=== PATIENT | female | born 1965 | race Hispanic/Latino ===

== ENCOUNTER → 2018-11-10 12:06 | Outpatient (CLI) | payer OTHER, MEDICAID, SELFPAY ==
--- NOTE | 2018-11-10 12:12 | DI.RAD.S_ITS ---
PROCEDURE: XR CERVICAL SPINE 2V OR 3V INDICATIONS: neck pain s/p fall TECHNIQUE: 3 view(s) of the cervical spine were acquired. COMPARISON: None. FINDINGS: Bones: No fractures or dislocations to the C7-T1 level. There is straightening of normal cervical lordosis. The lateral masses of C1 appear intact on the odontoid view. No suspicious bony lesions. Soft tissues: No prevertebral soft tissue swelling. IMPRESSION: No compression fracture or spondylolisthesis in cervical spine. Dictated by: Rafael Rodas M.D. on 11/10/2018 at 13:57 Approved by: Rafael Rodas M.D. on 11/10/2018 at 13:58
[2018-11-10 12:45] LABS: Hemoglobin 13.7 g/dL (12.0-16.0); Mean Corpuscular HGB Conc 31.9 % (30-36); Mean Corpuscular Hemoglobin 27.7 PG (26-34); Mean Corpuscular Volume 86.7 fL (80-100); Platelet Count 321 X10^3/uL (150-400); Red Blood Cell Count 4.95 X10^6/uL (4.0-5.2); Red Cell Distribution Width 15.2 % (11.6-14.8); White Blood Cell Count 5.8 X10^3/uL (4.5-11.0)
[2018-11-10 12:55] LABS: Hemoglobin A1C% w Est Avg Glu 5.7 % (4.0-6.0)
[2018-11-10 12:56] LABS: Alanine Aminotransferase 39 IU/L (9-52); Albumin 4.7 g/dL (3.5-5.0); Albumin Globulin Ratio 1.3 (1.0-2.8); Alkaline Phosphatase 72 U/L (38-126); Aspartate Aminotransferase 40 IU/L (14-36); BUN Creatinine Ratio 18.6 (6-22); Bilirubin Total 0.5 mg/dL (0.2-1.3); Blood Urea Nitrogen 13 mg/dL (7-17); Calcium 9.8 mg/dL (8.4-10.2); Carbon Dioxide 30 mmol/L (22-32); Chloride 105 mmol/L (98-107); Cholesterol 203 mg/dL (140-199); Estimated Glomerular Filt Rate > 60.0 mL/min (>60); Globulin 3.6 g/dL (1.7-4.1); Glucose 99 mg/dL (70-100); HDL Cholesterol 56 mg/dL (40-60); HEMOLYSIS < 15 (0-50); LDL Cholesterol Calculated 109 mg/dL (<100); Potassium 4.6 mmol/L (3.4-5.1); Sodium 143 mmol/L (137-145); Total Protein 8.3 g/dL (6.3-8.2); Triglycerides 188 mg/dL (35-150)
[2018-11-10 13:24] LABS: Neutrophils Absolute Manual 2494 /uL (3000-5900); Total Cells Counted 100
[2018-11-10 13:25] LABS: Anisocytosis 1+
[2018-11-10 13:59] LABS: TSH w/ Reflex to FT4 0.03 uIU/mL (0.47-4.68)
[2018-11-10 14:27] LABS: Free T4, Direct Thyroxine 0.35 ng/dL (0.78-2.19)
== END ==
PROVIDERS: Visit Provider Nurse Practitioner
DX: M54.2 Cervicalgia (principal); I10 Essential (primary) hypertension; R73.9 Hyperglycemia, unspecified; Z91.81 History of falling
CPT/HCPCS: 36415; 72040; 80053; 80061; 83036; 84439; 84443; 85025

== ENCOUNTER → 2018-11-18 07:37 | Outpatient (CLI) | payer OTHER, MEDICAID, SELFPAY ==
[2018-11-18 09:21] LABS: Prolactin 13.7 ng/mL (3.0-18.6)
[2018-11-18 09:35] LABS: Cortisol AM (Before 10AM) 8.86 ug/dL (4.46-22.7)
[2018-11-18 09:41] LABS: Free T3, Triiodothyronine Free 4.35 pg/mL (2.77-5.27)
[2018-11-19 16:07] LABS: Adrenocorticotropic Hormone 24 pg/mL (6-50)
[2018-11-20 17:13] LABS: Growth Hormone < 0.1 ng/mL (< 7.2)
[2018-11-20 20:13] LABS: Z- Score (Female) -0.5 SD (-2.0 - +2.0)
== END ==
PROVIDERS: Visit Provider Nurse Practitioner
DX: E03.9 Hypothyroidism, unspecified (principal); R63.5 Abnormal weight gain; R79.89 Other specified abnormal findings of blood chemistry; R79.9 Abnormal finding of blood chemistry, unspecified
CPT/HCPCS: 36415; 82024; 82533; 83001; 83002; 84146; 84305; 84443; 84481; 86277

== ENCOUNTER 2019-01-23 23:34 | Emergency (ER) | payer OTHER, MEDICAID, SELFPAY ==
[2019-01-23 23:41] VITALS: BP 195/93; PULSE 83; RESP 17; TEMP 37.1; O2SAT 98; BMI 34.0
--- NOTE | 2019-01-23 23:55 | DI.CT.S_ITS ---
PROCEDURE: CT HEAD/BRAIN WO CON INDICATIONS: sudden onset severe [place] TECHNIQUE: Noncontrast 4.5 mm thick angled axial sections acquired from the foramen magnum to the vertex, with coronal and sagittal reformats. For radiation dose reduction, the following was used: automated exposure control, adjustment of mA and/or kV according to patient size. COMPARISON: None. FINDINGS: Image quality: Excellent. CSF spaces: Basal cisterns are patent. No extra-axial fluid collections. Ventricles are normal in size and shape. Brain: No midline shift. No intracranial masses or hemorrhage. Oh-white matter interface is normal. Skull and face: Calvarium and visualized facial bones are intact, without suspicious lesions. Sinuses: Visualized sinuses and mastoids are clear. IMPRESSION: Normal intracranial study. No acute intracranial hemorrhage is seen. Note: No significant discrepancy from the preliminary report. Dictated by: Salinas Ruiz M.D. on 01/24/2019 at 8:43 Approved by: Salinas Ruiz M.D. on 01/24/2019 at 8:43
[2019-01-24 00:02] VITALS: BP 172/88; PULSE 73; RESP 21; O2SAT 98
[2019-01-24 00:30] VITALS: BP 159/79; PULSE 75; RESP 16; O2SAT 98
--- NOTE | 2019-01-24 00:43 | ED_ITS ---
HPI - Headache General Chief Complaint: Headache Stated Complaint: severe headache Time Seen by Provider: 01/23/19 23:46 Source: patient and family Mode of arrival: ambulatory Limitations: no limitations History of Present Illness HPI Narrative: Patient comes emergency department complaining of a headache after getting in an argument with her daughter and has been. Patient states that she believes her was seen bad things about her to her daughter, and that she became very upset. Patient started to cry very hard, and when she began crying hard, she developed a headache that stretch from 1 ear to the o ther. Patient states that she also felt nauseated at the same time. Patient's states that the patient has a history of migraines, but this is not like her migraines. Patient also has a history of catatonic state when she is upset. The patient denies any neck pain or stiffness. She denies any visual changes. No numbness and tingling in her extremities. No weakness or difficulty with balance or gait. No other complaints at this time. Patient has a history of hypertension intermittently, but does not take any medications for this. Related Data Previous Rx's Medication Instructions Recorded hydroxyzine HCl 25 mg tablet 25 mg PO Q6H PRN #30 tab 11/17/18 levothyroxine 25 mcg tablet 25 mcg PO DAILY #30 tab 11/17/18 citalopram 40 mg tablet 40 mg PO DAILY #30 tab 11/30/18 simvastatin 20 mg tablet 20 mg PO BEDTIME #30 tab 11/30/18 desogestrel 0.15 mg-ethinyl 1 tab PO DAILY #84 tab 12/09/18 estradiol 0.03 mg tablet white petrolatum-mineral oil 94 1 applictn EYE-BOTH BEDTIME PRN 12/09/18 %-3 % eye ointment #3.5 gram Allergies Allergy/AdvReac Type Severity Reaction Status Date / Time No Known Drug Allergies Allergy Verified 01/23/19 23:45 Review of Systems Review of Systems ROS Unobtainable: All systems reviewed & are unremarkable except as noted in HPI and below Constitutional Constitutional: Denies chills, Denies fatigue, Denies fever(s), Denies frequent falls, Reports headache(s), Denies lethargy and Denies weakness Eyes Eyes: Denies change in vision, Denies eye discharge, Denies irritation and Denies loss of vision ENT Ears, Nose, Mouth, and Throat: Denies change in voice, Denies dizziness, Reports headache(s), Denies neck pain, Denies sore throat and Denies throat swelling Cardiovascular Cardiovascular: Denies chest pain, Denies irregular heart rhythm, Denies lightheadedness, Denies palpitations, Denies dyspnea, Denies dyspnea on exertion and Denies orthopnea Respiratory Respiratory: Denies cough, Denies dyspnea, Denies dyspnea on exertion and Denies wheezing Gastrointestinal Gastrointestinal: Denies abdominal pain, Denies change in bowel habits, Denies diarrhea, Reports nausea and Denies vomiting Genitourinary Genitourinary: Denies hematuria, Denies flank pain, Denies urinary incontinence and Denies urinary urgency Musculoskeletal Musculoskeletal: Denies back pain, Denies muscle weakness, Denies neck pain, Denies numbness and Denies tingling Integumentary/Breasts Skin/Breast: Denies pruritus, Denies erythema, Denies rash and Denies wounds Neurologic Neurologic: Denies behavioral changes, Denies confusion, Denies dizziness, Denies frequent falls, Reports headache(s), Denies loss of vision, Denies numbness, Denies tingling and Denies weakness Psychiatric Psychiatric: Denies anxiety, Denies behavioral changes, Denies confusion, Denies depression, Denies homicidal ideation and Denies suicidal ideation Endocrine Endocrine: Denies fatigue, Denies flushing and Denies palpitations Hematologic/Lymphatic Hematologic/Lymphatic: Denies easy bruising Allergic/Immunologic Allergic/Immunologic: Denies urticaria, Denies throat swelling and Denies wheezing [facility] Medical History Anxiety (Chronic) Chronic back pain (Chronic) Depression (Chronic) Fracture of right foot (Resolved) Headache (Chronic) Heel pain (Chronic) High cholesterol (Chronic) High triglycerides (Chronic) Migraines (Chronic) Prediabetes (Chronic) Vision disorder (Chronic) Surgical History Anesthesia (Resolved) Previous section (Resolved) Family History (Updated 11/15/18 @ 23:08 by Zo Hart) Father Cancer Mother History of heart disease Brother No problems noted. Social History Smoking Status: Never smoker Family History Father Cancer Mother History of heart disease Brother No problems noted. Social History Smoking Status: Never smoker Exam Initial Vital Signs Initial Vital Signs: Vital Signs Temperature 98.8 F 01/23/19 23:41 Pulse Rate 83 01/23/19 23:41 Respiratory Rate 17 01/23/19 23:41 Blood Pressure 195/93 H 01/23/19 23:41 Pulse Oximetry 98 01/23/19 23:41 Const General: cooperative and well developed Nutritional Appearance: well nourished Orientation: alert, awake, oriented x3 and not confused HENMT Head: normocephalic and atraumatic Ears: external ears normal and TM's normal bilaterally Nose: external nose normal and No nasal discharge Face and sinus: face symmetric and No dry mucous membranes Mouth: oral mucosae normal and moist mucous membranes Teeth and gingiva: dentition normal Eyes General: appearance normal, both eyes and all related structures Eyelids: eyelids normal Conjunctivae: conjunctivae normal Sclera: sclerae normal Pupils: PERRL EOM: EOM intact bilaterally Neck Neck: normal visual inspection, no meningeal signs, trachea midline, No lymphadenopathy, No midline deformity and No JVD Lymphatic: No lymphedema Other: Patient has full range of motion, including that she is able to flex her neck to touch her chin to her chest. Chest Chest: normal inspection of the chest Resp Effort & Inspection: normal respiratory effort, able to speak in complete sentences, no respiratory distress and no use of accessory muscles Auscultation: clear to auscultation bilaterally, no rales, no rhonchi and no wheezes Cardio Rate: regular rate Rhythm: regular rhythm Heart Sounds: no click, no gallops, no murmurs and no rubs Pulses: normal peripheral pulses GI Inspection: non-distended Palpation: soft, no hepatosplenomegaly, No guarding, No pulsatile mass and No tender Back/Spine/Pelvis Back: No CVA tenderness Cervical Spine: cervical ROM normal and No pain with cervical ROM Thoracic/Lumbar Spine: thoracic and lumbar spine normal to inspection Skin General: no rashes or lesions noted, No jaundice and No petechiae Neuro General: alert, oriented x3, gait normal and no focal motor deficits Speech: speech normal Extrem General: full ROM, no clubbing, cyanosis or edema, no pedal edema and no calf tenderness Psych Appearance: well kempt Mental Status: mental status grossly normal Attitude: cooperative Thought Content: normal and suicidality Judgment: judgment good Course Course Course Narrative: Patient was sent for CT scan of the head, which was found to be negative. The patient was found to be improving symptomatically by the time she returned from CT scan. She was treated symptomatically with Toradol and Zofran. I felt the patient was stable for discharge home. Patient does not display meningeal signs, and is improving. She has no neurologic symptoms, it additionally, her CT scan is negative. I do not feel it is likely she has a subarachnoid hemorrhage. We have discussed home management of symptoms, as well as the usual indications for return. Her is with her, and can take her home. Orders Ordered: Discontinued Medications Ketorolac Tromethamine (Toradol) 30 mg IV NOW ONE Stop: 01/24/19 00:43 Last Admin: 01/24/19 00:50 Dose: 30 mg Documented by: LÁZARO Ondansetron HCl (Zofran) 4 mg IV NOW ONE Stop: 01/24/19 00:43 Last Admin: 01/24/19 00:50 Dose: 4 mg Documented by: LÁZARO Vital Signs Vital signs: Vital Signs - 8 hr 01/23/19 23:41 01/24/19 00:02 01/24/19 00:30 Temperature 98.8 F Pulse Rate 83 73 75 Respiratory Rate 17 21 16 Blood Pressure 195/93 H Blood Pressure [Right Arm] 172/88 H 159/79 H Pulse Oximetry 98 98 98 MDM - Headache Medical Records Attestation: I reviewed the patient's medical records. Imaging Data CT scan - head: Radiologist's impression: PROCEDURE: CT HEAD/BRAIN WO CON INDICATIONS: sudden onset severe [place] TECHNIQUE: Noncontrast 4.5 mm thick angled axial sections acquired from the foramen magnum to the vertex, with coronal and sagittal reformats. For radiation dose reduction, the following was used: automated exposure control, adjustment of mA and/or kV according to patient size. COMPARISON: None. FINDINGS: Image quality: Excellent. CSF spaces: Basal cisterns are patent. No extra-axial fluid collections. Ventricles are normal in size and shape. Brain: No midline shift. No intracranial masses or hemorrhage. Oh-white matter interface is normal. Skull and face: Calvarium and visualized facial bones are intact, without suspicious lesions. Sinuses: Visualized sinuses and mastoids are clear. IMPRESSION: Normal intracranial study. No acute intracranial hemorrhage is seen. Note: No significant discrepancy from the preliminary report. Dictated by: Salinas Ruiz M.D. on 01/24/2019 at 8:43 Approved by: Salinas Ruiz M.D. on 01/24/2019 at 8:43 Discharge Plan Departure Patient Disposition: Home Clinical Impression: Headache Qualifiers: Headache type: tension-type Headache chronicity pattern: acute headache Intractability: not intractable Qualified Code(s): G44.209 - Tension-type heada karen, unspecified, not intractable Hypertension Qualifiers: Hypertension type: unspecified Qualified Code(s): I10 - Essential (primary) hypertension Discharge Date/Time: 01/24/19 01:12 Instructions: DI for High Blood Pressure, DI for Headache Prescriptions: No Action citalopram 40 mg tablet 40 mg PO DAILY Qty: 30 RF: 1 simvastatin 20 mg tablet 20 mg PO BEDTIME Qty: 30 RF: 1 levothyroxine [Synthroid] 25 mcg tablet 25 mcg PO DAILY Qty: 30 RF: 2 hydroxyzine HCl 25 mg tablet 25 mg PO Q6H PRN (Reason: anxiety) Qty: 30 RF: 0 Systane Nighttime 94-3 % ointment 1 applictn EYE-BOTH BEDTIME PRN (Reason: dry eye(s)) Qty: 3.5 RF: 5 desogestrel-ethinyl estradiol 0.15-0.03 mg tablet 1 tab PO DAILY Qty: 84 RF: 3 Referrals: Keshia Nieves ARNP [Primary Care Provider] -
[2019-01-24] MEDS: KETOROLAC 60 MG/2 ML VIAL 30 MG IV (00:50)
[2019-01-24] MEDS: ONDANSETRON 4 MG/2 ML INJ IV (00:50)
[2019-01-24 00:53] VITALS: BP 159/79; PULSE 65; RESP 17; O2SAT 97
== END 2019-01-24 01:12 | disposition home or self-care (01) ==
PROVIDERS: Emergency Provider Emergency Medicine; PCP Nurse Practitioner
DX: G44.209 Tension-type headache, unspecified, not intractable (principal); I10 Essential (primary) hypertension
CPT/HCPCS: 36591; 70450; 96374; 96375; 99283; 99284; J1885; J2405

== ENCOUNTER → 2019-02-15 13:29 | Outpatient (CLI) | payer OTHER, MEDICAID, SELFPAY ==
--- NOTE | 2019-02-15 13:31 | DI.US.S_ITS ---
PROCEDURE: US PELVIC COMPLETE INDICATIONS: POST MENOPAUSAL BLEEDING TECHNIQUE: Real-time scanning was performed of the pelvic organs, with image documentation. Additional endovaginal scanning was necessary due to incomplete visualization of the adnexal and endometrial structures by transabdominal scanning. COMPARISON: [facility] Ultrasound, US, US PELVIC COMPLETE WITH TRANSVAGINAL, 11/13/2017, 13:50. FINDINGS: Transabdominal scanning: Limited scanning through the kidneys shows no hydronephrosis. No pathologic free abdominal or pelvic fluid. Endovaginal scanning: Uterus: Uterus is normal in size at 8.3 x 3.5 x 5.4 cm. The endometrium suboptimally visualized and cannot be accurately assessed. Mass cannot be excluded. 2.0 x 1.2 x 1.2 cm anterior intramural fibroid. Ovaries: Ovaries normal bilaterally measuring 1.8 x 1.0 x 1.4 cm on the right and 1.9 x 1.0 x 1.1 cm on the left. IMPRESSION: 1. The endometrial complex is suboptimally visualized and cannot be accurately assessed. If indicated, pre and post contrast gynecologic protocol MRI could be performed for further assessment. 2. No significant change in uterine fibroid. Dictated by: Enzo BLAND Interpreted: Cristina Jessica MD on 02/15/2019 at 14:25 Approved by: Cristina Jessica M.D. on 02/15/2019 at 17:07
== END ==
PROVIDERS: PCP Nurse Practitioner; Visit Provider Nurse Practitioner
DX: N95.0 Postmenopausal bleeding (principal)
CPT/HCPCS: 76830; 76856

== ENCOUNTER 2019-02-22 16:45 | Outpatient (RCR) | payer OTHER, MEDICAID, SELFPAY ==
--- NOTE | 2018-12-14 14:30 | PT.OIE ---
Current Diagnoses Cervicalgia (12/14/18) Pain in thoracic spine (12/14/18) History of falling (12/14/18) Past Medical History (Last Updated 11/15/18 @ 23:07 by Zo Hart) Anxiety (Chronic) Chronic back pain (Chronic) Depression (Chronic) Headache (Chronic) Heel pain (Chronic) High cholesterol (Chronic) High triglycerides (Chronic) Migraines (Chronic) Prediabetes (Chronic) Vision disorder (Chronic) Fracture of right foot (Resolved) Past Surgical History (Last Updated 11/15/18 @ 23:07 by Zo Hart) Anesthesia (Resolved) Previous section (Resolved) Provider Visit Care Team Role Provider Type MIGUEL Anna Attending Provider Advanced Clinical Laboratory Scientist Primary Care Provider Specialty: Family Practice Address: [address] [place] [address], [facility] Email: Physical Therapy Initial Evaluation PT-OP-A Visit Information Start: 12/14/18 16:58 Freq: Status: Active Protocol: Document 12/14/18 13:45 DCW (Rec: 12/14/18 17:14 DCW [id number]) Out-Patient Physical Therapy Visit Information Visit Information Visit Type Initial Evaluation Visit Start Time 13:45 Visit Stop Time 14:30 Total Visit Minutes 45 Visit Number 1 Number of MASH GRINDER Visits 0 Evaluation Information Evaluation Date 12/14/18 PT-OP-B Current Condition Start: 12/14/18 16:58 Freq: Status: Active Protocol: Document 12/14/18 13:45 DCW (Rec: 12/14/18 17:14 DCW [id number]) Current Condition History of Current Condition Onset Date 2 months Current Complaints pain in neck, shoulders, and low back History of Current Condition Pt is a 53 year old swazi- speaking 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 Pt has a two month history of neck, shoulder, and low back pain after falling while chasing after a young grandchild who was running toward that road. Pt notes she has constant pain that is worsened when trying to pick anything up, and has radiating pain down along her arm to her wrist bilaterally. Pt notes that when her pain is worsening, she can't do anything, and just sits back in a recliner. Pt also notes that she saw a chiropractor for her neck pain, but only went once because it made the pain worse. Prior Treatments and Tests Cervical X-ray: No compression fracture or spondylolisthesis in cervical spine. per Rafael Rodas M.D. on 11/10/2018 PT-OP-C Subjective Start: 12/14/18 16:58 Freq: Status: Active Protocol: Document 12/14/18 13:45 DCW (Rec: 12/14/18 17:14 DCW [id number]) OP-PT Subjective Patient Comments Patient Comments Pt feels her pain has been worsening over the ast two months Patient Reported Progress Worse Patient Questionnaires Neck Disability Index NDI Score 27/45 = 60% Neck Disability Index Impairment 60 to 79% Impaired (Score 30- 39) OP-PT Pain Assessment Pain Assessment Grid Paper Pain Assessment Grid Completed No PT-OP-F Manual Assessment Start: 12/14/18 16:58 Freq: Status: Active Protocol: Document 12/14/18 13:45 DCW (Rec: 12/14/18 17:14 DCW [id number]) Manual Assessments Soft Tissue Assessment Soft Tissue Mobility Assessment Severe tone and tenderness to palpation 3/4: Wincing and withdraw along bilateral upper traps, scalenes, Quadratus lumborum, and lumbar paraspinals. Joint Mobility Assessment Joint Mobility Assessment Pt winces and cries out with pain during passive neck flexion, as well as with mild palpation of C7 PT-OP-J Posture/Palpation/Skin Start: 12/14/18 16:58 Freq: Status: Active Protocol: Document 12/14/18 13:45 DCW (Rec: 12/16/18 14:09 DCW [id number]) Posture Evaluation Position Sitting Evaluation View Lateral Head/C-Spine Posture Flexed Forward Head Pelvis Posture Posterior Tilted Palpation Assessment Location Three Palpation Location Bilateral Quadratus Lumborum Palpation Findings Soft Tissue Tightness Spasm Muscle Guarding Tenderness Two Palpation Location Bilateral Upper Trap Palpation Findings Soft Tissue Tightness Spasm Muscle Guarding Tenderness One Palpation Location C7 Palpation Findings Tenderness Palpation Details Pt cries out in pain with any palpation of C7 PT-OP-K Range of Motion Start: 12/14/18 16:58 Freq: Status: Active Protocol: Document 12/14/18 13:45 DCW (Rec: 12/16/18 14:09 DCW [id number]) Cervical Spine Range of Motion Cervical Spine Active Degrees Testing Position Sitting Flexion 60 Extension 45 Rotation Left 68 Rotation Right 66 Lateral Flexion Left 25 Lateral Flexion Right 23 ROM Limitations Soft Tissue Tightness Muscle Weakness Muscle Tone Pain Shoulder Goniometric Range of Motion Shoulder Right Active Testing Position Sitting Flexion 98 Abduction 124 Left Active Testing Position Sitting Flexion 87 Abduction 120 PT-OP-L Special Tests Start: 12/14/18 16:58 Freq: Status: Active Protocol: Document 12/14/18 13:45 DCW (Rec: 12/16/18 14:09 DCW [id number]) Special Tests Cervical Spine Special Tests Slump Test Results Severe C7 pain Traction Test Results Negative Spurling's Test Test Results Negative Passive Neck Flexion Test Results Severe C7 pain Foraminal Compression Test Results Negative PT-OP-M Strength Start: 12/14/18 16:58 Freq: Status: Active Protocol: Document 12/14/18 13:45 DCW (Rec: 12/16/18 14:09 DCW [id number]) Trunk Strength Trunk Manual Muscle Testing Core Stabilization Pt has difficulty caron TrA during posterior pelvic tilt: TrA MMT 3-/5 Shoulder Strength Shoulder Manual Muscle Testing Right Flexion 3- Fair- Abduction (C5) 3- Fair- External Rotation 4 Good Internal Rotation 4 Good Left Flexion 3- Fair- Abduction (C5) 3- Fair- External Rotation 4 Good Internal Rotation 4 Good PT-OP-Q Treatments Start: 12/14/18 16:58 Freq: Status: Active Protocol: Document 12/14/18 13:45 DCW (Rec: 12/16/18 14:09 DCW [id number]) Therapeutic Exercises Supine Exercises PPT /c TrA Supine Exercise Name PPT /c TrA contraction Reps/Minutes 5 sec hold Sitting Exercises Anterior Scalene stretch Sitting Exercise Name Anterior Scalene stretch Side bilateral Comments Lateral cervical flexion, then look up Upper Trap Stretch Sitting Exercise Name Upper Trap stretch Side bilateral Comments Lateral cervical flexion PT-OP-T Assessment and Plan Start: 12/14/18 16:58 Freq: Status: Active Protocol: Document 12/14/18 13:45 DCW (Rec: 12/16/18 14:09 DCW [id number]) Physical Therapy Assessment Rehab Potential Rehabilitation Potential Good Evaluation Complexity Number of Personal Factors/Comorbidities 1-2 Number of Body Systems Impaired 3 Clinical Presentation at Evaluation Evolving Impairments Impairments Functional Activities Pain Posture ROM Soft Tissue Mobility Strength Tone Goals Four Impairment Restricted Shoulder ROM Group Home Goal (LTG) Pt to display flexion and abduction ROM of bilateral shoulder to at least 140? LTG Duration 02/14/19 Three Impairment Weakness Short Term Goal (STG) Pt to display shoulder MMT of 4/5 STG Duration 01/14/19 Group Home Goal (LTG) Pt to display TrA MMT of 4/5 LTG Duration 02/14/19 Two Impairment Pt complains of pain with picking up anything heavier than 5 pounds Electronics Assembler Goal (LTG) Pt to lift grandchild with no reports of increased back pain LTG Duration 02/14/19 One Impairment Pt does not have an appropriate home exercise program Short Term Goal (STG) Pt to be independent and complaint with an appropriate HEP STG Duration 01/14/19 Assessment Summary Assessment Pt currently difficult to DDx, has most of her pain appears to occur with cervical motion or palpation directly at C7, however recent x-ray entirely negative. Pt does exhibit significant tone in both upper traps, bilateral scalenes, and levators, along with additional QL tone. Due to time constraints, pt's evaluation focused mainly on her cervical spine at this time, and her lumbar spine should be more closely assessed at an upcoming follow -up appointment, however she did have notable TrA weakness. Pt should benefit from skilled therapy focused on decreasing tone, improving strength and ROM, and improving posture to decrease forward head. Physical Therapy Plan Frequency and Duration Frequency of Treatment 2x/Week Duration of Treatment 10 weeks Plan of Care Start Date 12/14/18 Plan of Care End Date 02/22/19 Therapeutic Interventions Therapeutic Interventions Aquatic Therapy Home Exercise Program Joint Mobilizations Manual Therapy Neuromuscular Re-education Patient/Caregiver Education Self-Care/Home Management Soft Tissue Mobilization Therapeutic Activities Therapeutic Exercises Modalities Cold Pack/Ice Massage Electric Stimulation Hot Packs Ultrasound Next Visit Focus/Plan Next Note Type Treatment Note Next Visit Plan Flexibility/STM of cervical spine/paraspinals, lumbar STM, manual traction, pain-control modalities, increased core and shoulder strength. Assess low back as indicated
--- NOTE | 2018-12-15 14:30 | PT.OPPOC ---
Current Diagnoses Cervicalgia (12/14/18) Pain in thoracic spine (12/14/18) History of falling (12/14/18) Provider Visit Care Team Role Provider Type MIGUEL Anna Attending Provider Advanced Coiler Operator Primary Care Provider Specialty: Family Practice Address: [address] [place] [address], [facility] Email: Plan Of Care PT-OP-T Assessment and Plan Start: 12/14/18 16:58 Freq: Status: Active Protocol: Document 12/14/18 13:45 DCW (Rec: 12/16/18 14:09 DCW [id number]) Physical Therapy Assessment Rehab Potential Rehabilitation Potential Good Evaluation Complexity Number of Personal Factors/Comorbidities 1-2 Number of Body Systems Impaired 3 Clinical Presentation at Evaluation Evolving Impairments Impairments Functional Activities Pain Posture ROM Soft Tissue Mobility Strength Tone Goals Four Impairment Restricted Shoulder ROM Hydrogenation Operator Goal (LTG) Pt to display flexion and abduction ROM of bilateral shoulder to at least 140? LTG Duration 02/14/19 Three Impairment Weakness Short Term Goal (STG) Pt to display shoulder MMT of 4/5 STG Duration 01/14/19 Intermediate Goal (LTG) Pt to display TrA MMT of 4/5 LTG Duration 02/14/19 Two Impairment Pt complains of pain with picking up anything heavier than 5 pounds Hydrogenation Operator Goal (LTG) Pt to lift grandchild with no reports of increased back pain LTG Duration 02/14/19 One Impairment Pt does not have an appropriate home exercise program Short Term Goal (STG) Pt to be independent and complaint with an appropriate HEP STG Duration 01/14/19 Assessment Summary Assessment Pt currently difficult to DDx, has most of her pain appears to occur with cervical motion or palpation directly at C7, however recent x-ray entirely negative. Pt does exhibit significant tone in both upper traps, bilateral scalenes, and levators, along with additional QL tone. Due to time constraints, pt's evaluation focused mainly on her cervical spine at this time, and her lumbar spine should be more closely assessed at an upcoming follow -up appointment, however she did have notable TrA weakness. Pt should benefit from skilled therapy focused on decreasing tone, improving strength and ROM, and improving posture to decrease forward head. Physical Therapy Plan Frequency and Duration Frequency of Treatment 2x/Week Duration of Treatment 10 weeks Plan of Care Start Date 12/14/18 Plan of Care End Date 02/22/19 Therapeutic Interventions Therapeutic Interventions Aquatic Therapy Home Exercise Program Joint Mobilizations Manual Therapy Neuromuscular Re-education Patient/Caregiver Education Self-Care/Home Management Soft Tissue Mobilization Therapeutic Activities Therapeutic Exercises Modalities Cold Pack/Ice Massage Electric Stimulation Hot Packs Ultrasound Next Visit Focus/Plan Next Note Type Treatment Note Next Visit Plan Flexibility/STM of cervical spine/paraspinals, lumbar STM, manual traction, pain-control modalities, increased core and shoulder strength. Assess low back as indicated Plan of Care Dates Plan of Care Start Date 12/14/18 Plan of Care End Date 02/22/19 Please Sign and Return: I have reviewed this Plan of Care and certify that the skilled therapy services above are required to meet the patient?s needs. Physician Signature Date Printed Name and Credentials Clinical Instructor Signature Printed Name and Credentials
--- NOTE | 2018-12-17 14:16 | PT.OTN ---
Current Diagnoses Cervicalgia (12/17/18) Pain in thoracic spine (12/17/18) History of falling (12/17/18) Physical Therapy Treatment Note PT-OP-A Visit Information Start: 12/14/18 16:58 Freq: Status: Active Protocol: Document 12/17/18 13:45 DCW (Rec: 12/17/18 14:15 DCW [id number]) Out-Patient Physical Therapy Visit Information Visit Information Visit Type Treatment Note Visit Start Time 13:45 Visit Stop Time 14:30 Total Visit Minutes 45 Visit Number 2 Number of BELT REPAIRER Visits 0 Evaluation Information Evaluation Date 12/14/18 PT-OP-B Current Condition Start: 12/14/18 16:58 Freq: Status: Active Protocol: Document 12/14/18 13:45 DCW (Rec: 12/14/18 17:14 DCW [id number]) Current Condition History of Current Condition Onset Date 2 months Current Complaints pain in neck, shoulders, and low back History of Current Condition 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 Pt has a two month history of neck, shoulder, and low back pain after falling while chasing after a young grandchild who was running toward that road. Pt notes she has constant pain that is worsened when trying to pick anything up, and has radiating pain down along her arm to her wrist bilaterally. Pt notes that when her pain is worsening, she can't do anything, and just sits back in a recliner. Pt also notes that she saw a chiropractor for her neck pain, but only went once because it made the pain worse. Prior Treatments and Tests Cervical X-ray: No compression fracture or spondylolisthesis in cervical spine. per Rafael Rodas M.D. on 11/10/2018 PT-OP-C Subjective Start: 12/14/18 16:58 Freq: Status: Active Protocol: Document 12/17/18 13:45 DCW (Rec: 12/17/18 14:15 DCW [id number]) OP-PT Subjective Patient Comments Patient Comments Pt has been able to perform her HEP stretching, and notes that her neck has been feeling better. PT-OP-F Manual Assessment Start: 12/14/18 16:58 Freq: Status: Active Protocol: Document 12/14/18 13:45 DCW (Rec: 12/14/18 17:14 DCW [id number]) Manual Assessments Soft Tissue Assessment Soft Tissue Mobility Assessment Severe tone and tenderness to palpation 3/4: Wincing and withdraw along bilateral upper traps, scalenes, Quadratus lumborum, and lumbar paraspinals. Joint Mobility Assessment Joint Mobility Assessment Pt winces and cries out with pain during passive neck flexion, as well as with mild palpation of C7 PT-OP-J Posture/Palpation/Skin Start: 12/14/18 16:58 Freq: Status: Active Protocol: Document 12/14/18 13:45 DCW (Rec: 12/16/18 14:09 DCW [id number]) Posture Evaluation Position Sitting Evaluation View Lateral Head/C-Spine Posture Flexed Forward Head Pelvis Posture Posterior Tilted Palpation Assessment Location Three Palpation Location Bilateral Quadratus Lumborum Palpation Findings Soft Tissue Tightness Spasm Muscle Guarding Tenderness Two Palpation Location Bilateral Upper Trap Palpation Findings Soft Tissue Tightness Spasm Muscle Guarding Tenderness One Palpation Location C7 Palpation Findings Tenderness Palpation Details Pt cries out in pain with any palpation of C7 PT-OP-K Range of Motion Start: 12/14/18 16:58 Freq: Status: Active Protocol: Document 12/14/18 13:45 DCW (Rec: 12/16/18 14:09 DCW [id number]) Cervical Spine Range of Motion Cervical Spine Active Degrees Testing Position Sitting Flexion 60 Extension 45 Rotation Left 68 Rotation Right 66 Lateral Flexion Left 25 Lateral Flexion Right 23 ROM Limitations Soft Tissue Tightness Muscle Weakness Muscle Tone Pain Shoulder Goniometric Range of Motion Shoulder Right Active Testing Position Sitting Flexion 98 Abduction 124 Left Active Testing Position Sitting Flexion 87 Abduction 120 PT-OP-L Special Tests Start: 12/14/18 16:58 Freq: Status: Active Protocol: Document 12/14/18 13:45 DCW (Rec: 12/16/18 14:09 DCW [id number]) Special Tests Cervical Spine Special Tests Slump Test Results Severe C7 pain Traction Test Results Negative Spurling's Test Test Results Negative Passive Neck Flexion Test Results Severe C7 pain Foraminal Compression Test Results Negative PT-OP-M Strength Start: 12/14/18 16:58 Freq: Status: Active Protocol: Document 12/14/18 13:45 DCW (Rec: 12/16/18 14:09 DCW [id number]) Trunk Strength Trunk Manual Muscle Testing Core Stabilization Pt has difficulty caron TrA during posterior pelvic tilt: TrA MMT 3-/5 Shoulder Strength Shoulder Manual Muscle Testing Right Flexion 3- Fair- Abduction (C5) 3- Fair- External Rotation 4 Good Internal Rotation 4 Good Left Flexion 3- Fair- Abduction (C5) 3- Fair- External Rotation 4 Good Internal Rotation 4 Good PT-OP-Q Treatments Start: 12/14/18 16:58 Freq: Status: Active Protocol: Document 12/17/18 13:45 DCW (Rec: 12/17/18 14:15 DCW [id number]) Therapeutic Exercises Supine Exercises Shoulder Horizontal Adduction Supine Exercise Name Horizontal Adduction Side bilateral Resistance 2# Serratus Punch Supine Exercise Name Serratus Punch Side bilateral Resistance 2# Sitting Exercises Anterior Scalene stretch Sitting Exercise Name Anterior Scalene stretch Side bilateral Comments Lateral cervical flexion, then look up Upper Trap Stretch Sitting Exercise Name Upper Trap stretch Side bilateral Comments Lateral cervical flexion Manual Therapy Treatment Soft Tissue Mobilization Upper Trap Body Location B UT, Scalenes, Levator, Suboccipitals Mobilization Type Strain/Counterstrain Strumming Sustained Pressure Body Position Supine Manual Traction Cervical Details Cervical traction Body Position Supine PT-OP-R Modalities Start: 12/14/18 16:58 Freq: Status: Active Protocol: Document 12/17/18 13:45 DCW (Rec: 12/17/18 14:16 DCW [id number]) Electric Stimulation Electric Stimulation Interferential Current (IFC) Body Location Bilateral upper traps Duration (Minutes) 15 Cycle Continuous Patient Position Hooklying Combined With Heat/Cold Hot Pack PT-OP-T Assessment and Plan Start: 12/14/18 16:58 Freq: Status: Active Protocol: Document 12/17/18 13:45 DCW (Rec: 12/17/18 14:15 DCW [id number]) Physical Therapy Assessment Impairments Impairments Functional Activities Pain Posture ROM Soft Tissue Mobility Strength Tone Goals Four Impairment Restricted Shoulder ROM Portuguese Tutor Goal (LTG) Pt to display flexion and abduction ROM of bilateral shoulder to at least 140? LTG Duration 02/14/19 Three Impairment Weakness Short Term Goal (STG) Pt to display shoulder MMT of 4/5 STG Duration 01/14/19 [facility] Goal (LTG) Pt to display TrA MMT of 4/5 LTG Duration 02/14/19 Two Impairment Pt complains of pain with picking up anything heavier than 5 pounds [facility] Goal (LTG) Pt to lift grandchild with no reports of increased back pain LTG Duration 02/14/19 One Impairment Pt does not have an appropriate home exercise program Short Term Goal (STG) Pt to be independent and complaint with an appropriate HEP STG Duration 01/14/19 Assessment Summary Assessment Pt demonstrates substantially less pain today that she did Thursday at her evaluation, able to tolerate much more manual palpation and activity. Physical Therapy Plan Frequency and Duration Frequency of Treatment 2x/Week Duration of Treatment 10 weeks Plan of Care Start Date 12/14/18 Plan of Care End Date 02/22/19 Therapeutic Interventions Therapeutic Interventions Aquatic Therapy Home Exercise Program Joint Mobilizations Manual Therapy Neuromuscular Re-education Patient/Caregiver Education Self-Care/Home Management Soft Tissue Mobilization Therapeutic Activities Therapeutic Exercises Modalities Cold Pack/Ice Massage Electric Stimulation Hot Packs Ultrasound Next Visit Focus/Plan Next Note Type Treatment Note Next Visit Plan Flexibility/STM of cervical spine/paraspinals, lumbar STM, manual traction, pain-control modalities, increased core and shoulder strength. Assess low back as indicated
--- NOTE | 2019-01-17 16:00 | PT.OTN ---
Current Diagnoses Cervicalgia (01/17/19) Pain in thoracic spine (01/17/19) History of falling (01/17/19) Physical Therapy Treatment Note PT-OP-A Visit Information Start: 12/14/18 16:58 Freq: Status: Active Protocol: Document 01/17/19 15:15 DCW (Rec: 01/17/19 15:59 DCW [id number]) Out-Patient Physical Therapy Visit Information Visit Information Visit Type Treatment Note Visit Start Time 15:15 Visit Stop Time 16:00 Total Visit Minutes 45 Visit Number 3 Number of PLANNING SPECIALIST Visits 0 Evaluation Information Evaluation Date 12/14/18 PT-OP-B Current Condition Start: 12/14/18 16:58 Freq: Status: Active Protocol: Document 12/14/18 13:45 DCW (Rec: 12/14/18 17:14 DCW [id number]) Current Condition History of Current Condition Onset Date 2 months Current Complaints pain in neck, shoulders, and low back History of Current Condition Pt is a 53 year old japanese- speaking 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 Pt has a two month history of neck, shoulder, and low back pain after falling while chasing after a young grandchild who was running toward that road. Pt notes she has constant pain that is worsened when trying to pick anything up, and has radiating pain down along her arm to her wrist bilaterally. Pt notes that when her pain is worsening, she can't do anything, and just sits back in a recliner. Pt also notes that she saw a chiropractor for her neck pain, but only went once because it made the pain worse. Prior Treatments and Tests Cervical X-ray: No compression fracture or spondylolisthesis in cervical spine. per Rafael Rodas M.D. on 11/10/2018 PT-OP-C Subjective Start: 12/14/18 16:58 Freq: Status: Active Protocol: Document 01/17/19 15:15 DCW (Rec: 01/17/19 15:59 DCW [id number]) OP-PT Subjective Patient Comments Patient Comments Pt reports she feels better, but is still having pain along her upper traps and down the back of her upper arms. PT-OP-F Manual Assessment Start: 12/14/18 16:58 Freq: Status: Active Protocol: Document 12/14/18 13:45 DCW (Rec: 12/14/18 17:14 DCW [id number]) Manual Assessments Soft Tissue Assessment Soft Tissue Mobility Assessment Severe tone and tenderness to palpation 3/4: Wincing and withdraw along bilateral upper traps, scalenes, Quadratus lumborum, and lumbar paraspinals. Joint Mobility Assessment Joint Mobility Assessment Pt winces and cries out with pain during passive neck flexion, as well as with mild palpation of C7 PT-OP-J Posture/Palpation/Skin Start: 12/14/18 16:58 Freq: Status: Active Protocol: Document 12/14/18 13:45 DCW (Rec: 12/16/18 14:09 DCW [id number]) Posture Evaluation Position Sitting Evaluation View Lateral Head/C-Spine Posture Flexed Forward Head Pelvis Posture Posterior Tilted Palpation Assessment Location Three Palpation Location Bilateral Quadratus Lumborum Palpation Findings Soft Tissue Tightness Spasm Muscle Guarding Tenderness Two Palpation Location Bilateral Upper Trap Palpation Findings Soft Tissue Tightness Spasm Muscle Guarding Tenderness One Palpation Location C7 Palpation Findings Tenderness Palpation Details Pt cries out in pain with any palpation of C7 PT-OP-K Range of Motion Start: 12/14/18 16:58 Freq: Status: Active Protocol: Document 12/14/18 13:45 DCW (Rec: 12/16/18 14:09 DCW [id number]) Cervical Spine Range of Motion Cervical Spine Active Degrees Testing Position Sitting Flexion 60 Extension 45 Rotation Left 68 Rotation Right 66 Lateral Flexion Left 25 Lateral Flexion Right 23 ROM Limitations Soft Tissue Tightness Muscle Weakness Muscle Tone Pain Shoulder Goniometric Range of Motion Shoulder Right Active Testing Position Sitting Flexion 98 Abduction 124 Left Active Testing Position Sitting Flexion 87 Abduction 120 PT-OP-L Special Tests Start: 12/14/18 16:58 Freq: Status: Active Protocol: Document 12/14/18 13:45 DCW (Rec: 12/16/18 14:09 DCW [id number]) Special Tests Cervical Spine Special Tests Slump Test Results Severe C7 pain Traction Test Results Negative Spurling's Test Test Results Negative Passive Neck Flexion Test Results Severe C7 pain Foraminal Compression Test Results Negative PT-OP-M Strength Start: 12/14/18 16:58 Freq: Status: Active Protocol: Document 12/14/18 13:45 DCW (Rec: 12/16/18 14:09 DCW [id number]) Trunk Strength Trunk Manual Muscle Testing Core Stabilization Pt has difficulty caron TrA during posterior pelvic tilt: TrA MMT 3-/5 Shoulder Strength Shoulder Manual Muscle Testing Right Flexion 3- Fair- Abduction (C5) 3- Fair- External Rotation 4 Good Internal Rotation 4 Good Left Flexion 3- Fair- Abduction (C5) 3- Fair- External Rotation 4 Good Internal Rotation 4 Good PT-OP-Q Treatments Start: 12/14/18 16:58 Freq: Status: Active Protocol: Document 01/17/19 15:15 DCW (Rec: 01/17/19 15:59 DCW [id number]) Therapeutic Exercises Supine Exercises Shoulder Horizontal Adduction Supine Exercise Name Horizontal Adduction Side bilateral Resistance 2# Sitting Exercises Upper Trap Stretch Sitting Exercise Name Upper Trap stretch Side bilateral Comments Lateral cervical flexion Manual Therapy Treatment Soft Tissue Mobilization Upper Trap Body Location B UT, Scalenes, Levator, Suboccipitals Mobilization Type Strain/Counterstrain Strumming Sustained Pressure Body Position Supine Manual Traction Cervical Details Cervical traction Body Position Supine PT-OP-R Modalities Start: 12/14/18 16:58 Freq: Status: Active Protocol: Document 01/17/19 15:15 DCW (Rec: 01/17/19 15:59 DCW [id number]) Electric Stimulation Electric Stimulation Interferential Current (IFC) Body Location Bilateral upper traps Duration (Minutes) 15 Cycle Continuous Patient Position Hooklying Combined With Heat/Cold Hot Pack PT-OP-T Assessment and Plan Start: 12/14/18 16:58 Freq: Status: Active Protocol: Document 01/17/19 15:15 DCW (Rec: 01/17/19 15:59 DCW [id number]) Physical Therapy Assessment Impairments Impairments Functional Activities Pain Posture ROM Soft Tissue Mobility Strength Tone Goals Four Impairment Restricted Shoulder ROM Residential Goal (LTG) Pt to display flexion and abduction ROM of bilateral shoulder to at least 140? LTG Duration 02/14/19 Three Impairment Weakness Short Term Goal (STG) Pt to display shoulder MMT of 4/5 STG Duration 01/14/19 Senior Manufacturing Supervisor Goal (LTG) Pt to display TrA MMT of 4/5 LTG Duration 02/14/19 Two Impairment Pt complains of pain with picking up anything heavier than 5 pounds Senior Manufacturing Supervisor Goal (LTG) Pt to lift grandchild with no reports of increased back pain LTG Duration 02/14/19 One Impairment Pt does not have an appropriate home exercise program Short Term Goal (STG) Pt to be independent and complaint with an appropriate HEP STG Duration 01/14/19 Assessment Summary Assessment Pt again noticeably less tenderness with STM and stretching today, appears to be making good improvement despite infrequent attendance. Physical Therapy Plan Frequency and Duration Frequency of Treatment 2x/Week Duration of Treatment 10 weeks Plan of Care Start Date 12/14/18 Plan of Care End Date 02/22/19 Therapeutic Interventions Therapeutic Interventions Aquatic Therapy Home Exercise Program Joint Mobilizations Manual Therapy Neuromuscular Re-education Patient/Caregiver Education Self-Care/Home Management Soft Tissue Mobilization Therapeutic Activities Therapeutic Exercises Modalities Cold Pack/Ice Massage Electric Stimulation Hot Packs Ultrasound Next Visit Focus/Plan Next Note Type Treatment Note Next Visit Plan Flexibility/STM of cervical spine/paraspinals, lumbar STM, manual traction, pain-control modalities, increased core and shoulder strength. Assess low back as indicated
--- NOTE | 2019-01-21 14:20 | PT.OTN ---
Current Diagnoses Cervicalgia (01/21/19) Pain in thoracic spine (01/21/19) History of falling (01/21/19) Physical Therapy Treatment Note PT-OP-A Visit Information Start: 12/14/18 16:58 Freq: Status: Active Protocol: Document 01/21/19 13:45 DCW (Rec: 01/21/19 14:19 DCW [id number]) Out-Patient Physical Therapy Visit Information Visit Information Visit Type Treatment Note Visit Start Time 13:45 Visit Stop Time 14:35 Total Visit Minutes 50 Visit Number 4 Number of CONTROL OFFICER MANAGER Visits 0 Evaluation Information Evaluation Date 12/14/18 PT-OP-B Current Condition Start: 12/14/18 16:58 Freq: Status: Active Protocol: Document 12/14/18 13:45 DCW (Rec: 12/14/18 17:14 DCW [id number]) Current Condition History of Current Condition Onset Date 2 months Current Complaints pain in neck, shoulders, and low back History of Current Condition Pt is a 53 year 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 Pt has a two month history of neck, shoulder, and low back pain after falling while chasing after a young grandchild who was running toward that road. Pt notes she has constant pain that is worsened when trying to pick anything up, and has radiating pain down along her arm to her wrist bilaterally. Pt notes that when her pain is worsening, she can't do anything, and just sits back in a recliner. Pt also notes that she saw a chiropractor for her neck pain, but only went once because it made the pain worse. Prior Treatments and Tests Cervical X-ray: No compression fracture or spondylolisthesis in cervical spine. per Rafael Rodas M.D. on 11/10/2018 PT-OP-C Subjective Start: 12/14/18 16:58 Freq: Status: Active Protocol: Document 01/21/19 13:45 DCW (Rec: 01/21/19 14:19 DCW [id number]) OP-PT Subjective Patient Comments Patient Comments Pt notes she feels okay today, has some small pain in her neck, which has been pretty stiff. Admits she normally feels better after leaving therapy. PT-OP-F Manual Assessment Start: 12/14/18 16:58 Freq: Status: Active Protocol: Document 12/14/18 13:45 DCW (Rec: 12/14/18 17:14 DCW [id number]) Manual Assessments Soft Tissue Assessment Soft Tissue Mobility Assessment Severe tone and tenderness to palpation 3/4: Wincing and withdraw along bilateral upper traps, scalenes, Quadratus lumborum, and lumbar paraspinals. Joint Mobility Assessment Joint Mobility Assessment Pt winces and cries out with pain during passive neck flexion, as well as with mild palpation of C7 PT-OP-J Posture/Palpation/Skin Start: 12/14/18 16:58 Freq: Status: Active Protocol: Document 12/14/18 13:45 DCW (Rec: 12/16/18 14:09 DCW [id number]) Posture Evaluation Position Sitting Evaluation View Lateral Head/C-Spine Posture Flexed,Forward Head Pelvis Posture Posterior Tilted Palpation Assessment Location Three Palpation Location Bilateral Quadratus Lumborum Palpation Findings Soft Tissue Tightness,Spasm, Muscle Guarding,Tenderness Two Palpation Location Bilateral Upper Trap Palpation Findings Soft Tissue Tightness,Spasm, Muscle Guarding,Tenderness One Palpation Location C7 Palpation Findings Tenderness Palpation Details Pt cries out in pain with any palpation of C7 PT-OP-K Range of Motion Start: 12/14/18 16:58 Freq: Status: Active Protocol: Document 12/14/18 13:45 DCW (Rec: 12/16/18 14:09 DCW [id number]) Cervical Spine Range of Motion Cervical Spine Active Degrees Testing Position Sitting Flexion 60 Extension 45 Rotation Left 68 Rotation Right 66 Lateral Flexion Left 25 Lateral Flexion Right 23 ROM Limitations Soft Tissue Tightness,Muscle Weakness,Muscle Tone,Pain Shoulder Goniometric Range of Motion Shoulder Right Active Testing Position Sitting Flexion 98 Abduction 124 Left Active Testing Position Sitting Flexion 87 Abduction 120 PT-OP-L Special Tests Start: 12/14/18 16:58 Freq: Status: Active Protocol: Document 12/14/18 13:45 DCW (Rec: 12/16/18 14:09 DCW [id number]) Special Tests Cervical Spine Special Tests Slump Test Results Severe C7 pain Traction Test Results Negative Spurling's Test Test Results Negative Passive Neck Flexion Test Results Severe C7 pain Foraminal Compression Test Results Negative PT-OP-M Strength Start: 12/14/18 16:58 Freq: Status: Active Protocol: Document 12/14/18 13:45 DCW (Rec: 12/16/18 14:09 DCW [id number]) Trunk Strength Trunk Manual Muscle Testing Core Stabilization Pt has difficulty caron TrA during posterior pelvic tilt: TrA MMT 3-/5 Shoulder Strength Shoulder Manual Muscle Testing Right Flexion 3- Fair- Abduction (C5) 3- Fair- External Rotation 4 Good Internal Rotation 4 Good Left Flexion 3- Fair- Abduction (C5) 3- Fair- External Rotation 4 Good Internal Rotation 4 Good PT-OP-Q Treatments Start: 12/14/18 16:58 Freq: Status: Active Protocol: Document 01/21/19 13:45 DCW (Rec: 01/21/19 14:19 DCW [id number]) Cardio Equipment Upper Body Ergometer (UBE) Duration (Minutes) 5 RPM 60 Seat Position 11 Height 3 Other Fwd/Bkwd Therapeutic Exercises Supine Exercises Shoulder Horizontal Adduction Supine Exercise Name Horizontal Adduction Side bilateral Resistance 2# Serratus Punch Supine Exercise Name Serratus Punch Side bilateral Resistance 2# Standing Exercises Rows Standing Exercise Name Rows Side bilateral Resistance Lv 2 Equipment Used T-band Shoulder Extension Standing Exercise Name Extension Side bilateral Resistance Lv 2 Equipment Used T-band PT-OP-R Modalities Start: 12/14/18 16:58 Freq: Status: Active Protocol: Document 01/21/19 13:45 DCW (Rec: 01/21/19 14:19 DCW [id number]) Electric Stimulation Electric Stimulation Interferential Current (IFC) Body Location Bilateral upper traps Duration (Minutes) 15 Cycle Continuous Patient Position Hooklying Combined With Heat/Cold Hot Pack PT-OP-T Assessment and Plan Start: 12/14/18 16:58 Freq: Status: Active Protocol: Document 01/21/19 13:45 DCW (Rec: 01/21/19 14:19 DCW [id number]) Physical Therapy Assessment Impairments Impairments Functional Activities,Pain, Posture,ROM,Soft Tissue Mobility,Strength,Tone Goals Four Impairment Restricted Shoulder ROM Farm Manager Goal (LTG) Pt to display flexion and abduction ROM of bilateral shoulder to at least 140? LTG Duration 02/14/19 Three Impairment Weakness Short Term Goal (STG) Pt to display shoulder MMT of 4/5 STG Duration 01/14/19 Farm Manager Goal (LTG) Pt to display TrA MMT of 4/5 LTG Duration 02/14/19 Two Impairment Pt complains of pain with picking up anything heavier than 5 pounds Fpc Goal (LTG) Pt to lift grandchild with no reports of increased back pain LTG Duration 02/14/19 One Impairment Pt does not have an appropriate home exercise program Short Term Goal (STG) Pt to be independent and complaint with an appropriate HEP STG Duration 01/14/19 Assessment Summary Assessment Pt tolerated addition of shoulder strengthening exercises very well, reported that it felt good with resistance training. Physical Therapy Plan Frequency and Duration Frequency of Treatment 2x/Week Duration of Treatment 10 weeks Plan of Care Start Date 12/14/18 Plan of Care End Date 02/22/19 Therapeutic Interventions Therapeutic Interventions Aquatic Therapy,Home Exercise Program,Joint Mobilizations, Manual Therapy,Neuromuscular Re-education,Patient/Caregiver Education,Self-Care/Home Management,Soft Tissue Mobilization,Therapeutic Activities,Therapeutic Exercises Modalities Cold Pack/Ice Massage,Electric Stimulation,Hot Packs, Ultrasound Next Visit Focus/Plan Next Note Type Treatment Note Next Visit Plan Flexibility/STM of cervical spine/paraspinals, lumbar STM, manual traction, pain-control modalities, increased core and shoulder strength. Assess low back as indicated
--- NOTE | 2019-01-25 15:07 | PT.OTN ---
Current Diagnoses Cervicalgia (01/25/19) Pain in thoracic spine (01/25/19) History of falling (01/25/19) Physical Therapy Treatment Note PT-OP-A Visit Information Start: 12/14/18 16:58 Freq: Status: Active Protocol: Document 01/25/19 14:30 DCW (Rec: 01/25/19 15:07 DCW [id number]) Out-Patient Physical Therapy Visit Information Visit Information Visit Type Treatment Note Visit Start Time 14:30 Visit Stop Time 15:20 Total Visit Minutes 50 Visit Number 5 Number of SURGICAL DEVICE SALES REPRESENTATIVE Visits 0 Evaluation Information Evaluation Date 12/14/18 PT-OP-B Current Condition Start: 12/14/18 16:58 Freq: Status: Active Protocol: Document 12/14/18 13:45 DCW (Rec: 12/14/18 17:14 DCW [id number]) Current Condition History of Current Condition Onset Date 2 months Current Complaints pain in neck, shoulders, and low back History of Current Condition Pt is a 53 year old turkish- speaking female 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 Pt has a two month history of neck, shoulder, and low back pain after falling while chasing after a young grandchild who was running toward that road. Pt notes she has constant pain that is worsened when trying to pick anything up, and has radiating pain down along her arm to her wrist bilaterally. Pt notes that when her pain is worsening, she can't do anything, and just sits back in a recliner. Pt also notes that she saw a chiropractor for her neck pain, but only went once because it made the pain worse. Prior Treatments and Tests Cervical X-ray: No compression fracture or spondylolisthesis in cervical spine. per Rafael Rodas M.D. on 11/10/2018 PT-OP-C Subjective Start: 12/14/18 16:58 Freq: Status: Active Protocol: Document 01/25/19 14:30 DCW (Rec: 01/25/19 15:07 DCW [id number]) OP-PT Subjective Patient Comments Patient Comments Pt reports increased thoracic pain today, and notes she was in the ER Thursday ng due to a severe headache. PT-OP-F Manual Assessment Start: 12/14/18 16:58 Freq: Status: Active Protocol: Document 12/14/18 13:45 DCW (Rec: 12/14/18 17:14 DCW [id number]) Manual Assessments Soft Tissue Assessment Soft Tissue Mobility Assessment Severe tone and tenderness to palpation 3/4: Wincing and withdraw along bilateral upper traps, scalenes, Quadratus lumborum, and lumbar paraspinals. Joint Mobility Assessment Joint Mobility Assessment Pt winces and cries out with pain during passive neck flexion, as well as with mild palpation of C7 PT-OP-J Posture/Palpation/Skin Start: 12/14/18 16:58 Freq: Status: Active Protocol: Document 12/14/18 13:45 DCW (Rec: 12/16/18 14:09 DCW [id number]) Posture Evaluation Position Sitting Evaluation View Lateral Head/C-Spine Posture Flexed,Forward Head Pelvis Posture Posterior Tilted Palpation Assessment Location Three Palpation Location Bilateral Quadratus Lumborum Palpation Findings Soft Tissue Tightness,Spasm, Muscle Guarding,Tenderness Two Palpation Location Bilateral Upper Trap Palpation Findings Soft Tissue Tightness,Spasm, Muscle Guarding,Tenderness One Palpation Location C7 Palpation Findings Tenderness Palpation Details Pt cries out in pain with any palpation of C7 PT-OP-K Range of Motion Start: 12/14/18 16:58 Freq: Status: Active Protocol: Document 12/14/18 13:45 DCW (Rec: 12/16/18 14:09 DCW [id number]) Cervical Spine Range of Motion Cervical Spine Active Degrees Testing Position Sitting Flexion 60 Extension 45 Rotation Left 68 Rotation Right 66 Lateral Flexion Left 25 Lateral Flexion Right 23 ROM Limitations Soft Tissue Tightness,Muscle Weakness,Muscle Tone,Pain Shoulder Goniometric Range of Motion Shoulder Right Active Testing Position Sitting Flexion 98 Abduction 124 Left Active Testing Position Sitting Flexion 87 Abduction 120 PT-OP-L Special Tests Start: 12/14/18 16:58 Freq: Status: Active Protocol: Document 12/14/18 13:45 DCW (Rec: 12/16/18 14:09 DCW [id number]) Special Tests Cervical Spine Special Tests Slump Test Results Severe C7 pain Traction Test Results Negative Spurling's Test Test Results Negative Passive Neck Flexion Test Results Severe C7 pain Foraminal Compression Test Results Negative PT-OP-M Strength Start: 12/14/18 16:58 Freq: Status: Active Protocol: Document 12/14/18 13:45 DCW (Rec: 12/16/18 14:09 DCW [id number]) Trunk Strength Trunk Manual Muscle Testing Core Stabilization Pt has difficulty caron TrA during posterior pelvic tilt: TrA MMT 3-/5 Shoulder Strength Shoulder Manual Muscle Testing Right Flexion 3- Fair- Abduction (C5) 3- Fair- External Rotation 4 Good Internal Rotation 4 Good Left Flexion 3- Fair- Abduction (C5) 3- Fair- External Rotation 4 Good Internal Rotation 4 Good PT-OP-Q Treatments Start: 12/14/18 16:58 Freq: Status: Active Protocol: Document 01/25/19 14:30 DCW (Rec: 01/25/19 15:07 DCW [id number]) Therapeutic Exercises Supine Exercises Shoulder Horizontal Adduction Supine Exercise Name Horizontal Adduction Side bilateral Resistance 3# Serratus Punch Supine Exercise Name Serratus Punch Side bilateral Resistance 3# Manual Therapy Treatment Soft Tissue Mobilization Rhomboids Body Location B Rhomboids/Parascapulars Mobilization Type Strumming,Sustained Pressure, Trigger Point Release Body Position Prone Upper Trap Body Location B UT, Scalenes, Levator, Suboccipitals Mobilization Type Strain/Counterstrain,Strumming ,Sustained Pressure Body Position Supine Joint Mobilizations T-spine Joint T-spine Direction P->A Grade III Body Position Prone Manual Traction Cervical Details Cervical traction Body Position Supine PT-OP-R Modalities Start: 12/14/18 16:58 Freq: Status: Active Protocol: Document 01/25/19 14:30 DCW (Rec: 01/25/19 15:07 DCW [id number]) Electric Stimulation Electric Stimulation Interferential Current (IFC) Body Location Bilateral upper traps Duration (Minutes) 15 Cycle Continuous Patient Position Hooklying Combined With Heat/Cold Hot Pack PT-OP-T Assessment and Plan Start: 12/14/18 16:58 Freq: Status: Active Protocol: Document 01/25/19 14:30 DCW (Rec: 01/25/19 15:07 DCW [id number]) Physical Therapy Assessment Impairments Impairments Functional Activities,Pain, Posture,ROM,Soft Tissue Mobility,Strength,Tone Goals Four Impairment Restricted Shoulder ROM Care Home Goal (LTG) Pt to display flexion and abduction ROM of bilateral shoulder to at least 140? LTG Duration 02/14/19 Three Impairment Weakness Short Term Goal (STG) Pt to display shoulder MMT of 4/5 STG Duration 01/14/19 Care Home Goal (LTG) Pt to display TrA MMT of 4/5 LTG Duration 02/14/19 Two Impairment Pt complains of pain with picking up anything heavier than 5 pounds Care Home Goal (LTG) Pt to lift grandchild with no reports of increased back pain LTG Duration 02/14/19 One Impairment Pt does not have an appropriate home exercise program Short Term Goal (STG) Pt to be independent and complaint with an appropriate HEP STG Duration 01/14/19 Assessment Summary Assessment Pt had increased in her rhomboids today, tolerated STM well with no complaints. Physical Therapy Plan Frequency and Duration Frequency of Treatment 2x/Week Duration of Treatment 10 weeks Plan of Care Start Date 12/14/18 Plan of Care End Date 02/22/19 Therapeutic Interventions Therapeutic Interventions Aquatic Therapy,Home Exercise Program,Joint Mobilizations, Manual Therapy,Neuromuscular Re-education,Patient/Caregiver Education,Self-Care/Home Management,Soft Tissue Mobilization,Therapeutic Activities,Therapeutic Exercises Modalities Cold Pack/Ice Massage,Electric Stimulation,Hot Packs, Ultrasound Next Visit Focus/Plan Next Note Type Treatment Note Next Visit Plan Flexibility/STM of cervical spine/paraspinals, lumbar STM, manual traction, pain-control modalities, increased core and shoulder strength. Assess low back as indicated
--- NOTE | 2019-02-01 15:09 | PT.OTN ---
Current Diagnoses Cervicalgia (02/01/19) Pain in thoracic spine (02/01/19) History of falling (02/01/19) Physical Therapy Treatment Note PT-OP-A Visit Information Start: 12/14/18 16:58 Freq: Status: Active Protocol: Document 02/01/19 14:30 DCW (Rec: 02/01/19 15:09 DCW [id number]) Out-Patient Physical Therapy Visit Information Visit Information Visit Type Treatment Note Visit Start Time 14:30 Visit Stop Time 15:20 Total Visit Minutes 50 Visit Number 5 Number of MARKETING INFORMATION COORDINATOR Visits 0 Evaluation Information Evaluation Date 12/14/18 PT-OP-B Current Condition Start: 12/14/18 16:58 Freq: Status: Active Protocol: Document 12/14/18 13:45 DCW (Rec: 12/14/18 17:14 DCW [id number]) Current Condition History of Current Condition Onset Date 2 months Current Complaints pain in neck, shoulders, and low back History of Current Condition Pt is a 53 year old welsh- speaking 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 Pt has a two month history of neck, shoulder, and low back pain after falling while chasing after a young grandchild who was running toward that road. Pt notes she has constant pain that is worsened when trying to pick anything up, and has radiating pain down along her arm to her wrist bilaterally. Pt notes that when her pain is worsening, she can't do anything, and just sits back in a recliner. Pt also notes that she saw a chiropractor for her neck pain, but only went once because it made the pain worse. Prior Treatments and Tests Cervical X-ray: No compression fracture or spondylolisthesis in cervical spine. per Rafael Rodas M.D. on 11/10/2018 PT-OP-C Subjective Start: 12/14/18 16:58 Freq: Status: Active Protocol: Document 02/01/19 14:30 DCW (Rec: 02/01/19 15:09 DCW [id number]) OP-PT Subjective Patient Comments Patient Comments Pt reports her neck is sore today PT-OP-F Manual Assessment Start: 12/14/18 16:58 Freq: Status: Active Protocol: Document 12/14/18 13:45 DCW (Rec: 12/14/18 17:14 DCW [id number]) Manual Assessments Soft Tissue Assessment Soft Tissue Mobility Assessment Severe tone and tenderness to palpation 3/4: Wincing and withdraw along bilateral upper traps, scalenes, Quadratus lumborum, and lumbar paraspinals. Joint Mobility Assessment Joint Mobility Assessment Pt winces and cries out with pain during passive neck flexion, as well as with mild palpation of C7 PT-OP-J Posture/Palpation/Skin Start: 12/14/18 16:58 Freq: Status: Active Protocol: Document 12/14/18 13:45 DCW (Rec: 12/16/18 14:09 DCW [id number]) Posture Evaluation Position Sitting Evaluation View Lateral Head/C-Spine Posture Flexed,Forward Head Pelvis Posture Posterior Tilted Palpation Assessment Location Three Palpation Location Bilateral Quadratus Lumborum Palpation Findings Soft Tissue Tightness,Spasm, Muscle Guarding,Tenderness Two Palpation Location Bilateral Upper Trap Palpation Findings Soft Tissue Tightness,Spasm, Muscle Guarding,Tenderness One Palpation Location C7 Palpation Findings Tenderness Palpation Details Pt cries out in pain with any palpation of C7 PT-OP-K Range of Motion Start: 12/14/18 16:58 Freq: Status: Active Protocol: Document 12/14/18 13:45 DCW (Rec: 12/16/18 14:09 DCW [id number]) Cervical Spine Range of Motion Cervical Spine Active Degrees Testing Position Sitting Flexion 60 Extension 45 Rotation Left 68 Rotation Right 66 Lateral Flexion Left 25 Lateral Flexion Right 23 ROM Limitations Soft Tissue Tightness,Muscle Weakness,Muscle Tone,Pain Shoulder Goniometric Range of Motion Shoulder Right Active Testing Position Sitting Flexion 98 Abduction 124 Left Active Testing Position Sitting Flexion 87 Abduction 120 PT-OP-L Special Tests Start: 12/14/18 16:58 Freq: Status: Active Protocol: Document 12/14/18 13:45 DCW (Rec: 12/16/18 14:09 DCW [id number]) Special Tests Cervical Spine Special Tests Slump Test Results Severe C7 pain Traction Test Results Negative Spurling's Test Test Results Negative Passive Neck Flexion Test Results Severe C7 pain Foraminal Compression Test Results Negative PT-OP-M Strength Start: 12/14/18 16:58 Freq: Status: Active Protocol: Document 12/14/18 13:45 DCW (Rec: 12/16/18 14:09 DCW [id number]) Trunk Strength Trunk Manual Muscle Testing Core Stabilization Pt has difficulty caron TrA during posterior pelvic tilt: TrA MMT 3-/5 Shoulder Strength Shoulder Manual Muscle Testing Right Flexion 3- Fair- Abduction (C5) 3- Fair- External Rotation 4 Good Internal Rotation 4 Good Left Flexion 3- Fair- Abduction (C5) 3- Fair- External Rotation 4 Good Internal Rotation 4 Good PT-OP-Q Treatments Start: 12/14/18 16:58 Freq: Status: Active Protocol: Document 02/01/19 14:30 DCW (Rec: 02/01/19 15:09 DCW [id number]) Cardio Equipment Upper Body Ergometer (UBE) Duration (Minutes) 5 RPM 60 Seat Position 11 Height 3 Other Fwd/Bkwd Therapeutic Exercises Supine Exercises Shoulder Horizontal Adduction Supine Exercise Name Horizontal Adduction Side bilateral Resistance 3# Serratus Punch Supine Exercise Name Serratus Punch Side bilateral Resistance 3# Standing Exercises Rows Standing Exercise Name Rows Side bilateral Resistance Lv 2 Equipment Used T-band Shoulder Extension Standing Exercise Name Extension Side bilateral Resistance Lv 4 Equipment Used T-band Manual Therapy Treatment Soft Tissue Mobilization Rhomboids Body Location B Rhomboids/Parascapulars Mobilization Type Strumming,Sustained Pressure, Trigger Point Release Body Position Prone Upper Trap Body Location B UT, Scalenes, Levator, Suboccipitals Mobilization Type Strain/Counterstrain,Strumming ,Sustained Pressure Body Position Supine Manual Traction Cervical Details Cervical traction Body Position Supine PT-OP-R Modalities Start: 12/14/18 16:58 Freq: Status: Active Protocol: Document 02/01/19 14:30 DCW (Rec: 02/01/19 15:09 DCW [id number]) Electric Stimulation Electric Stimulation Interferential Current (IFC) Body Location Bilateral upper traps Duration (Minutes) 15 Cycle Continuous Patient Position Hooklying Combined With Heat/Cold Hot Pack PT-OP-T Assessment and Plan Start: 12/14/18 16:58 Freq: Status: Active Protocol: Document 02/01/19 14:30 DCW (Rec: 02/01/19 15:09 DCW [id number]) Physical Therapy Assessment Impairments Impairments Functional Activities,Pain, Posture,ROM,Soft Tissue Mobility,Strength,Tone Goals Four Impairment Restricted Shoulder ROM Machine Operator Helper Goal (LTG) Pt to display flexion and abduction ROM of bilateral shoulder to at least 140? LTG Duration 02/14/19 Three Impairment Weakness Short Term Goal (STG) Pt to display shoulder MMT of 4/5 STG Duration 01/14/19 Long-Term Goal (LTG) Pt to display TrA MMT of 4/5 LTG Duration 02/14/19 Two Impairment Pt complains of pain with picking up anything heavier than 5 pounds Long-Term Goal (LTG) Pt to lift grandchild with no reports of increased back pain LTG Duration 02/14/19 One Impairment Pt does not have an appropriate home exercise program Short Term Goal (STG) Pt to be independent and complaint with an appropriate HEP STG Duration 01/14/19 Assessment Summary Assessment Pt increased resistance with T -band today, no complaints of pain or difficulty. Continues to progress with decreased paraspinal tone. Physical Therapy Plan Frequency and Duration Frequency of Treatment 2x/Week Duration of Treatment 10 weeks Plan of Care Start Date 12/14/18 Plan of Care End Date 02/22/19 Therapeutic Interventions Therapeutic Interventions Aquatic Therapy,Home Exercise Program,Joint Mobilizations, Manual Therapy,Neuromuscular Re-education,Patient/Caregiver Education,Self-Care/Home Management,Soft Tissue Mobilization,Therapeutic Activities,Therapeutic Exercises Modalities Cold Pack/Ice Massage,Electric Stimulation,Hot Packs, Ultrasound Next Visit Focus/Plan Next Note Type Treatment Note Next Visit Plan Flexibility/STM of cervical spine/paraspinals, lumbar STM, manual traction, pain-control modalities, increased core and shoulder strength. Assess low back as indicated
--- NOTE | 2019-02-08 14:26 | PT.OTN ---
Current Diagnoses Cervicalgia (02/08/19) Pain in thoracic spine (02/08/19) History of falling (02/08/19) Physical Therapy Treatment Note PT-OP-A Visit Information Start: 12/14/18 16:58 Freq: Status: Active Protocol: Document 02/08/19 13:45 DCW (Rec: 02/08/19 14:25 DCW [id number]) Out-Patient Physical Therapy Visit Information Visit Information Visit Type Treatment Note Visit Start Time 13:45 Visit Stop Time 14:35 Total Visit Minutes 50 Visit Number 6 Number of LAY OUT CARPENTER Visits 0 Evaluation Information Evaluation Date 12/14/18 PT-OP-B Current Condition Start: 12/14/18 16:58 Freq: Status: Active Protocol: Document 12/14/18 13:45 DCW (Rec: 12/14/18 17:14 DCW [id number]) Current Condition History of Current Condition Onset Date 2 months Current Complaints pain in neck, shoulders, and low back History of Current Condition Pt is a 53 year old albanian- speaking 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 Pt has a two month history of neck, shoulder, and low back pain after falling while chasing after a young grandchild who was running toward that road. Pt notes she has constant pain that is worsened when trying to pick anything up, and has radiating pain down along her arm to her wrist bilaterally. Pt notes that when her pain is worsening, she can't do anything, and just sits back in a recliner. Pt also notes that she saw a chiropractor for her neck pain, but only went once because it made the pain worse. Prior Treatments and Tests Cervical X-ray: No compression fracture or spondylolisthesis in cervical spine. per Rafael Rodas M.D. on 11/10/2018 PT-OP-C Subjective Start: 12/14/18 16:58 Freq: Status: Active Protocol: Document 02/08/19 13:45 DCW (Rec: 02/08/19 14:25 DCW [id number]) OP-PT Subjective Patient Comments Patient Comments Pt reports that she is doing well today, but notes just a little bit of pain along the area of her right upper trap. PT-OP-F Manual Assessment Start: 12/14/18 16:58 Freq: Status: Active Protocol: Document 12/14/18 13:45 DCW (Rec: 12/14/18 17:14 DCW [id number]) Manual Assessments Soft Tissue Assessment Soft Tissue Mobility Assessment Severe tone and tenderness to palpation 3/4: Wincing and withdraw along bilateral upper traps, scalenes, Quadratus lumborum, and lumbar paraspinals. Joint Mobility Assessment Joint Mobility Assessment Pt winces and cries out with pain during passive neck flexion, as well as with mild palpation of C7 PT-OP-J Posture/Palpation/Skin Start: 12/14/18 16:58 Freq: Status: Active Protocol: Document 12/14/18 13:45 DCW (Rec: 12/16/18 14:09 DCW [id number]) Posture Evaluation Position Sitting Evaluation View Lateral Head/C-Spine Posture Flexed,Forward Head Pelvis Posture Posterior Tilted Palpation Assessment Location Three Palpation Location Bilateral Quadratus Lumborum Palpation Findings Soft Tissue Tightness,Spasm, Muscle Guarding,Tenderness Two Palpation Location Bilateral Upper Trap Palpation Findings Soft Tissue Tightness,Spasm, Muscle Guarding,Tenderness One Palpation Location C7 Palpation Findings Tenderness Palpation Details Pt cries out in pain with any palpation of C7 PT-OP-K Range of Motion Start: 12/14/18 16:58 Freq: Status: Active Protocol: Document 12/14/18 13:45 DCW (Rec: 12/16/18 14:09 DCW [id number]) Cervical Spine Range of Motion Cervical Spine Active Degrees Testing Position Sitting Flexion 60 Extension 45 Rotation Left 68 Rotation Right 66 Lateral Flexion Left 25 Lateral Flexion Right 23 ROM Limitations Soft Tissue Tightness,Muscle Weakness,Muscle Tone,Pain Shoulder Goniometric Range of Motion Shoulder Right Active Testing Position Sitting Flexion 98 Abduction 124 Left Active Testing Position Sitting Flexion 87 Abduction 120 PT-OP-L Special Tests Start: 12/14/18 16:58 Freq: Status: Active Protocol: Document 12/14/18 13:45 DCW (Rec: 12/16/18 14:09 DCW [id number]) Special Tests Cervical Spine Special Tests Slump Test Results Severe C7 pain Traction Test Results Negative Spurling's Test Test Results Negative Passive Neck Flexion Test Results Severe C7 pain Foraminal Compression Test Results Negative PT-OP-M Strength Start: 12/14/18 16:58 Freq: Status: Active Protocol: Document 12/14/18 13:45 DCW (Rec: 12/16/18 14:09 DCW [id number]) Trunk Strength Trunk Manual Muscle Testing Core Stabilization Pt has difficulty caron TrA during posterior pelvic tilt: TrA MMT 3-/5 Shoulder Strength Shoulder Manual Muscle Testing Right Flexion 3- Fair- Abduction (C5) 3- Fair- External Rotation 4 Good Internal Rotation 4 Good Left Flexion 3- Fair- Abduction (C5) 3- Fair- External Rotation 4 Good Internal Rotation 4 Good PT-OP-Q Treatments Start: 12/14/18 16:58 Freq: Status: Active Protocol: Document 02/08/19 13:45 DCW (Rec: 02/08/19 14:25 DCW [id number]) Cardio Equipment Upper Body Ergometer (UBE) Duration (Minutes) 5 RPM 60 Seat Position 10 Height 3.5 Other Fwd/Bkwd Gym Equipment Cable Column (Body Solid) Rows Resistance 30# Lat Pull Down Resistance 40# Therapeutic Exercises Supine Exercises Shoulder Horizontal Adduction Supine Exercise Name Horizontal Adduction Side bilateral Resistance 4# Serratus Punch Supine Exercise Name Serratus Punch Side bilateral Resistance 4# Other Exercises UE resisted side-stepping Other Exercise Name UE resisted side-stepping Resistance Yellow Equipment Used T-band Manual Therapy Treatment Soft Tissue Mobilization Rhomboids Body Location B Rhomboids/Parascapulars Mobilization Type Strumming,Sustained Pressure, Trigger Point Release Body Position Prone Upper Trap Body Location B UT, Scalenes, Levator, Suboccipitals Mobilization Type Strain/Counterstrain,Strumming ,Sustained Pressure Body Position Supine Manual Traction Cervical Details Cervical traction Body Position Supine PT-OP-R Modalities Start: 12/14/18 16:58 Freq: Status: Active Protocol: Document 02/08/19 13:45 DCW (Rec: 02/08/19 14:26 DCW [id number]) Electric Stimulation Electric Stimulation Interferential Current (IFC) Body Location Bilateral upper traps Duration (Minutes) 15 Cycle Continuous Patient Position Hooklying Combined With Heat/Cold Hot Pack PT-OP-T Assessment and Plan Start: 12/14/18 16:58 Freq: Status: Active Protocol: Document 02/08/19 13:45 DCW (Rec: 02/08/19 14:25 DCW [id number]) Physical Therapy Assessment Impairments Impairments Functional Activities,Pain, Posture,ROM,Soft Tissue Mobility,Strength,Tone Goals Four Impairment Restricted Shoulder ROM Casualty Underwriter Goal (LTG) Pt to display flexion and abduction ROM of bilateral shoulder to at least 140? LTG Duration 02/14/19 Three Impairment Weakness Short Term Goal (STG) Pt to display shoulder MMT of 4/5 STG Duration 01/14/19 [facility] Goal (LTG) Pt to display TrA MMT of 4/5 LTG Duration 02/14/19 Two Impairment Pt complains of pain with picking up anything heavier than 5 pounds [facility] Goal (LTG) Pt to lift grandchild with no reports of increased back pain LTG Duration 02/14/19 One Impairment Pt does not have an appropriate home exercise program Short Term Goal (STG) Pt to be independent and complaint with an appropriate HEP STG Duration 01/14/19 Assessment Summary Assessment Pt progressing very well since initial eval, noting overall improvement in pain level and mobility. Pt's next visit is her last one scheduled, and she feels like discharge following it would be a good plan. Physical Therapy Plan Frequency and Duration Frequency of Treatment 2x/Week Duration of Treatment 10 weeks Plan of Care Start Date 12/14/18 Plan of Care End Date 02/22/19 Therapeutic Interventions Therapeutic Interventions Aquatic Therapy,Home Exercise Program,Joint Mobilizations, Manual Therapy,Neuromuscular Re-education,Patient/Caregiver Education,Self-Care/Home Management,Soft Tissue Mobilization,Therapeutic Activities,Therapeutic Exercises Modalities Cold Pack/Ice Massage,Electric Stimulation,Hot Packs, Ultrasound Next Visit Focus/Plan Next Note Type Discharge Summary Next Visit Plan Flexibility/STM of cervical spine/paraspinals, lumbar STM, manual traction, pain-control modalities, increased core and shoulder strength. Assess low back as indicated
--- NOTE | 2019-02-11 14:28 | PT.OTN ---
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 Pt has a two month history of neck, shoulder, and low back pain after falling while chasing after a young grandchild who was running toward that road. Pt notes she has constant pain that is worsened when trying to pick anything up, and has radiating pain down along her arm to her wrist bilaterally. Pt notes that when her pain is worsening, she can't do anything, and just sits back in a recliner. Pt also notes that she saw a chiropractor for her neck pain, but only went once because it made the pain worse. Prior Treatments and Tests Cervical X-ray: No compression fracture or spondylolisthesis in cervical spine. per Rafael Rodas M.D. on 11/10/2018 PT-OP-C Subjective Start: 12/14/18 16:58 Freq: Status: Active Protocol: Document 02/11/19 13:45 DCW (Rec: 02/11/19 14:28 DCW [id number]) OP-PT Subjective Patient Comments Patient Comments Although the plan had been to discharge pt following today's visit, after speaking to the pt and her , they would like to continue therapy, and report that additionally, pt' s PCP also requested a continuation of therapy. PT-OP-F Manual Assessment Start: 12/14/18 16:58 Freq: Status: Active Protocol: Document 12/14/18 13:45 DCW (Rec: 12/14/18 17:14 DCW [id number]) Manual Assessments Soft Tissue Assessment Soft Tissue Mobility Assessment Severe tone and tenderness to palpation 3/4: Wincing and withdraw along bilateral upper traps, scalenes, Quadratus lumborum, and lumbar paraspinals. Joint Mobility Assessment Joint Mobility Assessment Pt winces and cries out with pain during passive neck flexion, as well as with mild palpation of C7 PT-OP-J Posture/Palpation/Skin Start: 12/14/18 16:58 Freq: Status: Active Protocol: Document 12/14/18 13:45 DCW (Rec: 12/16/18 14:09 DCW [id number]) Posture Evaluation Position Sitting Evaluation View Lateral Head/C-Spine Posture Flexed,Forward Head Pelvis Posture Posterior Tilted Palpation Assessment Location Three Palpation Location Bilateral Quadratus Lumborum Palpation Findings Soft Tissue Tightness,Spasm, Muscle Guarding,Tenderness Two Palpation Location Bilateral Upper Trap Palpation Findings Soft Tissue Tightness,Spasm, Muscle Guarding,Tenderness One Palpation Location C7 Palpation Findings Tenderness Palpation Details Pt cries out in pain with any palpation of C7 PT-OP-K Range of Motion Start: 12/14/18 16:58 Freq: Status: Active Protocol: Document 12/14/18 13:45 DCW (Rec: 12/16/18 14:09 DCW [id number]) Cervical Spine Range of Motion Cervical Spine Active Degrees Testing Position Sitting Flexion 60 Extension 45 Rotation Left 68 Rotation Right 66 Lateral Flexion Left 25 Lateral Flexion Right 23 ROM Limitations Soft Tissue Tightness,Muscle Weakness,Muscle Tone,Pain Shoulder Goniometric Range of Motion Shoulder Right Active Testing Position Sitting Flexion 98 Abduction 124 Left Active Testing Position Sitting Flexion 87 Abduction 120 PT-OP-L Special Tests Start: 12/14/18 16:58 Freq: Status: Active Protocol: Document 12/14/18 13:45 DCW (Rec: 12/16/18 14:09 DCW [id number]) Special Tests Cervical Spine Special Tests Slump Test Results Severe C7 pain Traction Test Results Negative Spurling's Test Test Results Negative Passive Neck Flexion Test Results Severe C7 pain Foraminal Compression Test Results Negative PT-OP-M Strength Start: 12/14/18 16:58 Freq: Status: Active Protocol: Document 12/14/18 13:45 DCW (Rec: 12/16/18 14:09 DCW [id number]) Trunk Strength Trunk Manual Muscle Testing Core Stabilization Pt has difficulty caron TrA during posterior pelvic tilt: TrA MMT 3-/5 Shoulder Strength Shoulder Manual Muscle Testing Right Flexion 3- Fair- Abduction (C5) 3- Fair- External Rotation 4 Good Internal Rotation 4 Good Left Flexion 3- Fair- Abduction (C5) 3- Fair- External Rotation 4 Good Internal Rotation 4 Good PT-OP-Q Treatments Start: 12/14/18 16:58 Freq: Status: Active Protocol: Document 02/11/19 13:45 DCW (Rec: 02/11/19 14:28 DCW [id number]) Cardio Equipment Upper Body Ergometer (UBE) Duration (Minutes) 5 RPM 60 Seat Position 10 Height 3.5 Other Fwd/Bkwd Gym Equipment Cable Column (Body Solid) Lat Pull Down Resistance 40# Therapeutic Exercises Supine Exercises Shoulder Horizontal Adduction Supine Exercise Name Horizontal Adduction Side bilateral Resistance 4# Serratus Punch Supine Exercise Name Serratus Punch Side bilateral Resistance 4# Prone Exercises Flexion Prone Exercise Name Prone Flexion Side bilateral Resistance 2# Horizontal Abduction Prone Exercise Name Prone Horizontal Abduction Side bilateral Resistance 2# Standing Exercises Body Blade Standing Exercise Name Bilateral flexion, abduction Side bilateral Resistance Yellow Rows Standing Exercise Name Rows Side bilateral Resistance Lv 3 Equipment Used T-band Shoulder Extension Standing Exercise Name Extension Side bilateral Resistance Lv 4 Equipment Used T-band Manual Therapy Treatment Soft Tissue Mobilization Rhomboids Body Location B Rhomboids/Parascapulars Mobilization Type Strumming,Sustained Pressure, Trigger Point Release Body Position Prone Upper Trap Body Location B UT, Scalenes, Levator, Suboccipitals Mobilization Type Strain/Counterstrain,Strumming ,Sustained Pressure Body Position Supine Manual Traction Cervical Details Cervical traction Body Position Supine PT-OP-R Modalities Start: 12/14/18 16:58 Freq: Status: Active Protocol: Document 02/11/19 13:45 DCW (Rec: 02/11/19 14:28 DCW [id number]) Electric Stimulation Electric Stimulation Interferential Current (IFC) Body Location Bilateral upper traps Duration (Minutes) 15 Cycle Continuous Patient Position Hooklying Combined With Heat/Cold Hot Pack PT-OP-T Assessment and Plan Start: 12/14/18 16:58 Freq: Status: Active Protocol: Document 02/11/19 13:45 DCW (Rec: 02/11/19 14:28 DCW [id number]) Physical Therapy Assessment Impairments Impairments Functional Activities,Pain, Posture,ROM,Soft Tissue Mobility,Strength,Tone Goals Four Impairment Restricted Shoulder ROM Technical Communication Teacher Goal (LTG) Pt to display flexion and abduction ROM of bilateral shoulder to at least 140? LTG Duration 02/14/19 Three Impairment Weakness Short Term Goal (STG) Pt to display shoulder MMT of 4/5 STG Duration 01/14/19 Technical Communication Teacher Goal (LTG) Pt to display TrA MMT of 4/5 LTG Duration 02/14/19 Two Impairment Pt complains of pain with picking up anything heavier than 5 pounds Halfway Goal (LTG) Pt to lift grandchild with no reports of increased back pain LTG Duration 02/14/19 One Impairment Pt does not have an appropriate home exercise program Short Term Goal (STG) Pt to be independent and complaint with an appropriate HEP STG Duration 01/14/19 Assessment Summary Assessment Pt's reports that she is not doing as well as what she claims at her therapy sessions, has continued to experience limiting pain through her neck and low back. Therapy will continue at this time. Physical Therapy Plan Frequency and Duration Frequency of Treatment 2x/Week Duration of Treatment 10 weeks Plan of Care Start Date 12/14/18 Plan of Care End Date 02/22/19 Therapeutic Interventions Therapeutic Interventions Aquatic Therapy,Home Exercise Program,Joint Mobilizations, Manual Therapy,Neuromuscular Re-education,Patient/Caregiver Education,Self-Care/Home Management,Soft Tissue Mobilization,Therapeutic Activities,Therapeutic Exercises Modalities Cold Pack/Ice Massage,Electric Stimulation,Hot Packs, Ultrasound Next Visit Focus/Plan Next Note Type Treatment Note Next Visit Plan Flexibility/STM of cervical spine/paraspinals, lumbar STM, manual traction, pain-control modalities, increased core and shoulder strength. Assess low back as indicated
--- NOTE | 2019-02-14 15:08 | PT.OTN ---
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 Pt has a two month history of neck, shoulder, and low back pain after falling while chasing after a young grandchild who was running toward that road. Pt notes she has constant pain that is worsened when trying to pick anything up, and has radiating pain down along her arm to her wrist bilaterally. Pt notes that when her pain is worsening, she can't do anything, and just sits back in a recliner. Pt also notes that she saw a chiropractor for her neck pain, but only went once because it made the pain worse. Prior Treatments and Tests Cervical X-ray: No compression fracture or spondylolisthesis in cervical spine. per Rafael Rodas M.D. on 11/10/2018 PT-OP-C Subjective Start: 12/14/18 16:58 Freq: Status: Active Protocol: Document 02/14/19 14:30 DCW (Rec: 02/14/19 15:08 DCW [id number]) OP-PT Subjective Patient Comments Patient Comments Pt reports she is doing well today, does not have any complaints of pain. PT-OP-F Manual Assessment Start: 12/14/18 16:58 Freq: Status: Active Protocol: Document 12/14/18 13:45 DCW (Rec: 12/14/18 17:14 DCW [id number]) Manual Assessments Soft Tissue Assessment Soft Tissue Mobility Assessment Severe tone and tenderness to palpation 3/4: Wincing and withdraw along bilateral upper traps, scalenes, Quadratus lumborum, and lumbar paraspinals. Joint Mobility Assessment Joint Mobility Assessment Pt winces and cries out with pain during passive neck flexion, as well as with mild palpation of C7 PT-OP-J Posture/Palpation/Skin Start: 12/14/18 16:58 Freq: Status: Active Protocol: Document 12/14/18 13:45 DCW (Rec: 12/16/18 14:09 DCW [id number]) Posture Evaluation Position Sitting Evaluation View Lateral Head/C-Spine Posture Flexed,Forward Head Pelvis Posture Posterior Tilted Palpation Assessment Location Three Palpation Location Bilateral Quadratus Lumborum Palpation Findings Soft Tissue Tightness,Spasm, Muscle Guarding,Tenderness Two Palpation Location Bilateral Upper Trap Palpation Findings Soft Tissue Tightness,Spasm, Muscle Guarding,Tenderness One Palpation Location C7 Palpation Findings Tenderness Palpation Details Pt cries out in pain with any palpation of C7 PT-OP-K Range of Motion Start: 12/14/18 16:58 Freq: Status: Active Protocol: Document 12/14/18 13:45 DCW (Rec: 12/16/18 14:09 DCW [id number]) Cervical Spine Range of Motion Cervical Spine Active Degrees Testing Position Sitting Flexion 60 Extension 45 Rotation Left 68 Rotation Right 66 Lateral Flexion Left 25 Lateral Flexion Right 23 ROM Limitations Soft Tissue Tightness,Muscle Weakness,Muscle Tone,Pain Shoulder Goniometric Range of Motion Shoulder Right Active Testing Position Sitting Flexion 98 Abduction 124 Left Active Testing Position Sitting Flexion 87 Abduction 120 PT-OP-L Special Tests Start: 12/14/18 16:58 Freq: Status: Active Protocol: Document 12/14/18 13:45 DCW (Rec: 12/16/18 14:09 DCW [id number]) Special Tests Cervical Spine Special Tests Slump Test Results Severe C7 pain Traction Test Results Negative Spurling's Test Test Results Negative Passive Neck Flexion Test Results Severe C7 pain Foraminal Compression Test Results Negative PT-OP-M Strength Start: 12/14/18 16:58 Freq: Status: Active Protocol: Document 12/14/18 13:45 DCW (Rec: 12/16/18 14:09 DCW [id number]) Trunk Strength Trunk Manual Muscle Testing Core Stabilization Pt has difficulty caron TrA during posterior pelvic tilt: TrA MMT 3-/5 Shoulder Strength Shoulder Manual Muscle Testing Right Flexion 3- Fair- Abduction (C5) 3- Fair- External Rotation 4 Good Internal Rotation 4 Good Left Flexion 3- Fair- Abduction (C5) 3- Fair- External Rotation 4 Good Internal Rotation 4 Good PT-OP-Q Treatments Start: 12/14/18 16:58 Freq: Status: Active Protocol: Document 02/14/19 14:30 DCW (Rec: 02/14/19 15:08 DCW [id number]) Cardio Equipment Upper Body Ergometer (UBE) Duration (Minutes) 5 RPM 80 Seat Position 10 Height 3.5 Other Fwd/Bkwd Gym Equipment Cable Column (Body Solid) Rows Resistance 30# Lat Pull Down Resistance 40# Therapeutic Exercises Supine Exercises Shoulder Horizontal Adduction Supine Exercise Name Horizontal Adduction Side bilateral Resistance 4# Serratus Punch Supine Exercise Name Serratus Punch Side bilateral Resistance 4# Standing Exercises Body Blade Standing Exercise Name Bilateral flexion, abduction Side bilateral Resistance Yellow Manual Therapy Treatment Soft Tissue Mobilization Paraspinals Body Location Thoracic paraspinals Mobilization Type Strumming,Sustained Pressure Body Position Prone Rhomboids Body Location B Rhomboids/Parascapulars Mobilization Type Strumming,Sustained Pressure, Trigger Point Release Body Position Prone Upper Trap Body Location B UT, Scalenes, Levator, Suboccipitals Mobilization Type Strain/Counterstrain,Strumming ,Sustained Pressure Body Position Supine Manual Traction Cervical Details Cervical traction Body Position Supine PT-OP-R Modalities Start: 12/14/18 16:58 Freq: Status: Active Protocol: Document 02/14/19 14:30 DCW (Rec: 02/14/19 15:08 DCW [id number]) Electric Stimulation Electric Stimulation Interferential Current (IFC) Body Location Bilateral upper traps Duration (Minutes) 15 Cycle Continuous Patient Position Hooklying Combined With Heat/Cold Hot Pack PT-OP-T Assessment and Plan Start: 12/14/18 16:58 Freq: Status: Active Protocol: Document 02/14/19 14:30 DCW (Rec: 02/14/19 15:08 DCW [id number]) Physical Therapy Assessment Impairments Impairments Functional Activities,Pain, Posture,ROM,Soft Tissue Mobility,Strength,Tone Goals Four Impairment Restricted Shoulder ROM Mold Press Operator Goal (LTG) Pt to display flexion and abduction ROM of bilateral shoulder to at least 140? LTG Duration 02/14/19 Three Impairment Weakness Short Term Goal (STG) Pt to display shoulder MMT of 4/5 STG Duration 01/14/19 Mcc Goal (LTG) Pt to display TrA MMT of 4/5 LTG Duration 02/14/19 Two Impairment Pt complains of pain with picking up anything heavier than 5 pounds Mold Press Operator Goal (LTG) Pt to lift grandchild with no reports of increased back pain LTG Duration 02/14/19 One Impairment Pt does not have an appropriate home exercise program Short Term Goal (STG) Pt to be independent and complaint with an appropriate HEP STG Duration 01/14/19 Assessment Summary Assessment Pt tolerated treatment well today, no complaints with STM or TherEx Physical Therapy Plan Frequency and Duration Frequency of Treatment 2x/Week Duration of Treatment 10 weeks Plan of Care Start Date 12/14/18 Plan of Care End Date 02/22/19 Therapeutic Interventions Therapeutic Interventions Aquatic Therapy,Home Exercise Program,Joint Mobilizations, Manual Therapy,Neuromuscular Re-education,Patient/Caregiver Education,Self-Care/Home Management,Soft Tissue Mobilization,Therapeutic Activities,Therapeutic Exercises Modalities Cold Pack/Ice Massage,Electric Stimulation,Hot Packs, Ultrasound Next Visit Focus/Plan Next Note Type Treatment Note Next Visit Plan Flexibility/STM of cervical spine/paraspinals, lumbar STM, manual traction, pain-control modalities, increased core and shoulder strength. Assess low back as indicated
--- NOTE | 2019-02-17 15:12 | PT.OTN ---
Current Diagnoses Cervicalgia (02/17/19) Pain in thoracic spine (02/17/19) History of falling (02/17/19) Physical Therapy Treatment Note PT-OP-A Visit Information Start: 12/14/18 16:58 Freq: Status: Active Protocol: Document 02/17/19 14:30 DCW (Rec: 02/17/19 15:12 DCW [id number]) Out-Patient Physical Therapy Visit Information Visit Information Visit Type Treatment Note Visit Start Time 14:30 Visit Stop Time 15:25 Total Visit Minutes 55 Visit Number 9 Number of MANAGER MEDICAL AFFAIRS Visits 0 Evaluation Information Evaluation Date 12/14/18 PT-OP-B Current Condition Start: 12/14/18 16:58 Freq: Status: Active Protocol: Document 12/14/18 13:45 DCW (Rec: 12/14/18 17:14 DCW [id number]) Current Condition History of Current Condition Onset Date 2 months Current Complaints pain in neck, shoulders, and low back History of Current Condition Pt is a 53 year old romanian- speaking 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 Pt has a two month history of neck, shoulder, and low back pain after falling while chasing after a young grandchild who was running toward that road. Pt notes she has constant pain that is worsened when trying to pick anything up, and has radiating pain down along her arm to her wrist bilaterally. Pt notes that when her pain is worsening, she can't do anything, and just sits back in a recliner. Pt also notes that she saw a chiropractor for her neck pain, but only went once because it made the pain worse. Prior Treatments and Tests Cervical X-ray: No compression fracture or spondylolisthesis in cervical spine. per Rafael Rodas M.D. on 11/10/2018 PT-OP-C Subjective Start: 12/14/18 16:58 Freq: Status: Active Protocol: Document 02/17/19 14:30 DCW (Rec: 02/17/19 15:12 DCW [id number]) OP-PT Subjective Patient Comments Patient Comments I feel so good! In my back, in my neck, just good. Patient Reported Progress Improving PT-OP-F Manual Assessment Start: 12/14/18 16:58 Freq: Status: Active Protocol: Document 12/14/18 13:45 DCW (Rec: 12/14/18 17:14 DCW [id number]) Manual Assessments Soft Tissue Assessment Soft Tissue Mobility Assessment Severe tone and tenderness to palpation 3/4: Wincing and withdraw along bilateral upper traps, scalenes, Quadratus lumborum, and lumbar paraspinals. Joint Mobility Assessment Joint Mobility Assessment Pt winces and cries out with pain during passive neck flexion, as well as with mild palpation of C7 PT-OP-J Posture/Palpation/Skin Start: 12/14/18 16:58 Freq: Status: Active Protocol: Document 12/14/18 13:45 DCW (Rec: 12/16/18 14:09 DCW [id number]) Posture Evaluation Position Sitting Evaluation View Lateral Head/C-Spine Posture Flexed,Forward Head Pelvis Posture Posterior Tilted Palpation Assessment Location Three Palpation Location Bilateral Quadratus Lumborum Palpation Findings Soft Tissue Tightness,Spasm, Muscle Guarding,Tenderness Two Palpation Location Bilateral Upper Trap Palpation Findings Soft Tissue Tightness,Spasm, Muscle Guarding,Tenderness One Palpation Location C7 Palpation Findings Tenderness Palpation Details Pt cries out in pain with any palpation of C7 PT-OP-K Range of Motion Start: 12/14/18 16:58 Freq: Status: Active Protocol: Document 12/14/18 13:45 DCW (Rec: 12/16/18 14:09 DCW [id number]) Cervical Spine Range of Motion Cervical Spine Active Degrees Testing Position Sitting Flexion 60 Extension 45 Rotation Left 68 Rotation Right 66 Lateral Flexion Left 25 Lateral Flexion Right 23 ROM Limitations Soft Tissue Tightness,Muscle Weakness,Muscle Tone,Pain Shoulder Goniometric Range of Motion Shoulder Right Active Testing Position Sitting Flexion 98 Abduction 124 Left Active Testing Position Sitting Flexion 87 Abduction 120 PT-OP-L Special Tests Start: 12/14/18 16:58 Freq: Status: Active Protocol: Document 12/14/18 13:45 DCW (Rec: 12/16/18 14:09 DCW [id number]) Special Tests Cervical Spine Special Tests Slump Test Results Severe C7 pain Traction Test Results Negative Spurling's Test Test Results Negative Passive Neck Flexion Test Results Severe C7 pain Foraminal Compression Test Results Negative PT-OP-M Strength Start: 12/14/18 16:58 Freq: Status: Active Protocol: Document 12/14/18 13:45 DCW (Rec: 12/16/18 14:09 DCW [id number]) Trunk Strength Trunk Manual Muscle Testing Core Stabilization Pt has difficulty caron TrA during posterior pelvic tilt: TrA MMT 3-/5 Shoulder Strength Shoulder Manual Muscle Testing Right Flexion 3- Fair- Abduction (C5) 3- Fair- External Rotation 4 Good Internal Rotation 4 Good Left Flexion 3- Fair- Abduction (C5) 3- Fair- External Rotation 4 Good Internal Rotation 4 Good PT-OP-Q Treatments Start: 12/14/18 16:58 Freq: Status: Active Protocol: Document 02/17/19 14:30 DCW (Rec: 02/17/19 15:12 DCW [id number]) Cardio Equipment Upper Body Ergometer (UBE) Duration (Minutes) 5 RPM 60 Seat Position 10 Height 3.5 Other Fwd/Bkwd Gym Equipment Cable Column (Body Solid) Rows Resistance 30# Lat Pull Down Resistance 40# Therapeutic Exercises Supine Exercises Shoulder Horizontal Adduction Supine Exercise Name Horizontal Adduction Side bilateral Resistance 5# Serratus Punch Supine Exercise Name Serratus Punch Side bilateral Resistance 5# Standing Exercises Body Blade Standing Exercise Name Bilateral flexion, abduction Side bilateral Resistance Yellow Manual Therapy Treatment Soft Tissue Mobilization Paraspinals Body Location Thoracic paraspinals Mobilization Type Strumming,Sustained Pressure Body Position Prone Rhomboids Body Location B Rhomboids/Parascapulars Mobilization Type Strumming,Sustained Pressure, Trigger Point Release Body Position Prone Upper Trap Body Location B UT, Scalenes, Levator, Suboccipitals Mobilization Type Strain/Counterstrain,Strumming ,Sustained Pressure Body Position Supine PT-OP-R Modalities Start: 12/14/18 16:58 Freq: Status: Active Protocol: Document 02/17/19 14:30 DCW (Rec: 02/17/19 15:12 DCW [id number]) Electric Stimulation Electric Stimulation Interferential Current (IFC) Body Location Bilateral upper traps Duration (Minutes) 15 Cycle Continuous Patient Position Hooklying Combined With Heat/Cold Hot Pack PT-OP-T Assessment and Plan Start: 12/14/18 16:58 Freq: Status: Active Protocol: Document 02/17/19 14:30 DCW (Rec: 02/17/19 15:12 DCW [id number]) Physical Therapy Assessment Impairments Impairments Functional Activities,Pain, Posture,ROM,Soft Tissue Mobility,Strength,Tone Goals Four Impairment Restricted Shoulder ROM Care Home Goal (LTG) Pt to display flexion and abduction ROM of bilateral shoulder to at least 140? LTG Duration 02/14/19 Three Impairment Weakness Short Term Goal (STG) Pt to display shoulder MMT of 4/5 STG Duration 01/14/19 Assistant Media Planner Goal (LTG) Pt to display TrA MMT of 4/5 LTG Duration 02/14/19 Two Impairment Pt complains of pain with picking up anything heavier than 5 pounds Assistant Media Planner Goal (LTG) Pt to lift grandchild with no reports of increased back pain LTG Duration 02/14/19 One Impairment Pt does not have an appropriate home exercise program Short Term Goal (STG) Pt to be independent and complaint with an appropriate HEP STG Duration 01/14/19 Assessment Summary Assessment Pt showing excellent progress so far, reporting she is having minimal to no thoracic or cervical pain today. Physical Therapy Plan Frequency and Duration Frequency of Treatment 2x/Week Duration of Treatment 10 weeks Plan of Care Start Date 12/14/18 Plan of Care End Date 02/22/19 Therapeutic Interventions Therapeutic Interventions Aquatic Therapy,Home Exercise Program,Joint Mobilizations, Manual Therapy,Neuromuscular Re-education,Patient/Caregiver Education,Self-Care/Home Management,Soft Tissue Mobilization,Therapeutic Activities,Therapeutic Exercises Modalities Cold Pack/Ice Massage,Electric Stimulation,Hot Packs, Ultrasound Next Visit Focus/Plan Next Note Type Treatment Note Next Visit Plan Flexibility/STM of cervical spine/paraspinals, lumbar STM, manual traction, pain-control modalities, increased core and shoulder strength. Assess low back as indicated
--- NOTE | 2019-02-22 17:10 | PT.OTN ---
Current Diagnoses Cervicalgia (02/22/19) Pain in thoracic spine (02/22/19) History of falling (02/22/19) Physical Therapy Treatment Note PT-OP-A Visit Information Start: 12/14/18 16:58 Freq: Status: Active Protocol: Document 02/22/19 16:45 DCW (Rec: 02/22/19 17:10 DCW [id number]) Out-Patient Physical Therapy Visit Information Visit Information Visit Type Treatment Note Visit Start Time 16:45 Visit Stop Time 17:05 Total Visit Minutes 20 Visit Number 10 Number of FINISHER MACHINE Visits 0 Evaluation Information Evaluation Date 12/14/18 PT-OP-B Current Condition Start: 12/14/18 16:58 Freq: Status: Active Protocol: Document 12/14/18 13:45 DCW (Rec: 12/14/18 17:14 DCW [id number]) Current Condition History of Current Condition Onset Date 2 months Current Complaints pain in neck, shoulders, and low back History of Current Condition Pt is a 53 year old macedonian- speaking 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 Pt has a two month history of neck, shoulder, and low back pain after falling while chasing after a young grandchild who was running toward that road. Pt notes she has constant pain that is worsened when trying to pick anything up, and has radiating pain down along her arm to her wrist bilaterally. Pt notes that when her pain is worsening, she can't do anything, and just sits back in a recliner. Pt also notes that she saw a chiropractor for her neck pain, but only went once because it made the pain worse. Prior Treatments and Tests Cervical X-ray: No compression fracture or spondylolisthesis in cervical spine. per Rafael Rodas M.D. on 11/10/2018 PT-OP-C Subjective Start: 12/14/18 16:58 Freq: Status: Active Protocol: Document 02/22/19 16:45 DCW (Rec: 02/22/19 17:10 DCW [id number]) OP-PT Subjective Patient Comments Patient Comments I feel very good. Pt notes that she cannot think of anything that has been causing her pain, she can even lift her grandchild again. PT-OP-F Manual Assessment Start: 12/14/18 16:58 Freq: Status: Active Protocol: Document 02/22/19 16:45 DCW (Rec: 02/22/19 17:01 DCW [id number]) Manual Assessments Soft Tissue Assessment Soft Tissue Mobility Assessment Mild tone and tenderness with palpation 1/4: Complaint of pain along left upper trap Joint Mobility Assessment Joint Mobility Assessment No pain with neck flexion or palpation of C7 PT-OP-J Posture/Palpation/Skin Start: 12/14/18 16:58 Freq: Status: Active Protocol: Document 02/22/19 16:45 DCW (Rec: 02/22/19 17:01 DCW [id number]) Posture Evaluation Position Sitting Evaluation View Lateral Head/C-Spine Posture Flexed,Forward Head Pelvis Posture Posterior Tilted Palpation Assessment Location Two Palpation Location Bilateral Upper Trap Palpation Findings Soft Tissue Tightness One Palpation Location C7 Palpation Findings None/Normal PT-OP-K Range of Motion Start: 12/14/18 16:58 Freq: Status: Active Protocol: Document 02/22/19 16:45 DCW (Rec: 02/22/19 17:01 DCW [id number]) Cervical Spine Range of Motion Cervical Spine Active Degrees Testing Position Sitting Flexion 70 Extension 80 Rotation Left 68 Rotation Right 72 Lateral Flexion Left 45 Lateral Flexion Right 48 Shoulder Goniometric Range of Motion Shoulder Right Active Testing Position Sitting Flexion 180 Abduction 180 Left Active Testing Position Sitting Flexion 180 Abduction 180 PT-OP-L Special Tests Start: 12/14/18 16:58 Freq: Status: Active Protocol: Document 02/22/19 16:45 DCW (Rec: 02/22/19 17:01 DCW [id number]) Special Tests Cervical Spine Special Tests Slump Test Results Negative Traction Test Results Negative Spurling's Test Test Results Negative Passive Neck Flexion Test Results Negative Foraminal Compression Test Results Negative PT-OP-M Strength Start: 12/14/18 16:58 Freq: Status: Active Protocol: Document 02/22/19 16:45 DCW (Rec: 02/22/19 17:01 DCW [id number]) Trunk Strength Trunk Manual Muscle Testing Core Stabilization Pt able to maintain TrA contraction during PPT, begins to lose it during repeated SLR: TrA MMT 4/5 Shoulder Strength Shoulder Manual Muscle Testing Right Flexion 4+ Good+ Abduction (C5) 4+ Good+ External Rotation 4+ Good+ Internal Rotation 5 Normal Left Flexion 4+ Good+ Abduction (C5) 4+ Good+ External Rotation 4+ Good+ Internal Rotation 5 Normal PT-OP-Q Treatments Start: 12/14/18 16:58 Freq: Status: Active Protocol: Document 02/22/19 16:45 DCW (Rec: 02/22/19 17:10 DCW [id number]) Cardio Equipment Upper Body Ergometer (UBE) Duration (Minutes) 5 RPM 60 Seat Position 10 Height 3.5 Other Fwd/Bkwd PT-OP-R Modalities Start: 12/14/18 16:58 Freq: Status: Active Protocol: Document 02/17/19 14:30 DCW (Rec: 02/17/19 15:12 DCW [id number]) Electric Stimulation Electric Stimulation Interferential Current (IFC) Body Location Bilateral upper traps Duration (Minutes) 15 Cycle Continuous Patient Position Hooklying Combined With Heat/Cold Hot Pack PT-OP-T Assessment and Plan Start: 12/14/18 16:58 Freq: Status: Active Protocol: Document 02/22/19 16:45 DCW (Rec: 02/22/19 17:10 DCW [id number]) Physical Therapy Assessment Impairments Impairments Functional Activities,Pain, Posture,ROM,Soft Tissue Mobility,Strength,Tone Goals Four Impairment Restricted Shoulder ROM Halfway Goal (LTG) Pt to display flexion and abduction ROM of bilateral shoulder to at least 140? LTG Duration Met Three Impairment Weakness Short Term Goal (STG) Pt to display shoulder MMT of 4/5 STG Duration Met Halfway Goal (LTG) Pt to display TrA MMT of 4/5 LTG Duration Met Two Impairment Pt complains of pain with picking up anything heavier than 5 pounds Halfway Goal (LTG) Pt to lift grandchild with no reports of increased back pain LTG Duration Met One Impairment Pt does not have an appropriate home exercise program Short Term Goal (STG) Pt to be independent and complaint with an appropriate HEP STG Duration Met Assessment Summary Assessment Pt has met all goals, is not having any ongoing issues or complaints at this time. Pt will be discharged from skilled therapy. Physical Therapy Plan Frequency and Duration Frequency of Treatment 2x/Week Duration of Treatment 10 weeks Plan of Care Start Date 12/14/18 Plan of Care End Date 02/22/19 Therapeutic Interventions Therapeutic Interventions Aquatic Therapy,Home Exercise Program,Joint Mobilizations, Manual Therapy,Neuromuscular Re-education,Patient/Caregiver Education,Self-Care/Home Management,Soft Tissue Mobilization,Therapeutic Activities,Therapeutic Exercises Modalities Cold Pack/Ice Massage,Electric Stimulation,Hot Packs, Ultrasound Discharge Physical Therapy Discharge Reasons Goals Met Next Visit Focus/Plan Next Note Type Discharge Summary
== END 2019-04-08 11:20 ==
LOC: PHYS 16:45
PROVIDERS: PCP Nurse Practitioner; Visit Provider Nurse Practitioner
DX: M54.2 Cervicalgia (principal); Z91.81 History of falling; M54.6 Pain in thoracic spine
CPT/HCPCS: 97014; 97110; 97140; 97162; G0283

== ENCOUNTER → 2019-03-07 08:51 | Outpatient (CLI) | payer OTHER, MEDICAID, SELFPAY ==
--- NOTE | 2019-03-07 08:55 | DI.MRI.S_ITS ---
PROCEDURE: MR PELVIS WO/W CON INDICATIONS: postmenopausal bleeding TECHNIQUE: Coronal HASTE, sagittal breath-hold T2 FSE; axial T1 FSE with and without fat saturation through the pelvis. Optional long- and short-axis uterine nonbreath-hold T2 FSE through the uterus. Sagittal or axial dynamic VIBE during administration of contrast. Post-contrast axial or coronal VIBE/2-D FLASH with fat saturation from the iliac crests to the symphysis. Optional diffusion weighted imaging and ADC may be performed. COMPARISON: Pelvic ultrasound 02/15/2019, 11/13/2017. FINDINGS: Image quality: Excellent. Uterus: Uterus is anteverted and normal in size measuring 7.5 x 3.8 x 2.3 cm. No mass. Susceptibility artifact along the anterior lower uterine segment and intra-abdominal wall inferiorly presumably due to prior section. Endometrium measures 2 mm. Junctional zone is normal in thickness at 12 mm or less. No adenomyosis. No abnormal enhancement or restricted diffusion in the vagina. Adnexa: Both ovaries are normal in size, without suspicious cystic or solid lesions. Urinary system: Bladder wall is normal in thickness. Distal ureters are non distended. Urethra appears normal in morphology. Nodes and vessels: No pelvic or inguinal adenopathy by size criteria. Iliac vessels are normal in size. Bowel and peritoneum: No pathologic free pelvic fluid. Inferior colon and small bowel loops are normal in caliber. Soft tissues: No inguinal hernias. No findings of pelvic floor incompetence in the absence of provocation. Bones: Marrow demonstrates normal overall signal. IMPRESSION: 1. No uterine mass or pelvic adenopathy. No free fluid. 2. Endometrium measures 2 mm. Question of endometrial atrophy. 3. Normal ovaries. Dictated by: Negro Will M.D. on 03/07/2019 at 10:49 Approved by: Negro Will M.D. on 03/07/2019 at 10:58
== END ==
PROVIDERS: PCP Nurse Practitioner; Visit Provider Nurse Practitioner
DX: N95.0 Postmenopausal bleeding (principal)
CPT/HCPCS: 72197; A9579

== ENCOUNTER → 2019-07-19 09:00 | Outpatient (CLI) | payer OTHER, MEDICAID, SELFPAY ==
[2019-07-19 10:00] LABS: Cholesterol 164 mg/dL (140-199); HDL Cholesterol 45 mg/dL (40-60); LDL Cholesterol Calculated 87 mg/dL (<100); Triglycerides 160 mg/dL (35-150)
== END ==
PROVIDERS: Referring Provider Nurse Practitioner; Visit Provider Nurse Practitioner
DX: E66.9 Obesity, unspecified (principal); E78.2 Mixed hyperlipidemia
CPT/HCPCS: 36415; 80061

== ENCOUNTER 2019-07-28 21:26 | Emergency (ER) | payer OTHER, MEDICAID, SELFPAY ==
[2019-07-28 21:39] VITALS: BP 133/64; PULSE 80; RESP 18; TEMP 36.6; O2SAT 98
--- NOTE | 2019-07-28 21:45 | ED.GENADULT ---
HPI - General Adult General Chief complaint: Hypertension Stated complaint: thinks blood pressure is too high Time Seen by Provider: 07/28/19 21:27 Source: patient Mode of arrival: Ambulatory Limitations: no limitations History of Present Illness HPI narrative: 54-year-old female nonsmoker with history of hyperlipidemia presents with her in the chief complaint of concerns of an elevated blood pressure. Patient went to get her blood pressure checked because of a headache. She states she went to a local pharmacy and the machine read her blood pressure in the 130s over 80s which stated her pressure was high which then caused her concern at which point she presents to the emergency department. She denies any blurred vision or trouble speech. She denies any numbness, tingling or weakness. She denies any chest pain or shortness of breath. She has no abdominal pain. Furthermore, she states she has had a headache ever since she stood up quickly and hit her head on a cabinet. She takes no blood thinners and was not on alcohol. She denies any loss of consciousness, vomiting or confusion. Onset (ago): minute(s) Location: head Quality: aching Pain Consistency: constant Relieving factors: none Exacerbating factors: none Associated symptoms: denies other symptoms Treatments prior to arrival: none Related Data Home Medications Medication Instructions Recorded Confirmed gabapentin 300 mg capsule 300 mg PO TID 02/08/19 03/31/19 oxycodone-acetaminophen 10 mg-325 1 tab PO TID PRN 02/08/19 03/31/19 mg tablet Previous Rx's Medication Instructions Recorded white petrolatum-mineral oil 94 1 applictn EYE-BOTH BEDTIME PRN 02/08/19 %-3 % eye ointment #3.5 gram hydroxyzine HCl 25 mg tablet 25 mg PO Q6H PRN #360 tab 03/01/19 clobetasol 0.05 % topical gel 1 applictn TOP DAILY #15 gram 03/31/19 citalopram 20 mg tablet 20 mg PO DAILY #30 tab 05/12/19 citalopram 40 mg tablet 40 mg PO DAILY #30 tab 05/12/19 atorvastatin 40 mg tablet 40 mg PO DAILY #90 tab 07/27/19 Allergies Allergy/AdvReac Type Severity Reaction Status Date / Time No Known Drug Allergies Allergy Verified 03/31/19 09:02 Review of Systems Constitutional Constitutional: Denies chills, Denies fatigue, Denies fever(s), Denies frequent falls, Reports headache(s), Denies lethargy and Denies weakness Eyes Eyes: Denies change in vision, Denies eye discharge, Denies irritation and Denies loss of vision ENT Ears, Nose, Mouth, and Throat: Denies change in voice, Denies dizziness, Reports headache(s), Denies neck pain, Denies sore throat and Denies throat swelling Cardiovascular Cardiovascular: Denies chest pain, Denies irregular heart rhythm, Denies lightheadedness, Denies palpitations, Denies dyspnea, Denies dyspnea on exertion and Denies orthopnea Respiratory Respiratory: Denies cough, Denies dyspnea, Denies dyspnea on exertion and Denies wheezing Gastrointestinal Gastrointestinal: Denies abdominal pain, Denies change in bowel habits, Denies diarrhea, Denies nausea and Denies vomiting Genitourinary Genitourinary: Denies hematuria, Denies flank pain, Denies urinary incontinence and Denies urinary urgency Musculoskeletal Musculoskeletal: Denies back pain, Denies muscle weakness, Denies neck pain, Denies numbness and Denies tingling Integumentary/Breasts Skin/Breast: Denies pruritus, Denies erythema, Denies rash and Denies wounds Neurologic Neurologic: Denies behavioral changes, Denies confusion, Denies dizziness, Denies frequent falls, Reports headache(s), Denies loss of vision, Denies numbness, Denies tingling and Denies weakness Psychiatric Psychiatric: Denies anxiety, Denies behavioral changes, Denies confusion, Denies depression, Denies homicidal ideation and Denies suicidal ideation Endocrine Endocrine: Denies fatigue, Denies flushing and Denies palpitations Hematologic/Lymphatic Hematologic/Lymphatic: Denies easy bruising Allergic/Immunologic Allergic/Immunologic: Denies urticaria, Denies throat swelling and Denies wheezing Patient History Medical History Anxiety (Chronic) Chronic back pain (Chronic) Depression (Chronic) Fracture of right foot (Resolved) Headache (Chronic) Heel pain (Chronic) High cholesterol (Chronic) High triglycerides (Chronic) Migraines (Chronic) Prediabetes (Chronic) Vision disorder (Chronic) Surgical History Anesthesia (Resolved) Previous section (Resolved) Family History Father Cancer Mother History of heart disease Brother No problems noted. Social History Smoking Status: Never smoker Smoking Status: Never smoker alcohol intake frequency: 0-2 drinks per day Substance Use Type: does not use Exam Narrative Exam Narrative: GENERAL: [54] year old patient appears stated age. Well-nourished, well-developed patient, in mild distress. HEAD: Atraumatic. Normocephalic. EYES: Pupils equal round and reactive. Extraocular motions intact. No scleral icterus. No injection or drainage. ENT: Nose without bleeding, purulent drainage. Throat without erythema, tonsillar hypertrophy or exudate. Airway patent. NECK: Trachea midline. Non tender CARDIOVASCULAR: Regular rate and rhythm without murmurs, gallops, or rubs. RESPIRATORY: Clear to auscultation. Breath sounds equal bilaterally. No wheezes, rales, or rhonchi. GASTROINTESTINAL: Abdomen soft, non-tender, nondistended. EXTREMITIES: No edema or joint tenderness. BACK: Nontender without deformity or crepitance. No flank tenderness. NEURO: AOx3. SKIN: No rash or erythema of visible areas Initial Vital Signs Initial Vital Signs: Vital Signs Temperature 98 F 07/28/19 21:39 Pulse Rate 80 07/28/19 21:39 Respiratory Rate 18 07/28/19 21:39 Blood Pressure 133/64 07/28/19 21:39 Pulse Oximetry 98 07/28/19 21:39 Course Course Course Narrative: We discussed the patient's blood pressures in the 130s, I explained that though it is technically an elevated blood pressure according to the [place] [employer] this is not high enough to be causing acute symptoms them at we would not treated in the emergency department but that following up with her primary care provider is very appropriate. She expressed understanding, understands return precautions and had her questions answered to her apparent satisfaction. Vital Signs Vital signs: Vital Signs - 8 hr 07/28/19 21:39 07/28/19 22:09 Temperature 98 F Pulse Rate 80 75 Respiratory Rate 18 16 Blood Pressure 133/64 Blood Pressure [Left Arm] 120/57 L Pulse Oximetry 98 96 Discharge Plan Departure Patient Disposition: Home Clinical Impression: Hypertension Qualifiers: Hypertension type: essential hypertension Qualified Code(s): I10 - Essential (primary) hypertension Concussion Qualifiers: Encounter type: initial encounter Loss of consciousness presence/duration: without LOC Qualified Code(s): S06.0X0A - Concussion without loss of consciousness, initial encounter Discharge Date/Time: 07/28/19 22:10 Activity Restrictions/Additional Instructions: *You have been diagnosed with [ very mild concussion, mild hypertension ] *What to do: *continue to take medications as directed *Follow up with your primary care provider in 2-3 days, call for an appointment. Let them know you were seen in the Emergency Department and that we ask that you be seen in follow up *Return to ER if you should have any new, worsening or concerning symptoms Prescriptions: No Action hydroxyzine HCl 25 mg tablet 25 mg PO Q6H PRN (Reason: anxiety) Qty: 360 RF: 3 citalopram 40 mg tablet 40 mg PO DAILY Qty: 30 RF: 1 citalopram 20 mg tablet 20 mg PO DAILY Qty: 30 RF: 2 atorvastatin 40 mg tablet 40 mg PO DAILY Qty: 90 RF: 1 clobetasol 0.05 % gel 1 applictn TOP DAILY Qty: 15 RF: 2 gabapentin 300 mg capsule 300 mg PO TID RF: 0 oxycodone-acetaminophen [Percocet] 10-325 mg tablet 1 tab PO TID PRNRF: 0 Systane Nighttime 94-3 % ointment 1 applictn EYE-BOTH BEDTIME PRN (Reason: dry eye(s)) Qty: 3.5 RF: 6 Referrals: Keshia Nieves ARNP [Primary Care Provider] -
--- NOTE | 2019-07-28 22:02 | PC.NURSE ---
Her b/p was 137/88 at [facility],worried that was high because she has had a slight h/a since bumping her head yesterday,no loc,no neck pain.no n/v.smiling and co-operative.
[2019-07-28 22:09] VITALS: BP 120/57; PULSE 75; RESP 16; O2SAT 96
== END 2019-07-28 22:10 | disposition home or self-care (01) ==
PROVIDERS: Emergency Provider Emergency Medicine; PCP Nurse Practitioner
DX: I10 Essential (primary) hypertension (principal); S06.0X0A Concussion without loss of consciousness, initial encounter
CPT/HCPCS: 99281

== ENCOUNTER → 2019-08-09 07:51 | Outpatient (CLI) | payer OTHER, MEDICAID, SELFPAY ==
--- NOTE | 2019-08-09 07:52 | DI.MRI.S_ITS ---
PROCEDURE: MR HEAD/BRAIN WO/W CON INDICATIONS: Head injury, concussion TECHNIQUE: Noncontrast axial T1 spin echo, axial T2 fast spin echo, sagittal and axial FLAIR, coronal T2 fast spin echo, axial gradient echo, axial diffusion and ADC through the brain. After the administration of contrast, axial and coronal 3D VIBE or T1 spin echo with fat saturation through the brain. COMPARISON: [facility], CT, CT HEAD/BRAIN WO CON, 01/23/2019, 23:59. FINDINGS: Image quality: Excellent. CSF Spaces: Basal cisterns are patent. No extra-axial fluid collections. Ventricles are normal in size and shape. Brain: Several foci of T2 weighted hyperintensity are seen, which apparently within the juxtacortical white matter. There is a mild involvement of the undersurface of the corpus callosum. These foci do not enhance. No definite involvement of the brainstem or the posterior fossa can be seen. No midline shift. No intracranial bleeds or masses. No abnormal intracranial enhancement. The brainstem appears normal. Diffusion-weighted images demonstrate no acute ischemic insults. No chronic ischemic insults. Normal intravascular flow voids are present. Skull and face: Calvarial marrow is normal in signal. Orbits appear normal. Sinuses: Sinuses and mastoids appear clear. IMPRESSION: No findings of brain edema or hemorrhage can be seen. Several foci of abnormal T2-weighted hyperintensity are seen, which are primarily within the juxtacortical white matter. Please correlate with the possibility of a demyelinating process, including multiple sclerosis. No abnormal enhancement is seen. No findings of acute or subacute infarction can be seen. Dictated by: Salinas Ruiz M.D. on 08/09/2019 at 8:48 Approved by: Salinas Ruiz M.D. on 08/09/2019 at 8:50
== END ==
PROVIDERS: PCP Nurse Practitioner; Referring Provider Nurse Practitioner; Visit Provider Nurse Practitioner
DX: S06.0X9A Concussion with loss of consciousness of unspecified duration, initial encounter (principal); X58.XXXA Exposure to other specified factors, initial encounter
CPT/HCPCS: 70553

== ENCOUNTER → 2019-11-07 09:59 | Outpatient (CLI) | payer OTHER, MEDICAID, SELFPAY ==
[2019-11-07 12:03] LABS: Add Manual Diff / Slide Review NO; Basophils Absolute Auto 100 /uL (0-100); Basophils Percent Auto 1.3 % (0-2); Eosinophils Absolute Auto 200 /uL (0-450); Eosinophils Percent Auto 2.3 % (2-4); Hematocrit 40.1 % (36-46); Hemoglobin 13.9 g/dL (12.0-16.0); Lymphocytes Absolute Auto 2600 /uL (1100-4500); Lymphocytes Percent Auto 37.6 % (25-40); Mean Corpuscular HGB Conc 34.6 % (30-36); Mean Corpuscular Volume 83.9 fL (80-100); Monocytes Absolute Auto 500 /uL (0-900); Monocytes Percent Auto 6.8 % (3-14); Neutrophils Absolute Auto 3500 /uL (1500-7000); Platelet Count 277 X10^3/uL (150-400); Red Blood Cell Count 4.78 X10^6/uL (4.0-5.2); Red Cell Distribution Width 14.4 % (11.6-14.8); White Blood Cell Count 6.8 X10^3/uL (4.5-11.0)
[2019-11-07 12:17] LABS: Erythrocyte Sedimentation Rate 3 MM/HR (0-20)
[2019-11-07 12:29] LABS: Alanine Aminotransferase 40 IU/L (<35); Albumin 4.3 g/dL (3.5-5.0); Albumin Globulin Ratio 1.3 (1.0-2.8); Alkaline Phosphatase 93 U/L (38-126); Aspartate Aminotransferase 46 IU/L (14-36); BUN Creatinine Ratio 16.4 (6-22); Bilirubin Total 0.4 mg/dL (0.2-1.3); Blood Urea Nitrogen 11 mg/dL (7-17); Calcium 9.5 mg/dL (8.4-10.2); Carbon Dioxide 28 mmol/L (22-32); Chloride 105 mmol/L (98-107); Estimated Glomerular Filt Rate > 60.0 mL/min (>60); Globulin 3.4 g/dL (1.7-4.1); Glucose 128 mg/dL (70-100); HEMOLYSIS < 15 (0-50); Potassium 4.4 mmol/L (3.4-5.1); Sodium 139 mmol/L (137-145); Total Protein 7.7 g/dL (6.3-8.2)
[2019-11-07 13:13] LABS: TSH w/ Reflex to FT4 2.06 uIU/mL (0.47-4.68)
[2019-11-07 13:25] LABS: Folate 13.4 ng/mL (2.76-20.0); Vitamin B12 > 1000 pg/mL (239-931)
== END ==
PROVIDERS: PCP Nurse Practitioner; Referring Provider Psychiatry & Neurology Neurology; Visit Provider Psychiatry & Neurology Neurology
DX: R41.3 Other amnesia (principal); R90.82 White matter disease, unspecified
CPT/HCPCS: 36415; 80053; 82607; 82746; 84443; 85025; 85651; 86038; 86140

== ENCOUNTER → 2019-11-29 10:05 | Outpatient (CLI) | payer OTHER, MEDICAID, SELFPAY ==
[2019-11-30 04:36] LABS: HBsAg Screen Negative (Negative); Hepatitis A Antibody IgM Negative (Negative); Hepatitis B Core Antibody IgM Negative (Negative); Hepatitis C Antibody <0.1 s/co ratio (0.0-0.9)
== END ==
PROVIDERS: PCP Nurse Practitioner; Referring Provider Nurse Practitioner; Visit Provider Nurse Practitioner
DX: R74.8 Abnormal levels of other serum enzymes (principal)
CPT/HCPCS: 36415; 80074

== ENCOUNTER → 2019-12-09 10:30 | Outpatient (CLI) | payer OTHER, MEDICAID, SELFPAY ==
[2019-12-09 11:18] LABS: Hemoglobin A1C% w Est Avg Glu 6.4 % (4.0-6.0)
== END ==
PROVIDERS: PCP Nurse Practitioner; Referring Provider Family Medicine; Visit Provider Family Medicine
DX: R19.7 Diarrhea, unspecified (principal); R73.01 Impaired fasting glucose
CPT/HCPCS: 36415; 83036

== ENCOUNTER → 2019-12-26 14:26 | Outpatient (CLI) | payer OTHER, MEDICAID, SELFPAY | PROVIDERS: PCP Nurse Practitioner; Referring Provider Nurse Practitioner; Visit Provider Nurse Practitioner | DX: N39.0 Urinary tract infection, site not specified (principal) | CPT/HCPCS: 87086 ==

== ENCOUNTER → 2020-01-03 09:50 | Outpatient (CLI) | payer OTHER, MEDICAID, SELFPAY ==
[2020-01-04 01:52] LABS: COVID19 Sendout Not Detected (Not Detect)
== END ==
PROVIDERS: PCP Nurse Practitioner; Visit Provider Physician Assistant
DX: Z11.59 Encounter for screening for other viral diseases (principal)
CPT/HCPCS: 87635

== ENCOUNTER 2020-01-23 13:00 | Outpatient (RCR) | payer OTHER, MEDICAID, SELFPAY ==
--- NOTE | 2019-12-26 15:41 | PT.OIE ---
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) Depression (Chronic) Diarrhea (Acute) Elevated fasting blood sugar (Acute) Fracture of right foot (Resolved) Headache (Chronic) Headaches due to old head injury (Acute) Heel pain (Chronic) High cholesterol (Chronic) High triglycerides (Chronic) Insomnia (Acute) Migraines (Chronic) Prediabetes (Chronic) Vision disorder (Chronic) Past Surgical History (Last Reviewed 12/17/19 @ 19:53 by Fadi Frances MD) Anesthesia (Resolved) Previous section (Resolved) Visit Care Team Role Provider Type MIGUEL Anna Primary Care Provider Advanced Planning Specialist Specialty: Family Practice Address: [address] [place] [address], [facility] Email: [email or web address] Sana Ling DO Attending Provider Non-Staff Referring Provider Specialty: Psychiatry Address: [address] [place] [address], [id number] Email: Physical Therapy Initial Evaluation PT-OP-A Visit Information Start: 12/22/19 12:22 Freq: Status: Active Protocol: Document 12/26/19 13:26 MB (Rec: 12/26/19 13:52 MB [id number]) Out-Patient Physical Therapy Visit Information Visit Information Visit Type Initial Evaluation Visit Note [facility] Pt is a primary German speaker and states that she speaks Citizen [place] and does not need an printer small print shop. She cannot read in [place] and so QuickDASH and NDI provided in German. Visit Start Time 13:26 Visit Stop Time 14:11 Total Visit Minutes 45 Visit Number 1 Evaluation Information Evaluation Date 12/26/19 PT-OP-B Current Condition Start: 12/22/19 12:22 Freq: Status: Active Protocol: Document 12/26/19 13:26 MB (Rec: 12/26/19 13:52 MB [id number]) Current Condition History of Current Condition Onset Date One year Current Complaints B shoulder pain History of Current Condition Pt fell twice last year. She fell 5-6 months apart. She was running in the street to catch her grandson and fell forward and hit the front of her head and right knee. Pt fell the second time working in the garden. She had a right ankle sprain. She only hurt her leg. Pt reports B upper shoulder pain. She thinks that previous PT stated that she had muscle problems. She also has neck pain. She legs arm fine. Pt reports that she is pre- diabetic, takes depression medication, problem in her fingers, sometimes she is dizzy with possible BP drops, she takes cholesterol and sleeping medications, 3 falls, she reports vision changes, tingling in her hands and feet . Pt rates pain in her upper shoulders up to 8/10; she rates posterior neck pain up to 8/10. Pt is sleeping on her right side. Prior Treatments and Tests Pt had PT last year in this clinic. She did the arm bike, weights, e-stim and heat. She had 10 treatments and it helped a little bit Treatment Goals Patient/Caregiver Goals To help get help for her shoulder and neck pain PT-OP-C Subjective Start: 12/22/19 12:22 Freq: Status: Active Protocol: Document 12/26/19 13:26 MB (Rec: 12/26/19 13:52 MB [id number]) OP-PT Subjective Patient Comments Patient Comments See history of current condition PT-OP-J Posture/Palpation/Skin Start: 12/22/19 12:22 Freq: Status: Active Protocol: Document 12/26/19 13:26 MB (Rec: 12/26/19 15:41 MB [id number]) Posture Evaluation Comments Posture Comments Standing posture: Dowager's hump, decreased thoracic kyphosis, increased lumbar lordosis, anterior tilt pelvis , increased soft tissue mass in chest and abdomen which contribute to postural changes , right shoulder 1/2 higher than the left and right scapula mildly protracted and elevated compared to the left. R iliac crest higher then the left and increased rearfoot supination and Jarocho angle, greater on the right. PT-OP-K Range of Motion Start: 12/22/19 12:22 Freq: Status: Active Protocol: Document 12/26/19 13:26 MB (Rec: 12/26/19 15:41 MB [id number]) Cervical Spine Range of Motion Cervical Spine Active Degrees Testing Position Standing Flexion 40 Extension 25 Rotation Left 45 Rotation Right 42 Lateral Flexion Left 20 Lateral Flexion Right 20 ROM Limitations Pain Comments Pt reports 6/10 LBP with cervical flexion Shoulder Goniometric Range of Motion Shoulder Right Active Shoulder ROM WFL No Testing Position Standing Flexion 160 Abduction 150 Left Active Shoulder ROM WFL Yes Testing Position Standing Flexion 170 Abduction 170 Shoulder ROM Limitations Shoulder ROM Limitations Pain Comments Pt reports 7/10 B shoulder pain with active abduction to 90 deg PT-OP-M Strength Start: 12/22/19 12:22 Freq: Status: Active Protocol: Document 12/26/19 13:26 MB (Rec: 12/26/19 15:41 MB [id number]) Shoulder Strength Shoulder Manual Muscle Testing Left Flexion 5 Normal Abduction (C5) 5 Normal External Rotation 5 Normal Internal Rotation 5 Normal Right Flexion 5 Normal Abduction (C5) 5 Normal External Rotation 4 Good Internal Rotation 4 Good Elbow/Forearm Strength Elbow and Forearm Manual Muscle Testing Left Flexion (C6) 5 Normal Extension (C7) 5 Normal Pronation 5 Normal Supination 4 Good Right Flexion (C6) 5 Normal Extension (C7) 5 Normal Pronation 5 Normal Supination 3+ Fair+ Wrist Strength Wrist Manual Muscle Testing Left Flexion (C7) 5 Normal Extension (C6) 5 Normal Right Flexion (C7) 4 Good Extension (C6) 4 Good PT-OP-Q Treatments Start: 12/22/19 12:22 Freq: Status: Active Protocol: Document 12/26/19 13:26 MB (Rec: 12/26/19 15:26 MB [id number]) Therapeutic Exercises Standing Exercises STM intrascapular muscles with racquet ball Side bilateral Comments Ed today and handout with photo, instructions in [place] , to help PT-OP-T Assessment and Plan Start: 12/22/19 12:22 Freq: Status: Active Protocol: Document 12/26/19 13:26 MB (Rec: 12/26/19 15:41 MB [id number]) Physical Therapy Assessment Rehab Potential Rehabilitation Potential Good Evaluation Complexity Number of Personal Factors/Comorbidities 1-2 Number of Body Systems Impaired 1-2 Clinical Presentation at Evaluation Evolving Impairments Impairments Activity Tolerance,Pain, Posture,ROM,Soft Tissue Mobility,Strength Goals Four Half-Way Goal (LTG) Pt will present with an improved NDI score to reflect no more than 10% functional impairment by 02/27/2020. LTG Duration 8 weeks Three School Teacher Goal (LTG) Pt will present with an improved QuickDASH score to reflect no more than 10% functional impairment by 2019. LTG Duration 8 weeks Two School Teacher Goal (LTG) Pt will perform progressive HEP with I including alignment , posture, flexibility and strengthening exercises to decrease pain and improve strength by 02/27/2020. LTG Duration 8 weeks One School Teacher Goal (LTG) Pt will present with improved UE strength to 5/5 right shoulder ER and IR, B elbow supination, wrist flexion and extension to allow improved UE use for IADLs by 02/27/2020. LTG Duration 8 weeks Assessment Summary Assessment Pt is a 54 y/o female presenting with long history of shoulder and neck pain. She had several mechanical falls in the past. She reports LBP with cervical ROM and UE strength testing today and this may be a barrier to PT. Increased soft tissue of chest and abdominal areas may be contributing factors to LBP and point tenderness to B upper traps articulation near AC joint as she presents with overall postural changes. She presents with decreased right shoulder flexion and abduction and decreased right UE strengthening. She is right handed. She will benefit from PT to improve flexiblity, posture, alignment, core, intrascapular and shoulder strength. Barriers include many areas of pain, increased body mass anteriorly causing strain on cervical and lumbar spine, weakness. Physical Therapy Plan Frequency and Duration Frequency of Treatment 2x/Week Duration of Treatment 8 weeks Plan of Care Start Date 12/26/19 Plan of Care End Date 02/27/20 Therapeutic Interventions Therapeutic Interventions Aquatic Therapy,Canalithic Repositioning,Home Exercise Program,Joint Mobilizations, Manual Therapy,Neuromuscular Re-education,Patient/Caregiver Education,Self-Care/Home Management,Soft Tissue Mobilization,Taping, Therapeutic Activities, Therapeutic Exercises Modalities Cold Pack/Ice Massage,Electric Stimulation,Hot Packs, Ultrasound Next Visit Focus/Plan Next Note Type Treatment Note Next Visit Plan Advance HEP
--- NOTE | 2019-12-26 15:41 | PT.OPPOC ---
Physical, Occupational & Speech Therapy At [facility] Current Diagnoses Cervicalgia (12/26/19) Headache (12/26/19) Visit Care Team Role Provider Type MIGUEL Anna Primary Care Provider Advanced Sharepoint Manager Specialty: Family Practice Address: [address] [place] [address], [id number] Email: [email or web address] Sana Ling DO Attending Provider Non-Staff Referring Provider Specialty: Psychiatry Address: [address] [place] [address], [address] Email: Plan Of Care PT-OP-T Assessment and Plan Start: 12/22/19 12:22 Freq: Status: Active Protocol: Document 12/26/19 13:26 MB (Rec: 12/26/19 15:41 MB [id number]) Physical Therapy Assessment Rehab Potential Rehabilitation Potential Good Evaluation Complexity Number of Personal Factors/Comorbidities 1-2 Number of Body Systems Impaired 1-2 Clinical Presentation at Evaluation Evolving Impairments Impairments Activity Tolerance,Pain, Posture,ROM,Soft Tissue Mobility,Strength Goals Four Residential Goal (LTG) Pt will present with an improved NDI score to reflect no more than 10% functional impairment by 02/27/2020. LTG Duration 8 weeks Three Residential Goal (LTG) Pt will present with an improved QuickDASH score to reflect no more than 10% functional impairment by 2019. LTG Duration 8 weeks Two Residential Goal (LTG) Pt will perform progressive HEP with I including alignment , posture, flexibility and strengthening exercises to decrease pain and improve strength by 02/27/2020. LTG Duration 8 weeks One Residential Goal (LTG) Pt will present with improved UE strength to 5/5 right shoulder ER and IR, B elbow supination, wrist flexion and extension to allow improved UE use for IADLs by 02/27/2020. LTG Duration 8 weeks Assessment Summary Assessment Pt is a 54 y/o female presenting with long history of shoulder and neck pain. She had several mechanical falls in the past. She reports LBP with cervical ROM and UE strength testing today and this may be a barrier to PT. Increased soft tissue of chest and abdominal areas may be contributing factors to LBP and point tenderness to B upper traps articulation near AC joint as she presents with overall postural changes. She presents with decreased right shoulder flexion and abduction and decreased right UE strengthening. She is right handed. She will benefit from PT to improve flexiblity, posture, alignment, core, intrascapular and shoulder strength. Barriers include many areas of pain, increased body mass anteriorly causing strain on cervical and lumbar spine, weakness. Physical Therapy Plan Frequency and Duration Frequency of Treatment 2x/Week Duration of Treatment 8 weeks Plan of Care Start Date 12/26/19 Plan of Care End Date 02/27/20 Therapeutic Interventions Therapeutic Interventions Aquatic Therapy,Canalithic Repositioning,Home Exercise Program,Joint Mobilizations, Manual Therapy,Neuromuscular Re-education,Patient/Caregiver Education,Self-Care/Home Management,Soft Tissue Mobilization,Taping, Therapeutic Activities, Therapeutic Exercises Modalities Cold Pack/Ice Massage,Electric Stimulation,Hot Packs, Ultrasound Next Visit Focus/Plan Next Note Type Treatment Note Next Visit Plan Advance HEP Plan of Care Dates Plan of Care Start Date 12/26/19 Plan of Care End Date 02/27/20 Electronically Signed by: Angelica August, PT 12/26/19 [id number] Please Sign and Return: I have reviewed this Plan of Care and certify that the skilled therapy services above are required to meet the patient?s needs. Physician Signature Date Printed Name and Credentials Clinical Instructor Signature Printed Name and Credentials
--- NOTE | 2019-12-30 14:33 | PT.OTN ---
Current Diagnoses Cervicalgia (12/30/19) Headache (12/30/19) Physical Therapy Treatment Note PT-OP-A Visit Information Start: 12/22/19 12:22 Freq: Status: Active Protocol: Document 12/30/19 13:45 MB (Rec: 12/30/19 14:32 MB [id number]) Out-Patient Physical Therapy Visit Information Visit Information Visit Type Treatment Note Visit Note [facility] Visit Start Time 13:45 Visit Stop Time 14:30 Total Visit Minutes 45 Visit Number 2 PT-OP-B Current Condition Start: 12/22/19 12:22 Freq: Status: Active Protocol: Document 12/26/19 13:26 MB (Rec: 12/26/19 13:52 MB [id number]) Current Condition History of Current Condition Onset Date One year Current Complaints B shoulder pain History of Current Condition Pt fell twice last year. She fell 5-6 months apart. She was running in the street to catch her grandson and fell forward and hit the front of her head and right knee. Pt fell the second time working in the garden. She had a right ankle sprain. She only hurt her leg. Pt reports B upper shoulder pain. She thinks that previous PT stated that she had muscle problems. She also has neck pain. She legs arm fine. Pt reports that she is pre- diabetic, takes depression medication, problem in her fingers, sometimes she is dizzy with possible BP drops, she takes cholesterol and sleeping medications, 3 falls, she reports vision changes, tingling in her hands and feet . Pt rates pain in her upper shoulders up to 8/10; she rates posterior neck pain up to 8/10. Pt is sleeping on her right side. Prior Treatments and Tests Pt had PT last year in this clinic. She did the arm bike, weights, e-stim and heat. She had 10 treatments and it helped a little bit Treatment Goals Patient/Caregiver Goals To help get help for her shoulder and neck pain PT-OP-C Subjective Start: 12/22/19 12:22 Freq: Status: Active Protocol: Document 12/30/19 13:45 MB (Rec: 12/30/19 14:32 MB [id number]) OP-PT Subjective Patient Comments Patient Comments Pt states that she does not know where to buy a racquet ball. She likes the racquet ball as it helped her muscles a lot. PT-OP-J Posture/Palpation/Skin Start: 12/22/19 12:22 Freq: Status: Active Protocol: Document 12/26/19 13:26 MB (Rec: 12/26/19 15:41 MB [id number]) Posture Evaluation Comments Posture Comments Standing posture: Dowager's hump, decreased thoracic kyphosis, increased lumbar lordosis, anterior tilt pelvis , increased soft tissue mass in chest and abdomen which contribute to postural changes , right shoulder 1/2 higher than the left and right scapula mildly protracted and elevated compared to the left. R iliac crest higher then the left and increased rearfoot supination and Jarocho angle, greater on the right. PT-OP-K Range of Motion Start: 12/22/19 12:22 Freq: Status: Active Protocol: Document 12/26/19 13:26 MB (Rec: 12/26/19 15:41 MB [id number]) Cervical Spine Range of Motion Cervical Spine Active Degrees Testing Position Standing Flexion 40 Extension 25 Rotation Left 45 Rotation Right 42 Lateral Flexion Left 20 Lateral Flexion Right 20 ROM Limitations Pain Comments Pt reports 6/10 LBP with cervical flexion Shoulder Goniometric Range of Motion Shoulder Right Active Shoulder ROM WFL No Testing Position Standing Flexion 160 Abduction 150 Left Active Shoulder ROM WFL Yes Testing Position Standing Flexion 170 Abduction 170 Shoulder ROM Limitations Shoulder ROM Limitations Pain Comments Pt reports 7/10 B shoulder pain with active abduction to 90 deg PT-OP-M Strength Start: 12/22/19 12:22 Freq: Status: Active Protocol: Document 12/26/19 13:26 MB (Rec: 12/26/19 15:41 MB [id number]) Shoulder Strength Shoulder Manual Muscle Testing Left Flexion 5 Normal Abduction (C5) 5 Normal External Rotation 5 Normal Internal Rotation 5 Normal Right Flexion 5 Normal Abduction (C5) 5 Normal External Rotation 4 Good Internal Rotation 4 Good Elbow/Forearm Strength Elbow and Forearm Manual Muscle Testing Left Flexion (C6) 5 Normal Extension (C7) 5 Normal Pronation 5 Normal Supination 4 Good Right Flexion (C6) 5 Normal Extension (C7) 5 Normal Pronation 5 Normal Supination 3+ Fair+ Wrist Strength Wrist Manual Muscle Testing Left Flexion (C7) 5 Normal Extension (C6) 5 Normal Right Flexion (C7) 4 Good Extension (C6) 4 Good PT-OP-Q Treatments Start: 12/22/19 12:22 Freq: Status: Active Protocol: Document 12/30/19 13:45 MB (Rec: 12/30/19 14:32 MB [id number]) Therapeutic Exercises Standing Exercises MWm upper traps B Comments Ed pt and she performs and made video in Estonian and handout in eng with ph MWM infraspinatus B Comments Right shoulder and pt has video in Estonian and handout in lao with phot STM intrascapular muscles with racquet ball Side bilateral Comments Re-ed today and pt reports she does not need video Manual Therapy Treatment Taping R upper traps for inhibition, I strip Comments R upper traps, black I strip KT tape Self-Care/Home Management Treatment Education Other Education Increasing non-caffeinated fluid intake, use of cervical support in towel roll, decrease green tea/caffeinated fluid intake (pt c/o dizziness), log rolling to get in and OOB to protect, benefits and plan to use pool noodle for thoracic and pect mobility PT-OP-T Assessment and Plan Start: 12/22/19 12:22 Freq: Status: Active Protocol: Document 12/30/19 13:45 MB (Rec: 12/30/19 14:32 MB [id number]) Physical Therapy Assessment Goals Four Jail Goal (LTG) Pt will present with an improved NDI score to reflect no more than 10% functional impairment by 02/27/2020. LTG Duration 8 weeks Three Jail Goal (LTG) Pt will present with an improved QuickDASH score to reflect no more than 10% functional impairment by 2019. LTG Duration 8 weeks Two Jail Goal (LTG) Pt will perform progressive HEP with I including alignment , posture, flexibility and strengthening exercises to decrease pain and improve strength by 02/27/2020. LTG Duration 8 weeks One Cement Mason Helper Goal (LTG) Pt will present with improved UE strength to 5/5 right shoulder ER and IR, B elbow supination, wrist flexion and extension to allow improved UE use for IADLs by 02/27/2020. LTG Duration 8 weeks Assessment Summary Assessment Progressed flexibility exercises today and assessed orthostatic hypotension in LUE with the following BP and HR: supine 137/79, 68; standing 134/83, 81; standing 1' 150/81 , 79. Pt is only a little dizzy with checking orthostatics. Negative findings with orthostatics today. Progress flexibility ( pect) and other exercises as pt tolerates. Physical Therapy Plan Frequency and Duration Frequency of Treatment 2x/Week Duration of Treatment 8 weeks Plan of Care Start Date 12/26/19 Plan of Care End Date 02/27/20 Therapeutic Interventions Therapeutic Interventions Aquatic Therapy,Canalithic Repositioning,Home Exercise Program,Joint Mobilizations, Manual Therapy,Neuromuscular Re-education,Patient/Caregiver Education,Self-Care/Home Management,Soft Tissue Mobilization,Taping, Therapeutic Activities, Therapeutic Exercises Modalities Cold Pack/Ice Massage,Electric Stimulation,Hot Packs, Ultrasound Next Visit Focus/Plan Next Note Type Treatment Note Next Visit Plan Advance HEP
--- NOTE | 2020-01-02 13:49 | PT.OTN ---
Current Diagnoses Cervicalgia (01/02/20) Headache (01/02/20) Physical Therapy Treatment Note PT-OP-A Visit Information Start: 12/22/19 12:22 Freq: Status: Active Protocol: Document 01/02/20 13:01 MB (Rec: 01/02/20 13:48 MB [id number]) Out-Patient Physical Therapy Visit Information Visit Information Visit Type Treatment Note Visit Note [facility] Visit Start Time 13:01 Visit Stop Time 13:45 Total Visit Minutes 44 Visit Number 3 PT-OP-B Current Condition Start: 12/22/19 12:22 Freq: Status: Active Protocol: Document 12/26/19 13:26 MB (Rec: 12/26/19 13:52 MB [id number]) Current Condition History of Current Condition Onset Date One year Current Complaints B shoulder pain History of Current Condition Pt fell twice last year. She fell 5-6 months apart. She was running in the street to catch her grandson and fell forward and hit the front of her head and right knee. Pt fell the second time working in the garden. She had a right ankle sprain. She only hurt her leg. Pt reports B upper shoulder pain. She thinks that previous PT stated that she had muscle problems. She also has neck pain. She legs arm fine. Pt reports that she is pre- diabetic, takes depression medication, problem in her fingers, sometimes she is dizzy with possible BP drops, she takes cholesterol and sleeping medications, 3 falls, she reports vision changes, tingling in her hands and feet . Pt rates pain in her upper shoulders up to 8/10; she rates posterior neck pain up to 8/10. Pt is sleeping on her right side. Prior Treatments and Tests Pt had PT last year in this clinic. She did the arm bike, weights, e-stim and heat. She had 10 treatments and it helped a little bit Treatment Goals Patient/Caregiver Goals To help get help for her shoulder and neck pain PT-OP-C Subjective Start: 12/22/19 12:22 Freq: Status: Active Protocol: Document 01/02/20 13:01 MB (Rec: 01/02/20 13:48 MB [id number]) OP-PT Subjective Patient Comments Patient Comments Pt got the racquet ball and put it in a stocking. She likes it. PT-OP-J Posture/Palpation/Skin Start: 12/22/19 12:22 Freq: Status: Active Protocol: Document 12/26/19 13:26 MB (Rec: 12/26/19 15:41 MB [id number]) Posture Evaluation Comments Posture Comments Standing posture: Dowager's hump, decreased thoracic kyphosis, increased lumbar lordosis, anterior tilt pelvis , increased soft tissue mass in chest and abdomen which contribute to postural changes , right shoulder 1/2 higher than the left and right scapula mildly protracted and elevated compared to the left. R iliac crest higher then the left and increased rearfoot supination and Jarocho angle, greater on the right. PT-OP-K Range of Motion Start: 12/22/19 12:22 Freq: Status: Active Protocol: Document 12/26/19 13:26 MB (Rec: 12/26/19 15:41 MB [id number]) Cervical Spine Range of Motion Cervical Spine Active Degrees Testing Position Standing Flexion 40 Extension 25 Rotation Left 45 Rotation Right 42 Lateral Flexion Left 20 Lateral Flexion Right 20 ROM Limitations Pain Comments Pt reports 6/10 LBP with cervical flexion Shoulder Goniometric Range of Motion Shoulder Right Active Shoulder ROM WFL No Testing Position Standing Flexion 160 Abduction 150 Left Active Shoulder ROM WFL Yes Testing Position Standing Flexion 170 Abduction 170 Shoulder ROM Limitations Shoulder ROM Limitations Pain Comments Pt reports 7/10 B shoulder pain with active abduction to 90 deg PT-OP-M Strength Start: 12/22/19 12:22 Freq: Status: Active Protocol: Document 12/26/19 13:26 MB (Rec: 12/26/19 15:41 MB [id number]) Shoulder Strength Shoulder Manual Muscle Testing Left Flexion 5 Normal Abduction (C5) 5 Normal External Rotation 5 Normal Internal Rotation 5 Normal Right Flexion 5 Normal Abduction (C5) 5 Normal External Rotation 4 Good Internal Rotation 4 Good Elbow/Forearm Strength Elbow and Forearm Manual Muscle Testing Left Flexion (C6) 5 Normal Extension (C7) 5 Normal Pronation 5 Normal Supination 4 Good Right Flexion (C6) 5 Normal Extension (C7) 5 Normal Pronation 5 Normal Supination 3+ Fair+ Wrist Strength Wrist Manual Muscle Testing Left Flexion (C7) 5 Normal Extension (C6) 5 Normal Right Flexion (C7) 4 Good Extension (C6) 4 Good PT-OP-Q Treatments Start: 12/22/19 12:22 Freq: Status: Active Protocol: Document 01/02/20 13:01 MB (Rec: 01/02/20 13:48 MB [id number]) Therapeutic Exercises Standing Exercises Pect stretch Comments 30 sec in doorway, scapular retraction Anterior neck stretch Comments B hold 15 sec MWm upper traps B Comments Pt performs on the right today MWM infraspinatus B Side bilateral STM intrascapular muscles with racquet ball Side bilateral Manual Therapy Treatment Taping B inferomedial scapula to promote retraction Comments B I strips black KT Other Other Manual Treatments MWM B upper traps and SCMs in supine with PT performing trigger point pressure and pt performing active cervical rotation right and left PT-OP-T Assessment and Plan Start: 12/22/19 12:22 Freq: Status: Active Protocol: Document 01/02/20 13:01 MB (Rec: 01/02/20 13:48 MB [id number]) Physical Therapy Assessment Rehab Potential Rehabilitation Potential Good Evaluation Complexity Number of Personal Factors/Comorbidities 1-2 Number of Body Systems Impaired 1-2 Clinical Presentation at Evaluation Evolving Impairments Impairments Activity Tolerance,Pain, Posture,ROM,Soft Tissue Mobility,Strength Goals Four [facility]itent[facility] Goal (LTG) Pt will present with an improved NDI score to reflect no more than 10% functional impairment by 02/27/2020. LTG Duration 8 weeks Three Penitentiary Goal (LTG) Pt will present with an improved QuickDASH score to reflect no more than 10% functional impairment by 2019. LTG Duration 8 weeks Two Penitentiary Goal (LTG) Pt will perform progressive HEP with I including alignment , posture, flexibility and strengthening exercises to decrease pain and improve strength by 02/27/2020. LTG Duration 8 weeks One Dough Mixer Goal (LTG) Pt will present with improved UE strength to 5/5 right shoulder ER and IR, B elbow supination, wrist flexion and extension to allow improved UE use for IADLs by 02/27/2020. LTG Duration 8 weeks Assessment Summary Assessment Progressed flexibility exercises today and postural cueing with scapular retraction and taping. Con't progression. Physical Therapy Plan Frequency and Duration Frequency of Treatment 2x/Week Duration of Treatment 8 weeks Plan of Care Start Date 12/26/19 Plan of Care End Date 02/27/20 Therapeutic Interventions Therapeutic Interventions Aquatic Therapy,Canalithic Repositioning,Home Exercise Program,Joint Mobilizations, Manual Therapy,Neuromuscular Re-education,Patient/Caregiver Education,Self-Care/Home Management,Soft Tissue Mobilization,Taping, Therapeutic Activities, Therapeutic Exercises Modalities Cold Pack/Ice Massage,Electric Stimulation,Hot Packs, Ultrasound Next Visit Focus/Plan Next Note Type Treatment Note Next Visit Plan Advance HEP
--- NOTE | 2020-01-23 13:42 | PT.OTN ---
Current Diagnoses Cervicalgia (01/23/20) Headache (01/23/20) Physical Therapy Treatment Note PT-OP-A Visit Information Start: 12/22/19 12:22 Freq: Status: Active Protocol: Document 01/23/20 13:02 MB (Rec: 01/23/20 13:41 MB [id number]) Out-Patient Physical Therapy Visit Information Visit Information Visit Type Treatment Note Visit Note [facility] Visit Start Time 13:02 Visit Stop Time 13:40 Total Visit Minutes 38 Visit Number 4 PT-OP-B Current Condition Start: 12/22/19 12:22 Freq: Status: Active Protocol: Document 12/26/19 13:26 MB (Rec: 12/26/19 13:52 MB [id number]) Current Condition History of Current Condition Onset Date One year Current Complaints B shoulder pain History of Current Condition Pt fell twice last year. She fell 5-6 months apart. She was running in the street to catch her grandson and fell forward and hit the front of her head and right knee. Pt fell the second time working in the garden. She had a right ankle sprain. She only hurt her leg. Pt reports B upper shoulder pain. She thinks that previous PT stated that she had muscle problems. She also has neck pain. She legs arm fine. Pt reports that she is pre- diabetic, takes depression medication, problem in her fingers, sometimes she is dizzy with possible BP drops, she takes cholesterol and sleeping medications, 3 falls, she reports vision changes, tingling in her hands and feet . Pt rates pain in her upper shoulders up to 8/10; she rates posterior neck pain up to 8/10. Pt is sleeping on her right side. Prior Treatments and Tests Pt had PT last year in this clinic. She did the arm bike, weights, e-stim and heat. She had 10 treatments and it helped a little bit Treatment Goals Patient/Caregiver Goals To help get help for her shoulder and neck pain PT-OP-C Subjective Start: 12/22/19 12:22 Freq: Status: Active Protocol: Document 01/23/20 13:02 MB (Rec: 01/23/20 13:41 MB [id number]) OP-PT Subjective Patient Comments Patient Comments Pt states that she is doing well. She does not have any pain. PT-OP-J Posture/Palpation/Skin Start: 12/22/19 12:22 Freq: Status: Active Protocol: Document 12/26/19 13:26 MB (Rec: 12/26/19 15:41 MB [id number]) Posture Evaluation Comments Posture Comments Standing posture: Dowager's hump, decreased thoracic kyphosis, increased lumbar lordosis, anterior tilt pelvis , increased soft tissue mass in chest and abdomen which contribute to postural changes , right shoulder 1/2 higher than the left and right scapula mildly protracted and elevated compared to the left. R iliac crest higher then the left and increased rearfoot supination and Jarocho angle, greater on the right. PT-OP-K Range of Motion Start: 12/22/19 12:22 Freq: Status: Active Protocol: Document 12/26/19 13:26 MB (Rec: 12/26/19 15:41 MB [id number]) Cervical Spine Range of Motion Cervical Spine Active Degrees Testing Position Standing Flexion 40 Extension 25 Rotation Left 45 Rotation Right 42 Lateral Flexion Left 20 Lateral Flexion Right 20 ROM Limitations Pain Comments Pt reports 6/10 LBP with cervical flexion Shoulder Goniometric Range of Motion Shoulder Right Active Shoulder ROM WFL No Testing Position Standing Flexion 160 Abduction 150 Left Active Shoulder ROM WFL Yes Testing Position Standing Flexion 170 Abduction 170 Shoulder ROM Limitations Shoulder ROM Limitations Pain Comments Pt reports 7/10 B shoulder pain with active abduction to 90 deg PT-OP-M Strength Start: 12/22/19 12:22 Freq: Status: Active Protocol: Document 12/26/19 13:26 MB (Rec: 12/26/19 15:41 MB [id number]) Shoulder Strength Shoulder Manual Muscle Testing Left Flexion 5 Normal Abduction (C5) 5 Normal External Rotation 5 Normal Internal Rotation 5 Normal Right Flexion 5 Normal Abduction (C5) 5 Normal External Rotation 4 Good Internal Rotation 4 Good Elbow/Forearm Strength Elbow and Forearm Manual Muscle Testing Left Flexion (C6) 5 Normal Extension (C7) 5 Normal Pronation 5 Normal Supination 4 Good Right Flexion (C6) 5 Normal Extension (C7) 5 Normal Pronation 5 Normal Supination 3+ Fair+ Wrist Strength Wrist Manual Muscle Testing Left Flexion (C7) 5 Normal Extension (C6) 5 Normal Right Flexion (C7) 4 Good Extension (C6) 4 Good PT-OP-Q Treatments Start: 12/22/19 12:22 Freq: Status: Active Protocol: Document 01/23/20 13:02 MB (Rec: 01/23/20 13:41 MB [id number]) Therapeutic Exercises Standing Exercises ER with level 2 band Side bilateral Comments With core tight, elbow at side , 10 reps Pect stretch Comments Doorway with scapular retraction MWm upper traps B Side bilateral Comments Performs B today, cues for position MWM infraspinatus B Side bilateral Comments Performed today STM intrascapular muscles with racquet ball Side bilateral Comments Performed today Shoulder Extension Comments With scapular retraction with level 2 band, 10 reps, good posture PT-OP-T Assessment and Plan Start: 12/22/19 12:22 Freq: Status: Active Protocol: Document 01/23/20 13:02 MB (Rec: 01/23/20 13:41 MB [id number]) Physical Therapy Assessment Rehab Potential Rehabilitation Potential Good Evaluation Complexity Number of Personal Factors/Comorbidities 1-2 Number of Body Systems Impaired 1-2 Clinical Presentation at Evaluation Evolving Impairments Impairments Activity Tolerance,Pain, Posture,ROM,Soft Tissue Mobility,Strength Goals Four Assembly Mechanic Goal (LTG) Pt will present with an improved NDI score to reflect no more than 10% functional impairment by 02/27/2020. 01/23/2020: NDI reflects 6% impairment, goal met LTG Duration 8 weeks Three Assembly Mechanic Goal (LTG) Pt will present with an improved QuickDASH score to reflect no more than 10% functional impairment by 2019. 01/23/2020: QuickDASH score reflects 9.09% impairment, goal met LTG Duration 8 weeks Two Assembly Mechanic Goal (LTG) Pt will perform progressive HEP with I including alignment , posture, flexibility and strengthening exercises to decrease pain and improve strength by 02/27/2020. 01/23/2020: Pt is performing progressive HEP LTG Duration 8 weeks One Detention Goal (LTG) Pt will present with improved UE strength to 5/5 right shoulder ER and IR, B elbow supination, wrist flexion and extension to allow improved UE use for IADLs by 02/27/2020. 01/23/2020: Pt presents with much improved strength, 5/5 all muscle groups above with some fatigue with time with right ER and supination LTG Duration 8 weeks Assessment Summary Assessment Progressed strengthening this date. Pt has met all PT goals since starting PT. These include strength, NDI, QuickDASH and HEP goals. She denies pain and paresthesias. Will d/c PT. Physical Therapy Plan Discharge Physical Therapy Discharge Reasons Goals Met
== END 2020-01-24 10:54 ==
LOC: PHYS 13:00
PROVIDERS: PCP Nurse Practitioner; Referring Provider Psychiatry & Neurology Neurology; Visit Provider Psychiatry & Neurology Neurology
DX: R51 Headache (principal); M54.2 Cervicalgia
CPT/HCPCS: 97110; 97140; 97161; 97535

== ENCOUNTER → 2020-02-22 17:12 | Outpatient (CLI) | payer OTHER, MEDICAID, SELFPAY ==
--- NOTE | 2020-02-22 | DI.MRI.S_ITS ---
PROCEDURE: MR HEAD/BRAIN WO CON INDICATIONS: WHITE MATTER DISEASE, UNSPECIFIED TECHNIQUE: Noncontrast axial T1 spin echo, axial T2 fast spin echo, sagittal and axial FLAIR, coronal T2 fast spin echo, axial gradient echo, axial diffusion and ADC through the brain. COMPARISON: None. FINDINGS: Image quality: Excellent. CSF Spaces: Basal cisterns are patent. No extra-axial fluid collections. Ventricles are normal in size and shape. Brain: Several foci of abnormal T2 weighted hyperintensity are again seen within the white matter, which are primarily within the juxtacortical white matter. Additional foci can be seen within the periventricular and deep white matter. When comparison is made to the 08/09/2019 examination, No intracranial masses or hemorrhage. Oh/white matter interface is normal. Brainstem appears normal. Diffusion-weighted images demonstrate no acute ischemic insult. No chronic ischemic insults. Normal intravascular flow voids are present. 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 When discovered in isolation, this is considered to be a developmental variant of no clinical consequence. These white matter foci have clearly progressed. Skull and face: Calvarium has normal marrow signal. Orbits appear normal. Sinuses: Sinuses and mastoids are clear. IMPRESSION: Interval progression of the previously seen T2 hyperintense there white matter lesions, which are primarily within the juxtacortical white matter. Although not pathognomonic, suspicion is raised for multiple sclerosis. Dictated by: Salinas Ruiz M.D. on 02/22/2020 at 17:35 Approved by: Salinas Ruiz M.D. on 02/22/2020 at 17:37
== END ==
PROVIDERS: PCP Nurse Practitioner; Referring Provider Psychiatry & Neurology Neurology; Visit Provider Psychiatry & Neurology Neurology
DX: R90.82 White matter disease, unspecified (principal)
CPT/HCPCS: 70551

== ENCOUNTER 2020-03-08 13:24 | Observation (INO) | payer OTHER, MEDICAID, SELFPAY ==
[2020-03-08] VITALS (11 sets, daily range): BP systolic 112–165; BP diastolic 59–76; PULSE 61–77; RESP 15–24; TEMP 36.2–36.8; O2SAT 96–100; BMI 36.6; BMI 33.3
--- NOTE | 2020-03-08 13:37 | DI.RAD.S_ITS ---
PROCEDURE: XR CHEST 1V INDICATIONS: chest pain TECHNIQUE: One view of the chest was acquired. COMPARISON: [facility], , CHEST 1 VIEW, 06/25/2012, 21:44. FINDINGS: Surgical changes and devices: None. Lungs and pleura: Mnimal increased pulmonary vascularity. No pleural effusions or pneumothorax. Mediastinum: Mediastinal contours appear normal. Heart size is enlarged. Bones and chest wall: No suspicious bony lesions. Overlying soft tissues appear unremarkable. IMPRESSION: Minimal increased pulmonary vascularity suggestive of edema. Dictated by: Cristina Jessica M.D. on 03/08/2020 at 14:18 Approved by: Cristina Jessica M.D. on 03/08/2020 at 14:19
[2020-03-08 13:52] LABS: Add Manual Diff / Slide Review NO; Basophils Absolute Auto 100 /uL (0-100); Basophils Percent Auto 1.4 % (0-2); Eosinophils Absolute Auto 100 /uL (0-450); Eosinophils Percent Auto 1.6 % (2-4); Hematocrit 39.5 % (36-46); Hemoglobin 13.1 g/dL (12.0-16.0); Lymphocytes Absolute Auto 3000 /uL (1100-4500); Lymphocytes Percent Auto 37.3 % (25-40); Mean Corpuscular HGB Conc 33.1 % (30-36); Mean Corpuscular Hemoglobin 28.1 PG (26-34); Mean Corpuscular Volume 84.8 fL (80-100); Monocytes Absolute Auto 500 /uL (0-900); Monocytes Percent Auto 6.6 % (3-14); Neutrophils Absolute Auto 4200 /uL (1500-7000); Neutrophils Percent Auto 53.1 % (50-75); Platelet Count 265 X10^3/uL (150-400); Red Blood Cell Count 4.66 X10^6/uL (4.0-5.2); Red Cell Distribution Width 13.9 % (11.6-14.8)
--- NOTE | 2020-03-08 13:56 | ED.CHESTPAIN ---
HPI - Chest Pain General Chief Complaint: Chest Pain Stated Complaint: elevated BP,head ache, CP Time Seen by Provider: 03/08/20 13:35 Source: patient Mode of arrival: Ambulatory Limitations: no limitations History of Present Illness HPI narrative: Patient is a 54-year-old female with history hyperlipidemia presenting with 3 days of constant chest pain and dizziness. She states that she was working in the garden she thinks it may be started then. It does also her on her right back as well. She denies any worsening pain with exertion. She also states that she feels dizzy for the last 3 days. But she has not fallen or feeling nauseous. She says that the left side of her body is sometimes week as well. Related Data Previous Rx's Medication Instructions Recorded white petrolatum-mineral oil 94 1 applictn EYE-BOTH BEDTIME PRN 02/08/19 %-3 % eye ointment #3.5 gram hydroxyzine HCl 25 mg tablet 25 mg PO Q6H PRN #360 tab 03/01/19 clobetasol 0.05 % topical gel 1 applictn TOP DAILY #15 gram 03/31/19 citalopram 20 mg tablet 20 mg PO DAILY #90 tab 01/02/20 citalopram 40 mg tablet 40 mg PO DAILY #90 tab 01/02/20 zolpidem 5 mg tablet 5 mg PO BEDTIME PRN #30 tab 01/12/20 atorvastatin 40 mg tablet 40 mg PO DAILY #90 tab 01/24/20 Allergies Allergy/AdvReac Type Severity Reaction Status Date / Time No Known Drug Allergies Allergy Verified 02/06/20 09:57 Review of Systems Review of Systems ROS Unobtainable: All systems reviewed & are unremarkable except as noted in HPI and below Constitutional Constitutional: Denies chills, Denies fever(s), Denies frequent falls, Denies lethargy and Denies weakness Eyes Eyes: Denies change in vision, Denies eye discharge, Denies irritation and Denies loss of vision ENT Ears, Nose, Mouth, and Throat: Reports dizziness Cardiovascular Cardiovascular: Reports as per HPI, Denies dyspnea and Denies dyspnea on exertion Respiratory Respiratory: Denies cough, Denies dyspnea, Denies dyspnea on exertion and Denies wheezing Gastrointestinal Gastrointestinal: Denies abdominal pain, Denies change in bowel habits, Denies diarrhea, Denies nausea and Denies vomiting Musculoskeletal Musculoskeletal: Reports back pain, Denies myalgias and Denies muscle cramps Integumentary/Breasts Skin/Breast: Denies pruritus, Denies erythema, Denies rash and Denies wounds Neurologic Neurologic: Reports dizziness, Denies frequent falls, Denies loss of vision, Denies restless legs and Denies weakness Allergic/Immunologic Allergic/Immunologic: Denies wheezing Patient History Medical History Anxiety (Chronic) Chronic back pain (Chronic) 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) Depression (Chronic) Diarrhea (Acute) Elevated fasting blood sugar (Acute) Fracture of right foot (Resolved) Headache (Chronic) Headaches due to old head injury (Acute) Heel pain (Chronic) High cholesterol (Chronic) High triglycerides (Chronic) Insomnia (Acute) Migraines (Chronic) Prediabetes (Chronic) Vision disorder (Chronic) Surgical History Anesthesia (Resolved) Previous section (Resolved) Family History Father Cancer Alcohol abuse Mother History of heart disease Hypertension Heart disease Brother Hypertension Alcohol abuse Social History Smoking Status: Never smoker Smoking Status: Never smoker alcohol intake frequency: 0-2 drinks per day Substance Use Type: does not use Exam Initial Vital Signs Initial Vital Signs: Vital Signs Temperature 98.1 F 03/08/20 13:35 Pulse Rate 77 03/08/20 13:35 Respiratory Rate 18 03/08/20 13:35 Blood Pressure 126/67 03/08/20 13:35 Pulse Oximetry 100 03/08/20 13:35 GENERAL: Well-appearing, well-nourished and in no acute distress. HEENT: Head atraumatic,EOMI, pupils reactive, face symmetric, moist mucous membrane CARDIOVASCULAR: Regular rate and rhythm without murmurs, rubs or gallops. RESPIRATORY: Breath sounds equal bilaterally, no wheezes rales or rhonchi. ABDOMEN: Soft, nontender. Normoactive bowel sounds all 4 quadrants. No guarding or rebound. EXTREMITIES: Normal range of motion, no clubbing or edema. Neurovascularly intact NEUROLOGICAL: Alert and oriented x4.Normal gait and speech. Cranial nerves II through XII grossly intact. Good [id number], good [id number], strength equal bilaterally, no dysarthria or aphasia, sensation in tact to soft touch bilaterally, no visual changes, no facial droop SKIN: Warm, dry, no laceration, no petechiae, no rashes or lesions. Scores NIH Stroke Scale Level of Conciousness: Alert, keenly responsive Ask month/age: Answers both questions correctly. Open/close eyes, close hand: Performs both tasks correctly Best gaze horizontal: Normal Visual anderson: No visual loss Facial palsy: Normal symetrical movement Left arm drift: No drift for full 10 sec Right arm drift: No drift for full 10 sec Left leg drift: No drift for full 5 sec Right leg drift: No drift for full 5 sec Limb ataxia: Absent Sensory on face/arms/legs: Normal, no sensory loss Best language: No aphasia, normal Dysarthria: Normal Extinction or inattention: No abnormality Total NIH Stroke scale score: 0 Course Orders Ordered: ED Orders 03/08/20 13:33 EKG-12 Lead Stat 03/08/20 13:37 XR chest 1V Stat 03/08/20 13:45 Complete Blood Count AUTO DIFF Stat Comprehensive Metabolic Panel Stat Lipase Stat NT-proBNP (BNP-Adult 18+) Stat Partial Thromboplastin Time Stat Prothrombin Time INR Stat Troponin & CK Cardiac Panel Stat 03/08/20 14:08 CT head/brain wo con Stat 03/08/20 15:28 CT angio chest abdomen pelvis Stat 03/08/20 15:53 COVID19 -ED/INPAT/OR/L&D Stat Discontinued Medications Aspirin (Aspirin Chew) 324 mg PO NOW ONE Stop: 03/08/20 14:09 Last Admin: 03/08/20 14:13 Dose: 324 mg Documented by: RMARTIN Nitroglycerin (Nitrostat) 0.4 mg SL NOW ONE Stop: 03/08/20 14:09 Last Admin: 03/08/20 14:13 Dose: 0.4 mg Documented by: RMARTIN Vital Signs Vital signs: Vital Signs - 8 hr 03/08/20 13:35 03/08/20 14:04 03/08/20 14:30 Temperature 98.1 F Pulse Rate 77 67 63 Respiratory Rate 18 20 23 Blood Pressure 126/67 120/70 Pulse Oximetry 100 99 96 03/08/20 14:31 03/08/20 15:00 03/08/20 15:30 Temperature Pulse Rate 64 62 61 Respiratory Rate 17 21 15 Blood Pressure 112/61 125/64 139/69 Pulse Oximetry 96 97 98 MDM - Chest Pain Lab Data Attestation: I reviewed the patient's lab results. Result diagrams: 03/08/20 13:45 03/08/20 13:45 Labs: Lab Results 03/08/20 03/08/20 03/08/20 Range/Units 13:45 13:45 13:45 WBC 8.0 (4.5-11.0) X10^3/uL RBC 4.66 (4.0-5.2) X10^6/uL Hgb 13.1 (12.0-16.0) g/dL Hct 39.5 (36-46) % MCV 84.8 (80-100) fL MCH 28.1 (26-34) PG MCHC 33.1 (30-36) % RDW 13.9 (11.6-14.8) % Plt Count 265 (150-400) X10^3/uL Neut % (Auto) 53.1 (50-75) % Lymph % (Auto) 37.3 (25-40) % [place] % (Auto) 6.6 (3-14) % Eos % (Auto) 1.6 L (2-4) % Baso % (Auto) 1.4 (0-2) % Neut # (Auto) 4200 (6593-4972) /uL Lymph # (Auto) 3000 (5823-5145) /uL [place] # (Auto) 500 (0-900) /uL Eos # (Auto) 100 (0-450) /uL Baso # (Auto) 100 (0-100) /uL PT 11.7 (10.1-12.7) SECONDS INR 1.0 (0.9-1.3) APTT 32 (26.4-36.2) SECONDS Sodium 140 (137-145) mmol/L Potassium 4.3 (3.4-5.1) mmol/L Chloride 106 (98-107) mmol/L Carbon Dioxide 29 (22-32) mmol/L BUN 19 H (7-17) mg/dL Creatinine 0.78 (0.52-1.04) mg/dL Estimated GFR > 60.0 (>60) mL/min BUN/Creatinine Ratio 24.4 H (6-22) Glucose 91 (70-100) mg/dL Calcium 9.3 (8.4-10.2) mg/dL Magnesium (1.6-2.3) mg/dL Total Bilirubin 0.4 (0.2-1.3) mg/dL AST 27 (14-36) IU/L ALT 20 (<35) IU/L Alkaline Phosphatase 92 (38-126) U/L Total Creatine Kinase 57 (30-135) U/L CK-MB (CK-2) TNP CK-MB (CK-2) Rel Index TNP Troponin I < 0.012 (0.01-0.034) ng/mL NT-Pro-B Natriuret Pep (<125) pg/mL Total Protein 7.7 (6.3-8.2) g/dL Albumin 4.4 (3.5-5.0) g/dL Globulin 3.3 (1.7-4.1) g/dL Albumin/Globulin Ratio 1.3 (1.0-2.8) Lipase 118 (23-300) U/L TSH (0.47-4.68) uIU/mL 03/08/20 03/08/20 03/08/20 Range/Units 13:45 13:45 13:45 WBC (4.5-11.0) X10^3/uL RBC (4.0-5.2) X10^6/uL Hgb (12.0-16.0) g/dL Hct (36-46) % MCV (80-100) fL MCH (26-34) PG MCHC (30-36) % RDW (11.6-14.8) % Plt Count (150-400) X10^3/uL Neut % (Auto) (50-75) % Lymph % (Auto) (25-40) % [place] % (Auto) (3-14) % Eos % (Auto) (2-4) % Baso % (Auto) (0-2) % Neut # (Auto) (6537-6919) /uL Lymph # (Auto) (5249-3564) /uL [place] # (Auto) (0-900) /uL Eos # (Auto) (0-450) /uL Baso # (Auto) (0-100) /uL PT (10.1-12.7) SECONDS INR (0.9-1.3) APTT (26.4-36.2) SECONDS Sodium (137-145) mmol/L Potassium (3.4-5.1) mmol/L Chloride (98-107) mmol/L Carbon Dioxide (22-32) mmol/L BUN (7-17) mg/dL Creatinine (0.52-1.04) mg/dL Estimated GFR (>60) mL/min BUN/Creatinine Ratio (6-22) Glucose (70-100) mg/dL Calcium (8.4-10.2) mg/dL Magnesium 2.1 (1.6-2.3) mg/dL Total Bilirubin (0.2-1.3) mg/dL AST (14-36) IU/L ALT (<35) IU/L Alkaline Phosphatase (38-126) U/L Total Creatine Kinase (30-135) U/L CK-MB (CK-2) CK-MB (CK-2) Rel Index Troponin I (0.01-0.034) ng/mL NT-Pro-B Natriuret Pep 88 (<125) pg/mL Total Protein (6.3-8.2) g/dL Albumin (3.5-5.0) g/dL Globulin (1.7-4.1) g/dL Albumin/Globulin Ratio (1.0-2.8) Lipase (23-300) U/L TSH 1.11 (0.47-4.68) uIU/mL Imaging Data CT scan - head: Radiologist's Impression: PROCEDURE: CT HEAD/BRAIN WO CON INDICATIONS: dizzy x 3 days TECHNIQUE: Noncontrast 4.5 mm thick angled axial sections acquired from the foramen magnum to the vertex, with coronal and sagittal reformats. For radiation dose reduction, the following was used: automated exposure control, adjustment of mA and/or kV according to patient size. COMPARISON: None. FINDINGS: Image quality: Excellent. CSF spaces: Basal cisterns are patent. No extra-axial fluid collections. Ventricles are normal in size and shape. Brain: No midline shift. No intracranial masses or hemorrhage. Oh-white matter interface is normal. Skull and face: Calvarium and visualized facial bones are intact, without suspicious lesions. Sinuses: Visualized sinuses and mastoids are clear. IMPRESSION: No acute finding. Dictated by: Neymar Read M.D. on 03/08/2020 at 14:52 Chest x-ray: Radiologist's Impression: PROCEDURE: XR CHEST 1V INDICATIONS: chest pain TECHNIQUE: One view of the chest was acquired. COMPARISON: [facility], CHEST 1 VIEW, 06/25/2012, 21:44. FINDINGS: Surgical changes and devices: None. Lungs and pleura: Mnimal increased pulmonary vascularity. No pleural effusions or pneumothorax. Mediastinum: Mediastinal contours appear normal. Heart size is enlarged. Bones and chest wall: No suspicious bony lesions. Overlying soft tissues appear unremarkable. IMPRESSION: Minimal increased pulmonary vascularity suggestive of edema. Dictated by: Cristina Jessica M.D. on 03/08/2020 at 14:18 Approved by: Cristina Jessica M.D. on 03/08/2020 at 14:19 CT scan - abdomen/pelvis: Radiologist's Impression: PROCEDURE: CT ANGIO CHEST ABDOMEN PELVIS INDICATIONS: chest pain TECHNIQUE: Precontrast 5 mm thick sections acquired from the lung apices to the iliac crests. After the administration of intravenous contrast, 2.5 mm thick sections again acquired from the lung apices to the iliac crests. Maximum intensity projection (MIP) oblique sagittal and coronal reformats were then acquired. For radiation dose reduction, the following was used: automated exposure control. COMPARISON: [facility], XR CHEST 1V, 03/08/2020, 13:40. FINDINGS: Image quality: Excellent. AORTA: Both the thoracic and abdominal aorta are well opacified. There are no areas of hemodynamically significant stenosis, vascular occlusion, aneurysmal dilation or dissection. CHEST: Lungs and pleura: No acute airspace opacities. No pleural effusions or pneumothorax. Central and peripheral airways are patent and normal in caliber. Mediastinum: Heart size is normal. No pericardial effusion. No mediastinal or hilar adenopathy by size criteria. Central pulmonary arteries are normal in size. Esophagus is normal in caliber. No hiatal hernias. Bones and chest wall: No axillary adenopathy by size criteria. Thyroid gland is unremarkable . No suspicious bony lesions. No vertebral body compression fractures. ABDOMEN: Vasculature: Celiac trunk and mesenteric arteries are patent. Renal arteries are also patent. Solid organs: Liver is enlarged with steatosis. Gallbladder is unremarkable . Biliary system is non dilated. Pancreas enhances normally. Spleen is normal in size and enhancement. No adrenal nodules. Both kidneys are normal in size and enhancement, without hydronephrosis. Peritoneum and bowel: No free fluid or air. Bowel loops are normal in caliber and wall thickness. Minimal scattered diverticula are present. Nodes and vessels: No retroperitoneal or mesenteric adenopathy by size criteria. Inferior vena cava is normal in morphology. Miscellaneous: No ventral hernias. PELVIS: Genitourinary: Bladder wall thickness is normal. Miscellaneous: No inguinal hernias or adenopathy. No ventral hernias. Bones: No suspicious bony lesions. No vertebral body compression fractures. IMPRESSION: 1. Aorta is unremarkable. 2. Lungs are clear. Dictated by: Cristina Jessica M.D. on 03/08/2020 at 16:07 Approved by: Cristina Jessica M.D. on 03/08/2020 at 16:12 ECG Data Attestation: I personally reviewed and interpreted this ECG as follows: Prior ECG tracings: not available for review Interpretation: Normal sinus rhythm rate 55 p.r. interval 158 QRS [address] changes MDM Narrative Medical decision making narrative: The patient's symptoms seem to be progressing. She received nitroglycerin in the ED which resolved her chest pain. 15:20 Dr. suarez updated on patient's symptoms test results she does request that CT angio he done to rule out dissection. Discharge Plan Departure Patient Disposition: Admitted as Observation Clinical Impression: Chest pain Discharge Date/Time: 03/08/20 16:50 Referrals: Keshia Nieves ARNP [Primary Care Provider] - Admit Date/Time: 03/08/20 15:39 Admit Provider: Rosa Suarez
[2020-03-08 14:05] LABS: Prothrombin Time 11.7 SECONDS (10.1-12.7)
[2020-03-08 14:08] LABS: PTT Partial Thromboplastin Tim 32 SECONDS (26.4-36.2)
--- NOTE | 2020-03-08 14:08 | DI.CT.S_ITS ---
PROCEDURE: CT HEAD/BRAIN WO CON INDICATIONS: dizzy x 3 days TECHNIQUE: Noncontrast 4.5 mm thick angled axial sections acquired from the foramen magnum to the vertex, with coronal and sagittal reformats. For radiation dose reduction, the following was used: automated exposure control, adjustment of mA and/or kV according to patient size. COMPARISON: None. FINDINGS: Image quality: Excellent. CSF spaces: Basal cisterns are patent. No extra-axial fluid collections. Ventricles are normal in size and shape. Brain: No midline shift. No intracranial masses or hemorrhage. Oh-white matter interface is normal. Skull and face: Calvarium and visualized facial bones are intact, without suspicious lesions. Sinuses: Visualized sinuses and mastoids are clear. IMPRESSION: No acute finding. Dictated by: Neymar Read M.D. on 03/08/2020 at 14:52 Approved by: Neymar Read M.D. on 03/08/2020 at 14:53
[2020-03-08 14:10] LABS: Alanine Aminotransferase 20 IU/L (<35); Albumin 4.4 g/dL (3.5-5.0); Albumin Globulin Ratio 1.3 (1.0-2.8); Alkaline Phosphatase 92 U/L (38-126); Aspartate Aminotransferase 27 IU/L (14-36); BUN Creatinine Ratio 24.4 (6-22); Bilirubin Total 0.4 mg/dL (0.2-1.3); Blood Urea Nitrogen 19 mg/dL (7-17); Calcium 9.3 mg/dL (8.4-10.2); Carbon Dioxide 29 mmol/L (22-32); Chloride 106 mmol/L (98-107); Creatine Kinase 57 U/L (30-135); Estimated Glomerular Filt Rate > 60.0 mL/min (>60); Globulin 3.3 g/dL (1.7-4.1); Glucose 91 mg/dL (70-100); HEMOLYSIS < 15 (0-50); Lipase 118 U/L (23-300); Potassium 4.3 mmol/L (3.4-5.1); Sodium 140 mmol/L (137-145); Total Protein 7.7 g/dL (6.3-8.2)
[2020-03-08] MEDS: NITROGLYCERIN 0.4 MG SL TAB SL (14:13)
[2020-03-08] MEDS: ASPIRIN 81 MG CHEW TAB 324 MG PO (14:13)
[2020-03-08 14:21] LABS: Troponin I < 0.012 ng/mL (0.01-0.034)
[2020-03-08 15:06] LABS: NT-proBNP (BNP-Adult 18+) 88 pg/mL (<125)
--- NOTE | 2020-03-08 15:28 | DI.CT.S_ITS ---
PROCEDURE: CT ANGIO CHEST ABDOMEN PELVIS INDICATIONS: chest pain TECHNIQUE: Precontrast 5 mm thick sections acquired from the lung apices to the iliac crests. After the administration of intravenous contrast, 2.5 mm thick sections again acquired from the lung apices to the iliac crests. Maximum intensity projection (MIP) oblique sagittal and coronal reformats were then acquired. For radiation dose reduction, the following was used: automated exposure control. COMPARISON: [facility], CR, XR CHEST 1V, 03/08/2020, 13:40. FINDINGS: Image quality: Excellent. AORTA: Both the thoracic and abdominal aorta are well opacified. There are no areas of hemodynamically significant stenosis, vascular occlusion, aneurysmal dilation or dissection. CHEST: Lungs and pleura: No acute airspace opacities. No pleural effusions or pneumothorax. Central and peripheral airways are patent and normal in caliber. Mediastinum: Heart size is normal. No pericardial effusion. No mediastinal or hilar adenopathy by size criteria. Central pulmonary arteries are normal in size. Esophagus is normal in caliber. No hiatal hernias. Bones and chest wall: No axillary adenopathy by size criteria. Thyroid gland is unremarkable . No suspicious bony lesions. No vertebral body compression fractures. ABDOMEN: Vasculature: Celiac trunk and mesenteric arteries are patent. Renal arteries are also patent. Solid organs: Liver is enlarged with steatosis. Gallbladder is unremarkable . Biliary system is non dilated. Pancreas enhances normally. Spleen is normal in size and enhancement. No adrenal nodules. Both kidneys are normal in size and enhancement, without hydronephrosis. Peritoneum and bowel: No free fluid or air. Bowel loops are normal in caliber and wall thickness. Minimal scattered diverticula are present. Nodes and vessels: No retroperitoneal or mesenteric adenopathy by size criteria. Inferior vena cava is normal in morphology. Miscellaneous: No ventral hernias. PELVIS: Genitourinary: Bladder wall thickness is normal. Miscellaneous: No inguinal hernias or adenopathy. No ventral hernias. Bones: No suspicious bony lesions. No vertebral body compression fractures. IMPRESSION: 1. Aorta is unremarkable. 2. Lungs are clear. Dictated by: Cristina Jessica M.D. on 03/08/2020 at 16:07 Approved by: Cristina Jessica M.D. on 03/08/2020 at 16:12
[2020-03-08 16:21] LABS: Magnesium 2.1 mg/dL (1.6-2.3)
[2020-03-08 16:28] LABS: COVID19 -Nasal RAPID Negative (Negative)
[2020-03-08 16:53] LABS: TSH w/ Reflex to FT4 1.11 uIU/mL (0.47-4.68)
--- NOTE | 2020-03-08 19:52 | PM.HP.1 ---
History of Present Illness History of Present Illness Date Patient Seen: 03/08/20 Time Patient Seen: 19:53 Chief complaint: Hypertension, chest pain, headache Narrative: Sandra Salomon is a 54 y.o. Wolof speaking female with obstructive sleep apnea using a CPap, hypertension, history of migraines, anxiety, hyperlipidemia and prediabetes presented to the emergency department today with chest pain and headache. She states that she was working in the garden she thinks it may be started then. She states she has pain right back and on her lower left abdomen that feels like a stab BP type pain as well. She states she was short of breath when she was trying to talk. She denies any worsening pain with exertion. She also states that she feels dizzy for the last 3 days. She stated walked into her trash receptacle in her yard, tripping and falling against it but did not lose any consciousness about a week ago. She says that the left side of her body is sometimes week as well. She denies fevers sweats or chills, shortness of breath at rest, dysuria, diarrhea, numbing or tingling of her hands or legs, she does endorse being very anxious and stressed because her older daughter and the older daughter's family is still in [place] and have had hard time being reunited with them due to border and [facility]- issues. The patient states she has been having balance issues and has seen Dr. Sana Ling in [place]. It sounds like she underwent an extensive telemedicine exam with a Shaun transport specialist, her stated they had a 4 hour video conference. She has undergone 2 MRIs in July and January of this year both of which indicate that she has what appears to be demyelinating matter suggestive of multiple sclerosis. who is at the bedside states they have an appointment sometime in March for follow-up appointment. In the ED they did a CT of the head, chest abdomen and pelvis, and an chest x-ray. The 2 CTs were negative, chest x-ray indicated possible edema. Her NIH scale was 0. She is afebrile, blood pressure 137/66, heart rate 63, respiratory rate of 24 oxygen saturation 99% on room air, she weighs 82.7 kg with a BMI of 33.3. Complete blood count and chemistries are within normal limits, coagulation studies are normal, she has a mildly elevated BUN at 19, troponin is negative with a 2nd troponin pending, TSH within normal limits, lipase is normal, and COVID-19 screen is negative. Patient History Medical History Anxiety (Chronic) Chronic back pain (Chronic) 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) Depression (Chronic) Diarrhea (Acute) Elevated fasting blood sugar (Acute) Fracture of right foot (Resolved) Headache (Chronic) Headaches due to old head injury (Acute) Heel pain (Chronic) High cholesterol (Chronic) High triglycerides (Chronic) History of twin in prior (Acute) Insomnia (Acute) Migraines (Chronic) Prediabetes (Chronic) Vision disorder (Chronic) Surgical History Anesthesia (Resolved) Previous section (Resolved) Family & Social History Family History Father Cancer Alcohol abuse Mother History of heart disease Hypertension Heart disease Brother Hypertension Alcohol abuse Sister Diabetes mellitus Daughter Migraines Social History: household members spouse Prior Living Arrangements House Safety & Behavioral: Feels Safe in Current Yes Environment Been Physically Hurt or No Threatened By a Person Suicidal Ideation Description None Suicide Plan Description No Plan Tobacco & Substance use: Smoking Status Never smoker alcohol intake frequency 0 drinks per day Substance Use Type does not use Meds Home Medications and Allergies Home Medications Medication Instructions Recorded Confirmed Type white petrolatum-mineral oil 94 1 applictn EYE-BOTH BEDTIME PRN 02/08/19 02/06/20 Rx %-3 % eye ointment #3.5 gram hydroxyzine HCl 25 mg tablet 25 mg PO Q6H PRN #360 tab 03/01/19 02/06/20 Rx clobetasol 0.05 % topical gel 1 applictn TOP DAILY #15 gram 03/31/19 02/06/20 Rx citalopram 20 mg tablet 20 mg PO DAILY #90 tab 01/02/20 03/08/20 Rx citalopram 40 mg tablet 40 mg PO DAILY #90 tab 01/02/20 03/08/20 Rx zolpidem 5 mg tablet 5 mg PO BEDTIME PRN #30 tab 01/12/20 03/08/20 Rx atorvastatin 40 mg tablet 40 mg PO DAILY #90 tab 01/24/20 03/08/20 Rx Allergies Allergy/AdvReac Type Severity Reaction Status Date / Time No Known Drug Allergies Allergy Verified 02/06/20 09:57 Review of Systems Constitutional Constitutional: Reports as per HPI Exam Vital Signs (past 8 hours): - 03/08/20 13:35 03/08/20 14:04 03/08/20 14:30 Temperature 98.1 F Pulse Rate 77 67 63 Respiratory Rate 18 20 23 Blood Pressure 126/67 120/70 Pulse Oximetry 100 99 96 03/08/20 14:31 03/08/20 15:00 03/08/20 15:30 Temperature Pulse Rate 64 62 61 Respiratory Rate 17 21 15 Blood Pressure 112/61 125/64 139/69 Pulse Oximetry 96 97 98 03/08/20 15:56 03/08/20 16:00 03/08/20 16:30 Temperature Pulse Rate 69 66 63 Respiratory Rate 24 18 24 Blood Pressure 165/59 H 138/65 137/66 Pulse Oximetry 99 99 99 Oxygen Delivery Method Room Air Narrative Exam Narrative: Gen: Alert, oriented, mildly overweight 54 y.o. female, NAD HEENT: normocephalic, atraumatic, conjunctiva clear, sclera non-icteric, oral mucosa pink and moist Neck: supple, full ROM, no JVD, trachea is midline Resp: Lungs are course, non-labored breathing CV: RRR, no murmur or rubs Abd: soft, tender left lower quadrant, normoactive BTs Skin: no lesions or rashes, dry and intact Neuro: Alert and oriented X 4 w/no focal deficits. Speech clear and coherent. Extremities: no edema, moves all 4 extremities, is ambulatory, negative Nayana?s sign Psyche: normal mood and affect. Objective Labs Result Diagrams: 03/08/20 13:45 03/08/20 13:45 Labs: Laboratory Results - last 24 hr 03/08/20 03/08/20 03/08/20 13:45 13:45 13:45 WBC 8.0 RBC 4.66 Hgb 13.1 Hct 39.5 MCV 84.8 MCH 28.1 MCHC 33.1 RDW 13.9 Plt Count 265 Neut % (Auto) 53.1 Lymph % (Auto) 37.3 Gove % (Auto) 6.6 Eos % (Auto) 1.6 L Baso % (Auto) 1.4 Neut # (Auto) 4200 Lymph # (Auto) 3000 Gove # (Auto) 500 Eos # (Auto) 100 Baso # (Auto) 100 PT 11.7 INR 1.0 APTT 32 Sodium 140 Potassium 4.3 Chloride 106 Carbon Dioxide 29 BUN 19 H Creatinine 0.78 Estimated GFR > 60.0 BUN/Creatinine Ratio 24.4 H Glucose 91 Calcium 9.3 Magnesium Total Bilirubin 0.4 AST 27 ALT 20 Alkaline Phosphatase 92 Total Creatine Kinase 57 CK-MB (CK-2) TNP CK-MB (CK-2) Rel Index TNP Troponin I < 0.012 NT-Pro-B Natriuret Pep Total Protein 7.7 Albumin 4.4 Globulin 3.3 Albumin/Globulin Ratio 1.3 Lipase 118 TSH Nasal Screen MRSA (PCR) COVID-19 PCR 03/08/20 03/08/20 03/08/20 13:45 13:45 13:45 WBC RBC Hgb Hct MCV MCH MCHC RDW Plt Count Neut % (Auto) Lymph % (Auto) Gove % (Auto) Eos % (Auto) Baso % (Auto) Neut # (Auto) Lymph # (Auto) Gove # (Auto) Eos # (Auto) Baso # (Auto) PT INR APTT Sodium Potassium Chloride Carbon Dioxide BUN Creatinine Estimated GFR BUN/Creatinine Ratio Glucose Calcium Magnesium 2.1 Total Bilirubin AST ALT Alkaline Phosphatase Total Creatine Kinase CK-MB (CK-2) CK-MB (CK-2) Rel Index Troponin I NT-Pro-B Natriuret Pep 88 Total Protein Albumin Globulin Albumin/Globulin Ratio Lipase TSH 1.11 Nasal Screen MRSA (PCR) COVID-19 PCR 03/08/20 03/08/20 15:53 17:10 WBC RBC Hgb Hct MCV MCH MCHC RDW Plt Count Neut % (Auto) Lymph % (Auto) Gove % (Auto) Eos % (Auto) Baso % (Auto) Neut # (Auto) Lymph # (Auto) Gove # (Auto) Eos # (Auto) Baso # (Auto) PT INR APTT Sodium Potassium Chloride Carbon Dioxide BUN Creatinine Estimated GFR BUN/Creatinine Ratio Glucose Calcium Magnesium Total Bilirubin AST ALT Alkaline Phosphatase Total Creatine Kinase CK-MB (CK-2) CK-MB (CK-2) Rel Index Troponin I NT-Pro-B Natriuret Pep Total Protein Albumin Globulin Albumin/Globulin Ratio Lipase TSH Nasal Screen MRSA (PCR) Negative for mrsa COVID-19 PCR Negative Assessment & Plan Assessment & Plan narrative: Sandra Salomon will be observed overnight and undergo Chest pin r/o ACS -Echo in am -Pharmacological stress test -Start ASA 81 mg -Received nitro X 1 in the ED and her chest pain resolved -EKG shows no ischemic changes Hypertension Start/continue Lisinopril 10 mg in the am, will likely start a beta tory after her stress test HLD -Lipid panel, pending -Continue atorvastatin 40 mg po at bedtime Diabetes type 2 recently diagnosed in November with an A1c of 6.4 -It is 6.2 today -She will be on a low dose correctional scale with ACHS glucose checks Anxiety -She is currently on citalopram 60 mg daily -Max dose is 40 mg due to risk of QT prolongation -Will reduce her dose to 40 mg -She will need close outpatient follow-up to either change her medication to more fully address her needs. Obstructive sleep apnea - has brought in her own CPAP machine and RT will assist in setting it up for her. Risk stratification -Fasting lipid panel pending to the am. -A1c 6.2% VTE prophylaxis: Wells risk score: 0 Enoxaparin 40 mg subQ daily Consults: none Patient is observation status as her stay is not likely to exceed 2 midnights. FEN: IV saline lock, carb controlled diet, BMP and magnesium in the am. Dispo: probable discharge to home w/outpatient followup Code Status: Full code as discussed with patient and her surrogate COVID-19 COVID-19 status: Negative Result date/Date tested (Pos, Neg/Pending): 03/08/20 Scores Wells' Criteria for PE Clinical signs and symptoms of DVT: No PE is #1 Dx or equally likely: No Heart rate > 100: No Immobilization at least 3 days or surg in previous 4 weeks: No History of PE or DVT: No Hemoptysis: No Malignancy w/Treatment within 6 months or palliative: No Wells' PE Score total: 0
[2020-03-08 20:32] LABS: Creatine Kinase 63 U/L (30-135)
[2020-03-08 20:43] LABS: Troponin I < 0.012 ng/mL (0.01-0.034)
[2020-03-08 20:53] LABS: Hemoglobin A1C% w Est Avg Glu 6.2 % (4.0-6.0)
--- NOTE | 2020-03-08 20:54 | PC.NURSE ---
2030- Patient noted to have a significant prolonged QT interval at .58 with a QTc of .61. Reviewed medications with Pharmacy and patient is on a high dose of Citalopram. GIORGI Storm notified of telemetry findings, no orders rec. Will monitor.
[2020-03-08 21:13] LABS: Procalcitonin < 0.05 ng/mL (<0.5)
[2020-03-08] MEDS: ZOLPIDEM 5 MG TABLET PO (22:28)
[2020-03-09 01:48] LABS: RBC Urine None Seen (0-5/HPF); WBC Urine None Seen (0-5/HPF)
[2020-03-09 01:52] LABS: Creatine Kinase 61 U/L (30-135)
[2020-03-09 01:53] LABS: Bacteria Urine Occasional (0-1); Culture Indicated Urine Cult Not Indicated; Squamous Epithelial Cell Urine 0-1 /HPF (0-5/HPF)
[2020-03-09 02:05] LABS: Troponin I < 0.012 ng/mL (0.01-0.034)
[2020-03-09 05:13] VITALS: BP 117/66; PULSE 59; RESP 22; TEMP 36.4; O2SAT 100
[2020-03-09 05:54] LABS: Add Manual Diff / Slide Review NO; Basophils Absolute Auto 100 /uL (0-100); Basophils Percent Auto 1.2 % (0-2); Eosinophils Absolute Auto 200 /uL (0-450); Eosinophils Percent Auto 2.3 % (2-4); Hematocrit 38.8 % (36-46); Hemoglobin 12.8 g/dL (12.0-16.0); Lymphocytes Absolute Auto 3300 /uL (1100-4500); Lymphocytes Percent Auto 42.1 % (25-40); Mean Corpuscular HGB Conc 33.1 % (30-36); Mean Corpuscular Hemoglobin 27.9 PG (26-34); Mean Corpuscular Volume 84.4 fL (80-100); Monocytes Absolute Auto 500 /uL (0-900); Monocytes Percent Auto 6.9 % (3-14); Neutrophils Absolute Auto 3700 /uL (1500-7000); Neutrophils Percent Auto 47.5 % (50-75); Platelet Count 247 X10^3/uL (150-400); Red Blood Cell Count 4.59 X10^6/uL (4.0-5.2); White Blood Cell Count 7.8 X10^3/uL (4.5-11.0)
[2020-03-09 06:05] LABS: BUN Creatinine Ratio 23.9 (6-22); Blood Urea Nitrogen 17 mg/dL (7-17); Carbon Dioxide 29 mmol/L (22-32); Chloride 105 mmol/L (98-107); Cholesterol 172 mg/dL (140-199); Estimated Glomerular Filt Rate > 60.0 mL/min (>60); Glucose 101 mg/dL (70-100); HDL Cholesterol 48 mg/dL (40-60); HEMOLYSIS < 15 (0-50); LDL Cholesterol Calculated 95 mg/dL (<100); Potassium 4.3 mmol/L (3.4-5.1); Sodium 137 mmol/L (137-145); Triglycerides 145 mg/dL (35-150)
--- NOTE | 2020-03-09 06:45 | PC.NURSE ---
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 No complaints of chest pain nor N/V reported. Patient has used her own home CPAP while sleeping. Patient has been NPO since midnight, pending nuclear med study today. Patient remains AOx4, and is aware of plan of care for the day. She has remained SB-SR, hemodynamically stable. Patient has been up to the restroom with assistance, voiding well. Currently patient is resting, no distress noted.
[2020-03-09 08:13] VITALS: BP 105/52; PULSE 67; RESP 24; TEMP 36.9; O2SAT 97
--- NOTE | 2020-03-09 10:00 | DI.ECHO.S_ITS ---
[facility] +---------+ [facility] +---------+ : : [address] : : : : [id number] : : : : Phone: [phone] +---------+ Echocardiogram Report + + :Name: JESSA JASSO Study Date: 03/09/2020 Height: 62 in : :[facility] Exam Location: IS Weight: 182 lb : : Gender: Female BSA: 1.8 m2 : :: 1965 Age: 54 yrs BP: 115/58 mmHg: :Reason For Study: Chest pain : :Ordering Physician: Fabiana : :Hospitalist Performed By: Sonia Page : :Referring: YOHANA BROWN : + + Interpretation Summary 1) Normal left ventricular thickness, size, wall motion, and systolic function (EF 55-60%). 2) Normal right ventricular size and function. 3) No significant valvular abnormalities. 4) No prior Echo available for comparison. Procedure: A two-dimensional transthoracic echocardiogram with color flow and Doppler was performed. The study quality was technically adequate. There is no prior echocardiogram noted for this patient. The patient was in normal sinus rhythm during the exam. Left Ventricle: The left ventricle appears normal in size, wall thickness, and systolic function without any focal wall motion abnormalities. The ejection fraction is estimated to be 55-60%. Diastolic parameters suggest a pseudonormalization pattern, consistent with probable elevated filling pressures. Right Ventricle: The right ventricle is normal in size and function. Atria: The left atrium is moderately dilated. Right atrial size is normal. There is no Doppler evidence for an interatrial shunt. Mitral Valve: The mitral valve is normal in structure and function. There is mild mitral annular calcification. There is trace mitral regurgitation. Aortic Valve: The aortic valve is trileaflet. The aortic valve opens well. No aortic regurgitation is present. Tricuspid Valve: The tricuspid valve is normal in structure and function. There is trace tricuspid regurgitation. The right ventricular systolic pressure is estimated to be at least 26 mmHg based on an estimated right atrial pressure of 3 mm Hg. Pulmonic Valve: The pulmonic valve is not well visualized. There is a trace or physiologic amount of pulmonic regurgitation. Great Vessels: The aortic root is normal size. The ascending aorta is normal in size. The pulmonary artery is not well visualized, but is probably normal size. The IVC is of normal diameter and collapses greater than 50% with a sniff. This suggests a low right atrial pressure of 3 mm Hg. Pericardium/ Pleura There is no pericardial effusion. There has been no significant change since the previous study. MMode/2D Measurements & Calculations LVIDd: 4.3 cm LVOT diam: 1.9 cm LVIDs: 2.3 cm Ao root diam: 3.0 cm FS: 46.0 % asc Aorta Diam: 3.2 cm IVSd: 0.93 cm LVPWd: 0.85 cm LV zurita. diameter/BSA (cm/m^2): 2.4 LV sys. diameter/BSA (cm/m^2): 1.3 LA A2 area: 20.4 cm2 RA long axis: 4.6 cm LA A4 area: 20.7 cm2 RA area: 17.0 cm2 LA length (vol): 5.3 cm RA vol: 53.7 ml LA vol: 67.9 ml RA : 29.2 ml/m2 LA vol index: 37.0 ml/m2 IVC diam: 2.0 cm RVD1 (basal): 3.2 cm TAPSE: 2.0 cm Doppler Measurements & Calculations Ao V2 max: 179.4 cm/sec LVOT Max Geraldo: 94.4 cm/sec Ao V2 mean: 117.3 cm/sec LV V1 max P.6 mmHg Ao max P.9 mmHg LV V1 VTI: 19.4 cm Ao mean P.3 mmHg PATEL(I,D): 1.6 cm2 Ao V2 VTI: 35.1 cm PATEL(V,D): 1.5 cm2 sev ratio: 0.55 PATEL indexed to BSA (cm^2/m^2): 0.85 MV E max geraldo: 80.7 cm/sec TR max geraldo: 238.2 cm/sec MV A max geraldo: 85.0 cm/sec TR max P.7 mmHg MV E/A: 0.95 PA V2 max: 70.8 cm/sec Med Peak E' Geraldo: 5.8 cm/sec PA V2 mean: 48.3 cm/sec E/E' med: 13.9 PA mean P.1 mmHg Lat Peak E' Geraldo: 6.1 cm/sec PA Accel Time: 0.09 sec E/E' lat: 13.2 E/e' average: 13.6 MV P1/2t: 47.1 msec MV P1/2t max geraldo: 80.7 cm/sec SV(LVOT): 55.1 ml MVA(2t): 4.7 cm2 Reading Physician:01:20 PM
--- NOTE | 2020-03-09 10:00 | CM.DANOTE ---
Addendum entered by RAFIQ Banegas 03/09/20 14:21: ADD: Patient off floor again for second part of stress test and Canvas Repairer was bedside earlier providing support and helped to call in pt's community straw hat brusher and spouse has been bedside. Per RN, pt to d/c home later afternoon/early evening after test results return and no identified barriers to d/c. Plan: Patient to d/c home later today via spouse POV after SW shift ends for the day and no SW needs at this time. BF Original Note: Patient is a 54 year old female who was admitted on 03/08/20 for Elevated BP, headache. Pt has [place] [place] and [employer] for insurance and her PCP is MIGUEL Nieves. EMR was reviewed. Per MD, pt with recent fall and EKG was negative and trops stable but Stress Test and Echo scheduled for today and then likely d/c home pending results. Pt already established with Neurologist and pt's symptoms likely due to more muscular skeletal which Neurologist is ruling out possible M.S. Per RN, pt independent in room and Macanese speaking but understands Bulgarian well and spouse will be bedside later this morning. Pt aware of possible d/c home later today pending test results and pt expressing preference of home today if stable. Plan: SW to follow for bedside assessment when pt returns to floor from Stress test to confirm safe plan of home with spouse later today pending test results. RAFIQ Banegas Discharge Planning/Care Management CM Discharge Assessment Start: 03/09/20 09:58 Freq: Status: Active Protocol: Document 03/09/20 09:58 BF (Rec: 03/09/20 10:00 [id number]) Discharge Planning Assessment Assigned Plating Department Helper RAFIQ Corona DPOA/Assigned Designee Name informally spouse Jarad Contact Information [phone] Advance Directives? No Advance Directives on File No History Provided By Patient,Family Member,Medical Record Prior Living Arrangements House Household Members spouse Type of transporation used prior to Drives own vehicle admit Independent with ADL's Yes Is patient alert and oriented? Yes Caregiver for Another No Comment Likely home pending stress test and Echo today Barriers to Discharge No Discharge Plan Home Transportation Arrangement Family available for transport at d/c Referrals Initiated None needed Review Status In Process Please Provide Date Initial DC 03/09/20 Assessment Was Performed Next Review Type Continued Stay Review
--- NOTE | 2020-03-09 10:11 | PT.IIE ---
Current Diagnoses Obstructive sleep apnea (adult) (pediatric) (03/08/20) Surgical History (Last Reviewed 03/08/20 @ 20:37 by MIGUEL Gtz) Anesthesia (Resolved) Previous section (Resolved) Medical History (Last Reviewed 03/08/20 @ 20:37 by MIGUEL Gtz) Anxiety (Chronic) Chronic back pain (Chronic) 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) Depression (Chronic) Diarrhea (Acute) Elevated fasting blood sugar (Acute) Fracture of right foot (Resolved) Headache (Chronic) Headaches due to old head injury (Acute) Heel pain (Chronic) High cholesterol (Chronic) High triglycerides (Chronic) History of twin in prior (Acute) Insomnia (Acute) Migraines (Chronic) Prediabetes (Chronic) Vision disorder (Chronic) Physical Therapy Inpatient Evaluation/Re-Eval M1 PT/OT-IP Prior Functional Status Start: 03/09/20 10:31 Freq: NEEDED Status: Active Protocol: Document 03/09/20 10:33 CGR (Rec: 03/09/20 10:48 CGR [id number]) Medical Review Prior Functional Status Medical History Reviewed Yes Communication Pt is an effective verbal communicator although tanzanian is her second language Mobility and Gait Pt was IND with mobility and gait without AD. Activities of Daily Living and IADL's Pt was IND for ADLs. Social History Household Members spouse Living Arrangements House Number of Floors (Floors) Two Floors Number of Stairs To Enter/Railing? 8 stairs to get to the main level with B rails. Home Environment Standard Height Toilet,Walk in Shower Home Equipment Grab Bars In Shower Additional Social History Comment Pt lives with her and shares a building with her husbands shop. M1 PT/OT-IP Prior Functional Status Start: 03/09/20 13:15 Freq: NEEDED Status: Active Protocol: Document 03/09/20 10:11 AB (Rec: 03/09/20 13:25 AB [id number]) Medical Review Prior Functional Status Medical History Reviewed Yes Communication Pt is an effective verbal communicator although tanzanian is her second language Mobility and Gait independent with all mobilities and ambulation without AD Activities of Daily Living and IADL's Pt was IND for ADLs. Social History Household Members spouse Living Arrangements House Number of Floors (Floors) Two Floors Number of Stairs To Enter/Railing? 8 stairs B rails to get to main level of the house Home Environment Standard Height Toilet,Walk in Shower Home Equipment Grab Bars In Shower Additional Social History Comment Pt lives with her and shares a building with her husbands shop. M2 PT-IP Current Condition Start: 03/09/20 13:15 Freq: NEEDED Status: Active Protocol: Document 03/09/20 10:11 AB (Rec: 03/09/20 13:25 AB [id number]) Physical Therapy Current Condition Current Condition Evaluation Date 03/09/20 Treatment Diagnosis chest pain; difficulty in walking Onset Date 03/08/20 M3 PT-IP Subjective Start: 03/09/20 13:15 Freq: NEEDED Status: Active Protocol: Document 03/09/20 10:11 AB (Rec: 03/09/20 13:25 AB [id number]) Subjective Physical Therapy Visit Type Type Initial Evaluation Visit Start Time 10:11 Visit Stop Time 10:32 Total Visit Minutes 21 Number of HEALTHCARE SOCIAL WORKER Visits 0 Physical Therapy Visit Comments Patient Comments pt is agreeable to do PT Therapy Pain Assessment Pain Present Pain Present Denied Pain M4 PT-IP Mobility and Gait Start: 03/09/20 13:15 Freq: NEEDED Status: Active Protocol: Document 03/09/20 10:11 AB (Rec: 03/09/20 13:25 AB [id number]) PT-Bed Mobility Assessment Supine to Sit Supine to Sit Independent Sit to Supine Sit to Supine Independent Scooting Scooting to Edge of Bed Independent PT-Transfer Assessment Sit to and From Stand Sit to and from Stand Independent Equipment Transfer Assistive Device None Orthotic/Prosthetic Devices or Brace: No Transfers Transfer Technique ambulation without AD Transfer Ability Level of Assist Independent,1 Person Assistance,Use of Upper Extremities Gait Assessment Gait Gait Assistance Required: Standby Assistance Distance (Feet) 500 Able to Maintain Weight Bearing Status Yes During Gait Assistive Devices Assistive Device None Orthotic/Prosthetic Devices or Brace: No Gait Deviations General Gait Pattern Within Normal Limits Factors Limiting Gait Function Factors Limiting Gait Function Decreased Activity Tolerance Comments Gait Comments ambulated without AD 500 ft x 2 independent Stair Climbing Assessment Evaluation Level of Assist On Stairs Standby Assistance Devices Stair Climbing Assistive Devices None Technique/Endurance Stair Climbing Direction Ascend and Descend Stair Climbing Technique Step Over Step,Step to Step Number of Steps Climbed 3 Query Text: Stair Climbing Set # Repetitions (reps) 3 PT-Balance Assessment Sitting Balance and Reactions Static Sitting Balance Ability Normal Dynamic Sitting Balance Ability Normal Standing Balance and Reactions Static Standing Balance Ability Good Dynamic Standing Balance Ability Good Device Used without AD M5 PT-IP Objective Assessments Start: 03/09/20 13:15 Freq: NEEDED Status: Active Protocol: Document 03/09/20 10:11 AB (Rec: 03/09/20 13:25 AB [id number]) Orientation Orientation/Cognition Level of Alertness Alert Orientation Name,Age,Birthday,Month,Date, Year,Day of Week,Place, Situation Language Function Ability No Deficits Noted Safety Awareness Understands Safety Issues Memory Description No Deficits Noted Gross Range of Motion Lower Extremity ROM Assessment Within Functional Limits Strength Lower Extremity Strength Assessment Within Functional Limits Coordination Assessment Gross Coordination Gross Coordination WNL Sensation Assessment Sensation Gross Sensation WNL Muscle Tone Muscle Tone WNL Yes M6 PT-IP Treatment Start: 03/09/20 13:15 Freq: NEEDED Status: Active Protocol: Document 03/09/20 10:11 AB (Rec: 03/09/20 13:25 AB [id number]) Physical Therapy Treatment Education Education Provided Safety M7 PT-IP Assessment and Plan Start: 03/09/20 13:15 Freq: NEEDED Status: Active Protocol: Document 03/09/20 10:11 AB (Rec: 03/09/20 13:25 AB [id number]) PT Summary Assessment and Plan Potential Rehabilitation Potential Good Status of Condition at Evaluation Stable Summary Assessment Summary PT eval completed. no further PT intervention indicated at this time. pt is at PLOF. pt plans to go home and spouse will be able to assist pt if needed. Frequency of Treatment Frequency Of Treatment Discharge Recommendations To Nursing Amount of Assist Needed Standby Assistance Discharge Recommendations PT Discharge Recommendations Home Transportation Needs at Discharge Private Vehicle
--- NOTE | 2020-03-09 10:25 | OT.IP.EVAL ---
Current Diagnoses Obstructive sleep apnea (adult) (pediatric) (03/08/20) Past Medical History (Last Reviewed 03/08/20 @ 20:37 by MIGUEL Gtz) Anxiety (Chronic) Chronic back pain (Chronic) 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) Depression (Chronic) Diarrhea (Acute) Elevated fasting blood sugar (Acute) Fracture of right foot (Resolved) Headache (Chronic) Headaches due to old head injury (Acute) Heel pain (Chronic) High cholesterol (Chronic) High triglycerides (Chronic) History of twin in prior (Acute) Insomnia (Acute) Migraines (Chronic) Prediabetes (Chronic) Vision disorder (Chronic) Surgical History (Last Reviewed 03/08/20 @ 20:37 by MIGUEL Gtz) Anesthesia (Resolved) Previous section (Resolved) Occupational Therapy Inpatient Evaluation/Re-Eval M1 PT/OT-IP Prior Functional Status Start: 03/09/20 10:31 Freq: NEEDED Status: Active Protocol: Document 03/09/20 10:33 CGR (Rec: 03/09/20 10:48 CGR [email or web address]) Medical Review Prior Functional Status Medical History Reviewed Yes Communication Pt is an effective verbal communicator although ukrainian is her second language Mobility and Gait Pt was IND with mobility and gait without AD. Activities of Daily Living and IADL's Pt was IND for ADLs. Social History Household Members spouse Living Arrangements House Number of Floors (Floors) Two Floors Number of Stairs To Enter/Railing? 8 stairs to get to the main level with B rails. Home Environment Standard Height Toilet,Walk in Shower Home Equipment Grab Bars In Shower Additional Social History Comment Pt lives with her and shares a building with her husbands shop. M2 OT-IP Current Condition Start: 03/09/20 10:31 Freq: Status: Active Protocol: Document 03/09/20 10:33 CGR (Rec: 03/09/20 10:48 CGR [email or web address]) Occupational Therapy Current Condition Current Condition Evaluation Date 03/09/20 Treatment Diagnosis Chest pain, possible MS. Diagnosis Onset Date 03/08/20 M3 OT- IP Subjective and Pain Start: 03/09/20 10:31 Freq: Status: Active Protocol: Document 03/09/20 10:33 CGR (Rec: 03/09/20 10:48 CGR [email or web address]) OT- Subjective Occupational Therapy Visit Type Type Initial Evaluation Visit Start Time 10:15 Visit Stop Time 10:25 Total Visit Minutes 10 Notes Partial co-treat with P.T. Occupational Therapy Visit Comments Patient Comments I feel fine. OT Pain Assessment Pain When Pain Assessed At Rest Pain Present Pain Present Denied Pain M4 OT- IP ADL's Start: 03/09/20 10:31 Freq: Status: Active Protocol: Document 03/09/20 10:33 CGR (Rec: 03/09/20 10:48 CGR [email or web address]) OT [id number] Comments OT Self-Feeding Comments not meal time OT ADL-Grooming Comments OT Grooming Comments not performed OT ADL-Oral Care Comments Oral Care Comments not performed OT ADL-Dressing General Eval Lower Body Dressing Ability Independent Areas Needing Assistance Socks OT ADL-Toileting General Evaluation Toileting Ability Independent OT ADL-Bathing Comments OT Bathing Comments not performed M5 OT- IP IADL's Start: 03/09/20 10:31 Freq: Status: Active Protocol: Document 03/09/20 10:33 CGR (Rec: 03/09/20 10:48 CGR [email or web address]) OT-Instrumental Activities of Daily Living Deficits IADL Deficits Identified No Deficits Home Safety Awareness Awareness of Need for Assistance at Home Good Awareness Ability to Problem Solve Emergency Able to Problem Solve Situations Medication Management Medication Management No Deficits Identified Money Management Money Management No Deficits Identified Meal Preparation Meal Preparation No Deficits Identified 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 No Deficits Identified M6 OT- IP Functional Cognition Start: 03/09/20 10:31 Freq: Status: Active Protocol: Document 03/09/20 10:33 CGR (Rec: 03/09/20 10:48 CGR [email or web address]) Cognitive Factors Limiting Selfcare Function Cognitive Ability Level of Alertness Alert Patient Orientation Name,Age,Birthday,Month,Date, Year,Day of Week,Place, Situation Attention Span Ability Capable of Focused Attention, Capable of Sustained Attention Ability to Follow Commands Able to Follow Multi-Step Commands Memory Description No Deficits Noted Safety Awareness No Deficits Noted Problem Solving Ability No deficits Noted OT- Vision and Hearing OT- Hearing Assessment OT- Hearing Assessment WFL OT- Vision Assessment Visual Acuity WFL,Glasses For Reading Visual Attentiveness WFL Occular Pursuits WFL Visual Convergence WFL M7 OT- IP Mobility and Balance Start: 03/09/20 10:31 Freq: Status: Active Protocol: Document 03/09/20 10:33 CGR (Rec: 03/09/20 10:48 CGR [email or web address]) OT- Bed Mobility Assessment Rolling Type of Rolling Roll to Left Level of Assistance Independent Supine to Sit Supine to Sit Assist Independent Sit to Supine Sit to Supine Assist Independent Scooting Scooting to Edge of Bed Independent OT-Transfer Assessment Sit to and From Stand Sit to and from Stand Independent Transfers Transfer Ability Independent Technique Transfer Destination Bed,Toilet Transfer Technique Stand Step Pivot Devices Transfer Assistive Devices None OT- Gait Assessment Gait Gait Assistance Required: Independent Assistive Devices Assistive Device None OT- Balance Assessment Sitting Balance and Reactions Static Sitting Balance Ability Normal Dynamic Sitting Balance Ability Normal M8 OT- IP Objective Assessments Start: 03/09/20 10:31 Freq: Status: Active Protocol: Document 03/09/20 10:33 CGR (Rec: 03/09/20 10:48 CGR [email or web address]) OT Gross Range of Motion Upper Extremity Range of Motion Assessment Within Functional Limits OT Strength Upper Extremity Strength Assessment Within Functional Limits OT- Coordination Assessment Upper Extremity Finger to Nose Test Within Functional Limits Finger Tapping Test Within Functional Limits OT-Muscle Tone Assessment Muscle Tone WNL Yes OT Sensation Assessment Edema Edema Absent M9 OT- IP Assessment and Plan Start: 03/09/20 10:31 Freq: Status: Active Protocol: Document 03/09/20 10:33 CGR (Rec: 03/09/20 10:48 CGR [email or web address]) OT Summary Assessment and Plan Potential Rehabilitation Potential Excellent Analytic Complexity at Evaluation Low Summary Progress Towards Goals Goals Met Assessment Summary Pt presents as a low complexity evaluation. Pt presents at her baseline of IND. No further OT needs. Frequency of Treatment Frequency Of Treatment Discharge Discharge Recommendations OT Discharge Recommendations Home Transportation Needs at Discharge Private Vehicle
[2020-03-09] MEDS: INFLUENZA VACCINE 0.5 ML SYRINGE IM (10:42)
[2020-03-09] MEDS: ENOXAPARIN 40 MG/0.4 ML SYRINGE SUBCUT (10:42)
[2020-03-09] MEDS: ATORVASTATIN 20 MG TABLET 40 MG PO (10:45)
[2020-03-09 10:46] VITALS: BP 115/58
[2020-03-09] MEDS: CITALOPRAM 10 MG TABLET 40 MG PO (10:46)
[2020-03-09] MEDS: ASPIRIN EC 81 MG TABLET PO (10:46)
[2020-03-09] MEDS: lisinopriL 10 MG TABLET PO (10:46)
[2020-03-09] MEDS: ACETAMINOPHEN 325 MG TABLET 650 MG PO (10:48)
--- NOTE | 2020-03-09 14:04 | PC.NURSE ---
PT NSR PER TELE- AND C/O SOME MINOR DISCOMFORT WHICH WAS MUSCULAR IN NATURE AND WAS EFFECTIVELY TREATED WITH TYLENOL PO- INITIAL PORTION OF STRESS TEST COMPLETED WELL ECHO- PT PRESENTLY AT 2ND PORTION OF STRESS TEST AND HOPEFUL TO DISCHARGE LATER THIS DATE- WORKED WITH BOTH PT/OT AND DID WELL- ALSO RECEIVED HER ANNUAL FLU SHOT TO LEFT ARM- FAMILY IN ROOM AWAITING HER RETURN
[2020-03-09 15:20] VITALS: BP 106/51; PULSE 74; RESP 17; TEMP 36.8; O2SAT 97
[2020-03-09] MEDS: INSULIN ASPART 100 UNIT/ML INSULN PEN SUBCUT (16:41)
--- NOTE | 2020-03-09 17:32 | P.DS_ITS ---
History of Present Illness History of Present Illness Date Patient Seen: 03/08/20 Chief complaint: Hypertension, chest pain, headache Narrative: Written by Zo RIVERA: Sandra Salomon is a 54 y.o. Turkmen speaking female with obstructive sleep apnea using a CPap, hypertension, history of migraines, anxiety, hyperlipidemia and prediabetes presented to the emergency department today with chest pain and headache. She states that she was working in the garden she thinks it may be started then. She states she has pain right back and on her lower left abdomen that feels like a stab BP type pain as well. She states she was short of breath when she was trying to talk. She denies any worsening pain with exertion. She also states that she feels dizzy for the last 3 days. She stated walked into her trash receptacle in her yard, tripping and falling against it but did not lose any consciousness about a week ago. She says that the left side of her body is sometimes week as well. She denies fevers sweats or chills, shortness of breath at rest, dysuria, diarrhea, numbing or tingling of her hands or legs, she does endorse being very anxious and stressed because her older daughter and the older daughter's family is still in [place] and have had hard time being reunited with them due to border and [facility]-19 issues. The patient states she has been having balance issues and has seen Dr. Sana Ling in [place]. It sounds like she underwent an extensive telemedicine exam with a [facility] laboratory specialist, her stated they had a 4 hour video conference. She has undergone 2 MRIs in July and January of this year both of which indicate that she has what appears to be demyelinating matter suggestive of multiple sclerosis. who is at the bedside states they have an appointment sometime in March for follow-up appointment. In the ED they did a CT of the head, chest abdomen and pelvis, and an chest x- ray. The 2 CTs were negative, chest x-ray indicated possible edema. Her NIH scale was 0. She is afebrile, blood pressure 137/66, heart rate 63, respiratory rate of 24 oxygen saturation 99% on room air, she weighs 82.7 kg with a BMI of 33.3. Complete blood count and chemistries are within normal limits, coagulation studies are normal, she has a mildly elevated BUN at 19, troponin is negative with a 2nd troponin pending, TSH within normal limits, lipase is normal, and COVID-19 screen is negative. Discharge Providers Provider Date of admission: 03/08/20 15:39 Discharge Date: 03/09/20 Primary care physician: MIGUEL Anna Consults: 03/08/20 21:06 Consult to Respiratory Therapy Evaluate & Treat Comment: please set up home cpap Physician Instructions: Evaluate and treat 03/09/20 08:25 Consult to Occupational Therapy Evaluate & Treat Comment: Physician Instructions: Evaluate and treat Consult to Physical Therapy Evaluate & Treat Comment: Physician Instructions: Evaluate and Treat Discharge provider: Rosa Dee DO Summary Hospital Course Discharge Diagnosis: 1. Acute chest pain, present on admission. Resolved. 2. Hyperlipidemia, chronic, present on admission. Stable. 3. Prediabetes, chronic, present on admission. Stable. 4. Anxiety, chronic, present on admission. Stable. 5. Obstructive sleep apnea on CPAP, chronic, present on admission. Stable. 6. Possible multiple sclerosis, chronic, present on admission. Stable. 7. Hypertension ruled out. Hospital Course: 1. Acute chest pain, present on admission. Resolved. -Patient presented with intermittent chest pain x3 days radiating to back and accompanied with shortness of breath. Patient received 1 dose of sublingual nitroglycerin 0.4 mg with resolution of chest pain. Of note, patient recently had mechanical fall 1 week ago and chest pain is felt to represent costochondritis. -Cardiac risk factors include: Hyperlipidemia, prediabetes, ethnicity. -EKG demonstrated sinus rhythm without acute ischemic changes such as ST elevation or depression. Continued to monitor closely on telemetry. Patient remained in sinus rhythm throughout hospitalization without significant ectopy. -Trended serial troponins x3 which were negative at < 0.012. -Risk stratified with hemoglobin A1c which was slightly elevated at 6.2% indicative of prediabetes (improved from previous hemoglobin A1c of 6.4% on 11/2019) and and fasting lipid panel which demonstrated excellent lipid control with: Total cholesterol 172, triglyceride 145, LDL 95 (goal <100) and HDL 48. -Echocardiogram unremarkable and did not demonstrate any wall motion abnormalities. LV normal size, wall thickness, and function with EF 55-60%, no wall motion abnormalities, RV is normal size and function, and no significant valvular disease. -Ordered nitroglycerin 0.4 mg sublingual every 5 minutes as needed for chest pain and morphine 2 mg every 5 minutes as needed for chest pain not relieved with nitroglycerin. Discharged home with prescription of nitroglycerin. -Received aspirin 324 mg x 1 in ED. Continued aspirin 81 mg daily until full workup was unremarkable then discontinued. -Continued atorvastatin 40 mg daily at bedtime. -Nuclear medicine stress test demonstrated normal perfusion imaging and was a low risk study per Cardiology. 2. Hyperlipidemia, chronic, present on admission. Stable. -Fasting lipid panel demonstrated excellent lipid control as above. -Continued home atorvastatin 40 mg daily bedtime. 3. Prediabetes, chronic, present on admission. Stable. -Hemoglobin A1c 6.2% indicative of prediabetes and has improved since previous hemoglobin A1c of 6.4% on 11/2019. -Continued [facility] blood glucose checks and low-dose correctional scale insulin. -Continued heart healthy/carbohydrate consistent diet. -Recommended continued lifestyle modification including: Diet and exercise which was discussed in detail. 4. Anxiety, chronic, present on admission. Stable. -Continued home citalopram lowered from 60 mg to 40 mg daily to avoid QTc prolongation. No evidence of QTc prolongation on EKG with QTc 428 ms. 5. Obstructive sleep apnea on CPAP, chronic, present on admission. Stable. -Continued home CPAP per RT protocol. 6. Possible multiple sclerosis, chronic, present on admission. Stable. -Patient is followed by neurology Dr. Sana Ling in [place] and recommended continued follow-up at scheduled appointment in March. -Patient has history of falls, imbalance, left-sided weakness and dizziness with abnormal MRI's and several foci of abnormal T2 weighted hyperintensity predomina tely within the juxtacortical white matter and several foci in the periventricular and deep white matter. -Obtained physical and occupational therapy evaluation and treatment. The patient had no obvious neurological deficits on clinical exam or with physical and occupational therapies evaluations and patient was discharged home independent with no needs. 7. Hypertension ruled out. -Patient had one isolated elevated blood pressure of 165/59. Patient's average SBP remained 110-120's mmHg with occasional 130's (prehypertensive). -Recommended continued lifestyle modification as above and outpatient monitoring of blood pressure with PCP. -Continued heart healthy/carbohydrate consistent diet. Exam Vital Signs (past 8 hours): - 10/16/20 10:46 03/09/20 15:20 Temperature 98.2 F Pulse Rate 74 Respiratory Rate 17 Blood Pressure 115/58 L 106/51 L Pulse Oximetry 97 Oxygen Delivery Method Room Air Narrative Exam Narrative: General: Middle-aged female sitting in bed in no acute distress, well- developed, well-nourished, appropriately interactive. HEENT: Normocephalic, atraumatic. External ears without defect. Pupils equal, round, and reactive to light. Anicteric sclerae, moist conjunctivae, and no lid lag. Oropharynx free of erythema and cobble stoning with moist mucosa. Neck: Supple with full range of motion. No jugular venous distension. No bruits. No lymphadenopathy or thyromegaly. Cardiovascular: Regular rate and rhythm without murmurs, rubs, or gallops appr eciated. Pulmonary: Clear to auscultation bilaterally without crackles, wheezes, or rhonchi. Normal respiratory effort with no use of accessory muscles. Abdomen: Soft, obese, bowel sounds present, nontender, nondistended. No hepatosplenomegaly or masses appreciated. Extremities: No clubbing, cyanosis, or edema. Skin: Normal temperature, turgor, and texture; no rash, ulcers, or subcutaneous nodules appreciated. Neurological: Cranial nerves grossly intact. Normal muscle strength, tone, and bulk. Reflexes, coordination, and sensory function within normal limits. No gait impairment. Psychiatric: Normal mood and affect. Alert and oriented to person, place, and time. Objective Labs Result Diagrams: 03/09/20 05:45 03/09/20 05:45 Labs: Laboratory Results - last 24 hr 03/08/20 03/08/20 03/08/20 13:45 17:10 20:08 WBC RBC Hgb Hct MCV MCH MCHC RDW Plt Count Neut % (Auto) Lymph % (Auto) [place] % (Auto) Eos % (Auto) Baso % (Auto) Neut # (Auto) Lymph # (Auto) [place] # (Auto) Eos # (Auto) Baso # (Auto) Sodium Potassium Chloride Carbon Dioxide BUN Creatinine Estimated GFR BUN/Creatinine Ratio Glucose Hemoglobin A1c 6.2 H Calcium Magnesium Total Creatine Kinase 63 CK-MB (CK-2) TNP CK-MB (CK-2) Rel Index TNP Troponin I < 0.012 Triglycerides Cholesterol LDL Cholesterol, Calc HDL Cholesterol Procalcitonin Urine RBC Urine WBC Ur Squamous Epith Cells Urine Bacteria Ur Culture Indicated? Nasal Screen MRSA (PCR) Negative for mrsa 03/08/20 03/09/20 03/09/20 20:08 01:35 01:46 WBC RBC Hgb Hct MCV MCH MCHC RDW Plt Count Neut % (Auto) Lymph % (Auto) [place] % (Auto) Eos % (Auto) Baso % (Auto) Neut # (Auto) Lymph # (Auto) [place] # (Auto) Eos # (Auto) Baso # (Auto) Sodium Potassium Chloride Carbon Dioxide BUN Creatinine Estimated GFR BUN/Creatinine Ratio Glucose Hemoglobin A1c Calcium Magnesium Total Creatine Kinase 61 CK-MB (CK-2) TNP CK-MB (CK-2) Rel Index TNP Troponin I < 0.012 Triglycerides Cholesterol LDL Cholesterol, Calc HDL Cholesterol Procalcitonin < 0.05 Urine RBC None seen Urine WBC None seen Ur Squamous Epith Cells 0-1 /hpf Urine Bacteria Occasional (0-1) Ur Culture Indicated? Cult not indicated Nasal Screen MRSA (PCR) 03/09/20 03/09/20 03/09/20 05:45 05:45 05:45 WBC 7.8 RBC 4.59 Hgb 12.8 Hct 38.8 MCV 84.4 MCH 27.9 MCHC 33.1 RDW 14.0 Plt Count 247 Neut % (Auto) 47.5 L Lymph % (Auto) 42.1 H [place] % (Auto) 6.9 Eos % (Auto) 2.3 Baso % (Auto) 1.2 Neut # (Auto) 3700 Lymph # (Auto) 3300 [place] # (Auto) 500 Eos # (Auto) 200 Baso # (Auto) 100 Sodium 137 Potassium 4.3 Chloride 105 Carbon Dioxide 29 BUN 17 Creatinine 0.71 Estimated GFR > 60.0 BUN/Creatinine Ratio 23.9 H Glucose 101 H Hemoglobin A1c Calcium 9.0 Magnesium 2.0 Total Creatine Kinase CK-MB (CK-2) CK-MB (CK-2) Rel Index Troponin I Triglycerides 145 Cholesterol 172 LDL Cholesterol, Calc 95 HDL Cholesterol 48 Procalcitonin Urine RBC Urine WBC Ur Squamous Epith Cells Urine Bacteria Ur Culture Indicated? Nasal Screen MRSA (PCR) Discharge Plan Discharge Plan Patient Disposition: Home Provider Discharge Comment: You are being discharged home. You have no evidence of heart attack or impending heart attack. Your EKG and heart monitoring was normal. Your heart enzymes were normal. Your echocardiogram (ultrasound of your heart) did not show any changes of your heart to suggest heart attack (also no heart failure or heart valve disease). Your cardiac stress test was normal and there was no evidence of heart attack or impending heart attack. Your chest pain was likely musculoskeletal from your recent fall. Your cholesterol is well controlled on atorvastatin. You are prediabetic and recommend continued lifestyle modification as discussed including: Low-fat, low-carbohydrate diet and exercise. Your citalopram was lowered to 40 mg daily which is the maximum dose to avoid prolongation/abnormal heart rhythm. Please follow-up with your primary care physician, Keshia Nieves, in the next 1-2 weeks regarding your hospitalization. Discharge orders & Medications Prescriptions: Continued hydroxyzine HCl 25 mg tablet 25 mg PO Q6H PRN (Reason: anxiety) Qty: 360 RF: 3 citalopram 40 mg tablet 40 mg PO DAILY Qty: 90 RF: 3 atorvastatin 40 mg tablet 40 mg PO DAILY Qty: 90 RF: 2 clobetasol 0.05 % gel 1 applictn TOP DAILY Qty: 15 RF: 2 Systane Nighttime 94-3 % ointment 1 applictn EYE-BOTH BEDTIME PRN (Reason: dry eye(s)) Qty: 3.5 RF: 6 zolpidem 5 mg tablet 5 mg PO BEDTIME PRN (Reason: insomnia) Qty: 30 RF: 1 Discontinued citalopram 20 mg tablet 20 mg PO DAILY Qty: 90 RF: 3 Follow up/Referrals: Keshia Nieves ARNP [Primary Care Provider] - 2 Weeks Diet/Activity/Treatments Diet: Carb-consistent/Diabetic, Low-fat, Low-sodium and Low-cholesterol Activity: Activity as tolerated Visit Report/Discharge Packet Instructions: DI for Chest Pain Visit Report Forms: Patient Portal/API, Stroke Signs & Symptoms Discharge Data Primary Care Provider: Keshia Nieves Attending Provider: Rosa Dee Admit Date/Time: 03/08/20 15:39
--- NOTE | 2020-03-09 18:07 | PC.NURSE ---
discharge note: VSS, Discharge instructions given to patient in Latvian and Lao, acknowledges change in medication, diagnosis and followup instructions. Discussed chest pain symptoms and pre-diabetes. IV removed, pt allowed to shower. Discharged ambulatory with spouse at 1806.
--- NOTE | 2020-03-10 00:28 | DI.NM.S_ITS ---
DATE OF SERVICE: 03/09/2020 INDICATIONS: Chest pain with underlying hypertension, high cholesterol. RADIOPHARMACEUTICAL: A 24.9 millicurie technetium-99m Myoview IV was injected at stress and 10.5 millicurie technetium-99m Myoview IV was injected at rest. CARDIAC STRESS: The patient underwent exercise perfusion study under the supervision of an attending staff. She walked on Sami protocol for 5 minutes and 45 seconds and achieved 98% of target heart rate with normal blood pressure response. No anginal symptoms. Baseline rhythm was sinus with some nonspecific ST changes. During stress, there were no convincing new ischemic changes. No significant arrhythmia seen. Raw data, there appears to be increased breast shadow. GATED STUDY: Stress LV ejection fraction 86% without any obvious wall motion abnormalities. Resting end-diastolic volume 62 mL. TID ratio 1.03, which is within normal limits. Lung heart ratio 0.35, which is within normal limits. MYOCARDIAL PERFUSION SCAN: The stress supine and resting supine images revealed small size, mildly decreased perfusion of distal anterior wall, which got resolved during prone images suggestive of breast tissue attenuation artifact. CONCLUSION: I will call this study a normal myocardial perfusion study with evidence of breast tissue attenuation artifact which got resolved during prone images. Preserved LV function. The patient walked on Sami protocol for 5 minutes and 45 seconds with BRANDON of -8%. No significant arrhythmias. Overall, this is a low risk myocardial perfusion scan. Sandra Salomon - NISHA/steven/don doc#: [id number]/job#: [id number] dd: 03/09/2020 17:31:00 dt: 03/09/2020 18:02:00 DICTATING MD/COPIES TO: Lucy Rodríguez MD COPIES MNE: MARILUZ;
== END 2020-03-09 18:06 | disposition home or self-care (01) ==
LOC: ED 15:30 → AC 15:39 → ICU 15:50
PROVIDERS: Nurse Practitioner Family; Admitting Provider Internal Medicine; Emergency Provider Emergency Medicine; PCP Nurse Practitioner; Referring Provider Emergency Medicine; Visit Provider Internal Medicine
DX: R07.9 Chest pain, unspecified (principal); R06.02 Shortness of breath; R51.9 Headache, unspecified; E78.5 Hyperlipidemia, unspecified; G47.33 Obstructive sleep apnea (adult) (pediatric); F41.9 Anxiety disorder, unspecified; R73.03 Prediabetes; Z11.59 Encounter for screening for other viral diseases
CPT/HCPCS: 36415; 70450; 71045; 71275; 74174; 78452; 80048; 80053; 80061; 81015; 82550; 82962; 83036; 83690; 83735; 83880; 84145; 84443; 84484; 85025; 85610; 85730; 87635; 87797; 90471; 90656; 93005; 93017; 93306; 96372; 97161; 97165; 99284; G0378; A9502; J1650; Q2038; Q9967

== ENCOUNTER → 2020-05-04 10:21 | Outpatient (CLI) | payer OTHER, MEDICAID, SELFPAY ==
[2020-03-08 18:07] VITALS: BMI 33.3
[2020-05-04 11:09] LABS: Hematocrit 37.3 % (36-46); Hemoglobin 12.3 g/dL (12.0-16.0); Mean Corpuscular HGB Conc 33.1 % (30-36); Mean Corpuscular Hemoglobin 27.8 PG (26-34); Platelet Count 214 X10^3/uL (150-400); Red Blood Cell Count 4.43 X10^6/uL (4.0-5.2); Red Cell Distribution Width 14.7 % (11.6-14.8); White Blood Cell Count 5.6 X10^3/uL (4.5-11.0)
[2020-05-04 11:23] LABS: Hemoglobin A1C% w Est Avg Glu 6.3 % (4.0-6.0)
[2020-05-04 11:25] LABS: Erythrocyte Sedimentation Rate 23 MM/HR (0-20)
[2020-05-04 11:32] LABS: Alanine Aminotransferase 21 IU/L (<35); Albumin 4.3 g/dL (3.5-5.0); Albumin Globulin Ratio 1.3 (1.0-2.8); Alkaline Phosphatase 81 U/L (38-126); Aspartate Aminotransferase 25 IU/L (14-36); BUN Creatinine Ratio 23.1 (6-22); Bilirubin Total 0.5 mg/dL (0.2-1.3); Blood Urea Nitrogen 15 mg/dL (7-17); Calcium 9.2 mg/dL (8.4-10.2); Carbon Dioxide 29 mmol/L (22-32); Chloride 105 mmol/L (98-107); Cholesterol 191 mg/dL (140-199); Estimated Glomerular Filt Rate > 60.0 mL/min (>60); Globulin 3.3 g/dL (1.7-4.1); Glucose 107 mg/dL (70-100); HDL Cholesterol 48 mg/dL (40-60); HEMOLYSIS < 15 (0-50); LDL Cholesterol Calculated 110 mg/dL (<100); Potassium 4.4 mmol/L (3.4-5.1); Sodium 137 mmol/L (137-145); Total Protein 7.6 g/dL (6.3-8.2); Triglycerides 167 mg/dL (35-150)
[2020-05-04 11:34] LABS: C-Reactive Protein Quant 0.9 mg/dL (<1.0)
[2020-05-04 12:07] LABS: Free T3, Triiodothyronine Free 2.34 pg/mL (2.77-5.27); Free T4, Direct Thyroxine 0.79 ng/dL (0.78-2.19)
[2020-05-04 12:20] LABS: TSH w/ Reflex to FT4 1.47 uIU/mL (0.47-4.68)
[2020-05-04 12:38] LABS: Vitamin B12 > 1000 pg/mL (239-931)
[2020-05-04 14:53] LABS: Creatinine Urine Random 92.9 mg/dL
[2020-05-04 14:56] LABS: Microalbumin Urine Random < 0.6 mg/dL (0-1.6)
[2020-05-07 08:07] LABS: Angiotensin Converting Enzyme 46 U/L (14-82)
== END ==
PROVIDERS: PCP Nurse Practitioner; Referring Provider Psychiatry & Neurology Neurology; Visit Provider Psychiatry & Neurology Neurology
DX: R90.82 White matter disease, unspecified (principal); R41.3 Other amnesia; E66.9 Obesity, unspecified; E78.2 Mixed hyperlipidemia; F41.8 Other specified anxiety disorders; I10 Essential (primary) hypertension; R73.01 Impaired fasting glucose; R73.03 Prediabetes
CPT/HCPCS: 36415; 80053; 80061; 82043; 82164; 82570; 82607; 82746; 83036; 84439; 84443; 84481; 85027; 85651; 86038; 86140

== ENCOUNTER → 2020-05-10 12:07 | Outpatient (CLI) | payer OTHER, MEDICAID, SELFPAY ==
[2020-03-08 18:07] VITALS: BMI 33.3
--- NOTE | 2020-05-10 | DI.MRI.S_ITS ---
PROCEDURE: MR CERVICAL SPINE WO/W CON INDICATIONS: WHITE MATTER DISEASE TECHNIQUE: Noncontrast sagittal T1 spin echo and T2 fast spin echo, sagittal STIR, sagittal PD fast spin echo, foraminal oblique sagittal T2 fast spin echo, axial gradient echo or T2 fast spin echo through the cervical spine. After the administration of contrast, sagittal and axial T1 spin echo with fat saturation through the cervical spine. COMPARISON: None. FINDINGS: Image quality: Excellent. Alignment and curvature: There is normal bony alignment. Marrow: Marrow demonstrates normal overall signal. Spinal cord: Visualized spinal cord is normal in size, without white matter lesions. No suspicious intramedullary enhancement. No cerebellar tonsillar herniation. Paraspinous soft tissues: No paravertebral masses or suspicious enhancement. C2-C3: Loss of disc signal. Mild, diffuse disc bulge. No central stenosis. No neural foraminal narrowing. No neural compression. C3-C4: Loss of disc signal. Mild, diffuse disc bulge. Mild narrowing of the central canal. No neural foraminal narrowing. No neural compression. C4-C5: Loss of disc signal. Mild, diffuse disc bulge. Mild narrowing of the central canal. No neural foraminal narrowing. No neural compression. Fissure noted in the posterior annulus. C5-C6: Loss of disc signal. Mild, diffuse disc bulge. Mild narrowing of the central canal. No neural foraminal narrowing. No neural compression. C6-C7: Loss of disc signal and slight loss of disc height. Mild, diffuse disc bulge. Mild narrowing of the central canal. No neural foraminal narrowing. No neural compression. C7-T1: Normal appearance. IMPRESSION: 1. No abnormal spinal cord signal. 2. No suspicious postcontrast enhancement. 3. Multilevel degenerative disc disease. 4. Multilevel mild central canal narrowing. 5. No neural foraminal narrowing. 6. No neural compression. 7. C4-C5 disc annulus fissure. Dictated by: Tracee Herman MD, PhD on 05/10/2020 at 15:43 Approved by: Tracee Herman MD, PhD on 05/10/2020 at 15:50
== END ==
PROVIDERS: PCP Nurse Practitioner; Referring Provider Psychiatry & Neurology Neurology; Visit Provider Psychiatry & Neurology Neurology
DX: R90.82 White matter disease, unspecified (principal); M50.31 Other cervical disc degeneration, high cervical region; M48.02 Spinal stenosis, cervical region
CPT/HCPCS: 72156; A9579

== ENCOUNTER 2020-05-29 13:45 | Outpatient (RCR) | payer OTHER, MEDICAID, SELFPAY ==
[2020-03-08 18:07] VITALS: BMI 33.3
--- NOTE | 2020-04-04 12:11 | PT.OIE ---
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) Depression (Chronic) Diarrhea (Acute) Elevated fasting blood sugar (Acute) Fracture of right foot (Resolved) Headache (Chronic) Headaches due to old head injury (Acute) Heel pain (Chronic) High cholesterol (Chronic) High triglycerides (Chronic) History of twin in prior (Acute) Insomnia (Acute) Migraines (Chronic) Prediabetes (Chronic) Vision disorder (Chronic) Past Surgical History (Last Reviewed 03/27/20 @ 20:44 by MIGUEL Wang) Anesthesia (Resolved) Previous section (Resolved) Visit Care Team Role Provider Type MIGUEL Anna Primary Care Provider Advanced Mannequin Refinisher Specialty: Family Practice Address: [address] [place] [address], [address] Email: [email or web address] Lisette Arguello MD Attending Provider Physician Referring Provider Specialty: Orthopedics Address: [address] [place] [address], [place], [address] opt2 Email: Physical Therapy Initial Evaluation PT-OP-A Visit Information Start: 04/03/20 18:17 Freq: Status: Active Protocol: Document 04/04/20 09:48 [facility] (Rec: 04/04/20 10:53 [facility] [id number]) Out-Patient Physical Therapy Visit Information Visit Information Visit Type Initial Evaluation Visit Start Time 09:47 Visit Stop Time 10:30 Total Visit Minutes 43 Visit Number 1 Number of COMMUNITY SERVICE COORDINATOR Visits 0 PT-OP-B Current Condition Start: 04/03/20 18:17 Freq: Status: Active Protocol: Document 04/04/20 09:48 [facility] (Rec: 04/04/20 10:53 [facility] [id number]) Current Condition History of Current Condition Onset Date 2-3 years ago Current Complaints B knee pain History of Current Condition Pt reports worsening of knee pain that started from no known injury 2-3 years ago. Pt goes for walks sometimes and can walk for no longer than 30 min. told her arthritis. SOmetimes it hurts but sometimes it does not. Pt has pain when runs short distances even just running 5 min. Pt asked re: need of setup technician. Pt refused translation service . Pt likes to play with grandkids that are 3 and 5 years old. Cannot get down to ground with kids onto knees. Pt reprots she fell about 7 years ago and injured her R lower leg. Pt reports apin in fingers and toes at night. Reprots feet cuases her pain also. Pt denies pain at night in knees. R knee is more painful Prior Treatments and Tests none Treatment Goals Patient/Caregiver Goals be able to walk & run & go up/ down stairs PT-OP-C Subjective Start: 04/03/20 18:17 Freq: Status: Active Protocol: Document 04/04/20 09:48 [facility] (Rec: 04/04/20 10:53 [facility] [id number]) OP-PT Pain Assessment Location B knee pain Pain Location Details ant knee & med thigh Intensity 7 Scale Used Numeric (0 - 10) Frequency Intermittent Radiating Location pain from LB down lat BLEs Pain Aggravating Factors Walking,Stair Climbing,Bending Pain Alleviating Factors Heat,Massage Other Pain Alleviating Factors tylenol occasionally, PT-OP-D Balance Start: 04/03/20 18:17 Freq: Status: Active Protocol: Document 04/04/20 09:48 [facility] (Rec: 04/04/20 10:53 [facility] [id number]) Balance Tests Single Limb Standing Single Limb- Right 30 sec Single Limb- Left 12 sec PT-OP-F Manual Assessment Start: 04/03/20 18:17 Freq: Status: Active Protocol: Document 04/04/20 09:48 [facility] (Rec: 04/04/20 10:53 [facility] [id number]) Manual Assessments Soft Tissue Assessment Soft Tissue Mobility Assessment L pain w/joint line palpation & HS; R w/adductor, ITB, B joint line palpation Joint Mobility Assessment Joint Mobility Assessment dec patellar mobility but no pain w/glides PT-OP-G Mobility & Gait Start: 04/03/20 18:17 Freq: Status: Active Protocol: Document 04/04/20 09:48 [facility] (Rec: 04/04/20 10:53 [facility] [id number]) OP Gait Assessment Comments Gait Comments Lat leaning w/WB B duirng gait PT-OP-K Range of Motion Start: 04/03/20 18:17 Freq: Status: Active Protocol: Document 04/04/20 09:48 [facility] (Rec: 04/04/20 10:53 [facility] [id number]) Knee Goniometric Range of Motion Knee Right Flexion Active (degrees) 131 Extension Active (degrees) 2 Left Flexion Active (degrees) 130 Extension Active (degrees) 0 Comments no pain B PT-OP-L Special Tests Start: 04/03/20 18:17 Freq: Status: Active Protocol: Document 04/04/20 09:48 [facility] (Rec: 04/04/20 10:53 [facility] [id number]) Special Tests Knee Special Tests Young's Test Test Results neg B Booker's Compression Test Results neg B Comments did have hip popping w/ hip ext from flex Posterior Draw Test Results neg B Valgus- 25 Degrees Test Results neg B Varus- 25 Degrees Test Results neg B Armando Test Test Results neg B Sadi's Test Results neg B slump Test Results neg B Straight Leg Raise Test Results 74 L HS tightness, R 69 HS tightness PT-OP-M Strength Start: 04/03/20 18:17 Freq: Status: Active Protocol: Document 04/04/20 09:48 [facility] (Rec: 04/04/20 10:53 [facility] [id number]) Hip Strength Hip Manual Muscle Testing Right Flexion (L2) 4 Good Extension (S1) 4- Good- Abduction 3+ Fair+ Adduction 4 Good External Rotation 3+ Fair+ Internal Rotation 4- Good- Left Flexion (L2) 4 Good Extension (S1) 3+ Fair+ Abduction 4 Good Adduction 4 Good External Rotation 3+ Fair+ Internal Rotation 4- Good- Knee Strength Knee Manual Muscle Testing Right Flexion (S2) 4 Good Extension (L3) 4- Good- Left Flexion (S2) 4 Good Extension (L3) 4- Good- Ankle/Foot Strength Ankle and Foot Manual Muscle Testing Right Dorsiflexion (L4) 5 Normal Plantarflexion (S1) 5 Normal Left Dorsiflexion (L4) 5 Normal Plantarflexion (S1) 5 Normal Comments able to do 20 heel raises B PT-OP-Q Treatments Start: 04/03/20 18:17 Freq: Status: Active Protocol: Document 04/04/20 09:48 [facility] (Rec: 04/04/20 10:53 [facility] [id number]) Therapeutic Exercises Supine Exercises flex Supine Exercise Name isometric double leg flex for core Side bilateral Reps/Minutes 15 sec x2 stretch Supine Exercise Name HS Side bilateral Reps/Minutes 30 sec Sidelying Exercises clamshell Side bilateral Reps/Minutes 15 PT-OP-T Assessment and Plan Start: 04/03/20 18:17 Freq: Status: Active Protocol: Document 04/04/20 09:48 [facility] (Rec: 04/04/20 10:53 [facility] [id number]) Physical Therapy Assessment Rehab Potential Rehabilitation Potential Good Evaluation Complexity Number of Personal Factors/Comorbidities 3 or More Number of Body Systems Impaired 4 or More Clinical Presentation at Evaluation Evolving Impairments Impairments Activity Tolerance,Balance, Functional Activities, Functional Mobility,Gait,Pain, Posture,ROM,Soft Tissue Mobility,Strength Goals Three Short Term Goal (STG) Pt will be able to do SLS B for 30 sec w/o any lat leaning . STG Duration 05/04/20 [facility] Goal (LTG) Pt will show improved push off with gait w/no lat trunk shift over LE during stance phase. LTG Duration 06/04/20 Two Short Term Goal (STG) Pt will be indep with PT directed HEP. STG Duration 05/04/20 Otolaryngology Physician Goal (LTG) Pt will score 5/5 on LE strength testing to show improved stability of knee joint. LTG Duration 06/04/20 One Short Term Goal (STG) Pt will be able to walk for 1 hour without inc pain. STG Duration 05/04/20 [facility] Goal (LTG) Pt will be able to run with grandkids without pain. LTG Duration 06/04/20 Assessment Summary Assessment Pt presents with B knee pain R >L chronic in nature with gradual with worsening recently. She is primarily gabonese speaking but does speak some romanian and refused setup technician service. Pt has chronic knee pain with diagonosis of OA from orthopedic MD. Pt was not positive for any special tests today except w/HS tightness. She had good AROM when not WB but had hip and knee mm weakness and would benefit from PT for strengthening, balance, gait training and manual& modalities to dec pain . Physical Therapy Plan Frequency and Duration Frequency of Treatment 2x/Week Duration of Treatment 2 months Plan of Care Start Date 04/04/20 Plan of Care End Date 06/04/20 Therapeutic Interventions Therapeutic Interventions Aquatic Therapy,Balance Training,Gait Training,Home Exercise Program,Joint Mobilizations,Manual Therapy, Neuromuscular Re-education, Patient/Caregiver Education, Self-Care/Home Management,Soft Tissue Mobilization,Taping, Therapeutic Activities, Therapeutic Exercises Modalities Cold Pack/Ice Massage,Electric Stimulation,Hot Packs, Infrared Therapy,Iontophoresis ,Ultrasound Next Visit Focus/Plan Next Note Type Treatment Note Next Visit Plan administer further HEP in gabonese via exercise program: side steps, quad stretching, mini squats, try leg press and exercise bike next session, manual treatment to R ITB & adductors & B patellar glides
--- NOTE | 2020-04-04 12:11 | PT.OPPOC ---
Physical, Occupational & Speech Therapy At [facility] Current Diagnoses Bilateral primary osteoarthritis of knee (04/04/20) Iliotibial band syndrome, right leg (04/04/20) Difficulty in walking, not elsewhere classified (04/04/20) Weakness (04/04/20) Visit Care Team Role Provider Type MIGUEL Anna Primary Care Provider Advanced Rn Private Duty Specialty: Family Practice Address: [address] [place] [address], [address] Email: [email or web address] Lisette Arguello MD Attending Provider Physician Referring Provider Specialty: Orthopedics Address: [address] [place] [address], [place], [address] opt2 Email: Plan Of Care PT-OP-T Assessment and Plan Start: 04/03/20 18:17 Freq: Status: Active Protocol: Document 04/04/20 09:48 [facility] (Rec: 04/04/20 10:53 [facility] [id number]) Physical Therapy Assessment Rehab Potential Rehabilitation Potential Good Evaluation Complexity Number of Personal Factors/Comorbidities 3 or More Number of Body Systems Impaired 4 or More Clinical Presentation at Evaluation Evolving Impairments Impairments Activity Tolerance,Balance, Functional Activities, Functional Mobility,Gait,Pain, Posture,ROM,Soft Tissue Mobility,Strength Goals Three Short Term Goal (STG) Pt will be able to do SLS B for 30 sec w/o any lat leaning . STG Duration 05/04/20 Shelter Goal (LTG) Pt will show improved push off with gait w/no lat trunk shift over LE during stance phase. LTG Duration 06/04/20 Two Short Term Goal (STG) Pt will be indep with PT directed HEP. STG Duration 05/04/20 Bench Shear Operator Goal (LTG) Pt will score 5/5 on LE strength testing to show improved stability of knee joint. LTG Duration 06/04/20 One Short Term Goal (STG) Pt will be able to walk for 1 hour without inc pain. STG Duration 05/04/20 Bench Shear Operator Goal (LTG) Pt will be able to run with grandkids without pain. LTG Duration 06/04/20 Assessment Summary Assessment Pt presents with B knee pain R >L chronic in nature with gradual with worsening recently. She is primarily irish speaking but does speak some guinean and refused family counselor service. Pt has chronic knee pain with diagonosis of OA from orthopedic MD. Pt was not positive for any special tests today except w/HS tightness. She had good AROM when not WB but had hip and knee mm weakness and would benefit from PT for strengthening, balance, gait training and manual& modalities to dec pain . Physical Therapy Plan Frequency and Duration Frequency of Treatment 2x/Week Duration of Treatment 2 months Plan of Care Start Date 04/04/20 Plan of Care End Date 06/04/20 Therapeutic Interventions Therapeutic Interventions Aquatic Therapy,Balance Training,Gait Training,Home Exercise Program,Joint Mobilizations,Manual Therapy, Neuromuscular Re-education, Patient/Caregiver Education, Self-Care/Home Management,Soft Tissue Mobilization,Taping, Therapeutic Activities, Therapeutic Exercises Modalities Cold Pack/Ice Massage,Electric Stimulation,Hot Packs, Infrared Therapy,Iontophoresis ,Ultrasound Next Visit Focus/Plan Next Note Type Treatment Note Next Visit Plan administer further HEP in irish via exercise program: side steps, quad stretching, mini squats, try leg press and exercise bike next session, manual treatment to R ITB & adductors & B patellar glides Plan of Care Dates Plan of Care Start Date 04/04/20 Plan of Care End Date 06/04/20 Electronically Signed by: Maine Callahan, PT 04/04/20 1211 Please Sign and Return: I have reviewed this Plan of Care and certify that the skilled therapy services above are required to meet the patient?s needs. Physician Signature Date Printed Name and Credentials Clinical Instructor Signature Printed Name and Credentials
--- NOTE | 2020-04-23 11:16 | PT.OTN ---
Current Diagnoses Bilateral primary osteoarthritis of knee (04/23/20) Iliotibial band syndrome, right leg (04/23/20) Difficulty in walking, not elsewhere classified (04/23/20) Weakness (04/23/20) Physical Therapy Treatment Note PT-OP-A Visit Information Start: 04/03/20 18:17 Freq: Status: Active Protocol: Document 04/23/20 09:00 [facility] (Rec: 04/23/20 11:16 [facility] [id number]) Out-Patient Physical Therapy Visit Information Visit Information Visit Type Treatment Note Visit Start Time 09:01 Visit Stop Time 09:41 Total Visit Minutes 40 Visit Number 2 Number of AUTOMATIC CAR WASH ATTENDANT Visits 0 PT-OP-B Current Condition Start: 04/03/20 18:17 Freq: Status: Active Protocol: Document 04/04/20 09:48 [facility] (Rec: 04/04/20 10:53 [facility] [id number]) Current Condition History of Current Condition Onset Date 2-3 years ago Current Complaints B knee pain History of Current Condition Pt reports worsening of knee pain that started from no known injury 2-3 years ago. Pt goes for walks sometimes and can walk for no longer than 30 min. told her arthritis. SOmetimes it hurts but sometimes it does not. Pt has pain when runs short distances even just running 5 min. Pt asked re: need of engineering librarian. Pt refused translation service . Pt likes to play with grandkids that are 3 and 5 years old. Cannot get down to ground with kids onto knees. Pt reprots she fell about 7 years ago and injured her R lower leg. Pt reports apin in fingers and toes at night. Reprots feet cuases her pain also. Pt denies pain at night in knees. R knee is more painful Prior Treatments and Tests none Treatment Goals Patient/Caregiver Goals be able to walk & run & go up/ down stairs PT-OP-C Subjective Start: 04/03/20 18:17 Freq: Status: Active Protocol: Document 04/23/20 09:00 [facility] (Rec: 04/23/20 11:16 [facility] [id number]) OP-PT Subjective Patient Comments Patient Comments Pt reports she was sick with COVID but is now negative. Pt notes she has done exercises when she was not sick. PT-OP-D Balance Start: 04/03/20 18:17 Freq: Status: Active Protocol: Document 04/04/20 09:48 [facility] (Rec: 04/04/20 10:53 [facility] [id number]) Balance Tests Single Limb Standing Single Limb- Right 30 sec Single Limb- Left 12 sec PT-OP-F Manual Assessment Start: 04/03/20 18:17 Freq: Status: Active Protocol: Document 04/04/20 09:48 [facility] (Rec: 04/04/20 10:53 [facility] [id number]) Manual Assessments Soft Tissue Assessment Soft Tissue Mobility Assessment L pain w/joint line palpation & HS; R w/adductor, ITB, B joint line palpation Joint Mobility Assessment Joint Mobility Assessment dec patellar mobility but no pain w/glides PT-OP-G Mobility & Gait Start: 04/03/20 18:17 Freq: Status: Active Protocol: Document 04/04/20 09:48 [facility] (Rec: 04/04/20 10:53 [facility] [id number]) OP Gait Assessment Comments Gait Comments Lat leaning w/WB B duirng gait PT-OP-K Range of Motion Start: 04/03/20 18:17 Freq: Status: Active Protocol: Document 04/04/20 09:48 [facility] (Rec: 04/04/20 10:53 [facility] [id number]) Knee Goniometric Range of Motion Knee Right Flexion Active (degrees) 131 Extension Active (degrees) 2 Left Flexion Active (degrees) 130 Extension Active (degrees) 0 Comments no pain B PT-OP-L Special Tests Start: 04/03/20 18:17 Freq: Status: Active Protocol: Document 04/04/20 09:48 [facility] (Rec: 04/04/20 10:53 [facility] [id number]) Special Tests Knee Special Tests Young's Test Test Results neg B Booker's Compression Test Results neg B Comments did have hip popping w/ hip ext from flex Posterior Draw Test Results neg B Valgus- 25 Degrees Test Results neg B Varus- 25 Degrees Test Results neg B Armando Test Test Results neg B Sadi's Test Results neg B slump Test Results neg B Straight Leg Raise Test Results 74 L HS tightness, R 69 HS tightness PT-OP-M Strength Start: 04/03/20 18:17 Freq: Status: Active Protocol: Document 04/04/20 09:48 [facility] (Rec: 04/04/20 10:53 [facility] [id number]) Hip Strength Hip Manual Muscle Testing Right Flexion (L2) 4 Good Extension (S1) 4- Good- Abduction 3+ Fair+ Adduction 4 Good External Rotation 3+ Fair+ Internal Rotation 4- Good- Left Flexion (L2) 4 Good Extension (S1) 3+ Fair+ Abduction 4 Good Adduction 4 Good External Rotation 3+ Fair+ Internal Rotation 4- Good- Knee Strength Knee Manual Muscle Testing Right Flexion (S2) 4 Good Extension (L3) 4- Good- Left Flexion (S2) 4 Good Extension (L3) 4- Good- Ankle/Foot Strength Ankle and Foot Manual Muscle Testing Right Dorsiflexion (L4) 5 Normal Plantarflexion (S1) 5 Normal Left Dorsiflexion (L4) 5 Normal Plantarflexion (S1) 5 Normal Comments able to do 20 heel raises B PT-OP-Q Treatments Start: 04/03/20 18:17 Freq: Status: Active Protocol: Document 04/23/20 09:00 [facility] (Rec: 04/23/20 11:16 [facility] [id number]) Cardio Equipment Recumbent Bicycle Duration (Minutes) 3 Resistance 8-10 Seat Position 2 Gym Equipment Shuttle Recovery Bilateral Squats Resistance 75# Shuttle Recovery Platform Stable Reps/Time 2x10 Therapeutic Exercises Supine Exercises flex Supine Exercise Name isometric double leg flex for core Side bilateral Reps/Minutes 15 sec x2 stretch Supine Exercise Name HS Side bilateral Reps/Minutes 30 sec Sidelying Exercises clamshell Side bilateral Equipment Used L2 Reps/Minutes 15 Standing Exercises sidestep Side bilateral Equipment Used yellow tband Reps/Minutes 20ftx2 Manual Therapy Treatment Soft Tissue Mobilization ITB Body Location R>L Mobilization Type Rolling Joint Mobilizations tibiofemoral Joint B Direction IR glide w/knee ext/flex Patellofemoral Joint B Direction sup, inf, med Self-Care/Home Management Treatment Education Other Education self roll out w/rolling pin PT-OP-T Assessment and Plan Start: 04/03/20 18:17 Freq: Status: Active Protocol: Document 04/23/20 09:00 [facility] (Rec: 04/23/20 11:16 [facility] [id number]) Physical Therapy Assessment Goals [facility] Residential Goal (LTG) Pt will present with an improved NDI score to reflect no more than 10% functional impairment by 02/27/2020. 01/23/2020: NDI reflects 6% impairment, goal met LTG Duration 8 weeks Three Short Term Goal (STG) Pt will be able to do SLS B for 30 sec w/o any lat leaning . STG Duration 05/04/20 Folder Machine Goal (LTG) Pt will show improved push off with gait w/no lat trunk shift over LE during stance phase. LTG Duration 06/04/20 Two Short Term Goal (STG) Pt will be indep with PT directed HEP. STG Duration 05/04/20 Residential Goal (LTG) Pt will score 5/5 on LE strength testing to show improved stability of knee joint. LTG Duration 06/04/20 One Short Term Goal (STG) Pt will be able to walk for 1 hour without inc pain. STG Duration 05/04/20 Folder Machine Goal (LTG) Pt will be able to run with grandkids without pain. LTG Duration 06/04/20 Assessment Summary Assessment Pt noted yoel did not feel like she needed translation service again today. Encouraged pt to ask for it if she felt like she could not understand this PT. Pt had signficiant tightness in ITB and was educated on self release also> Improved patellar mobility after mobs Physical Therapy Plan Frequency and Duration Frequency of Treatment 2x/Week Duration of Treatment 2 months Plan of Care Start Date 04/04/20 Plan of Care End Date 06/04/20 Next Visit Focus/Plan Next Note Type Treatment Note Next Visit Plan administer further HEP in ethiopian via exercise program: side steps, quad stretching, mini squats, try leg press q/ more wt and exercise bike next session, manual treatment to R ITB & adductors & B patellar glides
--- NOTE | 2020-04-25 10:27 | PT.OTN ---
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 Pt goes for walks sometimes and can walk for no longer than 30 min. told her arthritis. SOmetimes it hurts but sometimes it does not. Pt has pain when runs short distances even just running 5 min. Pt asked re: need of machine clothing worker. Pt refused translation service . Pt likes to play with grandkids that are 3 and 5 years old. Cannot get down to ground with kids onto knees. Pt reprots she fell about 7 years ago and injured her R lower leg. Pt reports apin in fingers and toes at night. Reprots feet cuases her pain also. Pt denies pain at night in knees. R knee is more painful Prior Treatments and Tests none Treatment Goals Patient/Caregiver Goals be able to walk & run & go up/ down stairs PT-OP-C Subjective Start: 04/03/20 18:17 Freq: Status: Active Protocol: Document 04/25/20 09:32 MA (Rec: 04/25/20 10:26 MA [id number]) OP-PT Subjective Patient Comments Patient Comments Pt states her knees are feeling better but that the R still bothers her more than then L PT-OP-D Balance Start: 04/03/20 18:17 Freq: Status: Active Protocol: Document 04/04/20 09:48 [facility] (Rec: 04/04/20 10:53 [facility] [id number]) Balance Tests Single Limb Standing Single Limb- Right 30 sec Single Limb- Left 12 sec PT-OP-F Manual Assessment Start: 04/03/20 18:17 Freq: Status: Active Protocol: Document 04/04/20 09:48 [facility] (Rec: 04/04/20 10:53 LR [id number]) Manual Assessments Soft Tissue Assessment Soft Tissue Mobility Assessment L pain w/joint line palpation & HS; R w/adductor, ITB, B joint line palpation Joint Mobility Assessment Joint Mobility Assessment dec patellar mobility but no pain w/glides PT-OP-G Mobility & Gait Start: 04/03/20 18:17 Freq: Status: Active Protocol: Document 04/04/20 09:48 [facility] (Rec: 04/04/20 10:53 [facility] [id number]) OP Gait Assessment Comments Gait Comments Lat leaning w/WB B duirng gait PT-OP-K Range of Motion Start: 04/03/20 18:17 Freq: Status: Active Protocol: Document 04/04/20 09:48 [facility] (Rec: 04/04/20 10:53 [facility] [id number]) Knee Goniometric Range of Motion Knee Right Flexion Active (degrees) 131 Extension Active (degrees) 2 Left Flexion Active (degrees) 130 Extension Active (degrees) 0 Comments no pain B PT-OP-L Special Tests Start: 04/03/20 18:17 Freq: Status: Active Protocol: Document 04/04/20 09:48 [facility] (Rec: 04/04/20 10:53 [facility] [id number]) Special Tests Knee Special Tests Young's Test Test Results neg B Booker's Compression Test Results neg B Comments did have hip popping w/ hip ext from flex Posterior Draw Test Results neg B Valgus- 25 Degrees Test Results neg B Varus- 25 Degrees Test Results neg B Armando Test Test Results neg B Sadi's Test Results neg B slump Test Results neg B Straight Leg Raise Test Results 74 L HS tightness, R 69 HS tightness PT-OP-M Strength Start: 04/03/20 18:17 Freq: Status: Active Protocol: Document 04/04/20 09:48 LR (Rec: 04/04/20 10:53 [facility] [id number]) Hip Strength Hip Manual Muscle Testing Right Flexion (L2) 4 Good Extension (S1) 4- Good- Abduction 3+ Fair+ Adduction 4 Good External Rotation 3+ Fair+ Internal Rotation 4- Good- Left Flexion (L2) 4 Good Extension (S1) 3+ Fair+ Abduction 4 Good Adduction 4 Good External Rotation 3+ Fair+ Internal Rotation 4- Good- Knee Strength Knee Manual Muscle Testing Right Flexion (S2) 4 Good Extension (L3) 4- Good- Left Flexion (S2) 4 Good Extension (L3) 4- Good- Ankle/Foot Strength Ankle and Foot Manual Muscle Testing Right Dorsiflexion (L4) 5 Normal Plantarflexion (S1) 5 Normal Left Dorsiflexion (L4) 5 Normal Plantarflexion (S1) 5 Normal Comments able to do 20 heel raises B PT-OP-Q Treatments Start: 04/03/20 18:17 Freq: Status: Active Protocol: Document 04/25/20 09:32 MA (Rec: 04/25/20 10:26 MA [id number]) Cardio Equipment Recumbent Bicycle Duration (Minutes) 6 Resistance 8 Seat Position 2 Gym Equipment Shuttle Recovery Bilateral Squats Resistance 87# Shuttle Recovery Platform Stable Reps/Time 2x10 Therapeutic Exercises Supine Exercises Piriformis Stretch Side bilateral Reps/Minutes 60 sec stretch Supine Exercise Name HS supine, quads prone Side bilateral Reps/Minutes 60 sec Sidelying Exercises Abduction Side bilateral Reps/Minutes x10 clamshell Side bilateral Reps/Minutes x10 Standing Exercises Squats Standing Exercise Name Squats at bar Side bilateral Equipment Used ball b/w knees Reps/Minutes 2x8 Comments first set without ball, second set with ball to prevent adduction sidestep Side bilateral Equipment Used yellow tband Reps/Minutes 20ftx2 Comments attempted with knees bent but discontinued due to pain Manual Therapy Treatment Soft Tissue Mobilization HS Body Location Jameel HS Mobilization Type Rolling Intensity/Depth Moderate Body Position Supine ITB Body Location Jameel Mobilization Type Rolling,Sustained Pressure, Trigger Point Release Intensity/Depth Moderate Body Position Supine Joint Mobilizations Patellofemoral Joint B Direction sup, inf, med Self-Care/Home Management Treatment Education Patient Education Home Exercise Program Other Education mini squats with pillow b/w inner thighs at home to avoid adduction PT-OP-T Assessment and Plan Start: 04/03/20 18:17 Freq: Status: Active Protocol: Document 04/25/20 09:32 MA (Rec: 04/25/20 10:26 MA [id number]) Physical Therapy Assessment Goals Four Senior Care Goal (LTG) Pt will present with an improved NDI score to reflect no more than 10% functional impairment by 02/27/2020. 01/23/2020: NDI reflects 6% impairment, goal met LTG Duration 8 weeks Three Short Term Goal (STG) Pt will be able to do SLS B for 30 sec w/o any lat leaning . STG Duration 05/04/20 Senior Care Goal (LTG) Pt will show improved push off with gait w/no lat trunk shift over LE during stance phase. LTG Duration 06/04/20 Two Short Term Goal (STG) Pt will be indep with PT directed HEP. STG Duration 05/04/20 Tray Casting Machine Operator Goal (LTG) Pt will score 5/5 on LE strength testing to show improved stability of knee joint. LTG Duration 06/04/20 One Short Term Goal (STG) Pt will be able to walk for 1 hour without inc pain. STG Duration 05/04/20 Senior Care Goal (LTG) Pt will be able to run with grandkids without pain. LTG Duration 06/04/20 Assessment Summary Assessment Pt denied machine clothing worker again today. Pt performing clamshells properly during session without any cues but needed cues to avoid ER during side stepping. Only time pt had pain was during crab walks with yellow band, modified back to standing and pain disappeared. Added squats to HEP with pillow b/w the knees at home to avoid adduction. After patellar mobs, pt had increased movement R>L Physical Therapy Plan Frequency and Duration Frequency of Treatment 2x/Week Duration of Treatment 2 months Plan of Care Start Date 04/04/20 Plan of Care End Date 06/04/20 Therapeutic Interventions Therapeutic Interventions Aquatic Therapy,Balance Training,Gait Training,Home Exercise Program,Joint Mobilizations,Manual Therapy, Neuromuscular Re-education, Patient/Caregiver Education, Self-Care/Home Management,Soft Tissue Mobilization,Taping, Therapeutic Activities, Therapeutic Exercises Modalities Cold Pack/Ice Massage,Electric Stimulation,Hot Packs, Infrared Therapy,Iontophoresis ,Ultrasound Next Visit Focus/Plan Next Note Type Treatment Note Next Visit Plan administer further HEP in tajik via exercise program: try upright bike next session, review how squats went at home, add SL abduction to HEP and continue manual treatment to R ITB & adductors & B patellar glides
--- NOTE | 2020-04-30 14:24 | PT.OTN ---
Current Diagnoses Bilateral primary osteoarthritis of knee (04/30/20) Iliotibial band syndrome, right leg (04/30/20) Difficulty in walking, not elsewhere classified (04/30/20) Weakness (04/30/20) Physical Therapy Treatment Note PT-OP-A Visit Information Start: 04/03/20 18:17 Freq: Status: Active Protocol: Document 04/30/20 13:44 MA (Rec: 04/30/20 14:23 MA [id number]) Out-Patient Physical Therapy Visit Information Visit Information Visit Type Treatment Note Visit Start Time 13:42 Visit Stop Time 14:20 Total Visit Minutes 38 Visit Number 4 Number of BRICK LAYER Visits 2 PT-OP-B Current Condition Start: 04/03/20 18:17 Freq: Status: Active Protocol: Document 04/04/20 09:48 [facility] (Rec: 04/04/20 10:53 [facility] [id number]) Current Condition History of Current Condition Onset Date 2-3 years ago Current Complaints B knee pain History of Current Condition Pt reports worsening of knee pain that started from no known injury 2-3 years ago. Pt goes for walks sometimes and can walk for no longer than 30 min. told her arthritis. SOmetimes it hurts but sometimes it does not. Pt has pain when runs short distances even just running 5 min. Pt asked re: need of health teacher. Pt refused translation service . Pt likes to play with grandkids that are 3 and 5 years old. Cannot get down to ground with kids onto knees. Pt reprots she fell about 7 years ago and injured her R lower leg. Pt reports apin in fingers and toes at night. Reprots feet cuases her pain also. Pt denies pain at night in knees. R knee is more painful Prior Treatments and Tests none Treatment Goals Patient/Caregiver Goals be able to walk & run & go up/ down stairs PT-OP-C Subjective Start: 04/03/20 18:17 Freq: Status: Active Protocol: Document 04/30/20 13:44 MA (Rec: 04/30/20 14:23 MA [id number]) OP-PT Subjective Patient Comments Patient Comments Pt had pain on the lateral R leg when she woke up today but her knees have been feeling good. Reports she did her squats at home for her HEP and had no pain. PT-OP-D Balance Start: 04/03/20 18:17 Freq: Status: Active Protocol: Document 04/04/20 09:48 LR (Rec: 04/04/20 10:53 LR [id number]) Balance Tests Single Limb Standing Single Limb- Right 30 sec Single Limb- Left 12 sec PT-OP-F Manual Assessment Start: 04/03/20 18:17 Freq: Status: Active Protocol: Document 04/04/20 09:48 LR (Rec: 04/04/20 10:53 [facility] [id number]) Manual Assessments Soft Tissue Assessment Soft Tissue Mobility Assessment L pain w/joint line palpation & HS; R w/adductor, ITB, B joint line palpation Joint Mobility Assessment Joint Mobility Assessment dec patellar mobility but no pain w/glides PT-OP-G Mobility & Gait Start: 04/03/20 18:17 Freq: Status: Active Protocol: Document 04/04/20 09:48 [facility] (Rec: 04/04/20 10:53 [facility] [id number]) OP Gait Assessment Comments Gait Comments Lat leaning w/WB B duirng gait PT-OP-K Range of Motion Start: 04/03/20 18:17 Freq: Status: Active Protocol: Document 04/04/20 09:48 LR (Rec: 04/04/20 10:53 [facility] [id number]) Knee Goniometric Range of Motion Knee Right Flexion Active (degrees) 131 Extension Active (degrees) 2 Left Flexion Active (degrees) 130 Extension Active (degrees) 0 Comments no pain B PT-OP-L Special Tests Start: 04/03/20 18:17 Freq: Status: Active Protocol: Document 04/04/20 09:48 [facility] (Rec: 04/04/20 10:53 [facility] [id number]) Special Tests Knee Special Tests Young's Test Test Results neg B Booker's Compression Test Results neg B Comments did have hip popping w/ hip ext from flex Posterior Draw Test Results neg B Valgus- 25 Degrees Test Results neg B Varus- 25 Degrees Test Results neg B Armando Test Test Results neg B Sadi's Test Results neg B slump Test Results neg B Straight Leg Raise Test Results 74 L HS tightness, R 69 HS tightness PT-OP-M Strength Start: 04/03/20 18:17 Freq: Status: Active Protocol: Document 04/04/20 09:48 LR (Rec: 04/04/20 10:53 [facility] [id number]) Hip Strength Hip Manual Muscle Testing Right Flexion (L2) 4 Good Extension (S1) 4- Good- Abduction 3+ Fair+ Adduction 4 Good External Rotation 3+ Fair+ Internal Rotation 4- Good- Left Flexion (L2) 4 Good Extension (S1) 3+ Fair+ Abduction 4 Good Adduction 4 Good External Rotation 3+ Fair+ Internal Rotation 4- Good- Knee Strength Knee Manual Muscle Testing Right Flexion (S2) 4 Good Extension (L3) 4- Good- Left Flexion (S2) 4 Good Extension (L3) 4- Good- Ankle/Foot Strength Ankle and Foot Manual Muscle Testing Right Dorsiflexion (L4) 5 Normal Plantarflexion (S1) 5 Normal Left Dorsiflexion (L4) 5 Normal Plantarflexion (S1) 5 Normal Comments able to do 20 heel raises B PT-OP-Q Treatments Start: 04/03/20 18:17 Freq: Status: Active Protocol: Document 04/30/20 13:44 MA (Rec: 04/30/20 14:23 MA [id number]) Cardio Equipment Bicycle (Upright) Duration (Minutes) 6 Resistance 7 Seat Position 2 Therapeutic Exercises Supine Exercises Piriformis Stretch Side bilateral Reps/Minutes 60 sec Sidelying Exercises Abduction Side bilateral Reps/Minutes x10 clamshell Side bilateral Reps/Minutes x10 Sitting Exercises piriformis stretch Side bilateral Reps/Minutes 2x30 sec Standing Exercises Quad Stretch Side bilateral Reps/Minutes 2x30 sec Squats Standing Exercise Name Squats at bar Side bilateral Equipment Used ball b/w knees Reps/Minutes 2x8 Comments verbal & tactile cues to avoid knees infront of toes sidestep Side bilateral Equipment Used yellow tband Reps/Minutes 20ftx2 Manual Therapy Treatment Soft Tissue Mobilization ITB Body Location Aimee Mobilization Type Rolling,Sustained Pressure, Trigger Point Release Intensity/Depth Moderate Body Position Supine Comments L>R PT-OP-T Assessment and Plan Start: 04/03/20 18:17 Freq: Status: Active Protocol: Document 04/30/20 13:44 MA (Rec: 04/30/20 14:23 MA [id number]) Physical Therapy Assessment Goals Four Geographic Information System Analyst Goal (LTG) Pt will present with an improved NDI score to reflect no more than 10% functional impairment by 02/27/2020. 01/23/2020: NDI reflects 6% impairment, goal met LTG Duration 8 weeks Three Short Term Goal (STG) Pt will be able to do SLS B for 30 sec w/o any lat leaning . 04/30/20-GOAL MET STG Duration 05/04/20 Geographic Information System Analyst Goal (LTG) Pt will show improved push off with gait w/no lat trunk shift over LE during stance phase. LTG Duration 06/04/20 Two Short Term Goal (STG) Pt will be indep with PT directed HEP. STG Duration 05/04/20 Longterm Goal (LTG) Pt will score 5/5 on LE strength testing to show improved stability of knee joint. LTG Duration 06/04/20 One Short Term Goal (STG) Pt will be able to walk for 1 hour without inc pain. STG Duration 05/04/20 Geographic Information System Analyst Goal (LTG) Pt will be able to run with grandkids without pain. LTG Duration 06/04/20 Assessment Summary Assessment Pt was able to use the upright bike today with no pain. Pt had increased tightness L>R ITB which released after STM. Pt was able to side step properly without ER of LE with band today. Added SL abduction exercise to HEP. Physical Therapy Plan Frequency and Duration Frequency of Treatment 2x/Week Duration of Treatment 2 months Plan of Care Start Date 04/04/20 Plan of Care End Date 06/04/20 Therapeutic Interventions Therapeutic Interventions Aquatic Therapy,Balance Training,Gait Training,Home Exercise Program,Joint Mobilizations,Manual Therapy, Neuromuscular Re-education, Patient/Caregiver Education, Self-Care/Home Management,Soft Tissue Mobilization,Taping, Therapeutic Activities, Therapeutic Exercises Modalities Cold Pack/Ice Massage,Electric Stimulation,Hot Packs, Infrared Therapy,Iontophoresis ,Ultrasound Next Visit Focus/Plan Next Note Type Treatment Note Next Visit Plan Continue starting session with upright bike, try squats without ball and watch for adduction of LEs. Continue STM of aimee. ITB and aimee. patellar glides
--- NOTE | 2020-05-02 13:43 | PT.OTN ---
Current Diagnoses Bilateral primary osteoarthritis of knee (05/02/20) Iliotibial band syndrome, right leg (05/02/20) Difficulty in walking, not elsewhere classified (05/02/20) Weakness (05/02/20) Physical Therapy Treatment Note PT-OP-A Visit Information Start: 04/03/20 18:17 Freq: Status: Active Protocol: Document 05/02/20 12:59 [facility] (Rec: 05/02/20 13:43 [facility] [id number]) Out-Patient Physical Therapy Visit Information Visit Information Visit Type Treatment Note Visit Start Time 13:00 Visit Stop Time 13:42 Total Visit Minutes 42 Visit Number 5 Number of CLIENT STRATEGIST Visits 0 PT-OP-B Current Condition Start: 04/03/20 18:17 Freq: Status: Active Protocol: Document 04/04/20 09:48 [facility] (Rec: 04/04/20 10:53 [facility] [id number]) Current Condition History of Current Condition Onset Date 2-3 years ago Current Complaints B knee pain History of Current Condition Pt reports worsening of knee pain that started from no known injury 2-3 years ago. Pt goes for walks sometimes and can walk for no longer than 30 min. told her arthritis. SOmetimes it hurts but sometimes it does not. Pt has pain when runs short distances even just running 5 min. Pt asked re: need of court abstractor. Pt refused translation service . Pt likes to play with grandkids that are 3 and 5 years old. Cannot get down to ground with kids onto knees. Pt reprots she fell about 7 years ago and injured her R lower leg. Pt reports apin in fingers and toes at night. Reprots feet cuases her pain also. Pt denies pain at night in knees. R knee is more painful Prior Treatments and Tests none Treatment Goals Patient/Caregiver Goals be able to walk & run & go up/ down stairs PT-OP-C Subjective Start: 04/03/20 18:17 Freq: Status: Active Protocol: Document 05/02/20 12:59 [facility] (Rec: 05/02/20 13:43 [facility] [id number]) OP-PT Subjective Patient Comments Patient Comments Pt reports no pain today. Exercises going well at home. PT-OP-D Balance Start: 04/03/20 18:17 Freq: Status: Active Protocol: Document 04/04/20 09:48 [facility] (Rec: 04/04/20 10:53 [facility] [id number]) Balance Tests Single Limb Standing Single Limb- Right 30 sec Single Limb- Left 12 sec PT-OP-F Manual Assessment Start: 04/03/20 18:17 Freq: Status: Active Protocol: Document 04/04/20 09:48 [facility] (Rec: 04/04/20 10:53 [facility] [id number]) Manual Assessments Soft Tissue Assessment Soft Tissue Mobility Assessment L pain w/joint line palpation & HS; R w/adductor, ITB, B joint line palpation Joint Mobility Assessment Joint Mobility Assessment dec patellar mobility but no pain w/glides PT-OP-G Mobility & Gait Start: 04/03/20 18:17 Freq: Status: Active Protocol: Document 04/04/20 09:48 [facility] (Rec: 04/04/20 10:53 [facility] [id number]) OP Gait Assessment Comments Gait Comments Lat leaning w/WB B duirng gait PT-OP-K Range of Motion Start: 04/03/20 18:17 Freq: Status: Active Protocol: Document 04/04/20 09:48 [facility] (Rec: 04/04/20 10:53 [facility] [id number]) Knee Goniometric Range of Motion Knee Right Flexion Active (degrees) 131 Extension Active (degrees) 2 Left Flexion Active (degrees) 130 Extension Active (degrees) 0 Comments no pain B PT-OP-L Special Tests Start: 04/03/20 18:17 Freq: Status: Active Protocol: Document 04/04/20 09:48 [facility] (Rec: 04/04/20 10:53 [facility] [id number]) Special Tests Knee Special Tests Young's Test Test Results neg B Booker's Compression Test Results neg B Comments did have hip popping w/ hip ext from flex Posterior Draw Test Results neg B Valgus- 25 Degrees Test Results neg B Varus- 25 Degrees Test Results neg B Armando Test Test Results neg B Sadi's Test Results neg B slump Test Results neg B Straight Leg Raise Test Results 74 L HS tightness, R 69 HS tightness PT-OP-M Strength Start: 04/03/20 18:17 Freq: Status: Active Protocol: Document 04/04/20 09:48 [facility] (Rec: 04/04/20 10:53 [facility] [id number]) Hip Strength Hip Manual Muscle Testing Right Flexion (L2) 4 Good Extension (S1) 4- Good- Abduction 3+ Fair+ Adduction 4 Good External Rotation 3+ Fair+ Internal Rotation 4- Good- Left Flexion (L2) 4 Good Extension (S1) 3+ Fair+ Abduction 4 Good Adduction 4 Good External Rotation 3+ Fair+ Internal Rotation 4- Good- Knee Strength Knee Manual Muscle Testing Right Flexion (S2) 4 Good Extension (L3) 4- Good- Left Flexion (S2) 4 Good Extension (L3) 4- Good- Ankle/Foot Strength Ankle and Foot Manual Muscle Testing Right Dorsiflexion (L4) 5 Normal Plantarflexion (S1) 5 Normal Left Dorsiflexion (L4) 5 Normal Plantarflexion (S1) 5 Normal Comments able to do 20 heel raises B PT-OP-Q Treatments Start: 04/03/20 18:17 Freq: Status: Active Protocol: Document 05/02/20 12:59 [facility] (Rec: 05/02/20 13:43 [facility] [id number]) Cardio Equipment Recumbent Bicycle Duration (Minutes) 6 Resistance 7 Seat Position 2 Gym Equipment Shuttle Recovery Unilateral Squats Resistance 62# Shuttle Recovery Platform Stable Reps/Time 15 B Bilateral Squats Resistance 100# Shuttle Recovery Platform Stable Reps/Time 2x12 Therapeutic Exercises Sidelying Exercises Abduction Side bilateral Reps/Minutes x10 Standing Exercises stretch Standing Exercise Name calf on stair Side bilateral Reps/Minutes 30 sec lunge Side bilateral Reps/Minutes 10 Squats Standing Exercise Name Squats at bar Side bilateral Reps/Minutes 2x8 Comments verbal & tactile cues to avoid knees infront of toes sidestep Side bilateral Equipment Used yellow tband Reps/Minutes 20ft Comments w/small squat Manual Therapy Treatment Soft Tissue Mobilization ITB Body Location Jameel Mobilization Type Rolling,Sustained Pressure, Trigger Point Release Intensity/Depth Moderate Body Position Supine Joint Mobilizations tib fib Joint proximal Direction PA FM tibiofemoral Joint B Direction IR glide w/knee ext/flex Patellofemoral Joint B Direction sup, inf, med PT-OP-T Assessment and Plan Start: 04/03/20 18:17 Freq: Status: Active Protocol: Document 05/02/20 12:59 [facility] (Rec: 05/02/20 13:43 [facility] [id number]) Physical Therapy Assessment Goals Four Talent Engineer Goal (LTG) Pt will present with an improved NDI score to reflect no more than 10% functional impairment by 02/27/2020. 01/23/2020: NDI reflects 6% impairment, goal met LTG Duration 8 weeks Three Short Term Goal (STG) Pt will be able to do SLS B for 30 sec w/o any lat leaning . 04/30/20-GOAL MET STG Duration 05/04/20 Talent Engineer Goal (LTG) Pt will show improved push off with gait w/no lat trunk shift over LE during stance phase. LTG Duration 06/04/20 Two Short Term Goal (STG) Pt will be indep with PT directed HEP. STG Duration 05/04/20 Talent Engineer Goal (LTG) Pt will score 5/5 on LE strength testing to show improved stability of knee joint. LTG Duration 06/04/20 One Short Term Goal (STG) Pt will be able to walk for 1 hour without inc pain. STG Duration 05/04/20 Talent Engineer Goal (LTG) Pt will be able to run with grandkids without pain. LTG Duration 06/04/20 Assessment Summary Assessment Pt did well with exercises and noted some pain with squats and slight squat with sidestep that improved with improved foot position. She needed cueing w/s/l abd for avoiding ER and flex of hip Physical Therapy Plan Frequency and Duration Frequency of Treatment 2x/Week Duration of Treatment 2 months Plan of Care Start Date 04/04/20 Plan of Care End Date 06/04/20 Next Visit Focus/Plan Next Note Type Treatment Note Next Visit Plan Continue starting session with upright bike, cont to work on squat and lunge form & quad/ glute strength
--- NOTE | 2020-05-08 09:02 | PT.OTN ---
Current Diagnoses Bilateral primary osteoarthritis of knee (05/08/20) Iliotibial band syndrome, right leg (05/08/20) Difficulty in walking, not elsewhere classified (05/08/20) Weakness (05/08/20) Physical Therapy Treatment Note PT-OP-A Visit Information Start: 04/03/20 18:17 Freq: Status: Active Protocol: Document 05/08/20 08:19 [facility] (Rec: 05/08/20 09:02 [facility] [id number]) Out-Patient Physical Therapy Visit Information Visit Information Visit Type Treatment Note Visit Start Time 08:18 Visit Stop Time 08:58 Total Visit Minutes 40 Visit Number 6 Number of PLASTICS SUPERVISOR Visits 0 PT-OP-B Current Condition Start: 04/03/20 18:17 Freq: Status: Active Protocol: Document 04/04/20 09:48 [facility] (Rec: 04/04/20 10:53 [facility] [id number]) Current Condition History of Current Condition Onset Date 2-3 years ago Current Complaints B knee pain History of Current Condition Pt reports worsening of knee pain that started from no known injury 2-3 years ago. Pt goes for walks sometimes and can walk for no longer than 30 min. told her arthritis. SOmetimes it hurts but sometimes it does not. Pt has pain when runs short distances even just running 5 min. Pt asked re: need of manager bench. Pt refused translation service . Pt likes to play with grandkids that are 3 and 5 years old. Cannot get down to ground with kids onto knees. Pt reprots she fell about 7 years ago and injured her R lower leg. Pt reports apin in fingers and toes at night. Reprots feet cuases her pain also. Pt denies pain at night in knees. R knee is more painful Prior Treatments and Tests none Treatment Goals Patient/Caregiver Goals be able to walk & run & go up/ down stairs PT-OP-C Subjective Start: 04/03/20 18:17 Freq: Status: Active Protocol: Document 05/08/20 08:19 [facility] (Rec: 05/08/20 09:02 [facility] [id number]) OP-PT Subjective Patient Comments Patient Comments Pt reports no knee pain recenlty. Notes she did a mile walk without inc pain Patient Reported Progress Improving PT-OP-D Balance Start: 04/03/20 18:17 Freq: Status: Active Protocol: Document 04/04/20 09:48 [facility] (Rec: 04/04/20 10:53 [facility] [id number]) Balance Tests Single Limb Standing Single Limb- Right 30 sec Single Limb- Left 12 sec PT-OP-F Manual Assessment Start: 04/03/20 18:17 Freq: Status: Active Protocol: Document 04/04/20 09:48 [facility] (Rec: 04/04/20 10:53 [facility] [id number]) Manual Assessments Soft Tissue Assessment Soft Tissue Mobility Assessment L pain w/joint line palpation & HS; R w/adductor, ITB, B joint line palpation Joint Mobility Assessment Joint Mobility Assessment dec patellar mobility but no pain w/glides PT-OP-G Mobility & Gait Start: 04/03/20 18:17 Freq: Status: Active Protocol: Document 04/04/20 09:48 [facility] (Rec: 04/04/20 10:53 [facility] [id number]) OP Gait Assessment Comments Gait Comments Lat leaning w/WB B duirng gait PT-OP-K Range of Motion Start: 04/03/20 18:17 Freq: Status: Active Protocol: Document 04/04/20 09:48 [facility] (Rec: 04/04/20 10:53 [facility] [id number]) Knee Goniometric Range of Motion Knee Right Flexion Active (degrees) 131 Extension Active (degrees) 2 Left Flexion Active (degrees) 130 Extension Active (degrees) 0 Comments no pain B PT-OP-L Special Tests Start: 04/03/20 18:17 Freq: Status: Active Protocol: Document 04/04/20 09:48 [facility] (Rec: 04/04/20 10:53 [facility] [id number]) Special Tests Knee Special Tests Young's Test Test Results neg B Booker's Compression Test Results neg B Comments did have hip popping w/ hip ext from flex Posterior Draw Test Results neg B Valgus- 25 Degrees Test Results neg B Varus- 25 Degrees Test Results neg B Armando Test Test Results neg B Sadi's Test Results neg B slump Test Results neg B Straight Leg Raise Test Results 74 L HS tightness, R 69 HS tightness PT-OP-M Strength Start: 04/03/20 18:17 Freq: Status: Active Protocol: Document 04/04/20 09:48 [facility] (Rec: 04/04/20 10:53 [facility] [id number]) Hip Strength Hip Manual Muscle Testing Right Flexion (L2) 4 Good Extension (S1) 4- Good- Abduction 3+ Fair+ Adduction 4 Good External Rotation 3+ Fair+ Internal Rotation 4- Good- Left Flexion (L2) 4 Good Extension (S1) 3+ Fair+ Abduction 4 Good Adduction 4 Good External Rotation 3+ Fair+ Internal Rotation 4- Good- Knee Strength Knee Manual Muscle Testing Right Flexion (S2) 4 Good Extension (L3) 4- Good- Left Flexion (S2) 4 Good Extension (L3) 4- Good- Ankle/Foot Strength Ankle and Foot Manual Muscle Testing Right Dorsiflexion (L4) 5 Normal Plantarflexion (S1) 5 Normal Left Dorsiflexion (L4) 5 Normal Plantarflexion (S1) 5 Normal Comments able to do 20 heel raises B PT-OP-Q Treatments Start: 04/03/20 18:17 Freq: Status: Active Protocol: Document 05/08/20 08:19 [facility] (Rec: 05/08/20 09:02 [facility] [id number]) Cardio Equipment Bicycle (Upright) Duration (Minutes) 6 Resistance 7 Seat Position 2 Gym Equipment Shuttle Balance red clips Details fwd WBOS blue clips Details fwd: WBOS, NBOS & staggered stance B Therapeutic Exercises Standing Exercises step up Side bilateral Reps/Minutes 15 lunge Side bilateral Reps/Minutes 10 Squats Standing Exercise Name Squats over chair Side bilateral Reps/Minutes 15 Comments verbal & tactile cues to avoid knees infront of toes sidestep Side bilateral Equipment Used yellow tband Reps/Minutes 20ft Comments w/small squat Manual Therapy Treatment Soft Tissue Mobilization HS Body Location Jameel HS Mobilization Type Rolling Intensity/Depth Moderate Body Position Supine ITB Body Location Jameel Mobilization Type Rolling,Sustained Pressure, Trigger Point Release Intensity/Depth Moderate Body Position Supine Joint Mobilizations tibiofemoral Joint B Direction IR glide w/knee ext/flex Patellofemoral Joint B Direction sup, inf, med Neuro Re-Education Treatment Balance Activities bosu Details step ups B x10 PT-OP-T Assessment and Plan Start: 04/03/20 18:17 Freq: Status: Active Protocol: Document 05/08/20 08:19 [facility] (Rec: 05/08/20 09:02 [facility] [id number]) Physical Therapy Assessment Goals Four Appeals And Generalist Clerk Goal (LTG) Pt will present with an improved NDI score to reflect no more than 10% functional impairment by 02/27/2020. 01/23/2020: NDI reflects 6% impairment, goal met LTG Duration 8 weeks Three Short Term Goal (STG) Pt will be able to do SLS B for 30 sec w/o any lat leaning . 04/30/20-GOAL MET STG Duration 05/04/20 Appeals And Generalist Clerk Goal (LTG) Pt will show improved push off with gait w/no lat trunk shift over LE during stance phase. LTG Duration 06/04/20 Two Short Term Goal (STG) Pt will be indep with PT directed HEP. STG Duration 05/04/20 Appeals And Generalist Clerk Goal (LTG) Pt will score 5/5 on LE strength testing to show improved stability of knee joint. LTG Duration 06/04/20 One Short Term Goal (STG) Pt will be able to walk for 1 hour without inc pain. STG Duration 05/04/20 Appeals And Generalist Clerk Goal (LTG) Pt will be able to run with grandkids without pain. LTG Duration 06/04/20 Assessment Summary Assessment Pt was challenged by balancing tasks especially balance board. She has history of 3 falls which have inc pain to knees in past so would bneefit from cont balance training. Improving form with squats and lunges, but does require cueing d/t pain in L knee when it is back during lunges. Physical Therapy Plan Frequency and Duration Frequency of Treatment 2x/Week Duration of Treatment 2 months Plan of Care Start Date 04/04/20 Plan of Care End Date 06/04/20 Next Visit Focus/Plan Next Note Type Treatment Note Next Visit Plan Continue starting session with upright bike, cont to work on squat and lunge form & quad/ glute strength
--- NOTE | 2020-05-11 12:50 | PT.OTN ---
Current Diagnoses Bilateral primary osteoarthritis of knee (05/11/20) Iliotibial band syndrome, right leg (05/11/20) Difficulty in walking, not elsewhere classified (05/11/20) Weakness (05/11/20) Physical Therapy Treatment Note PT-OP-A Visit Information Start: 04/03/20 18:17 Freq: Status: Active Protocol: Document 05/11/20 12:08 MA (Rec: 05/11/20 12:50 MA [id number]) Out-Patient Physical Therapy Visit Information Visit Information Visit Type Treatment Note Visit Start Time 12:05 Visit Stop Time 12:45 Total Visit Minutes 40 Visit Number 7 Number of PROPERTY AND SUPPLY OFFICER Visits 1 PT-OP-B Current Condition Start: 04/03/20 18:17 Freq: Status: Active Protocol: Document 04/04/20 09:48 [facility] (Rec: 04/04/20 10:53 [facility] [id number]) Current Condition History of Current Condition Onset Date 2-3 years ago Current Complaints B knee pain History of Current Condition Pt reports worsening of knee pain that started from no known injury 2-3 years ago. Pt goes for walks sometimes and can walk for no longer than 30 min. told her arthritis. SOmetimes it hurts but sometimes it does not. Pt has pain when runs short distances even just running 5 min. Pt asked re: need of branding machine operator. Pt refused translation service . Pt likes to play with grandkids that are 3 and 5 years old. Cannot get down to ground with kids onto knees. Pt reprots she fell about 7 years ago and injured her R lower leg. Pt reports apin in fingers and toes at night. Reprots feet cuases her pain also. Pt denies pain at night in knees. R knee is more painful Prior Treatments and Tests none Treatment Goals Patient/Caregiver Goals be able to walk & run & go up/ down stairs PT-OP-C Subjective Start: 04/03/20 18:17 Freq: Status: Active Protocol: Document 05/11/20 12:08 MA (Rec: 05/11/20 12:50 MA [id number]) OP-PT Subjective Patient Comments Patient Comments Pt has had no knee pain and has continued going on walks. PT-OP-D Balance Start: 04/03/20 18:17 Freq: Status: Active Protocol: Document 04/04/20 09:48 [facility] (Rec: 04/04/20 10:53 [facility] [id number]) Balance Tests Single Limb Standing Single Limb- Right 30 sec Single Limb- Left 12 sec PT-OP-F Manual Assessment Start: 04/03/20 18:17 Freq: Status: Active Protocol: Document 04/04/20 09:48 [facility] (Rec: 04/04/20 10:53 [facility] [id number]) Manual Assessments Soft Tissue Assessment Soft Tissue Mobility Assessment L pain w/joint line palpation & HS; R w/adductor, ITB, B joint line palpation Joint Mobility Assessment Joint Mobility Assessment dec patellar mobility but no pain w/glides PT-OP-G Mobility & Gait Start: 04/03/20 18:17 Freq: Status: Active Protocol: Document 04/04/20 09:48 [facility] (Rec: 04/04/20 10:53 [facility] [id number]) OP Gait Assessment Comments Gait Comments Lat leaning w/WB B duirng gait PT-OP-K Range of Motion Start: 04/03/20 18:17 Freq: Status: Active Protocol: Document 04/04/20 09:48 [facility] (Rec: 04/04/20 10:53 [facility] [id number]) Knee Goniometric Range of Motion Knee Right Flexion Active (degrees) 131 Extension Active (degrees) 2 Left Flexion Active (degrees) 130 Extension Active (degrees) 0 Comments no pain B PT-OP-L Special Tests Start: 04/03/20 18:17 Freq: Status: Active Protocol: Document 04/04/20 09:48 [facility] (Rec: 04/04/20 10:53 [facility] [id number]) Special Tests Knee Special Tests Young's Test Test Results neg B Booker's Compression Test Results neg B Comments did have hip popping w/ hip ext from flex Posterior Draw Test Results neg B Valgus- 25 Degrees Test Results neg B Varus- 25 Degrees Test Results neg B Armando Test Test Results neg B Sadi's Test Results neg B slump Test Results neg B Straight Leg Raise Test Results 74 L HS tightness, R 69 HS tightness PT-OP-M Strength Start: 04/03/20 18:17 Freq: Status: Active Protocol: Document 04/04/20 09:48 [facility] (Rec: 04/04/20 10:53 [facility] [id number]) Hip Strength Hip Manual Muscle Testing Right Flexion (L2) 4 Good Extension (S1) 4- Good- Abduction 3+ Fair+ Adduction 4 Good External Rotation 3+ Fair+ Internal Rotation 4- Good- Left Flexion (L2) 4 Good Extension (S1) 3+ Fair+ Abduction 4 Good Adduction 4 Good External Rotation 3+ Fair+ Internal Rotation 4- Good- Knee Strength Knee Manual Muscle Testing Right Flexion (S2) 4 Good Extension (L3) 4- Good- Left Flexion (S2) 4 Good Extension (L3) 4- Good- Ankle/Foot Strength Ankle and Foot Manual Muscle Testing Right Dorsiflexion (L4) 5 Normal Plantarflexion (S1) 5 Normal Left Dorsiflexion (L4) 5 Normal Plantarflexion (S1) 5 Normal Comments able to do 20 heel raises B PT-OP-Q Treatments Start: 04/03/20 18:17 Freq: Status: Active Protocol: Document 05/11/20 12:08 MA (Rec: 05/11/20 12:50 MA [id number]) Cardio Equipment Bicycle (Upright) Duration (Minutes) 6 Resistance 7 Seat Position 2 Gym Equipment Shuttle Balance red clips Details fwd WBOS Comments pt too unstable-switched to blue clip blue clips Details fwd& lateral- WBOS, NBOS Therapeutic Exercises Sitting Exercises piriformis stretch Side bilateral Reps/Minutes 2x30 sec Standing Exercises step up Standing Exercise Name Lateral step-ups Side bilateral Equipment Used 4 step with airex on top Reps/Minutes x10 Comments working on step ups with added balance challenge lunge Side bilateral Reps/Minutes 10 Comments Pain in R knee Quad Stretch Side bilateral Reps/Minutes 60 sec Squats Standing Exercise Name Squats over chair Side bilateral Reps/Minutes 2x10 Comments verbal & tactile cues to avoid knees infront of toes Neuro Re-Education Treatment Balance Activities SLS Details Jameel Equipment rocker board Reps/Duration 60 sec Comments solid floor then rocker board, more difficulty on LLE PT-OP-T Assessment and Plan Start: 04/03/20 18:17 Freq: Status: Active Protocol: Document 05/11/20 12:08 MA (Rec: 05/11/20 12:50 MA [id number]) Physical Therapy Assessment Goals Four Fdc Goal (LTG) Pt will present with an improved NDI score to reflect no more than 10% functional impairment by 02/27/2020. 01/23/2020: NDI reflects 6% impairment, goal met LTG Duration 8 weeks Three Short Term Goal (STG) Pt will be able to do SLS B for 30 sec w/o any lat leaning . 04/30/20-GOAL MET STG Duration 05/04/20 Fdc Goal (LTG) Pt will show improved push off with gait w/no lat trunk shift over LE during stance phase. LTG Duration 06/04/20 Two Short Term Goal (STG) Pt will be indep with PT directed HEP. 05/11/20- GOAL MET STG Duration 05/04/20 Fdc Goal (LTG) Pt will score 5/5 on LE strength testing to show improved stability of knee joint. LTG Duration 06/04/20 One Short Term Goal (STG) Pt will be able to walk for 1 hour without inc pain. STG Duration 05/04/20 Fdc Goal (LTG) Pt will be able to run with grandkids without pain. LTG Duration 06/04/20 Assessment Summary Assessment Pt c/o of foot pain; removed shoes and foot pain went away. Pt states they are new shoes and must be too tight. Pt was unable to keep steady with red clips on shuttle balance- switched to blue with pt needing Min A for occassional LOB. Pt is able to balance better on RLE>LLE during SLS. Pt still needs cues during lunges and squats to avoid knee pain when knees go infront of toes. Physical Therapy Plan Frequency and Duration Frequency of Treatment 2x/Week Duration of Treatment 2 months Plan of Care Start Date 04/04/20 Plan of Care End Date 06/04/20 Therapeutic Interventions Therapeutic Interventions Aquatic Therapy,Balance Training,Gait Training,Home Exercise Program,Joint Mobilizations,Manual Therapy, Neuromuscular Re-education, Patient/Caregiver Education, Self-Care/Home Management,Soft Tissue Mobilization,Taping, Therapeutic Activities, Therapeutic Exercises Modalities Cold Pack/Ice Massage,Electric Stimulation,Hot Packs, Infrared Therapy,Iontophoresis ,Ultrasound Next Visit Focus/Plan Next Note Type Treatment Note Next Visit Plan Start session with upright bike, cont to work on squat and lunge form, avoiding knees infront of toes. Continue with shuttle balance blue clips.
--- NOTE | 2020-05-21 14:30 | PT.OTN ---
Current Diagnoses Bilateral primary osteoarthritis of knee (05/21/20) Iliotibial band syndrome, right leg (05/21/20) Difficulty in walking, not elsewhere classified (05/21/20) Weakness (05/21/20) Physical Therapy Treatment Note PT-OP-A Visit Information Start: 04/03/20 18:17 Freq: Status: Active Protocol: Document 05/21/20 13:50 MA (Rec: 05/21/20 13:54 MA [id number]) Out-Patient Physical Therapy Visit Information Visit Information Visit Type Treatment Note Visit Start Time 13:47 Visit Stop Time 14:25 Total Visit Minutes 38 Visit Number 8 Number of LAWN SERVICE SUPERVISOR Visits 2 PT-OP-B Current Condition Start: 04/03/20 18:17 Freq: Status: Active Protocol: Document 04/04/20 09:48 [facility] (Rec: 04/04/20 10:53 [facility] [id number]) Current Condition History of Current Condition Onset Date 2-3 years ago Current Complaints B knee pain History of Current Condition Pt reports worsening of knee pain that started from no known injury 2-3 years ago. Pt goes for walks sometimes and can walk for no longer than 30 min. told her arthritis. SOmetimes it hurts but sometimes it does not. Pt has pain when runs short distances even just running 5 min. Pt asked re: need of erp manager. Pt refused translation service . Pt likes to play with grandkids that are 3 and 5 years old. Cannot get down to ground with kids onto knees. Pt reprots she fell about 7 years ago and injured her R lower leg. Pt reports apin in fingers and toes at night. Reprots feet cuases her pain also. Pt denies pain at night in knees. R knee is more painful Prior Treatments and Tests none Treatment Goals Patient/Caregiver Goals be able to walk & run & go up/ down stairs PT-OP-C Subjective Start: 04/03/20 18:17 Freq: Status: Active Protocol: Document 05/21/20 13:50 MA (Rec: 05/21/20 13:54 MA [id number]) OP-PT Subjective Patient Comments Patient Comments Pt reports she is still doing her HEP at home and has not had pain. Patient Reported Progress Improving PT-OP-D Balance Start: 04/03/20 18:17 Freq: Status: Active Protocol: Document 04/04/20 09:48 [facility] (Rec: 04/04/20 10:53 [facility] [id number]) Balance Tests Single Limb Standing Single Limb- Right 30 sec Single Limb- Left 12 sec PT-OP-F Manual Assessment Start: 04/03/20 18:17 Freq: Status: Active Protocol: Document 04/04/20 09:48 [facility] (Rec: 04/04/20 10:53 [facility] [id number]) Manual Assessments Soft Tissue Assessment Soft Tissue Mobility Assessment L pain w/joint line palpation & HS; R w/adductor, ITB, B joint line palpation Joint Mobility Assessment Joint Mobility Assessment dec patellar mobility but no pain w/glides PT-OP-G Mobility & Gait Start: 04/03/20 18:17 Freq: Status: Active Protocol: Document 04/04/20 09:48 [facility] (Rec: 04/04/20 10:53 [facility] [id number]) OP Gait Assessment Comments Gait Comments Lat leaning w/WB B duirng gait PT-OP-K Range of Motion Start: 04/03/20 18:17 Freq: Status: Active Protocol: Document 04/04/20 09:48 [facility] (Rec: 04/04/20 10:53 [facility] [id number]) Knee Goniometric Range of Motion Knee Right Flexion Active (degrees) 131 Extension Active (degrees) 2 Left Flexion Active (degrees) 130 Extension Active (degrees) 0 Comments no pain B PT-OP-L Special Tests Start: 04/03/20 18:17 Freq: Status: Active Protocol: Document 04/04/20 09:48 [facility] (Rec: 04/04/20 10:53 [facility] [id number]) Special Tests Knee Special Tests Young's Test Test Results neg B Booker's Compression Test Results neg B Comments did have hip popping w/ hip ext from flex Posterior Draw Test Results neg B Valgus- 25 Degrees Test Results neg B Varus- 25 Degrees Test Results neg B Armando Test Test Results neg B Sadi's Test Results neg B slump Test Results neg B Straight Leg Raise Test Results 74 L HS tightness, R 69 HS tightness PT-OP-M Strength Start: 04/03/20 18:17 Freq: Status: Active Protocol: Document 04/04/20 09:48 [facility] (Rec: 04/04/20 10:53 [facility] [id number]) Hip Strength Hip Manual Muscle Testing Right Flexion (L2) 4 Good Extension (S1) 4- Good- Abduction 3+ Fair+ Adduction 4 Good External Rotation 3+ Fair+ Internal Rotation 4- Good- Left Flexion (L2) 4 Good Extension (S1) 3+ Fair+ Abduction 4 Good Adduction 4 Good External Rotation 3+ Fair+ Internal Rotation 4- Good- Knee Strength Knee Manual Muscle Testing Right Flexion (S2) 4 Good Extension (L3) 4- Good- Left Flexion (S2) 4 Good Extension (L3) 4- Good- Ankle/Foot Strength Ankle and Foot Manual Muscle Testing Right Dorsiflexion (L4) 5 Normal Plantarflexion (S1) 5 Normal Left Dorsiflexion (L4) 5 Normal Plantarflexion (S1) 5 Normal Comments able to do 20 heel raises B PT-OP-Q Treatments Start: 04/03/20 18:17 Freq: Status: Active Protocol: Document 05/21/20 13:50 MA (Rec: 05/21/20 13:54 MA [id number]) Cardio Equipment Bicycle (Upright) Duration (Minutes) 8 Resistance 7 Seat Position 2 Gym Equipment Shuttle Balance blue clips Details fwd- WBOS/NBOS with EO/EC Therapeutic Exercises Sitting Exercises piriformis stretch Side bilateral Reps/Minutes x30 sec Standing Exercises Hip Hike Side bilateral Equipment Used 4 box with mirror Reps/Minutes x10 Abduction Side bilateral Resistance #1 tb Reps/Minutes X10 Comments pt needs cues to avoid lateral lean step up Standing Exercise Name Lateral step-ups Side bilateral Equipment Used 4 step with airex on top Reps/Minutes x10 Comments working on step ups with added balance challenge lunge Side bilateral Reps/Minutes 10 Quad Stretch Side bilateral Reps/Minutes 60 sec Squats Standing Exercise Name Squats holding bar and then over chair Side bilateral Reps/Minutes 2x10 Comments verbal & tactile cues to avoid knees infront of toes sidestep Side bilateral Equipment Used TB #1 Reps/Minutes 2x 20 ft Neuro Re-Education Treatment Balance Activities SLS Details Jameel Surface solid Reps/Duration 30 sec PT-OP-T Assessment and Plan Start: 04/03/20 18:17 Freq: Status: Active Protocol: Document 05/21/20 13:50 MA (Rec: 05/21/20 13:54 MA [id number]) Physical Therapy Assessment Goals Four Special Effects Person Goal (LTG) Pt will present with an improved NDI score to reflect no more than 10% functional impairment by 02/27/2020. 01/23/2020: NDI reflects 6% impairment, goal met LTG Duration 8 weeks Three Short Term Goal (STG) Pt will be able to do SLS B for 30 sec w/o any lat leaning . 04/30/20-GOAL MET STG Duration 05/04/20 Special Effects Person Goal (LTG) Pt will show improved push off with gait w/no lat trunk shift over LE during stance phase. LTG Duration 06/04/20 Two Short Term Goal (STG) Pt will be indep with PT directed HEP. 05/11/20- GOAL MET STG Duration 05/04/20 Long-Term Goal (LTG) Pt will score 5/5 on LE strength testing to show improved stability of knee joint. LTG Duration 06/04/20 One Short Term Goal (STG) Pt will be able to walk for 1 hour without inc pain. STG Duration 05/04/20 Special Effects Person Goal (LTG) Pt will be able to run with grandkids without pain. LTG Duration 06/04/20 Assessment Summary Assessment Pt was able to balance well on blue clips today. Switched to red clips with pt needing Min A for balance when eyes are closed. After shuttle balance, pt states she had some foot pain bilaterally. During standing hip ABD, pt needs cues to avoid lateral lean. Pt had better form during squats and lunges today with pt able to self correct when knees went fwd of toes. Physical Therapy Plan Frequency and Duration Frequency of Treatment 2x/Week Duration of Treatment 2 months Plan of Care Start Date 04/04/20 Plan of Care End Date 06/04/20 Therapeutic Interventions Therapeutic Interventions Aquatic Therapy,Balance Training,Gait Training,Home Exercise Program,Joint Mobilizations,Manual Therapy, Neuromuscular Re-education, Patient/Caregiver Education, Self-Care/Home Management,Soft Tissue Mobilization,Taping, Therapeutic Activities, Therapeutic Exercises Modalities Cold Pack/Ice Massage,Electric Stimulation,Hot Packs, Infrared Therapy,Iontophoresis ,Ultrasound Next Visit Focus/Plan Next Note Type Treatment Note Next Visit Plan Continue working on lunges and squats. hold off on shuttle balance but progress other balance challenges watching for lateral lean when SLS.
--- NOTE | 2020-05-24 13:40 | PT.OTN ---
Current Diagnoses Bilateral primary osteoarthritis of knee (05/24/20) Iliotibial band syndrome, right leg (05/24/20) Difficulty in walking, not elsewhere classified (05/24/20) Weakness (05/24/20) Physical Therapy Treatment Note PT-OP-A Visit Information Start: 04/03/20 18:17 Freq: Status: Active Protocol: Document 05/24/20 13:01 MA (Rec: 05/24/20 13:40 MA [id number]) Out-Patient Physical Therapy Visit Information Visit Information Visit Type Treatment Note Visit Start Time 12:58 Visit Stop Time 13:36 Total Visit Minutes 38 Visit Number 9 Number of ALUMINUM BOAT ASSEMBLY SUPERVISOR Visits 3 PT-OP-B Current Condition Start: 04/03/20 18:17 Freq: Status: Active Protocol: Document 04/04/20 09:48 [facility] (Rec: 04/04/20 10:53 [facility] [id number]) Current Condition History of Current Condition Onset Date 2-3 years ago Current Complaints B knee pain History of Current Condition Pt reports worsening of knee pain that started from no known injury 2-3 years ago. Pt goes for walks sometimes and can walk for no longer than 30 min. told her arthritis. SOmetimes it hurts but sometimes it does not. Pt has pain when runs short distances even just running 5 min. Pt asked re: need of assistant dean of students. Pt refused translation service . Pt likes to play with grandkids that are 3 and 5 years old. Cannot get down to ground with kids onto knees. Pt reprots she fell about 7 years ago and injured her R lower leg. Pt reports apin in fingers and toes at night. Reprots feet cuases her pain also. Pt denies pain at night in knees. R knee is more painful Prior Treatments and Tests none Treatment Goals Patient/Caregiver Goals be able to walk & run & go up/ down stairs PT-OP-C Subjective Start: 04/03/20 18:17 Freq: Status: Active Protocol: Document 05/24/20 13:01 MA (Rec: 05/24/20 13:40 MA [id number]) OP-PT Subjective Patient Comments Patient Comments Pt continues to have no pain PT-OP-D Balance Start: 04/03/20 18:17 Freq: Status: Active Protocol: Document 04/04/20 09:48 [facility] (Rec: 04/04/20 10:53 [facility] [id number]) Balance Tests Single Limb Standing Single Limb- Right 30 sec Single Limb- Left 12 sec PT-OP-F Manual Assessment Start: 04/03/20 18:17 Freq: Status: Active Protocol: Document 04/04/20 09:48 [facility] (Rec: 04/04/20 10:53 [facility] [id number]) Manual Assessments Soft Tissue Assessment Soft Tissue Mobility Assessment L pain w/joint line palpation & HS; R w/adductor, ITB, B joint line palpation Joint Mobility Assessment Joint Mobility Assessment dec patellar mobility but no pain w/glides PT-OP-G Mobility & Gait Start: 04/03/20 18:17 Freq: Status: Active Protocol: Document 04/04/20 09:48 [facility] (Rec: 04/04/20 10:53 [facility] [id number]) OP Gait Assessment Comments Gait Comments Lat leaning w/WB B duirng gait PT-OP-K Range of Motion Start: 04/03/20 18:17 Freq: Status: Active Protocol: Document 04/04/20 09:48 [facility] (Rec: 04/04/20 10:53 [facility] [id number]) Knee Goniometric Range of Motion Knee Right Flexion Active (degrees) 131 Extension Active (degrees) 2 Left Flexion Active (degrees) 130 Extension Active (degrees) 0 Comments no pain B PT-OP-L Special Tests Start: 04/03/20 18:17 Freq: Status: Active Protocol: Document 04/04/20 09:48 [facility] (Rec: 04/04/20 10:53 [facility] [id number]) Special Tests Knee Special Tests Young's Test Test Results neg B Booker's Compression Test Results neg B Comments did have hip popping w/ hip ext from flex Posterior Draw Test Results neg B Valgus- 25 Degrees Test Results neg B Varus- 25 Degrees Test Results neg B Armando Test Test Results neg B Sadi's Test Results neg B slump Test Results neg B Straight Leg Raise Test Results 74 L HS tightness, R 69 HS tightness PT-OP-M Strength Start: 04/03/20 18:17 Freq: Status: Active Protocol: Document 04/04/20 09:48 [facility] (Rec: 04/04/20 10:53 [facility] [id number]) Hip Strength Hip Manual Muscle Testing Right Flexion (L2) 4 Good Extension (S1) 4- Good- Abduction 3+ Fair+ Adduction 4 Good External Rotation 3+ Fair+ Internal Rotation 4- Good- Left Flexion (L2) 4 Good Extension (S1) 3+ Fair+ Abduction 4 Good Adduction 4 Good External Rotation 3+ Fair+ Internal Rotation 4- Good- Knee Strength Knee Manual Muscle Testing Right Flexion (S2) 4 Good Extension (L3) 4- Good- Left Flexion (S2) 4 Good Extension (L3) 4- Good- Ankle/Foot Strength Ankle and Foot Manual Muscle Testing Right Dorsiflexion (L4) 5 Normal Plantarflexion (S1) 5 Normal Left Dorsiflexion (L4) 5 Normal Plantarflexion (S1) 5 Normal Comments able to do 20 heel raises B PT-OP-Q Treatments Start: 04/03/20 18:17 Freq: Status: Active Protocol: Document 05/24/20 13:01 MA (Rec: 05/24/20 13:40 MA [id number]) Cardio Equipment Bicycle (Upright) Duration (Minutes) 8 Resistance 8 Seat Position 2 Therapeutic Exercises Sitting Exercises piriformis stretch Side bilateral Reps/Minutes x60sec Standing Exercises Hip Hike Side bilateral Equipment Used 4 box with mirror Reps/Minutes x10 Abduction Side bilateral Resistance #1 tb Reps/Minutes 2X10 Comments pt needs cues to avoid lateral lean step up Standing Exercise Name fwd/lateral Side bilateral Equipment Used 4 step Reps/Minutes x10 lunge Side bilateral Reps/Minutes x10 Comments cues to avoid adduction of back leg Quad Stretch Side bilateral Reps/Minutes x60 sec Squats Standing Exercise Name over chair Side bilateral Reps/Minutes x10 sidestep Side bilateral Equipment Used TB #1 Reps/Minutes 2x 20 ft Neuro Re-Education Treatment Balance Activities SLS Details Jameel Reps/Duration 4x Comments SL hop every other square on hop-scotch [employer] Educationet bosu Details step ups B x10 PT-OP-T Assessment and Plan Start: 04/03/20 18:17 Freq: Status: Active Protocol: Document 05/24/20 13:01 MA (Rec: 05/24/20 13:40 MA [id number]) Physical Therapy Assessment Goals Four Business Information Manager Goal (LTG) Pt will present with an improved NDI score to reflect no more than 10% functional impairment by 02/27/2020. 01/23/2020: NDI reflects 6% impairment, goal met LTG Duration 8 weeks Three Short Term Goal (STG) Pt will be able to do SLS B for 30 sec w/o any lat leaning . 04/30/20-GOAL MET STG Duration 05/04/20 [facility] Goal (LTG) Pt will show improved push off with gait w/no lat trunk shift over LE during stance phase. LTG Duration 06/04/20 Two Short Term Goal (STG) Pt will be indep with PT directed HEP. 05/11/20- GOAL MET STG Duration 05/04/20 [facility] Goal (LTG) Pt will score 5/5 on LE strength testing to show improved stability of knee joint. LTG Duration 06/04/20 One Short Term Goal (STG) Pt will be able to walk for 1 hour without inc pain. 05/24/20-GOAL MET STG Duration 05/04/20 [facility] Goal (LTG) Pt will be able to run with grandkids without pain. LTG Duration 06/04/20 Assessment Summary Assessment Pt had no pain today and was able to complete 4x of 6 SL hops in a row needing Min A 2x for LOB. Pt tends to adduct back leg when going into lunge position and needs cues to correct to a wider stance. Pt' s squat form has improved and she had no foot or knee pain throughout session Physical Therapy Plan Frequency and Duration Frequency of Treatment 2x/Week Duration of Treatment 2 months Plan of Care Start Date 04/04/20 Plan of Care End Date 06/04/20 Therapeutic Interventions Therapeutic Interventions Aquatic Therapy,Balance Training,Gait Training,Home Exercise Program,Joint Mobilizations,Manual Therapy, Neuromuscular Re-education, Patient/Caregiver Education, Self-Care/Home Management,Soft Tissue Mobilization,Taping, Therapeutic Activities, Therapeutic Exercises Modalities Cold Pack/Ice Massage,Electric Stimulation,Hot Packs, Infrared Therapy,Iontophoresis ,Ultrasound Next Visit Focus/Plan Next Note Type Treatment Note Next Visit Plan Check carry-over of lunge form . Continue working on squats, SL jumps, and other balance challenges watching for lateral lean.
--- NOTE | 2020-05-29 14:29 | PT.OTN ---
Current Diagnoses Bilateral primary osteoarthritis of knee (05/29/20) Iliotibial band syndrome, right leg (05/29/20) Difficulty in walking, not elsewhere classified (05/29/20) Weakness (05/29/20) Physical Therapy Treatment Note PT-OP-A Visit Information Start: 04/03/20 18:17 Freq: Status: Active Protocol: Document 05/29/20 13:56 [facility] (Rec: 05/29/20 14:29 [facility] [id number]) Out-Patient Physical Therapy Visit Information Visit Information Visit Type Discharge Summary Visit Start Time 13:46 Visit Stop Time 14:24 Total Visit Minutes 38 Visit Number 10 Number of HEAD BUYER TOBACCO Visits 0 PT-OP-B Current Condition Start: 04/03/20 18:17 Freq: Status: Active Protocol: Document 04/04/20 09:48 [facility] (Rec: 04/04/20 10:53 [facility] [id number]) Current Condition History of Current Condition Onset Date 2-3 years ago Current Complaints B knee pain History of Current Condition Pt reports worsening of knee pain that started from no known injury 2-3 years ago. Pt goes for walks sometimes and can walk for no longer than 30 min. told her arthritis. SOmetimes it hurts but sometimes it does not. Pt has pain when runs short distances even just running 5 min. Pt asked re: need of zigzag tunnel elastic operator. Pt refused translation service . Pt likes to play with grandkids that are 3 and 5 years old. Cannot get down to ground with kids onto knees. Pt reprots she fell about 7 years ago and injured her R lower leg. Pt reports apin in fingers and toes at night. Reprots feet cuases her pain also. Pt denies pain at night in knees. R knee is more painful Prior Treatments and Tests none Treatment Goals Patient/Caregiver Goals be able to walk & run & go up/ down stairs PT-OP-C Subjective Start: 04/03/20 18:17 Freq: Status: Active Protocol: Document 05/29/20 13:56 [facility] (Rec: 05/29/20 14:29 [facility] [id number]) OP-PT Subjective Patient Comments Patient Comments Pt has no pain PT-OP-D Balance Start: 04/03/20 18:17 Freq: Status: Active Protocol: Document 04/04/20 09:48 [facility] (Rec: 04/04/20 10:53 [facility] [id number]) Balance Tests Single Limb Standing Single Limb- Right 30 sec Single Limb- Left 12 sec PT-OP-F Manual Assessment Start: 04/03/20 18:17 Freq: Status: Active Protocol: Document 04/04/20 09:48 [facility] (Rec: 04/04/20 10:53 [facility] [id number]) Manual Assessments Soft Tissue Assessment Soft Tissue Mobility Assessment L pain w/joint line palpation & HS; R w/adductor, ITB, B joint line palpation Joint Mobility Assessment Joint Mobility Assessment dec patellar mobility but no pain w/glides PT-OP-G Mobility & Gait Start: 04/03/20 18:17 Freq: Status: Active Protocol: Document 04/04/20 09:48 [facility] (Rec: 04/04/20 10:53 [facility] [id number]) OP Gait Assessment Comments Gait Comments Lat leaning w/WB B duirng gait PT-OP-K Range of Motion Start: 04/03/20 18:17 Freq: Status: Active Protocol: Document 04/04/20 09:48 [facility] (Rec: 04/04/20 10:53 [facility] [id number]) Knee Goniometric Range of Motion Knee Right Flexion Active (degrees) 131 Extension Active (degrees) 2 Left Flexion Active (degrees) 130 Extension Active (degrees) 0 Comments no pain B PT-OP-L Special Tests Start: 04/03/20 18:17 Freq: Status: Active Protocol: Document 04/04/20 09:48 [facility] (Rec: 04/04/20 10:53 [facility] [id number]) Special Tests Knee Special Tests Young's Test Test Results neg B Booker's Compression Test Results neg B Comments did have hip popping w/ hip ext from flex Posterior Draw Test Results neg B Valgus- 25 Degrees Test Results neg B Varus- 25 Degrees Test Results neg B Armando Test Test Results neg B Sadi's Test Results neg B slump Test Results neg B Straight Leg Raise Test Results 74 L HS tightness, R 69 HS tightness PT-OP-M Strength Start: 04/03/20 18:17 Freq: Status: Active Protocol: Document 05/29/20 13:56 [facility] (Rec: 05/29/20 14:29 [facility] [id number]) Hip Strength Hip Manual Muscle Testing Right Flexion (L2) 4+ Good+ Extension (S1) 4+ Good+ Abduction 5 Normal Adduction 5 Normal External Rotation 4+ Good+ Internal Rotation 5 Normal Left Flexion (L2) 5 Normal Extension (S1) 4+ Good+ Abduction 5 Normal Adduction 5 Normal External Rotation 5 Normal Internal Rotation 5 Normal Knee Strength Knee Manual Muscle Testing Right Flexion (S2) 5 Normal Extension (L3) 5 Normal Left Flexion (S2) 5 Normal Extension (L3) 5 Normal Ankle/Foot Strength Ankle and Foot Manual Muscle Testing Right Dorsiflexion (L4) 5 Normal Plantarflexion (S1) 5 Normal Left Dorsiflexion (L4) 5 Normal Plantarflexion (S1) 5 Normal Comments able to do 20 heel raises B PT-OP-Q Treatments Start: 04/03/20 18:17 Freq: Status: Active Protocol: Document 05/29/20 13:56 [facility] (Rec: 05/29/20 14:29 [facility] [id number]) Cardio Equipment Bicycle (Upright) Duration (Minutes) 8 Resistance 8 Seat Position 2 Gym Equipment Shuttle Balance red clips Details w/head turns fw Comments fwd & side: WBOS & NBOS fwd staggered stance B Therapeutic Exercises Standing Exercises lunge Side bilateral Reps/Minutes 15 Squats Standing Exercise Name over chair Side bilateral Reps/Minutes 20 sidestep Side bilateral Equipment Used TB #1 Reps/Minutes 2x 20 ft Neuro Re-Education Treatment Balance Activities bosu Details step ups B x10 PT-OP-T Assessment and Plan Start: 04/03/20 18:17 Freq: Status: Active Protocol: Document 05/29/20 13:56 [facility] (Rec: 05/29/20 14:29 [facility] [id number]) Physical Therapy Assessment Goals Three Short Term Goal (STG) Pt will be able to do SLS B for 30 sec w/o any lat leaning . 04/30/20-GOAL MET STG Duration achieved Retail Wireless Sales Representative Goal (LTG) Pt will show improved push off with gait w/no lat trunk shift over LE during stance phase. LTG Duration improved gait pattern Two Short Term Goal (STG) Pt will be indep with PT directed HEP. 05/11/20- GOAL MET STG Duration achieved [facility] Goal (LTG) Pt will score 5/5 on LE strength testing to show improved stability of knee joint. LTG Duration significant progress One Short Term Goal (STG) Pt will be able to walk for 1 hour without inc pain. 05/24/20-GOAL MET STG Duration achieved Retail Wireless Sales Representative Goal (LTG) Pt will be able to run with grandkids without pain. LTG Duration achieved Assessment Summary Assessment Pt has no further pain and is able to do all neccesary activities without inc pain. She does well with strengthening exercises with very little cueing. She is completing PT at this time with signfiicant improvements with balance and strength. Physical Therapy Plan Discharge Physical Therapy Discharge Reasons Goals Met
== END 2020-06-01 13:39 ==
LOC: PHYS 13:45
PROVIDERS: PCP Nurse Practitioner; Referring Provider Orthopaedic Surgery; Visit Provider Orthopaedic Surgery
DX: M17.0 Bilateral primary osteoarthritis of knee (principal); M76.31 Iliotibial band syndrome, right leg; R53.1 Weakness; R26.2 Difficulty in walking, not elsewhere classified
CPT/HCPCS: 97110; 97112; 97140; 97162

== ENCOUNTER → 2020-06-05 13:52 | Outpatient (CLI) | payer OTHER, MEDICAID, SELFPAY ==
[2020-03-08 18:07] VITALS: BMI 33.3
--- NOTE | 2020-06-05 | DI.MRI.S_ITS ---
PROCEDURE: MR THORACIC SPINE WO CON INDICATIONS: BACK PAIN TECHNIQUE: Noncontrast sagittal T1 spine echo and T2 fast spin echo, sagittal STIR, axial T1 and T2 fast spin echo through the thoracic spine. COMPARISON: None. FINDINGS: Image quality: Excellent. Alignment and Curvature: There is normal bony alignment. Bone Marrow: Marrow is of normal overall signal. No acute vertebral body compression fractures. Spinal Cord: Visualized spinal cord is normal in size and signal. Paraspinous Soft Tissues: No paravertebral masses. Miscellaneous: Loss of signal noted in multiple mid thoracic spine intervertebral discs. Disc height normally preserved throughout the thoracic spine. On axial images, central canal and foramina appear widely patent at all scanned levels. IMPRESSION: 1. Mild midthoracic spine degenerative disc disease. 2. No central stenosis. 3. No neural foraminal narrowing. 4. No neural compression. 4. No vertebral body compression fracture. Dictated by: Tracee Herman MD, PhD on 06/05/2020 at 14:29 Approved by: Tracee Herman MD, PhD on 06/05/2020 at 14:31
== END ==
PROVIDERS: PCP Nurse Practitioner; Referring Provider Psychiatry & Neurology Neurology; Visit Provider Psychiatry & Neurology Neurology
DX: M54.9 Dorsalgia, unspecified (principal); M51.34 Other intervertebral disc degeneration, thoracic region; R90.82 White matter disease, unspecified
CPT/HCPCS: 72146

== ENCOUNTER 2020-06-25 13:00 | Outpatient (RCR) | payer OTHER, MEDICAID, SELFPAY ==
[2020-03-08 18:07] VITALS: BMI 33.3
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
--- NOTE | 2020-06-05 17:42 | PT.OPPOC ---
Physical, Occupational & Speech Therapy At [facility] Current Diagnoses Other chronic pain (06/05/20) Cervicalgia (06/05/20) Muscle weakness (generalized) (06/05/20) Abnormal posture (06/05/20) Headache, unspecified (06/05/20) Visit Care Team Role Provider Type MIGUEL Anna Attending Provider Advanced Tread Cutter Primary Care Provider Referring Provider Specialty: Family Practice Address: [address] [place] [address], [facility] Email: [email or web address] Plan Of Care PT-OP-T Assessment and Plan Start: 06/04/20 18:12 Freq: Status: Active Protocol: Document 06/05/20 13:49 [facility] (Rec: 06/05/20 15:17 [facility] [id number]) Physical Therapy Assessment Rehab Potential Rehabilitation Potential Good Evaluation Complexity Number of Personal Factors/Comorbidities 3 or More Number of Body Systems Impaired 4 or More Clinical Presentation at Evaluation Evolving Impairments Impairments Activity Tolerance,Functional Activities,Functional Mobility ,Pain,Posture,ROM,Soft Tissue Mobility,Strength Goals Four Impairment ROM Mcfp Goal (LTG) Pt will have full cervical ROM w/o pain in order to allow her to do activites like reading w/ turning head w/ playing/looking up without pain increases. LTG Duration 08/03/20 Three Short Term Goal (STG) Pt will be indep with HEP STG Duration 07/06/20 Mcfp Goal (LTG) Pt will score 5/5 on all UE strength B to show improved scap stability & UE stability w/o increased pain in order to allow her to do typical lifting activities without pain. LTG Duration 08/03/20 Two Impairment pain Short Term Goal (STG) Pt will report no greater than 4/10 pain in the past week in neck & head while performing all typical daily activities. STG Duration 07/06/20 Rotary Screen Printing Machine Operator Goal (LTG) Pt will report no greater than 1/10 pain in the past week in neck & head while performing all typical daily activities. LTG Duration 08/03/20 One Impairment NDI 15/45 Short Term Goal (STG) Pt will score less tahn 10/45 on NDI to show improved function. STG Duration 07/06/20 Rotary Screen Printing Machine Operator Goal (LTG) Pt will score less tahn 2/45 on NDI to show improved function. LTG Duration 08/03/20 Assessment Summary Assessment Pt presents with chronic neck pain and QUEVEDO w/ c/o LUE radicular symptoms occasionally. She cont to do her typical activities despite the pain, but still gets around 6/10 when doing typical activities which does include caring for her grandkids. She also has a sleep disorder which CPAP has not helped but when she takes her sleeping pill, her pain is much better. She has forward shoulders and inc kyphosis which likely inc strain on neck. She has pain w/ lifting and w/UE MMT and would benefit from skilled PT to work on cervical & thoracic ROM & stability, UE stability and postural stability in order to dec neck pain, QUEVEDO and UE symptoms. Physical Therapy Plan Frequency and Duration Frequency of Treatment 2x/Week Duration of Treatment 2 months Plan of Care Start Date 06/05/20 Plan of Care End Date 08/03/20 Therapeutic Interventions Therapeutic Interventions Home Exercise Program,Joint Mobilizations,Manual Therapy, Neuromuscular Re-education, Patient/Caregiver Education, Self-Care/Home Management,Soft Tissue Mobilization,Taping, Therapeutic Activities, Therapeutic Exercises Modalities Cold Pack/Ice Massage,Electric Stimulation,Hot Packs, Traction- Mechanical, Ultrasound Next Visit Focus/Plan Next Note Type Treatment Note Next Visit Plan chin tuck, foam roll(UE HABD, abd, flex), B ER, STM to UT, LS, cervical paraspinals Plan of Care Dates Plan of Care Start Date 06/05/20 Plan of Care End Date 08/03/20 Electronically Signed by: Maine Callahan, PT 06/05/20 [id number] Please Sign and Return: I have reviewed this Plan of Care and certify that the skilled therapy services above are required to meet the patient?s needs. Physician Signature Date Printed Name and Credentials Clinical Instructor Signature Printed Name and Credentials
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
== END 2020-06-25 14:20 ==
LOC: PHYS 13:00
PROVIDERS: PCP Nurse Practitioner; Referring Provider Nurse Practitioner; Visit Provider Nurse Practitioner
DX: M54.2 Cervicalgia (principal); G89.29 Other chronic pain; R29.3 Abnormal posture; M62.81 Muscle weakness (generalized); R51.9 Headache, unspecified
CPT/HCPCS: 97110; 97140; 97162

== ENCOUNTER → 2020-07-09 09:21 | Outpatient (CLI) | payer OTHER, MEDICAID, SELFPAY ==
[2020-03-08 18:07] VITALS: BMI 33.3
--- NOTE | 2020-07-09 09:22 | DI.US.S_ITS ---
PROCEDURE: US ABDOMEN COMPLETE INDICATIONS: BLOATING TECHNIQUE: Real-time scanning was performed of the abdominal and retroperitoneal organs, with image documentation. COMPARISON: None. FINDINGS: Liver: Liver is normal in size and homogeneous in echotexture Zeny hyperechoic consistent with fatty infiltration, except for low echotexture at the gallbladder margin consistent with focal sparing from otherwise diffuse fatty infiltration, a common finding.. Gallbladder: The gallbladder appears normal Biliary ducts: Intrahepatic bile ducts are non-dilated. Extrahepatic bile duct caliber measures 3.9 mm. Normal is 6-7 mm or less in diameter, or 10 mm or less post-cholecystectomy. Pancreas: Visualized portions of the pancreas are sonographically normal. Spleen: Spleen is normal in size and homogeneous in echotexture. Kidneys: Kidneys are normal in size and echotexture. Right kidney measures 10.9 cm long and the left kidney measures 10.6 cm. No hydronephrosis or nephrolithiasis. No solid masses. Aorta: Visualized aorta is normal in caliber at less than 3 cm. Iliacs: Proximal common iliac arteries are normal in caliber at less than 2.5 cm. IVC: Intrahepatic inferior vena cava is patent. Miscellaneous: No free abdominal fluid. IMPRESSION: Fatty infiltration within the liver, focal sparing from otherwise diffuse fatty infiltration is noted at the gallbladder fossa margin. No ascites seen. The liver is not enlarged nor is the spleen. Somewhat prominent bowel gas, which reduces quality of visualization of the peritoneal space and retroperitoneum. No acute disease found. Dictated by: Justin Villanueva M.D. on 07/09/2020 at 11:02 Approved by: Justin Villanueva M.D. on 07/09/2020 at 11:05
== END ==
PROVIDERS: PCP Nurse Practitioner; Referring Provider Nurse Practitioner; Visit Provider Nurse Practitioner
DX: R10.11 Right upper quadrant pain (principal); R14.0 Abdominal distension (gaseous); K76.0 Fatty (change of) liver, not elsewhere classified
CPT/HCPCS: 76700

== ENCOUNTER → 2020-07-10 09:32 | Outpatient (CLI) | payer OTHER, MEDICAID, SELFPAY ==
[2020-03-08 18:07] VITALS: BMI 33.3
[2020-07-10 10:58] LABS: Alanine Aminotransferase 22 IU/L (<35); Albumin 4.2 g/dL (3.5-5.0); Albumin Globulin Ratio 1.2 (1.0-2.8); Alkaline Phosphatase 97 U/L (38-126); Aspartate Aminotransferase 27 IU/L (14-36); BUN Creatinine Ratio 24.3 (6-22); Bilirubin Total 0.4 mg/dL (0.2-1.3); Blood Urea Nitrogen 18 mg/dL (7-17); Calcium 9.1 mg/dL (8.4-10.2); Carbon Dioxide 29 mmol/L (22-32); Chloride 104 mmol/L (98-107); Estimated Glomerular Filt Rate > 60.0 mL/min (>60); Globulin 3.6 g/dL (1.7-4.1); Glucose 131 mg/dL (70-100); HEMOLYSIS < 15 (0-50); Potassium 4.4 mmol/L (3.4-5.1); Sodium 138 mmol/L (137-145); Total Protein 7.8 g/dL (6.3-8.2)
== END ==
PROVIDERS: PCP Nurse Practitioner; Referring Provider Nurse Practitioner; Visit Provider Nurse Practitioner
DX: R10.11 Right upper quadrant pain (principal)
CPT/HCPCS: 36415; 80053

== ENCOUNTER 2021-02-01 18:17 | Emergency (ER) | payer OTHER, MEDICAID, SELFPAY ==
[2020-03-08 18:07] VITALS: BMI 33.3
[2021-02-01 18:23] VITALS: BP 136/82; PULSE 96; RESP 19; TEMP 36.6; O2SAT 98
[2021-02-01] MEDS: MAG HYDROX/ALUMINUM/SIMETH SUS 20 ML, LIDOCAINE VISCOUS 2% 15 ML PO (18:33)
--- NOTE | 2021-02-01 19:22 | ED_ITS ---
HPI - Abdominal Pain General Chief Complaint: Abdominal Pain Stated Complaint: BURING ABD PAIN Time Seen by Provider: 02/01/21 18:26 Source: patient Mode of arrival: Ambulatory Limitations: no limitations History of Present Illness HPI narrative: Patient is a 55-year-old female history of hyperlipidemia, acid reflux presenting today with on going a burning in her chest and neck. She says it has been going on for a month she was seen by a doctor in [place] she was given medication does not seem to be helping. She occasionally has shortness of breath with exertion she does not really have chest pain. She says today it is not any worse is really just not going away. She says it is worse when she is leaning over. She describes it as more burning sensation. She has been taking [id number] antacid medicine she has tried all of them nothing seems to help. She was given GI cocktail prior to my evaluation on it has not really helped. She denies fever chills. No cough or swelling. No nausea. She says that she tried to get into her primary care provider she had an appointment yesterday but somehow the primary care provider canceled the night before they were sent to an urgent care and then sent to the ED for further evaluation Related Data Previous Rx's Medication Instructions Recorded white petrolatum-mineral oil 94 1 applictn EYE-BOTH BEDTIME PRN 02/08/19 %-3 % eye ointment (Systane #3.5 gram Nighttime) amitriptyline 50 mg tablet 100 mg PO BEDTIME #120 tab 10/16/20 atorvastatin 40 mg tablet 40 mg PO DAILY #90 tab 10/16/20 hydroxyzine HCl 25 mg tablet 25 mg PO Q6H PRN #360 tab 10/16/20 esomeprazole magnesium 20 mg 20 mg PO BID #60 cap 10/25/20 capsule,delayed release (Nexium 24HR) famotidine 40 mg tablet (Pepcid) 40 mg PO BEDTIME #30 tab 02/01/21 omeprazole 20 mg capsule,delayed 40 mg PO BID #60 cap 02/01/21 release sucralfate 1 gram tablet (Carafate) 1 g PO QID #240 tab 02/01/21 Allergies Allergy/AdvReac Type Severity Reaction Status Date / Time No Known Drug Allergies Allergy Verified 10/19/20 10:47 Review of Systems Review of Systems Narrative: GENERAL: Denies chills, fatigue, malaise, fever, sweats, travel HEENT: Denies sinus pain, ear pain, sore throat, difficulty swallowing, neck pain RESPIRATORY: Denies dyspnea, cough, wheezing, hemoptysis, sputum. CARDIOVASCULAR: Denies chest pain, palpitations, orthopnea, edema GASTROINTESTINAL: See HPI : Denies dysuria, frequency, incontinence, hematuria, urinary retention, flank pain. MUSCULOSKELETAL: Denies weakness, joint pain, or bony pain SKIN: No rash, no erythema, no pruritus NEUROLOGIC: Denies weakness, dizziness, headache, numbness, change in speech, confusion PSYCHIATRIC: No concerning psychosocial issues. 12 point review of systems is negative except for those stated above and HPI Patient History Medical History (Updated 02/01/21 @ 21:43 by Ml Cortes DO) Anxiety Chronic back pain Chronic back pain greater than 3 months duration 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 Depression Diarrhea Dry eyes due to decreased tear production Elevated fasting blood sugar Fracture of right foot Gastric reflux Headache Headaches due to old head injury Heel pain High cholesterol High triglycerides History of twin in prior Insomnia Lichen sclerosus Migraine headache without aura Migraines Neck pain Prediabetes Vaginal atrophy Vision disorder Surgical History Anesthesia Previous section Family History Father Cancer Alcohol abuse Mother History of heart disease Hypertension Heart disease Brother Hypertension Alcohol abuse Sister Diabetes mellitus Daughter Migraines Social History household members: spouse Smoking Status: Never smoker Smoking Status: Never smoker alcohol intake frequency: 0-2 drinks per day Substance Use Type: does not use Exam Initial Vital Signs Initial Vital Signs: Vital Signs Temperature 97.8 F 02/01/21 18:23 Pulse Rate 96 H 02/01/21 18:23 Respiratory Rate 19 02/01/21 18:23 Blood Pressure 136/82 02/01/21 18:23 Pulse Oximetry 98 02/01/21 18:23 GENERAL: Alert 65-year-old femaleand in no acute distress. HEENT: Head atraumatic,EOMI, pupils reactive, face symmetric, moist mucous membranes CARDIOVASCULAR: Regular rate and rhythm without murmurs, rubs or gallops. RESPIRATORY: Breath sounds equal bilaterally, no wheezes rales or rhonchi. ABDOMEN: Soft, nontender. Normoactive bowel sounds all 4 quadrants. No guarding or rebound. EXTREMITIES: Normal range of motion, no clubbing or edema. Neurovascularly intact NEUROLOGICAL: Alert and oriented x4.Normal gait and speech. SKIN: Warm, dry, no laceration, no petechiae, no rashes or lesions. Scores HEART Score Heart Score history: Slightly Suspicious Heart Score EKG: Normal Heart Score Age: 45-64 years old Heart Score risk factors: 1-2 risk factors Heart Score troponin: < or = to normal limit Heart Score Total: 2 Course Orders Ordered: Discontinued Medications Aspirin (Aspirin 81 Mg Chew Tab) 324 mg PO NOW ONE Stop: 02/01/21 19:30 Last Admin: 02/01/21 19:52 Dose: 324 mg Documented by: ARIANA Al Hydrox/Mg Hydrox/Simethicone 20 ml/ Lidocaine HCl 15 ml 0 ml PO NOW ONE Stop: 02/01/21 18:24 Last Admin: 02/01/21 18:33 Dose: 35 ml Documented by: MATEO Pantoprazole Sodium (Pantoprazole 40 Mg Vial) 40 mg IV NOW ONE Stop: 02/01/21 19:30 Last Admin: 02/01/21 19:52 Dose: 40 mg Documented by: ARIANA Vital Signs Vital signs: Vital Signs - 8 hr 02/01/21 21:00 02/01/21 21:30 Pulse Rate 90 94 H Blood Pressure 120/66 113/67 Pulse Oximetry 98 98 MDM - Abdominal Pain Lab Data Result diagrams: 02/01/21 19:44 02/01/21 19:44 Labs: Lab Results 02/01/21 02/01/21 Range/Units 19:44 19:44 WBC 8.8 (4.5-11.0) X10^3/uL RBC 4.89 (4.0-5.2) X10^6/uL Hgb 13.3 (12.0-16.0) g/dL Hct 40.3 (36-46) % MCV 82.3 (80-100) fL MCH 27.1 (26-34) PG MCHC 33.0 (30-36) % RDW 14.7 (11.6-14.8) % Plt Count 287 (150-400) X10^3/uL Neut % (Auto) 44.1 L (50-75) % Lymph % (Auto) 46.7 H (25-40) % Phillips % (Auto) 6.0 (3-14) % Eos % (Auto) 2.2 (2-4) % Baso % (Auto) 1.0 (0-2) % Neut # (Auto) 3900 (5973-4791) /uL Lymph # (Auto) 4100 (3267-2041) /uL Phillips # (Auto) 500 (0-900) /uL Eos # (Auto) 200 (0-450) /uL Baso # (Auto) 100 (0-100) /uL Sodium 139 (137-145) mmol/L Potassium 4.1 (3.4-5.1) mmol/L Chloride 105 (98-107) mmol/L Carbon Dioxide 25 (22-32) mmol/L BUN 16 (7-17) mg/dL Creatinine 0.79 (0.52-1.04) mg/dL Estimated GFR > 60.0 (>60) mL/min BUN/Creatinine Ratio 20.3 (6-22) Glucose 116 H (70-100) mg/dL Calcium 9.3 (8.4-10.2) mg/dL Total Bilirubin 0.4 (0.2-1.3) mg/dL AST 63 H (14-36) IU/L ALT 60 H (<35) IU/L Alkaline Phosphatase 109 (38-126) U/L Total Creatine Kinase 90 (30-135) U/L CK-MB (CK-2) TNP CK-MB (CK-2) Rel Index TNP Troponin I < 0.012 (0.01-0.034) ng/mL NT-Pro-B Natriuret Pep 20 (<125) pg/mL Total Protein 7.9 (6.3-8.2) g/dL Albumin 4.4 (3.5-5.0) g/dL Globulin 3.5 (1.7-4.1) g/dL Albumin/Globulin Ratio 1.3 (1.0-2.8) Lipase 113 (23-300) U/L Imaging Data Chest x-ray: Radiologist's Impression: PROCEDURE:? XR CHEST 1V ? INDICATIONS:? short of breath ? TECHNIQUE:? One view of the chest was acquired.? ? COMPARISON:? [facility], CR, XR CHEST 1V, 03/08/2020, 13:40. ? FINDINGS:? ? Surgical changes and devices:? None.? ? Lungs and pleura:? Lungs are clear.? No pleural effusions or pneumothorax.? ? Mediastinum:? Mediastinal contours appear normal.? Heart size is normal.? ? Bones and chest wall:? No suspicious bony lesions.? Overlying soft tissues appear unremarkable.? ? IMPRESSION:? No acute process. ? ? Dictated by: Tera Maciel M.D. on 02/01/2021 at 20:10 ? ? ECG Data Interpretation: Normal sinus rhythm rate 94 VA interval 144 QRS [address] changes Q-waves noted in lead 3 similar to previous EKG in 2019 MDM Narrative Medical decision making narrative: Patient has signs symptoms of burning actually worse when she leans over is more consistent with acid reflux. It sounds though she has quit the history of acid reflux. Cardiac workup is done and does not show any abnormality. Symptoms been ongoing for a month or more no need for a 2nd troponin. She is on a proton pump inhibitor. Will also now had H2 tory to take simultaneously. And care date if needed. I encouraged her to follow up with her primary care provider. She will try but it seems difficult to do so because of primary is availability Discharge Plan Departure Patient Disposition: Home Clinical Impression: Gastric reflux Instructions: DI for Gastroesophageal Reflux Disease (GERD) Activity Restrictions/Additional Instructions: *You have been diagnosed with acid reflux *What to do: At this time blood work is overall reassuring. Please follow-up with primary care provider in regards to your acid reflux. Avoid acidic foods, such as coffee, chocolate and tomatoes *Continue to take medications as directed--> [facility] SENT TO [facility] [place] Omeprazole 40 mg twice a day ( STOP esomeprazole) Pepcid 40 mg at night Carafate 1 g 4 times daily give 1 hour before meals and bedtime *Follow up with your primary care provider in 2-3 days *Return to ER if you should have increasing chest pain, shortness of breath, increasing burning any new, worsening or concerning symptoms Prescriptions: New omeprazole 20 mg capsule,delayed release(DR/EC) 40 mg PO BID Qty: 60 RF: 0 famotidine [Pepcid] 40 mg tablet 40 mg PO BEDTIME Qty: 30 RF: 0 sucralfate [Carafate] 1 gram tablet 1 g PO QID Qty: 240 RF: 0 No Action esomeprazole magnesium [Nexium 24HR] 20 mg capsule,delayed release(DR/EC) 20 mg PO BID Qty: 60 RF: 3 Systane Nighttime 94-3 % ointment 1 applictn EYE-BOTH BEDTIME PRN (Reason: dry eye(s)) Qty: 3.5 RF: 6 amitriptyline 50 mg tablet 100 mg PO BEDTIME Qty: 120 RF: 3 atorvastatin 40 mg tablet 40 mg PO DAILY Qty: 90 RF: 3 hydroxyzine HCl 25 mg tablet 25 mg PO Q6H PRN (Reason: anxiety) Qty: 360 RF: 3 Referrals: Keshia Nieves ARNP [Primary Care Provider] -
--- NOTE | 2021-02-01 19:29 | DI.RAD.S_ITS ---
PROCEDURE: XR CHEST 1V INDICATIONS: short of breath TECHNIQUE: One view of the chest was acquired. COMPARISON: [facility], CR, XR CHEST 1V, 03/08/2020, 13:40. FINDINGS: Surgical changes and devices: None. Lungs and pleura: Lungs are clear. No pleural effusions or pneumothorax. Mediastinum: Mediastinal contours appear normal. Heart size is normal. Bones and chest wall: No suspicious bony lesions. Overlying soft tissues appear unremarkable. IMPRESSION: No acute process. Dictated by: Tera Maciel M.D. on 02/01/2021 at 20:10 Approved by: Tera Maciel M.D. on 02/01/2021 at 20:10
[2021-02-01 19:52] VITALS: BP 138/70; PULSE 94; O2SAT 98
[2021-02-01] MEDS: PANTOPRAZOLE 40 MG VIAL IV (19:52)
[2021-02-01] MEDS: ASPIRIN 81 MG CHEW TAB 324 MG PO (19:52)
[2021-02-01 20:00] VITALS: BP 137/71; PULSE 95; O2SAT 98
[2021-02-01 20:08] LABS: Add Manual Diff / Slide Review NO; Basophils Absolute Auto 100 /uL (0-100); Eosinophils Absolute Auto 200 /uL (0-450); Eosinophils Percent Auto 2.2 % (2-4); Hematocrit 40.3 % (36-46); Hemoglobin 13.3 g/dL (12.0-16.0); Lymphocytes Absolute Auto 4100 /uL (1100-4500); Lymphocytes Percent Auto 46.7 % (25-40); Mean Corpuscular Hemoglobin 27.1 PG (26-34); Mean Corpuscular Volume 82.3 fL (80-100); Monocytes Absolute Auto 500 /uL (0-900); Neutrophils Absolute Auto 3900 /uL (1500-7000); Neutrophils Percent Auto 44.1 % (50-75); Platelet Count 287 X10^3/uL (150-400); Red Blood Cell Count 4.89 X10^6/uL (4.0-5.2); Red Cell Distribution Width 14.7 % (11.6-14.8); White Blood Cell Count 8.8 X10^3/uL (4.5-11.0)
[2021-02-01 20:20] LABS: Alanine Aminotransferase 60 IU/L (<35); Albumin 4.4 g/dL (3.5-5.0); Albumin Globulin Ratio 1.3 (1.0-2.8); Alkaline Phosphatase 109 U/L (38-126); Aspartate Aminotransferase 63 IU/L (14-36); BUN Creatinine Ratio 20.3 (6-22); Bilirubin Total 0.4 mg/dL (0.2-1.3); Blood Urea Nitrogen 16 mg/dL (7-17); Calcium 9.3 mg/dL (8.4-10.2); Carbon Dioxide 25 mmol/L (22-32); Chloride 105 mmol/L (98-107); Creatine Kinase 90 U/L (30-135); Estimated Glomerular Filt Rate > 60.0 mL/min (>60); Globulin 3.5 g/dL (1.7-4.1); Glucose 116 mg/dL (70-100); HEMOLYSIS < 15 (0-50); Lipase 113 U/L (23-300); Potassium 4.1 mmol/L (3.4-5.1); Sodium 139 mmol/L (137-145); Total Protein 7.9 g/dL (6.3-8.2)
[2021-02-01 20:30] VITALS: BP 125/67; PULSE 96; O2SAT 98
[2021-02-01 20:32] LABS: NT-proBNP (BNP-Adult 18+) 20 pg/mL (<125); Troponin I < 0.012 ng/mL (0.01-0.034)
[2021-02-01 21:00] VITALS: BP 120/66; PULSE 90; O2SAT 98
[2021-02-01 21:30] VITALS: BP 113/67; PULSE 94; O2SAT 98
== END 2021-02-01 21:58 | disposition home or self-care (01) ==
PROVIDERS: Emergency Provider Emergency Medicine; PCP Nurse Practitioner
DX: K21.9 Gastro-esophageal reflux disease without esophagitis (principal); M54.2 Cervicalgia; R06.02 Shortness of breath
CPT/HCPCS: 36415; 71045; 80053; 82550; 83690; 83880; 84484; 85025; 93005; 96374; 99284; C9113

== ENCOUNTER → 2021-03-22 10:01 | Outpatient (CLI) | payer OTHER, MEDICAID, SELFPAY ==
[2021-02-27 10:12] VITALS: BMI 33.3
[2021-03-22 12:11] LABS: COVID19 -Nasal RAPID Negative (Negative)
== END ==
PROVIDERS: PCP Nurse Practitioner; Visit Provider Surgery
DX: Z01.812 Encounter for preprocedural laboratory examination (principal); Z20.822 Contact with and (suspected) exposure to COVID-19
CPT/HCPCS: 87635; C9803

== ENCOUNTER 2021-03-25 07:32 | Day surgery (SDC) | payer OTHER, MEDICAID, SELFPAY ==
[2021-02-27 10:12] VITALS: BMI 33.3
--- NOTE | 2021-03-25 | PATH_ITS ---
[facility] Accession Number: [id number] . 01 Material submitted: . PART A: gastrointestinal site - GASTRIC PART B: esophagus, E-G Junction - GE JUNCTION . 02 Diagnosis: A. Gastric: Gastric antral mucosa with chronic active gastritis. Negative for Helicobacter organisms by immunohistochemistry. Negative for intestinal metaplasia. Negative for dysplasia or malignancy. . B. GE Junction: Fragmented squamocolumnar junctional mucosa with no diagnostic abnormality. Negative for intestinal metaplasia. Negative for dysplasia and malignancy. . MRV 03/28/2021 1613 Local . 02 Electronically signed: . Екатерина Barahona MD, Pathologist NPI- [id number] . 01 Gross description: . A. Received in formalin, labeled gastric and consists of a 0.4 x 0.3 x 0.2 cm fragment of soft tissue which is entirely submitted in cassette A1. B. Received in formalin, labeled GE junction and consist of three south fragments of soft tissue measuring 0.4 x 0.3 x 0.2 cm in aggregate. The specimen is entirely submitted in cassette B1. (EA:[id number]) /MRV 03/26/2021 1417 Local . 02 Microscopic: . A. An immunohistochemical stain was performed to evaluate for Helicobacter organisms and is negative. The control stain showed appropriate reactivity. . * This test was developed and its performance characteristics determined by [facility]. It has not been cleared or approved by the U.S. Food and Drug Administration. The FDA has determined that such clearance or approval is not necessary. This test is used for clinical purposes. It should not be regarded as investigational or for research. . 02 Pathologist provided ICD-10: K21.9 . 02 CPT . 318741, 983377, [id number] Performed at: 01 [facility] [address] [place] [address], [place], [place] [id number] MD Singh Napier MD Phone: [phone] Performed at: [address] [id number] [place], [place] [id number] MD Nuvia Sage MD Phone: [phone]
[2021-03-25 07:47] VITALS: BP 146/82; PULSE 83; RESP 16; TEMP 36.2; O2SAT 100
[2021-03-25] MEDS: LACTATED RINGERS 1,000 ML 200 ML IV (08:15)
--- NOTE | 2021-03-25 08:46 | PM.PREOP ---
Pre-operative Note Interval Note History & Physical reviewed/Exam performed by Physician: Yes Changes to H&P: No
[2021-03-25] MEDS: fentaNYL 250 MCG/5 ML INJ IV (08:53)
[2021-03-25] MEDS: MIDAZOLAM 5 MG/5 ML VIAL IV (08:53)
[2021-03-25] MEDS: LIDOCAINE 4% SOLN 50 ML 20 ML TOP (09:03)
--- NOTE | 2021-03-25 09:07 | PM.OP.EGD ---
Operative Date/Time/Diagnoses Date of procedure: 03/25/21 Time of procedure: 09:07 Pre-op diagnosis: esophageal dysphagia Post-op diagnosis: same Procedure & Clinicians Study performed: esophagoduodenoscopy Same procedure as scheduled: Yes Indications: esophageal dysphagia Surgeon: Bjorn Cortez Procedure Notes Procedure in detail: Patient placed in left lateral decubitus position. Time out was performed. Procedural sedation was administered with Versed and Fentanyl. A bite block was placed. the scope was inserted into the mouth and advanced through the esophagus and into the stomach. The stomach was notable for mild gastritis throughout no discrete ulcers. The duodenum was normal to the 2nd portion. The scope was retroflexed within the stomach and there was no hiatal hernia. The scope was withdrawn into the esophagus the Z line was seen at 35 cm from the incisions. There was mild inflammation at the GE junction biopsies were taken no hussein Lao's. Stomach was desufflated and scope removed. Patient tolerated procedure well. Specimen(s): other (gastric, GE junction) Complications: none Impression: Gastritis Post-procedure Plan for aftercare: Omeprazole 20 mg twice daily Disposition: same day surgery
[2021-03-25 09:08] VITALS: BP 116/61; PULSE 80; RESP 14; TEMP 36.4; O2SAT 93
[2021-03-25 09:13] VITALS: BP 110/60; PULSE 81; RESP 13; O2SAT 93
[2021-03-25 09:18] VITALS: BP 110/61; PULSE 82; RESP 14; O2SAT 95
[2021-03-25 09:23] VITALS: BP 111/62; PULSE 86; RESP 14; O2SAT 96
[2021-03-25 09:30] VITALS: BP 116/61; PULSE 86; RESP 16; TEMP 36.4; O2SAT 97
== END 2021-03-25 09:43 | disposition home or self-care (01) ==
PROVIDERS: PCP Nurse Practitioner; Referring Provider Surgery; Visit Provider Surgery
PROC: 0DJ08ZZ Inspection of Upper Intestinal Tract, Via Natural or Artificial Opening Endoscopic (ICD-10-PCS; CPT 43235; principal; 2021-03-25 08:30)
DX: R13.14 Dysphagia, pharyngoesophageal phase (principal); K21.9 Gastro-esophageal reflux disease without esophagitis; K29.50 Unspecified chronic gastritis without bleeding
CPT/HCPCS: 43239; J2250; J3010

== ENCOUNTER → 2021-09-16 09:10 | Outpatient (CLI) | payer OTHER, MEDICAID, SELFPAY ==
[2021-02-27 10:12] VITALS: BMI 33.3
[2021-09-16 10:13] LABS: Hematocrit 40.3 % (36-46); Hemoglobin 13.4 g/dL (12.0-16.0); Mean Corpuscular HGB Conc 33.2 % (30-36); Mean Corpuscular Hemoglobin 26.9 PG (26-34); Mean Corpuscular Volume 80.9 fL (80-100); Platelet Count 292 X10^3/uL (150-400); Red Blood Cell Count 4.98 X10^6/uL (4.0-5.2); Red Cell Distribution Width 14.1 % (11.6-14.8); White Blood Cell Count 4.8 X10^3/uL (4.5-11.0)
[2021-09-16 10:22] LABS: Hemoglobin A1C% w Est Avg Glu 10.6 % (4.0-6.0)
[2021-09-16 10:29] LABS: Alanine Aminotransferase 63 IU/L (<35); Albumin 4.2 g/dL (3.5-5.0); Albumin Globulin Ratio 1.3 (1.0-2.8); Alkaline Phosphatase 120 U/L (38-126); Aspartate Aminotransferase 59 IU/L (14-36); Bilirubin Total 0.4 mg/dL (0.2-1.3); Blood Urea Nitrogen 10 mg/dL (7-17); Calcium 8.9 mg/dL (8.4-10.2); Carbon Dioxide 29 mmol/L (22-32); Chloride 105 mmol/L (98-107); Cholesterol 142 mg/dL (140-199); Estimated Glomerular Filt Rate > 60 mL/min (>60); Globulin 3.3 g/dL (1.7-4.1); Glucose 186 mg/dL (70-100); HDL Cholesterol 49 mg/dL (40-60); HEMOLYSIS < 15 (0-50); LDL Cholesterol Calculated 75 mg/dL (<100); Potassium 4.3 mmol/L (3.4-5.1); Sodium 139 mmol/L (137-145); Total Protein 7.5 g/dL (6.3-8.2); Triglycerides 92 mg/dL (35-150)
[2021-09-16 11:22] LABS: Free T3, Triiodothyronine Free 3.47 pg/mL (2.77-5.27); Free T4, Direct Thyroxine 1.02 ng/dL (0.78-2.19)
[2021-09-16 11:36] LABS: Thyroid Stimulating Hormone 1.86 uIU/mL (0.47-4.68)
== END ==
PROVIDERS: PCP Nurse Practitioner; Referring Provider Nurse Practitioner; Visit Provider Nurse Practitioner
DX: R79.89 Other specified abnormal findings of blood chemistry (principal); R73.01 Impaired fasting glucose; Z00.00 Encounter for general adult medical examination without abnormal findings
CPT/HCPCS: 36415; 80053; 80061; 83036; 84439; 84443; 84481; 85027

== ENCOUNTER → 2021-10-29 13:27 | Outpatient (CLI) | payer OTHER, MEDICAID, SELFPAY ==
[2021-02-27 10:12] VITALS: BMI 33.3
--- NOTE | 2021-11-05 17:45 | DIAB.INIT ---
Initial Diabetes Education Assessment Name: Sandra Salomon Date: 10/29/21 Time: 145-777p Dx: Type II Diabetes Provider: Ezequiel Flores Britta presents with , Jarad, for initial visit. Britta's first language is [place]. Telephonic food selector was used to complete this visit. Britta is currently taking glipizide 5 mg HS. Last HgA1c was 10.6%, newly diagnosed with T2DM. Her and her split there year between here and their home in [place]. +FH of DM with siblings and mother. States she would like to know what she can eat and what to avoid. Has reduced carb intake drastically and misses eating foods from her culture, homemade tortillas and beans more specifically. Diet recall indicates low carb diet with keto bread, no sugar, and mostly protein and veggies. Physical Activity: No program. May walk 15 min twice per week. Self-Monitoring Blood Glucose: Checking FBG. Recent readings: 128, 116, 137, 132, 111, 131, 141. Some elevations per ADA guidelines, but in general most in goal or close. Diabetes Medications: Glipizide 5 mg HS Pertinent Labs: HgA1c 10.6% Past Medical History: (Last Reviewed 10/08/21 @ 07:40 by MIGUEL Anna) Anxiety Chronic back pain Take ibuprofen Chronic back pain greater than 3 months duration 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 Depression Diarrhea Dry eyes due to decreased tear production Elevated fasting blood sugar Fracture of right foot Gastric reflux Headache Headaches due to old head injury Heel pain High cholesterol High triglycerides History of twin in prior Insomnia Lichen sclerosus Migraine headache without aura Migraines Take Excedrin Neck pain Non-insulin dependent diabetes mellitus Pre-diabetes Prediabetes Vaginal atrophy Vision disorder Reading glasses Intervention: This participant was very receptive. Provided appropriate educational handouts. Discussed the following topics: Completed intake assessment. Discussed barriers to care. Pathophysiology of type 2 diabetes HgA1c, its correlation to blood glucose numbers, and rationale for goal Importance of self-monitoring, how often, and when to check. Suggested checking at different times to evaluate meals Plate Method, impact of macronutrients on blood sugar, meal timing, carbohydrate counting, pairing macronutrients and spreading out carbohydrates for better blood glucose management General recommended servings for carbohydrates at meals and snacks How to incorporate foods she enjoys Role of physical activity and following provider guidelines for safety Created SMART goals for patient self-care and success. Goals: Check a few postprandial readings try adding 1-2 tortillas and check BG 1-2 hrs pc Walk 3 x per week for 30-60 min Follow-up: [facility] follow-up in 2-3 weeks Xiomara Phillips RDN, BRANDIE Certified Diabetes Care and [facility] [place] P: [phone] Thank you for this referral
== END ==
PROVIDERS: PCP Nurse Practitioner; Referring Provider Nurse Practitioner; Visit Provider Nurse Practitioner
DX: E11.9 Type 2 diabetes mellitus without complications (principal); Z79.84 Long term (current) use of oral hypoglycemic drugs; Z71.3 Dietary counseling and surveillance
CPT/HCPCS: G0108

== ENCOUNTER → 2021-11-19 13:04 | Outpatient (CLI) | payer OTHER, MEDICAID, SELFPAY ==
[2021-02-27 10:12] VITALS: BMI 33.3
--- NOTE | 2021-11-19 18:10 | DIAB.FU ---
Follow-up Diabetes Education Assessment Name: Sandra Salomon Date: 11/19/21 Time: 130-215p Dx: Type II Diabetes Britta presents for DSME follow-up with , Jarad. She declined interpreting services today and would like to use to interpret. States she has incorporated some cultural foods with success. BG seem to be in goal and she feels that this diet is sustainable. has been buying a lot of keto snacks per her report. These are often low in carb but very high in saturated fat. Limited vegetables per diet recall. Has a smoothie in the morning, mostly veggie. Otherwise, limited veggies during the rest of the day. Furthermore, she is often skipping lunch. Minimal wt loss reported from 196# to 195#. UBW reported as 197#. States she has a difficult time with portions and her weight when she goes to [place]. Her sister cooks delicious foods, mostly carb. Usually has dental work done in [place]. Plans to have eye doctor and animal ecologist done here before leaving for annual [place] trip in February. Would like to follow-up in a couple months prior to leaving for trip. Physical Activity: very worried about abduction or other crimes and will not walk alone. Daughters plan to walk with her and has committed to dropping her off somewhere she feels safe to walk (ie [place]). Self-Monitoring Blood Glucose: Brought log book, but FBG vs pc not labeled. Reports FBG <130 (120s mg/dL). Has tried adding some carbs and BG all <160 mg/dL. Diabetes Medications: Glipizide 5 mg HS Pertinent Labs: HgA1c 10.6% Past Medical History: (Last Reviewed 11/06/21 @ 14:47 by MIGUEL Anna) Anxiety Chronic back pain Take ibuprofen Chronic back pain greater than 3 months duration 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 Depression Diarrhea Dry eyes due to decreased tear production Elevated fasting blood sugar Fracture of right foot Gastric reflux Headache Headaches due to old head injury Heel pain High cholesterol High triglycerides History of twin in prior Insomnia Lichen sclerosus Migraine headache without aura Migraines Take Excedrin Neck pain Non-insulin dependent diabetes mellitus Pre-diabetes Prediabetes Vaginal atrophy Vision disorder Reading glasses Intervention: This participant was very receptive. Provided appropriate educational handouts. Discussed the following topics: Recent blood sugar results and trends Review of general nutrition recommendations and current intake Physical activity plan and impact on blood sugars Prevention of complications: foot care, dental and eye appointments Created SMART goals for patient self-care and success. Goals: Check a few postprandial readings- met try adding 1-2 tortillas and check BG 1-2 hrs pc- met Walk 3 x per week for 30-60 min- in progress Eat vegetables twice per day- new Start walking this week- new Read food labels for net carbs and saturated fats- new Follow-up: [facility] follow-up in 4 weeks Xiomara Phillips RDN, BRANDIE Certified Diabetes Care and Orthopedically Impaired Teacher P: [phone] Thank you for this referral
== END ==
PROVIDERS: PCP Nurse Practitioner; Referring Provider Nurse Practitioner; Visit Provider Nurse Practitioner
DX: E11.9 Type 2 diabetes mellitus without complications (principal); Z71.3 Dietary counseling and surveillance; Z79.84 Long term (current) use of oral hypoglycemic drugs
CPT/HCPCS: G0108

== ENCOUNTER → 2021-11-27 08:20 | Outpatient (CLI) | payer OTHER, MEDICAID, SELFPAY ==
[2021-02-27 10:12] VITALS: BMI 33.3
--- NOTE | 2021-11-27 08:22 | DI.MG.S_ITS ---
BILATERAL DIGITAL SCREENING MAMMOGRAM 3D/2D WITH CAD: 11/27/2021 CLINICAL: Routine screening. Comparison is made to exams dated: 04/02/2020 mammogram, 04/01/2019 mammogram, and 04/21/2017 mammogram - [facility]. The tissue of both breasts is predominantly fatty. Current study was also evaluated with a Computer Aided Detection (CAD) system. No significant masses, calcifications, or other findings are seen in either breast. There has been no significant interval change. IMPRESSION: NEGATIVE There is no mammographic evidence of malignancy. A 1 year screening mammogram is recommended. Based on the Tyrer Cuzick model (a risk assessment model) the patient's lifetime risk is 4.3% and her 10 year risk is 1.5%. According to the ACR, ACS, and NCCN guidelines, an annual breast MRI exam along with mammogram is recommended if the patient's lifetime risk is 20% or greater. This exam was interpreted at Station ID: [id number]. NOTE: For mammograms, a report in lay terms will be sent to the patient. Approximately 15% of breast malignancies will not be visualized mammographically. In the management of a palpable breast mass, a negative mammogram must not discourage biopsy of a clinically suspicious lesion. Electronically Signed By: Leroy landis/delfino:11/27/2021 12:30:22 letter sent: Normal Exam ACR BI-RADS Category 1: Negative 3341F
== END ==
PROVIDERS: PCP Nurse Practitioner; Referring Provider Nurse Practitioner; Visit Provider Nurse Practitioner
DX: Z12.31 Encounter for screening mammogram for malignant neoplasm of breast (principal)
CPT/HCPCS: 77063; 77067

== ENCOUNTER → 2021-12-05 18:37 | Outpatient (CLI) | payer OTHER, MEDICAID, SELFPAY ==
[2021-02-27 10:12] VITALS: BMI 33.3
[2021-12-05 19:30] LABS: COVID19 -Nasal RAPID Negative (Negative)
== END ==
PROVIDERS: PCP Nurse Practitioner; Visit Provider Physician Assistant
DX: Z20.822 Contact with and (suspected) exposure to COVID-19 (principal)
CPT/HCPCS: 87635

== ENCOUNTER → 2021-12-12 17:58 | Outpatient (CLI) | payer OTHER, MEDICAID, SELFPAY ==
[2021-02-27 10:12] VITALS: BMI 33.3
--- NOTE | 2021-12-12 18:02 | DI.RAD.S_ITS ---
PROCEDURE: XR CHEST 2V INDICATIONS: eval for pneumonia TECHNIQUE: 2 views of the chest were acquired. COMPARISON: [facility], , XR CHEST 1V, 02/01/2021, 20:01. FINDINGS: Surgical changes and devices: None. Lungs and pleura: Lungs are clear. No pleural effusions or pneumothorax. Mediastinum: Mediastinal contours are normal. Heart size is normal. Bones and chest wall: No suspicious bony abnormalities. Soft tissues appear unremarkable. IMPRESSION: No acute cardiopulmonary pathology. Dictated by: Rafael Rodas M.D. on 12/12/2021 at 18:10 Approved by: Rafael Rodas M.D. on 12/12/2021 at 18:10
== END ==
PROVIDERS: PCP Nurse Practitioner; Referring Provider Student in an Organized Health Care Education/Training Program; Visit Provider Student in an Organized Health Care Education/Training Program
DX: R05.8 Other specified cough (principal)
CPT/HCPCS: 71046

== ENCOUNTER → 2022-01-02 09:10 | Outpatient (CLI) | payer OTHER, MEDICAID, SELFPAY ==
[2021-12-25 10:46] VITALS: BMI 33.3
[2022-01-02 12:29] LABS: Alanine Aminotransferase 30 IU/L (<35); Albumin 3.6 g/dL (3.5-5.0); Albumin Globulin Ratio 1.2 (1.0-2.8); Alkaline Phosphatase 87 U/L (38-126); Aspartate Aminotransferase 31 IU/L (14-36); Bilirubin Total 0.3 mg/dL (0.2-1.3); Blood Urea Nitrogen 21 mg/dL (7-17); Calcium 8.5 mg/dL (8.4-10.2); Carbon Dioxide 25 mmol/L (22-32); Chloride 106 mmol/L (98-107); Cholesterol 149 mg/dL (140-199); Estimated Glomerular Filt Rate > 60 mL/min (>60); Globulin 2.9 g/dL (1.7-4.1); Glucose 128 mg/dL (70-100); HDL Cholesterol 53 mg/dL (40-60); HEMOLYSIS < 15 (0-50); LDL Cholesterol Calculated 76 mg/dL (<100); Potassium 4.7 mmol/L (3.4-5.1); Sodium 137 mmol/L (137-145); Total Protein 6.5 g/dL (6.3-8.2); Triglycerides 98 mg/dL (35-150)
[2022-01-02 12:32] LABS: Creatinine Urine Random 124.3 mg/dL
[2022-01-02 12:34] LABS: Microalbumi Creatinin Ratio Ur 5.6 ug/mg CR (<30); Microalbumin Urine Random 0.7 mg/dL (0-1.6)
[2022-01-02 14:31] LABS: Thyroid Stimulating Hormone 2.41 uIU/mL (0.47-4.68)
[2022-01-02 15:42] LABS: Hemoglobin A1C% w Est Avg Glu 6.6 % (4.0-6.0)
== END ==
PROVIDERS: PCP Nurse Practitioner; Referring Provider Nurse Practitioner; Visit Provider Nurse Practitioner
DX: E78.2 Mixed hyperlipidemia (principal); I10 Essential (primary) hypertension
CPT/HCPCS: 36415; 80053; 80061; 82043; 82570; 83036; 84443

== ENCOUNTER 2022-01-28 07:35 | Day surgery (SDC) | payer OTHER, MEDICAID, SELFPAY ==
[2021-12-25 10:46] VITALS: BMI 33.3
[2022-01-28 08:01] VITALS: BMI 36.0
[2022-01-28] MEDS: LACTATED RINGERS 1,000 ML 150 ML IV (08:06)
[2022-01-28 08:07] VITALS: BP 109/66; PULSE 90; RESP 18; TEMP 36.3; O2SAT 98
[2022-01-28 08:14] LABS: COVID19 -Nasal RAPID Negative (Negative)
--- NOTE | 2022-01-28 09:01 | P.HP_ITS ---
History of Present Illness History of Present Illness Date Patient Seen: 01/28/22 Time Patient Seen: 09:02 Chief complaint: SCREENING COLONOSCOPY Narrative: The patient presents for colorectal screening. She had a previous colonoscopy perhaps 6 or 7 years ago which was normal per her recollection. No personal or family history of colon cancer. On further history denies any recent gastrointestinal symptoms. No nausea, vomiting, abdominal pain, loss of appetit e, unexplained weight loss, change in bowel habits, diarrhea, constipation, melena, hematochezia, or bright red blood per rectum. 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 Depression Diarrhea Dry eyes due to decreased tear production Elevated fasting blood sugar Fracture of right foot Gastric reflux Headache Headaches due to old head injury Heel pain High cholesterol High triglycerides History of twin in prior Insomnia Lichen sclerosus Migraine headache without aura Migraines Neck pain Non-insulin dependent diabetes mellitus Pre-diabetes Prediabetes Vaginal atrophy Vision disorder Surgical History Anesthesia Previous section Family & Social History Family History Father Cancer Alcohol abuse Mother History of heart disease Hypertension Heart disease Brother Hypertension Alcohol abuse Sister Diabetes mellitus Daughter Migraines Social History: household members spouse Tobacco & Substance use: Smoking Status Never smoker alcohol intake never alcohol intake frequency 0-2 drinks per day Substance Use Type does not use Meds Home Medications and Allergies Home Medications Medication Instructions Recorded Confirmed Type lorazepam 1 mg tablet 1 mg PO DAILY PRN Anxiety 03/14/21 01/28/22 History Glucometer #1 ea 09/18/21 01/08/22 Rx Lancette #1 ea 09/18/21 01/08/22 Rx Lancette pokers #300 ea 09/18/21 01/08/22 Rx Test Strips for glucometer #300 ea 09/18/21 01/08/22 Rx Blood Pressure Cuff #1 ea 10/01/21 01/08/22 Rx Omron Blood Pressure Monitor #1 ea 11/06/21 01/08/22 Rx amitriptyline 100 mg tablet 100 mg PO BEDTIME #90 tabs 01/01/22 01/28/22 Rx atorvastatin 40 mg tablet 40 mg PO DAILY #90 tabs 01/01/22 01/28/22 Rx lisinopril 5 mg tablet 5 mg PO DAILY #90 tabs 01/01/22 01/28/22 Rx omeprazole 20 mg capsule,delayed 20 mg PO BID #180 caps 01/01/22 01/28/22 Rx release sertraline 50 mg tablet 50 mg PO DAILY #90 tabs 01/01/22 01/28/22 Rx sumatriptan succinate 25 mg tablet See Rx Instructions PO .COMPLEX 01/01/22 01/28/22 Rx #20 tabs glimepiride 1 mg tablet 1 mg PO DAILY #180 tabs 01/08/22 01/28/22 Rx hydroxyzine HCl 25 mg tablet 25 mg PO Q6H PRN anxiety #360 tabs 01/08/22 01/28/22 Rx Allergies Allergy/AdvReac Type Severity Reaction Status Date / Time metformin AdvReac Intermediate Dizziness Verified 01/28/22 07:57 Exam Vital Signs (past 8 hours): - 01/28/22 08:07 Temperature 97.4 F L Pulse Rate 90 Respiratory Rate 18 Blood Pressure 109/66 Pulse Oximetry 98 Oxygen Delivery Method Room Air Oxygen Delivery Method Room Air Narrative Exam Narrative: General adult woman alert oriented no acute distress Abdomen soft nontender nondistended Objective Labs Labs: Laboratory Results - last 24 hr 01/28/22 07:52 SARS-CoV-2 (PCR) Negative Assessment & Plan Assessment & Plan narrative: The patient requires colorectal screening and colonoscopy is recommended. Technical details were discussed. Risks, benefits, alternatives explained. Risks including but not limited to myocardial infarction, aspiration, bleeding, pain, missed lesion, incomplete examination, need for further radiographic studies, colonic perforation, and need for major abdominal surgery were discussed. All questions were answered to their satisfaction, and they are in agreement with this plan. Time Spent With Patient Critical Care time: I spent a total of [] minutes of critical care time on this patient's care today; this time is exclusive of procedural time.
--- NOTE | 2022-01-28 09:04 | P.OP.COLON_ITS ---
Operative Date/Time/Diagnoses Date of procedure: 01/28/22 Time of procedure: 09:04 Pre-op diagnosis: Screening Post-op diagnosis: same Procedure & Clinicians Study performed: Colonoscopy Same procedure as scheduled: Yes Indications: Screening Surgeon: Bjorn Cortez Procedure Notes Procedure in detail: Medications: Conscious sedation using 5mg IV midazolam and 100mcg IV of fentanyl The history and physical was performed/updated and the patient is ASA class is 2. The procedure was discussed in detail with the patient. Potential risks complications including infection, bleeding, missed diagnosis, perforation, need for surgery, and were explained. Their questions were answered and informed consent was obtained. Patient was brought to the procedure room and placed standard monitoring equipment. The patient's vital signs were monitored continuously throughout the entire procedure. Prior to starting time-out was performed. The patient was placed in the left lateral recumbent position. Procedural sedation was adminis tered. Examination began with a thorough inspection of the perianal area there was no evidence of fissures, fistulae, external hemorrhoids or cutaneous malignancy. The colonoscopy scope was then placed into the anal canal and was advanced to the cecum, which was identified by the ileocecal valve, the appendiceal orifice and the confluence of the taenia. The scope was then slowly withdrawn examining colon thoroughly in all directions, irrigating it of any residual stool. FINDINGS 1. No masses or polyps 2. Quality of prep fair but acceptable for masses >1 cm 3. Internal hemorrhoids The patient tolerated the procedure well. They will be discharged once criteria are met. The withdrawl time was 7 minutes. The sedation time was 16 minutes. Specimen(s): none sent Complications: none Impression: Normal colonoscopy Post-procedure Recommendations: Colonoscopy in 10 years Disposition: same day surgery
[2022-01-28] MEDS: MIDAZOLAM 5 MG/5 ML VIAL IV (09:18)
[2022-01-28] MEDS: fentaNYL 100 MCG/2 ML INJ IV (09:18)
[2022-01-28 09:28] VITALS: BP 120/66; PULSE 86; RESP 14; TEMP 36.6; O2SAT 95
[2022-01-28 09:33] VITALS: BP 110/56; PULSE 87; RESP 17; O2SAT 98
[2022-01-28 09:38] VITALS: BP 110/67; PULSE 92; RESP 17; O2SAT 96
[2022-01-28 09:44] VITALS: BP 121/75; PULSE 86; RESP 16; TEMP 36.6; O2SAT 98
[2022-01-28 10:04] VITALS: BP 109/74; PULSE 83; RESP 16; TEMP 36.6; O2SAT 99
--- NOTE | 2022-01-28 10:06 | SUR.PHASEII ---
Left when ready and left in stable condition.
--- NOTE | 2022-01-28 10:17 | SUR.PHASEII ---
Pt left when ready and left in stable condition.
== END 2022-01-28 10:09 | disposition home or self-care (01) ==
PROVIDERS: PCP Nurse Practitioner; Referring Provider Surgery; Visit Provider Surgery
PROC: 0DJD8ZZ Inspection of Lower Intestinal Tract, Via Natural or Artificial Opening Endoscopic (ICD-10-PCS; CPT 45378; principal; 2022-01-28 09:15)
DX: Z12.11 Encounter for screening for malignant neoplasm of colon (principal); Z20.822 Contact with and (suspected) exposure to COVID-19; K64.8 Other hemorrhoids
CPT/HCPCS: 45378; 87635; 99152; C9803; J2250; J3010

== ENCOUNTER → 2022-08-19 07:52 | Outpatient (CLI) | payer OTHER, MEDICAID, SELFPAY ==
[2021-12-25 10:46] VITALS: BMI 33.3
[2022-08-19 09:07] LABS: Alanine Aminotransferase 69 IU/L (<35); Albumin 4.2 g/dL (3.5-5.0); Albumin Globulin Ratio 1.2 (1.0-2.8); Alkaline Phosphatase 101 U/L (38-126); Aspartate Aminotransferase 54 IU/L (14-36); BUN Creatinine Ratio 23.5 (6-22); Bilirubin Total 0.8 mg/dL (0.2-1.3); Blood Urea Nitrogen 20 mg/dL (7-17); Calcium 8.9 mg/dL (8.4-10.2); Carbon Dioxide 28 mmol/L (22-32); Chloride 99 mmol/L (98-107); Cholesterol 222 mg/dL (140-199); Estimated Glomerular Filt Rate > 60 mL/min (>60); Globulin 3.5 g/dL (1.7-4.1); Glucose 154 mg/dL (70-100); HDL Cholesterol 60 mg/dL (40-60); HEMOLYSIS 21 (0-50); LDL Cholesterol Calculated 139 mg/dL (<100); Potassium 4.5 mmol/L (3.4-5.1); Sodium 135 mmol/L (137-145); Total Protein 7.7 g/dL (6.3-8.2); Triglycerides 116 mg/dL (35-150)
[2022-08-20 02:38] LABS: Labcorp Hemoglobin (Hb) A1c 7.5 % (4.8-5.6)
== END ==
PROVIDERS: PCP Nurse Practitioner; Referring Provider Nurse Practitioner; Visit Provider Nurse Practitioner
DX: I10 Essential (primary) hypertension (principal); Z79.899 Other long term (current) drug therapy
CPT/HCPCS: 36415; 80053; 80061; 83036

== ENCOUNTER → 2022-10-29 11:49 | Outpatient (CLI) | payer OTHER, MEDICAID, SELFPAY ==
[2022-10-29 09:07] VITALS: BMI 33.3
[2022-10-29 12:54] LABS: Alanine Aminotransferase 35 IU/L (<35); Albumin Globulin Ratio 1.3 (1.0-2.8); Alkaline Phosphatase 111 U/L (38-126); Aspartate Aminotransferase 31 IU/L (14-36); Bilirubin Total 0.4 mg/dL (0.2-1.3); Blood Urea Nitrogen 17 mg/dL (7-17); Calcium 9.3 mg/dL (8.4-10.2); Carbon Dioxide 30 mmol/L (22-32); Chloride 102 mmol/L (98-107); Cholesterol 160 mg/dL (140-199); Estimated Glomerular Filt Rate > 60 mL/min (>60); Globulin 3.1 g/dL (1.7-4.1); Glucose 128 mg/dL (70-100); HDL Cholesterol 72 mg/dL (40-60); HEMOLYSIS < 15 (0-50); LDL Cholesterol Calculated 67 mg/dL (<100); Potassium 4.2 mmol/L (3.4-5.1); Sodium 137 mmol/L (137-145); Total Protein 7.1 g/dL (6.3-8.2); Triglycerides 107 mg/dL (35-150)
[2022-10-29 13:09] LABS: Free T3, Triiodothyronine Free 5.82 pg/mL (2.77-5.27); Free T4, Direct Thyroxine 1.14 ng/dL (0.78-2.19)
[2022-10-29 13:22] LABS: Thyroid Stimulating Hormone 1.95 uIU/mL (0.47-4.68)
[2022-10-29 15:16] LABS: Creatinine Urine Random 50.9 mg/dL
[2022-10-29 15:21] LABS: Microalbumin Urine Random < 0.6 mg/dL (0-1.6)
[2022-10-29 20:42] LABS: Appearance Urine UA CLEAR; Bilirubin Urine UA NEGATIVE (NEGATIVE); Color Urine UA YELLOW; Glucose Urine UA NEGATIVE (Negative); Ketones Urine UA NEGATIVE (NEGATIVE); Leukocyte Esterase Urine UA NEGATIVE (NEGATIVE); Nitrite Urine UA NEGATIVE (Negative); Occult Blood Urine UA NEGATIVE (Negative); Protein Urine UA NEGATIVE (Negative); Urobilinogen Urine UA 0.2 E.U./dL (0.2)
[2022-10-29 20:49] LABS: Bacteria Urine None Seen; Culture Indicated Urine Cult Not Indicated; RBC Urine None Seen (0-5/HPF); Squamous Epithelial Cell Urine None Seen (0-5/HPF); WBC Urine None Seen (0-5/HPF)
[2022-10-30 04:27] LABS: x Labcorp Estim. Avg Glu (eAG) 151 mg/dL (.); x Labcorp Hemoglobin A1c 6.9 % (4.8-5.6)
[2022-10-30 16:24] LABS: HIV 1 & 2 Ab/Ag 4th Gen Combo NEGATIVE (NEGATIVE)
== END ==
PROVIDERS: PCP Nurse Practitioner; Referring Provider Nurse Practitioner; Visit Provider Nurse Practitioner
DX: E78.2 Mixed hyperlipidemia (principal); F41.8 Other specified anxiety disorders; I10 Essential (primary) hypertension; R39.9 Unspecified symptoms and signs involving the genitourinary system; Z79.899 Other long term (current) drug therapy; R79.89 Other specified abnormal findings of blood chemistry; Z11.4 Encounter for screening for human immunodeficiency virus [HIV]
CPT/HCPCS: 36415; 80053; 80061; 81001; 82043; 82570; 83036; 84439; 84443; 84481; 87389

== ENCOUNTER → 2022-12-09 10:45 | Outpatient (CLI) | payer OTHER, MEDICAID, SELFPAY ==
[2022-10-29 09:07] VITALS: BMI 33.3
--- NOTE | 2022-12-09 10:46 | DI.MG.S_ITS ---
BILATERAL DIGITAL SCREENING MAMMOGRAM 3D/2D WITH CAD: 12/09/2022 CLINICAL: Routine screening. Comparison is made to exams dated: 11/27/2021 mammogram - [facility], 04/02/2020 mammogram, and 04/01/2019 mammogram - [facility]. There are scattered areas of fibroglandular density in both breasts (category b / 25%-50% glandular tissue). Current study was also evaluated with a Computer Aided Detection (CAD) system. No significant masses, calcifications, or other findings are seen in either breast. There has been no significant interval change. IMPRESSION: NEGATIVE There is no mammographic evidence of malignancy. A 1 year screening mammogram is recommended. Based on the Tyrer Cuzick model (a risk assessment model) the patient's lifetime risk is 6.5% and her 10 year risk is 2.3%. According to the ACR, ACS, and NCCN guidelines, an annual breast MRI exam along with mammogram is recommended if the patient's lifetime risk is 20% or greater. This exam was interpreted at Station ID: [id number]. NOTE: For mammograms, a report in lay terms will be sent to the patient. Approximately 15% of breast malignancies will not be visualized mammographically. In the management of a palpable breast mass, a negative mammogram must not discourage biopsy of a clinically suspicious lesion. Electronically Signed By: Bina santiago/delfino:12/09/2022 14:13:53 letter sent: Normal Exam ACR BI-RADS Category 1: Negative 3341F
== END ==
PROVIDERS: PCP Nurse Practitioner; Referring Provider Nurse Practitioner; Visit Provider Nurse Practitioner
DX: Z12.31 Encounter for screening mammogram for malignant neoplasm of breast (principal)
CPT/HCPCS: 77063; 77067

== ENCOUNTER → 2022-12-16 10:41 | Outpatient (CLI) | payer OTHER, MEDICAID, SELFPAY ==
[2022-10-29 09:07] VITALS: BMI 33.3
--- NOTE | 2022-12-16 10:41 | DI.US.S_ITS ---
PROCEDURE: US ABDOMEN LIMITED INDICATIONS: ELEVATED LFTS TECHNIQUE: Real-time focused scanning was performed of the abdomen, with image documentation. COMPARISON: [facility], US, US ABDOMEN COMPLETE, 07/09/2020, 9:53. FINDINGS: Liver is diffusely of increased echogenicity consistent with fatty change with a focal area of fatty sparing near the gallbladder measuring approximately 2.7 x 3.1 x 4.0 cm. Gallbladder is unremarkable without stones or wall thickening. Visualized portions of the pancreas are unremarkable. No dilated ducts. Common bile duct measures 4.8 mm. Imaging of a focal palpable lump in the mid epigastric region demonstrates no evidence of mass or hernia. IMPRESSION: 1. Findings consistent with diffuse hepatic steatosis. 2. No evidence of gallstone disease. Dictated by: Yvon Alberto M.D. on 12/16/2022 at 14:45 Approved by: Yvon Alberto M.D. on 12/16/2022 at 14:48
== END ==
PROVIDERS: PCP Nurse Practitioner; Referring Provider Nurse Practitioner; Visit Provider Nurse Practitioner
DX: R79.89 Other specified abnormal findings of blood chemistry (principal)
CPT/HCPCS: 76705

== ENCOUNTER → 2023-01-05 15:04 | Outpatient (CLI) | payer OTHER, MEDICAID, SELFPAY ==
[2022-10-29 09:07] VITALS: BMI 33.3
--- NOTE | 2023-01-05 15:06 | DI.RAD.S_ITS ---
PROCEDURE: XR LUMBAR SPINE 2-3V INDICATIONS: Back pain TECHNIQUE: 3 views of the lumbar spine were acquired. COMPARISON: None. FINDINGS: Bones: 5 [id number] vertebrae are present. There is normal bony alignment. No vertebral body compression fractures. No suspicious bony lesions. Soft tissues: Overlying bowel gas pattern is normal. No suspicious soft tissue calcifications. IMPRESSION: No evidence acute bony abnormality. If clinical suspicion and/or symptoms persist, further assessment with repeat plain films, or advanced imaging (e.g., CT, MRI, or bone scan) may be helpful for further assessment. Dictated by: Yvon Alberto M.D. on 01/05/2023 at 16:39 Approved by: Yvon Alberto M.D. on 01/05/2023 at 16:40
--- NOTE | 2023-01-05 15:06 | DI.RAD.S_ITS ---
PROCEDURE: XR THORACIC SPINE 3V INDICATIONS: Back pain TECHNIQUE: 3 views of the thoracic spine were acquired. COMPARISON: None. FINDINGS: Bones: No fractures or dislocations. No suspicious bony lesions. 12 pairs of ribs are noted, and appear intact where visualized. Soft tissues: No paravertebral stripe thickening. IMPRESSION: No acute bony abnormality Dictated by: Yvon Alberto M.D. on 01/05/2023 at 17:22 Approved by: Yvon Alberto M.D. on 01/05/2023 at 17:23
--- NOTE | 2023-01-05 15:06 | DI.RAD.S_ITS ---
PROCEDURE: XR SACRUM COCCYX MIN 2V INDICATIONS: Back pain TECHNIQUE: 3 views of the sacrum and coccyx acquired. COMPARISON: None. FINDINGS: Bones: No fractures or dislocations. No suspicious bony lesions. Soft tissues: Visualized bowel gas pattern is normal. No suspicious soft tissue densities. IMPRESSION: No evidence acute bony abnormality. Dictated by: Yvon Alberto M.D. on 01/05/2023 at 17:23 Approved by: Yvon Alberto M.D. on 01/05/2023 at 17:23
== END ==
PROVIDERS: PCP Nurse Practitioner; Referring Provider Nurse Practitioner Family; Visit Provider Nurse Practitioner Family
DX: M54.9 Dorsalgia, unspecified (principal)
CPT/HCPCS: 72072; 72100; 72220

== ENCOUNTER 2023-01-22 12:13 | Emergency (ER) | payer OTHER, MEDICAID, SELFPAY ==
[2022-10-29 09:07] VITALS: BMI 33.3
[2023-01-22 12:26] VITALS: TEMP 36; BMI 36.2
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
== END 2023-01-22 15:19 | disposition home or self-care (01) ==
PROVIDERS: Emergency Provider Physician Assistant; PCP Nurse Practitioner
DX: M54.31 Sciatica, right side (principal)
CPT/HCPCS: 99281; 99282

== ENCOUNTER → 2023-01-29 10:22 | Outpatient (CLI) | payer OTHER, MEDICAID, SELFPAY ==
[2022-10-29 09:07] VITALS: BMI 33.3
--- NOTE | 2023-01-29 10:23 | DI.RAD.S_ITS ---
PROCEDURE: XR HIP W PEL IF DONE RT 2V INDICATIONS: eval Right hip pain TECHNIQUE: AP pelvis with lateral view(s) of the right hip(s). COMPARISON: None. FINDINGS: Bones: No acute fracture dislocation. Possible/equivocal bilateral hip joint space narrowing. Soft tissues: The visualized bowel gas pattern is normal. No suspicious soft tissue calcifications. IMPRESSION: No acute fracture identified. If symptoms persist, follow-up radiographs and/or CT or MRI may be helpful for further evaluation. Dictated by: Leroy Del Real M.D. on 01/29/2023 at 17:59 Approved by: Leroy Del Real M.D. on 01/29/2023 at 18:00
== END ==
PROVIDERS: PCP Nurse Practitioner; Referring Provider Family Medicine; Visit Provider Family Medicine
DX: M25.551 Pain in right hip (principal)
CPT/HCPCS: 73502

== ENCOUNTER → 2023-02-19 10:05 | Outpatient (CLI) | payer OTHER, MEDICAID, SELFPAY ==
[2022-10-29 09:07] VITALS: BMI 33.3
[2023-02-19 10:58] LABS: Hemoglobin A1C% w Est Avg Glu 6.3 % (4.0-6.0)
[2023-02-19 11:19] LABS: Alanine Aminotransferase 27 IU/L (<35); Albumin 4.2 g/dL (3.5-5.0); Albumin Globulin Ratio 1.4 (1.0-2.8); Alkaline Phosphatase 92 U/L (38-126); Aspartate Aminotransferase 27 IU/L (14-36); BUN Creatinine Ratio 26.8 (6-22); Bilirubin Total 0.5 mg/dL (0.2-1.3); Blood Urea Nitrogen 19 mg/dL (7-17); Calcium 9.3 mg/dL (8.4-10.2); Carbon Dioxide 28 mmol/L (22-32); Chloride 101 mmol/L (98-107); Cholesterol 187 mg/dL (140-199); Estimated Glomerular Filt Rate > 60 mL/min (>60); Globulin 3.1 g/dL (1.7-4.1); Glucose 114 mg/dL (70-100); HDL Cholesterol 55 mg/dL (40-60); HEMOLYSIS < 15 (0-50); LDL Cholesterol Calculated 102 mg/dL (<100); Potassium 4.2 mmol/L (3.4-5.1); Sodium 137 mmol/L (137-145); Total Protein 7.3 g/dL (6.3-8.2); Triglycerides 152 mg/dL (35-150)
[2023-02-19 11:21] LABS: Creatinine Urine Random 91.6 mg/dL
[2023-02-19 11:25] LABS: Microalbumin Urine Random < 0.6 mg/dL (0-1.6)
== END ==
PROVIDERS: PCP Nurse Practitioner; Referring Provider Nurse Practitioner; Visit Provider Nurse Practitioner
DX: E11.69 Type 2 diabetes mellitus with other specified complication (principal); E78.00 Pure hypercholesterolemia, unspecified; E78.2 Mixed hyperlipidemia; F41.8 Other specified anxiety disorders; I10 Essential (primary) hypertension; R79.89 Other specified abnormal findings of blood chemistry
CPT/HCPCS: 36415; 80053; 80061; 82043; 82570; 83036

== ENCOUNTER → 2023-09-15 09:04 | Outpatient (CLI) | payer OTHER, MEDICAID, SELFPAY ==
[2022-10-29 09:07] VITALS: BMI 33.3
[2023-09-15 10:05] LABS: Hemoglobin A1C% w Est Avg Glu 6.9 % (4.0-6.0)
[2023-09-15 10:24] LABS: Alanine Aminotransferase 29 IU/L (<35); Albumin 4.7 g/dL (3.5-5.0); Albumin Globulin Ratio 1.4 (1.0-2.8); Alkaline Phosphatase 91 U/L (38-126); Aspartate Aminotransferase 28 IU/L (14-36); BUN Creatinine Ratio 23.8 (6-22); Bilirubin Total 0.7 mg/dL (0.2-1.3); Blood Urea Nitrogen 19 mg/dL (7-17); Calcium 9.6 mg/dL (8.4-10.2); Carbon Dioxide 25 mmol/L (22-32); Chloride 106 mmol/L (98-107); Cholesterol 182 mg/dL (140-199); Estimated Glomerular Filt Rate > 60 mL/min (>60); Globulin 3.4 g/dL (1.7-4.1); Glucose 120 mg/dL (70-100); HDL Cholesterol 55 mg/dL (40-60); HEMOLYSIS < 15 (0-50); LDL Cholesterol Calculated 103 mg/dL (<100); Potassium 4.4 mmol/L (3.4-5.1); Sodium 137 mmol/L (137-145); Total Protein 8.1 g/dL (6.3-8.2); Triglycerides 121 mg/dL (35-150)
[2023-09-15 10:41] LABS: Creatinine Urine Random 91.9 mg/dL
[2023-09-15 10:45] LABS: Microalbumi Creatinin Ratio Ur 7.6 ug/mg CR (<30); Microalbumin Urine Random 0.7 mg/dL (0-1.6)
== END ==
LOC: LAB 09:09
PROVIDERS: PCP Nurse Practitioner; Referring Provider Nurse Practitioner; Visit Provider Nurse Practitioner
DX: E11.69 Type 2 diabetes mellitus with other specified complication (principal); E78.00 Pure hypercholesterolemia, unspecified; R79.89 Other specified abnormal findings of blood chemistry; I10 Essential (primary) hypertension
CPT/HCPCS: 36415; 80053; 80061; 82043; 82570; 83036

== ENCOUNTER 2023-11-11 21:32 | Emergency (ER) | payer OTHER, MEDICAID, SELFPAY ==
[2022-10-29 09:07] VITALS: BMI 33.3
[2023-11-11 22:14] VITALS: BP 136/67; PULSE 98; RESP 14; TEMP 36.5; O2SAT 97; BMI 35.3
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
[2023-11-12] MEDS: PROPARACAINE 0.5% OPHTH SOL 1 DROPS EYE-BOTH (00:21)
[2023-11-12] MEDS: FLUORESCEIN 1 MG STRIP EYE-BOTH (00:22)
[2023-11-12] MEDS: SODIUM CHLORIDE IRRIG SOLUTION 1,000 ML 1000 ML IRR (00:30)
[2023-11-12 01:42] VITALS: BP 130/57; PULSE 90; RESP 18; O2SAT 98
== END 2023-11-12 01:43 | disposition home or self-care (01) ==
PROVIDERS: Emergency Provider Emergency Medicine; PCP Nurse Practitioner
DX: H57.13 Ocular pain, bilateral (principal)
CPT/HCPCS: 99282

== ENCOUNTER → 2023-12-22 09:17 | Outpatient (CLI) | payer OTHER, MEDICAID, SELFPAY ==
[2022-10-29 09:07] VITALS: BMI 33.3
[2023-12-22 09:47] LABS: Hemoglobin A1C% w Est Avg Glu 6.2 % (4.0-6.0)
[2023-12-22 09:59] LABS: Alanine Aminotransferase 25 IU/L (<35); Albumin 4.1 g/dL (3.5-5.0); Albumin Globulin Ratio 1.6 (1.0-2.8); Alkaline Phosphatase 92 U/L (38-126); Aspartate Aminotransferase 22 IU/L (14-36); BUN Creatinine Ratio 32.6 (6-22); Bilirubin Total 0.4 mg/dL (0.2-1.3); Blood Urea Nitrogen 28 mg/dL (7-17); Calcium 8.5 mg/dL (8.4-10.2); Carbon Dioxide 28 mmol/L (22-32); Chloride 106 mmol/L (98-107); Cholesterol 151 mg/dL (140-199); Estimated Glomerular Filt Rate > 60 mL/min (>60); Globulin 2.6 g/dL (1.7-4.1); Glucose 116 mg/dL (70-100); HDL Cholesterol 86 mg/dL (40-60); HEMOLYSIS < 15 (0-50); LDL Cholesterol Calculated 48 mg/dL (<100); Potassium 4.2 mmol/L (3.4-5.1); Sodium 139 mmol/L (137-145); Total Protein 6.7 g/dL (6.3-8.2); Triglycerides 85 mg/dL (35-150)
[2023-12-22 10:34] LABS: Creatinine Urine Random 118.82 mg/dL
[2023-12-22 10:42] LABS: Microalbumin Urine Random 0.7 mg/dL (0-1.6)
== END ==
PROVIDERS: PCP Nurse Practitioner; Referring Provider Nurse Practitioner; Visit Provider Nurse Practitioner
DX: E11.69 Type 2 diabetes mellitus with other specified complication (principal); E78.00 Pure hypercholesterolemia, unspecified; R79.89 Other specified abnormal findings of blood chemistry; I10 Essential (primary) hypertension; Z79.899 Other long term (current) drug therapy
CPT/HCPCS: 36415; 80053; 80061; 82043; 82570; 83036

== ENCOUNTER → 2023-12-26 10:00 | Outpatient (CLI) | payer OTHER, MEDICAID, SELFPAY ==
[2022-10-29 09:07] VITALS: BMI 33.3
--- NOTE | 2023-12-26 10:01 | DI.MG.S_ITS ---
BILATERAL DIGITAL SCREENING MAMMOGRAM 3D/2D WITH CAD: 12/26/2023 CLINICAL: Routine screening. Family history of breast cancer. Comparison is made to exams dated: 12/09/2022 mammogram, 11/27/2021 mammogram - [facility], and 04/02/2020 mammogram - [facility]. There are scattered areas of fibroglandular density in both breasts (category b / 25%-50% glandular tissue). Current study was also evaluated with a Computer Aided Detection (CAD) system. No significant masses, calcifications, or other findings are seen in either breast. There has been no significant interval change. IMPRESSION: NEGATIVE There is no mammographic evidence of malignancy. A 1 year screening mammogram is recommended. Based on the Tyrer Cuzick model (a risk assessment model) the patient's lifetime risk is 6.3% and her 10 year risk is 2.4%. According to the ACR, ACS, and NCCN guidelines, an annual breast MRI exam along with mammogram is recommended if the patient's lifetime risk is 20% or greater. This exam was interpreted at Station ID: [id number]. NOTE: For mammograms, a report in lay terms will be sent to the patient. Approximately 15% of breast malignancies will not be visualized mammographically. In the management of a palpable breast mass, a negative mammogram must not discourage biopsy of a clinically suspicious lesion. Electronically Signed By: Leeann Marcos M.D., Ph.D. ravin/delfino:12/28/2023 17:05:51 letter sent: Normal Exam ACR BI-RADS Category 1: Negative [id number]
== END ==
LOC: MAMMO 10:01
PROVIDERS: PCP Nurse Practitioner; Referring Provider Nurse Practitioner; Visit Provider Nurse Practitioner
DX: Z12.31 Encounter for screening mammogram for malignant neoplasm of breast (principal); Z80.3 Family history of malignant neoplasm of breast; R92.323 Mammographic fibroglandular density, bilateral breasts
CPT/HCPCS: 77063; 77067

== ENCOUNTER 2024-01-30 12:32 | Emergency (ER) | payer OTHER, MEDICAID, SELFPAY ==
[2022-10-29 09:07] VITALS: BMI 33.3
[2024-01-30] VITALS (10 sets, daily range): BP systolic 134–157; BP diastolic 69–85; PULSE 70–81; RESP 16–20; TEMP 36.1; O2SAT 95–100; BMI 46.7
[2024-01-30 13:08] LABS: Add Manual Diff / Slide Review NO; Basophils Absolute Auto 100 /uL (0-100); Eosinophils Absolute Auto 100 /uL (0-450); Eosinophils Percent Auto 1.5 % (2-4); Hematocrit 40.3 % (36-46); Hemoglobin 13.4 g/dL (12.0-16.0); Lymphocytes Absolute Auto 3700 /uL (1100-4500); Lymphocytes Percent Auto 38.1 % (25-40); Mean Corpuscular HGB Conc 33.2 % (30-36); Mean Corpuscular Hemoglobin 28.2 PG (26-34); Mean Corpuscular Volume 84.9 fL (80-100); Monocytes Absolute Auto 600 /uL (0-900); Monocytes Percent Auto 6.5 % (3-14); Neutrophils Absolute Auto 5200 /uL (1500-7000); Neutrophils Percent Auto 52.9 % (50-75); Platelet Count 267 X10^3/uL (150-400); Red Blood Cell Count 4.75 X10^6/uL (4.0-5.2); Red Cell Distribution Width 15.3 % (11.6-14.8); White Blood Cell Count 9.8 X10^3/uL (4.5-11.0)
[2024-01-30 13:19] LABS: Alanine Aminotransferase 33 IU/L (<35); Albumin 4.2 g/dL (3.5-5.0); Albumin Globulin Ratio 1.4 (1.0-2.8); Alkaline Phosphatase 82 U/L (38-126); Aspartate Aminotransferase 27 IU/L (14-36); BUN Creatinine Ratio 20.5 (6-22); Bilirubin Total 0.5 mg/dL (0.2-1.3); Blood Urea Nitrogen 16 mg/dL (7-17); Calcium 9.4 mg/dL (8.4-10.2); Carbon Dioxide 29 mmol/L (22-32); Chloride 105 mmol/L (98-107); Estimated Glomerular Filt Rate > 60 mL/min (>60); Glucose 77 mg/dL (70-100); HEMOLYSIS < 15 (0-50); Lipase 134 U/L (23-300); Potassium 4.1 mmol/L (3.4-5.1); Sodium 138 mmol/L (137-145); Total Protein 7.2 g/dL (6.3-8.2)
[2024-01-30] MEDS: ONDANSETRON 4 MG/2 ML INJ IV (16:13)
--- NOTE | 2024-01-30 16:26 | EKG_ITS ---
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
--- NOTE | 2024-01-30 17:00 | DI.CT.S_ITS ---
PROCEDURE: CT ABDOMEN PELVIS W CON INDICATIONS: abd pain TECHNIQUE: After the administration of intravenous contrast, axial sections acquired from the lung bases to the pubic symphysis. Coronal and sagittal reformats were performed. For radiation dose reduction, the following was used: automated exposure control, adjustment of mA and/or kV according to patient size. COMPARISON: None. FINDINGS: Image quality: Diagnostic. Lower Chest: No significant findings. ABDOMEN: Liver: No solid mass. Gallbladder: No radiopaque gallstones or wall thickening. Biliary ducts: No biliary dilation. Pancreas: No ductal dilation. Spleen: Size is within normal limits. Adrenal Glands: No adrenal nodules. Kidneys and Ureters: No hydronephrosis. No solid mass. No complex renal cystic lesion which requires follow up. Stomach and Bowel: Normal colonic caliber, without significant wall thickening. Peritoneum: No abnormal intraperitoneal fluid. No free air. Ventral Wall: No significant ventral hernia. Abdominal Nodes: No retroperitoneal or mesenteric adenopathy by size criteria. Vessels: Aorta and inferior vena cava are normal in size. PELVIS: Pelvic Organs: Unremarkable. Bladder: No bladder wall thickening, accounting for underdistention. Pelvic Nodes: No enlarged lymph nodes. Miscellaneous: No inguinal hernias are seen. Bones: No aggressive osseous abnormality. IMPRESSION: No CT evidence for the etiology of the patient's symptoms. Specifically, no appendicitis, diverticulitis, urolithiasis, or obstruction. Dictated by: Raven Bowman M.D. on 01/30/2024 at 17:03 Approved by: Raven Bowman M.D. on 01/30/2024 at 17:06
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
[2024-01-30] MEDS: MORPHINE 4 MG/ML INJ IV (18:15)
[2024-01-30] MEDS: LACTULOSE 20 GM/30 ML SOLUTION PO (19:09)
== END 2024-01-30 19:18 | disposition home or self-care (01) ==
PROVIDERS: Emergency Provider Emergency Medicine; PCP Nurse Practitioner
DX: R10.9 Unspecified abdominal pain (principal); R30.0 Dysuria; Z79.899 Other long term (current) drug therapy
CPT/HCPCS: 36415; 74177; 80053; 81003; 83690; 85025; 93005; 93010; 96374; 96375; 99284; J2270; J2405; Q9967

== ENCOUNTER 2024-02-22 18:47 | Emergency (ER) | payer OTHER, MEDICAID, SELFPAY ==
[2022-10-29 09:07] VITALS: BMI 33.3
[2024-02-22 18:50] VITALS: BP 178/93; PULSE 96; RESP 16; TEMP 37; O2SAT 100; BMI 31.7
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
[2024-02-22] MEDS: ACETAMINOPHEN 325 MG TABLET 975 MG PO (19:25)
[2024-02-22] MEDS: OXYCODONE IR 5 MG TABLET PO (19:26)
--- NOTE | 2024-02-22 20:07 | PC.NURSE ---
BUILDING CONSTRUCTION TEACHER note: Attempted to clean/rinse patient's wound. Cleaned around the space using warm water, a washcloth, and some lubricating jelly. When I got close to the wound itself, patient moaned and vocalized pain. Her hands shake and I attempted to clean wound as best as feasible.
[2024-02-22 21:06] VITALS: BP 164/78; PULSE 87; RESP 17; O2SAT 98
== END 2024-02-22 21:07 | disposition home or self-care (01) ==
PROVIDERS: Emergency Provider Emergency Medicine; PCP Nurse Practitioner
DX: S00.03XA Contusion of scalp, initial encounter (principal); S01.01XA Laceration without foreign body of scalp, initial encounter; W18.09XA Striking against other object with subsequent fall, initial encounter
CPT/HCPCS: 12001; 70450; 99283; 99284

== ENCOUNTER → 2024-08-24 10:16 | Outpatient (CLI) | payer OTHER, SELFPAY ==
[2022-10-29 09:07] VITALS: BMI 33.3
[2024-08-24 11:27] LABS: COVID-19 CEPHEID 4-PLEX PCR Negative (Negative); Influenza A - CEPHEID Flu A NEGATIVE (NEGATIVE); Influenza B - CEPHEID Flu B NEGATIVE (NEGATIVE); Respiratory Syncytial Virus Negative (Negative)
== END ==
PROVIDERS: PCP Family Medicine; Visit Provider Physician Assistant
DX: R19.7 Diarrhea, unspecified (principal); A09 Infectious gastroenteritis and colitis, unspecified
CPT/HCPCS: 0241U

== ENCOUNTER → 2024-08-24 13:11 | Outpatient (CLI) | payer OTHER, SELFPAY ==
[2022-10-29 09:07] VITALS: BMI 33.3
== END ==
PROVIDERS: PCP Family Medicine; Referring Provider Physician Assistant; Visit Provider Physician Assistant
DX: R19.7 Diarrhea, unspecified (principal); A09 Infectious gastroenteritis and colitis, unspecified
CPT/HCPCS: 0241U; 87045; 87177

== ENCOUNTER → 2024-09-28 12:11 | Outpatient (CLI) | payer OTHER, SELFPAY ==
[2022-10-29 09:07] VITALS: BMI 33.3
[2024-09-28 13:11] LABS: Hematocrit 41.6 % (36-46); Hemoglobin 13.8 g/dL (12.0-16.0); Mean Corpuscular HGB Conc 33.1 % (30-36); Mean Corpuscular Hemoglobin 27.7 PG (26-34); Mean Corpuscular Volume 83.7 fL (80-100); Platelet Count 278 X10^3/uL (150-400); Red Blood Cell Count 4.97 X10^6/uL (4.0-5.2); Red Cell Distribution Width 14.9 % (11.6-14.8); White Blood Cell Count 6.5 X10^3/uL (4.5-11.0)
[2024-09-28 13:41] LABS: Alanine Aminotransferase 26 IU/L (<35); Albumin 4.7 g/dL (3.5-5.0); Albumin Globulin Ratio 1.6 (1.0-2.8); Alkaline Phosphatase 99 U/L (38-126); Aspartate Aminotransferase 30 IU/L (14-36); BUN Creatinine Ratio 28.9 (6-22); Bilirubin Total 0.8 mg/dL (0.2-1.3); Blood Urea Nitrogen 24 mg/dL (7-17); Calcium 9.5 mg/dL (8.4-10.2); Carbon Dioxide 26 mmol/L (22-32); Chloride 105 mmol/L (98-107); Cholesterol 163 mg/dL (140-199); Estimated Glomerular Filt Rate > 60 mL/min (>60); Globulin 2.9 g/dL (1.7-4.1); Glucose 105 mg/dL (70-99); HDL Cholesterol 72 mg/dL (40-60); HEMOLYSIS < 15 (0-50); LDL Cholesterol Calculated 67 mg/dL (<100); Potassium 4.6 mmol/L (3.4-5.1); Sodium 140 mmol/L (137-145); Total Protein 7.6 g/dL (6.3-8.2); Triglycerides 121 mg/dL (35-150)
[2024-09-28 15:45] LABS: Microalbumin Urine Random 0.7 mg/dL (0-1.6)
[2024-09-28 15:46] LABS: Creatinine Urine Random 135.87 mg/dL
== END ==
PROVIDERS: PCP Family Medicine; Referring Provider Family Medicine; Visit Provider Family Medicine
DX: E11.69 Type 2 diabetes mellitus with other specified complication (principal); E78.00 Pure hypercholesterolemia, unspecified; I10 Essential (primary) hypertension; R79.89 Other specified abnormal findings of blood chemistry
CPT/HCPCS: 36415; 80053; 80061; 82043; 82570; 83036; 85027

== ENCOUNTER → 2025-02-15 08:41 | Outpatient (CLI) | payer OTHER, SELFPAY ==
[2022-10-29 09:07] VITALS: BMI 33.3
[2025-02-15 09:13] LABS: Hemoglobin A1C% w Est Avg Glu 6.5 % (4.0-6.0)
[2025-02-15 10:23] LABS: Alanine Aminotransferase 23 IU/L (<35); Albumin 4.3 g/dL (3.5-5.0); Albumin Globulin Ratio 1.5 (1.0-2.8); Alkaline Phosphatase 96 U/L (38-126); Blood Urea Nitrogen 18 mg/dL (7-17); Calcium 9.2 mg/dL (8.4-10.2); Carbon Dioxide 27 mmol/L (22-32); Chloride 103 mmol/L (98-107); Cholesterol 148 mg/dL (140-199); Estimated Glomerular Filt Rate > 60 mL/min (>60); Globulin 2.8 g/dL (1.7-4.1); Glucose 149 mg/dL (70-99); HDL Cholesterol 68 mg/dL (40-60); HEMOLYSIS < 15 (0-50); Potassium 4.6 mmol/L (3.4-5.1); Sodium 138 mmol/L (137-145); Total Protein 7.1 g/dL (6.3-8.2); Triglycerides 130 mg/dL (35-150)
== END ==
PROVIDERS: PCP Family Medicine; Referring Provider Family Medicine; Visit Provider Family Medicine
DX: E11.69 Type 2 diabetes mellitus with other specified complication (principal); E78.00 Pure hypercholesterolemia, unspecified; I10 Essential (primary) hypertension
CPT/HCPCS: 36415; 80053; 80061; 83036

== ENCOUNTER → 2025-02-18 10:04 | Outpatient (CLI) | payer OTHER, SELFPAY ==
[2022-10-29 09:07] VITALS: BMI 33.3
--- NOTE | 2025-02-18 10:06 | DI.MG.S_ITS ---
MM screening mammo BI: 02/18/2025. BI-RADS: 1 CLINICAL: 59-year old female for bilateral screening mammogram. Tyrer-Cuzick lifetime risk of 10.0%. Current reported family history of breast cancer: daughter. PRIOR EXAMS 12/26/2023, 12/09/2022, 11/27/2021, 04/02/2020. MAMMOGRAPHY TECHNIQUE: 2D and 3D (tomosynthesis) digital mammographic views obtained, with additional images as needed for full coverage. Current study was also evaluated with a Computer Aided Detection (CAD) system. DENSITY B. There are scattered areas of fibroglandular density. MAMMOGRAPHY FINDINGS Bilateral: No suspicious mass, asymmetry, microcalcification, or other abnormality seen. IMPRESSION: * No evidence of malignancy. RECOMMENDATIONS Bilateral * Annual screening mammography. OVERALL ASSESSMENT CATEGORY BI-RADS-1: Negative. [employer] recommends annual screening mammography beginning at age 40 for women with average risk of breast cancer. ELECTRONICALLY SIGNED: Carmen Hinson M.D. on 02/20/2025 at 10:06:18 PM PT Interpreting Station ID: [id number]
== END ==
PROVIDERS: PCP Family Medicine; Referring Provider Family Medicine; Visit Provider Family Medicine
DX: Z12.31 Encounter for screening mammogram for malignant neoplasm of breast (principal); Z80.3 Family history of malignant neoplasm of breast
CPT/HCPCS: 77063; 77067